=== PATIENT | male | born 1935 | race Caucasian/White ===

== ENCOUNTER 2016-12-04 00:28 | Emergency (ER) | payer MEDICARE, OTHER ==
--- NOTE | 2016-12-04 00:36 | ED ---
General Adult HPI - General Stated complaint: urinary issues Time Seen by Provider: 12/04/16 00:30 Source: RN notes reviewed - History of Present Illness Initial comments: This is an 81-year-old male who presents to the emergency department complaining of urinary retention. Patient states he has a Mathew in place and he hasn't been able to urinate for the last 5 hours. Patient states he's noticed some distention the suprapubic region and some pain in the suprapubic region. Patient states his Mathew bag is been empty for 5 hours. Patient denies any fever or chills. Patient states this has happened to him before and it has been a urinary tract infection the past. Patient denies any back pain. Patient denies nausea vomiting or diarrhea. Patient denies any other symptoms at this time. - Related Data Home Medications Medication Instructions Recorded Confirmed Furosemide [Lasix] 40 mg PO BID 06/13/14 05/13/16 HYDROcodone/APAP 10-325MG [[place] 1 tab PO Q6H PRN 03/28/15 05/13/16 10] Finasteride [Proscar] 5 mg PO HS 01/01/16 05/13/16 Allopurinol [Zyloprim] 100 mg PO DAILY 05/13/16 05/13/16 Aspirin EC [Ecotrin Low Dose] 81 mg PO DAILY 05/13/16 05/13/16 Atorvastatin [Lipitor] 40 mg PO HS 05/13/16 05/13/16 Diazepam [Valium] 5 mg PO HS 05/13/16 05/13/16 Doxazosin [Cardura] 4 mg PO BID 05/13/16 05/13/16 Fluticasone/Salmeterol [Advair Hfa 2 puff INHALATION RT-BID 05/13/16 05/13/16 230-21 Mcg Inhaler] Isosorbide Mononitrate ER [Imdur] 60 mg PO DAILY 05/13/16 05/13/16 Levothyroxine Sodium [Synthroid] 150 mcg PO HS 05/13/16 05/13/16 Losartan [Cozaar] 25 mg PO DAILY 05/13/16 05/13/16 PARoxetine [Paxil] 10 mg PO BID 05/13/16 05/13/16 [facility] 1 cap PO DAILY 05/13/16 05/13/16 Potassium Chloride [Klor-Con 20] 20 meq PO BID 05/13/16 05/13/16 glipiZIDE [Glucotrol] 5 mg PO HS 05/13/16 05/13/16 Previous Rx's Medication Instructions Recorded Ciprofloxacin HCl [Cipro] 500 mg PO DAILY #7 tablet 05/16/16 Ciprofloxacin HCl [Cipro] 500 mg PO Q12HR #20 tablet 12/04/16 Allergies Allergy/AdvReac Type Severity Reaction Status Date / Time tomato Allergy Swelling Verified 05/13/16 17:08 Review of Systems ROS Statement: Those systems with pertinent positive or pertinent negative responses have been documented in the HPI. ROS Other: All systems not noted in ROS Statement are negative. 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,NIDDM, pneumonia and encephalopathy 2nday to infection, home oxygen dependence-uses at night-3L/NC, urinary retention, UTI, bacteremia, osteomyelitis, SIR, chronic catheter, diabeticneuropathy, chronic renal failure , gout,hypothyroidism,Gait dysfunction uses wheelchair,DJD, severe constipation.gout,hypothyroidism,Gait dysfunction uses wheelchair,Chronic catheter History of Any Multi-Drug Resistant Organisms: MRSA Date of last positivie culture/infection: 04/09/16 MDRO Source:: right foot Past Surgical History: Back Surgery, Coronary Bypass/CABG, Hernia Repair Additional Past Surgical History / Comment(s): 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 Past Psychological History: Anxiety, Depression Additional Psychological History / Comment(s): Pt lives in his home. His keenan and grandson and grandson's girlfriend live with him. Family help him with his ADL's. Pt has a chairlift. Pt has an agency nurse from [place] that comes to the [facility] a week. The nurse checks his v/s and monitors his feet. They also provide him physical therapy. Pt uses o2 at 3L/NC atnight. Pt has a chronic mathew. He uses a back brace and an arm brace.He is wheelchair bound. Smoking Status: Current every day smoker Past Alcohol Use History: None Reported, Occasional Additional Past Alcohol Use History / Comment(s): STARTED SMOKING AT AGE 13 ON AND OFF- he currently smokes 1- 1 1/2 packs a day. Past Drug Use History: None Reported - Past Family History Sister(s) Family Medical History: Cancer Mother Family Medical History: Diabetes Mellitus Additional Family Medical History / Comment(s): Pt remembers only that his mom was obese. General Exam - General Exam Comments Initial Comments: GENERAL: Patient is well-developed and well-nourished. Patient is nontoxic and well- hydrated and is in mild distress. ENT: Neck is soft and supple. No significant lymphadenopathy is noted. Oropharynx is clear. Moist mucous membranes. Neck has full range of motion without eliciting any pain. EYES: The sclera were anicteric and conjunctiva were pink and moist. Extraocular movements were intact and pupils were equal round and reactive to light. Eyelids were unremarkable. PULMONARY: Unlabored respirations. Good breath sounds bilaterally. No audible rales rhonchi or wheezing was noted. CARDIOVASCULAR: There is a regular rate and rhythm without any murmurs gallops or rubs. ABDOMEN: Patient has some suprapubic tenderness as well as slight distention SKIN: Skin is clear with no lesions or rashes and otherwise unremarkable. NEUROLOGIC: Patient is alert and oriented 2. Cranial nerves II through XII are grossly intact. Motor and sensory are also intact. Normal speech, volume and content. Symmetrical smile. MUSCULOSKELETAL: Patient is a bilateral amputee LYMPHATICS: No significant lymphadenopathy is noted PSYCHIATRIC: Normal psychiatric evaluation. Course Vital Signs 12/04/16 12/04/16 00:38 01:20 Temperature 97.9 F Pulse Rate 77 Respiratory 16 16 Rate Blood Pressure 140/88 O2 Sat by Pulse 95 99 Oximetry Medical Decision Making - Medical Decision Making A bladder scanner was performed of the patient had 450 mL in the bladder however he was unable to urinate the catheter was flushed multiple times it did not seem to help a new catheter was placed immediately 450 mL of urine came into the back. Patient's urine did look infected so the patient received a gram of Rocephin. Patient will be sent home with antibiotics - Lab Data Result diagrams: 12/04/16 01:05 12/04/16 01:05 Lab Results 12/04/16 12/04/16 12/04/16 Range/Units 00:50 01:05 01:05 WBC 9.5 (3.8-10.6) k/uL RBC 3.88 L (4.30-5.90) m/uL Hgb 11.2 L (13.0-17.5) gm/dL Hct 34.8 L (39.0-53.0) % MCV 89.6 (80.0-100.0) fL MCH 28.8 (25.0-35.0) pg MCHC 32.2 (31.0-37.0) g/dL RDW 15.7 H (11.5-15.5) % Plt Count 241 (150-450) k/uL Neutrophils % 68 % Lymphocytes % 18 % Monocytes % 5 % Eosinophils % 7 % Basophils % 0 % Neutrophils # 6.4 (1.3-7.7) k/uL Lymphocytes # 1.8 (1.0-4.8) k/uL Monocytes # 0.5 (0-1.0) k/uL Eosinophils # 0.7 (0-0.7) k/uL Basophils # 0.0 (0-0.2) k/uL Sodium 139 (137-145) mmol/L Potassium 4.2 (3.5-5.1) mmol/L Chloride 103 (98-107) mmol/L Carbon Dioxide 25 (22-30) mmol/L Anion Gap 11 mmol/L BUN 19 (9-20) mg/dL Creatinine 1.10 (0.66-1.25) mg/dL Est GFR (MDRD) Af Amer >60 (>60 ml/min/1.73 sqM) Est GFR (MDRD) Non-Af >60 (>60 ml/min/1.73 sqM) Glucose 81 (74-99) mg/dL Calcium 9.7 (8.4-10.2) mg/dL Total Bilirubin 0.5 (0.2-1.3) mg/dL AST 38 (17-59) U/L ALT 30 (21-72) U/L Alkaline Phosphatase 118 (38-126) U/L Total Protein 6.7 (6.3-8.2) g/dL Albumin 3.7 (3.5-5.0) g/dL Urine Color Yellow Urine Appearance Cloudy (Clear) Urine pH 6.0 (5.0-8.0) Ur Specific [place] 1.008 (1.001-1.035) Urine Protein 1+ H (Negative) Urine Glucose (UA) Negative (Negative) Urine Ketones Negative (Negative) Urine Blood Small H (Negative) Urine Nitrite Positive (Negative) Urine Bilirubin Negative (Negative) Urine Urobilinogen <2.0 (<2.0) mg/dL Ur Leukocyte Esterase Large H (Negative) Urine RBC 12 H (0-5) /hpf Urine WBC 56 H (0-5) /hpf Urine WBC Clumps Moderate H (None) /hpf Ur Squamous Epith Cells 1 (0-4) /hpf Urine Bacteria Moderate H (None) /hpf Urine Mucus Occasional H (None) /hpf Disposition Clinical Impression: Urinary retention, Urinary tract infection Disposition: HOME SELF-CARE Condition: Good Prescriptions: Ciprofloxacin HCl [Cipro] 500 mg PO Q12HR #20 tablet Referrals: Vern Mills MD [Primary Care Provider] - 1-2 days Time of Disposition: 01:51
[2016-12-04 00:43] VITALS: RESP 16; TEMP 97.9
[2016-12-04 01:06] LABS: Appearance,Urine Cloudy (Clear); Bacteria,Urine Moderate /hpf; Bilirubin,Urine Negative (Negative); Glucose,Urine (UA) Negative (Negative); Ketones,Urine Negative (Negative); Leukocyte Esterase,Urine Large (Negative); Mucus,Urine Occasional /hpf; Nitrite,Urine Positive (Negative); Particle Count 99115; Protein,Urine 1+ (Negative); RBC,Urine 12 /hpf (0-5); Specific Gravity,Urine 1.008 (1.001-1.035); Squamous Epithelial Cell,Urine 1 /hpf (0-4); UA Billing (MACRO vs. MICRO) MICRO; Urobilinogen,Urine <2.0 mg/dL (<2.0); WBC,Urine 56 /hpf (0-5)
[2016-12-04 01:28] LABS: Basophils % (A) 0 %; CHCM 32.6; Eosinophils # (A) 0.7 k/uL (0-0.7); Eosinophils % (A) 7 %; HCT 34.8 % (39.0-53.0); HDW 2.44; HGB 11.2 gm/dL (13.0-17.5); Luc # (Auto) 0.16; Luc % (Auto) 2; Lymphocytes # (A) 1.8 k/uL (1.0-4.8); Lymphocytes % (A) 18 %; MCH 28.8 pg (25.0-35.0); MCHC 32.2 g/dL (31.0-37.0); MCV 89.6 fL (80.0-100.0); Mean Platelet Volume 6.9; Monocytes # (A) 0.5 k/uL (0-1.0); Monocytes % (A) 5 %; Neutrophils # (A) 6.4 k/uL (1.3-7.7); Neutrophils % (A) 68 %; RBC 3.88 m/uL (4.30-5.90); RDW 15.7 % (11.5-15.5); WBC 9.5 k/uL (3.8-10.6); WBC (Perox) 9.64
[2016-12-04 01:33] LABS: ALT 30 U/L (21-72); AST 38 U/L (17-59); Alkaline Phosphatase 118 U/L (38-126); Anion Gap 11 mmol/L; Blood Urea Nitrogen 19 mg/dL (9-20); Calcium 9.7 mg/dL (8.4-10.2); Carbon Dioxide 25 mmol/L (22-30); Chloride 103 mmol/L (98-107); Glucose 81 mg/dL (74-99); Non-African American GFR(MDRD) >60 (>60 ml/min/1.73 sqM); Potassium 4.2 mmol/L (3.5-5.1); Sodium 139 mmol/L (137-145); Total Bilirubin 0.5 mg/dL (0.2-1.3); Total Protein 6.7 g/dL (6.3-8.2)
[2016-12-04 02:38] VITALS: BP 138/80; PULSE 70
== END 2016-12-04 02:37 | disposition home or self-care (01) ==
LOC: EC 00:28
DX: N39.0 Urinary tract infection, site not specified (principal); R10.30 Lower abdominal pain, unspecified; J45.909 Unspecified asthma, uncomplicated; E11.9 Type 2 diabetes mellitus without complications; E07.9 Disorder of thyroid, unspecified; E78.5 Hyperlipidemia, unspecified; I10 Essential (primary) hypertension; E03.9 Hypothyroidism, unspecified; M10.9 Gout, unspecified; F41.9 Anxiety disorder, unspecified; F32.9 Major depressive disorder, single episode, unspecified; F17.200 Nicotine dependence, unspecified, uncomplicated; N42.9 Disorder of prostate, unspecified; Z79.82 Long term (current) use of aspirin; Z79.899 Other long term (current) drug therapy; Z79.51 Long term (current) use of inhaled steroids; Z91.018 Allergy to other foods; Z87.01 Personal history of pneumonia (recurrent)
CPT/HCPCS: 36415; 80053; 85025; 81001; 99283; 51702; J0696

== ENCOUNTER 2017-01-22 02:28 | Emergency (ER) | payer MEDICARE, OTHER ==
[2017-01-22 02:35] VITALS: RESP 18
[2017-01-22 03:16] LABS: Amorphous Sediment,Urine Occasional /hpf; Appearance,Urine Cloudy (Clear); Bilirubin,Urine Negative (Negative); Glucose,Urine (UA) Negative (Negative); Ketones,Urine Negative (Negative); Leukocyte Esterase,Urine Large (Negative); Mucus,Urine Rare /hpf; Nitrite,Urine Negative (Negative); PH, Urine 5.5 (5.0-8.0); Particle Count 5457; Protein,Urine Trace (Negative); RBC,Urine 103 /hpf (0-5); Specific Gravity,Urine 1.005 (1.001-1.035); UA Billing (MACRO vs. MICRO) MICRO; Urobilinogen,Urine <2.0 mg/dL (<2.0); WBC,Urine 13 /hpf (0-5)
--- NOTE | 2017-01-22 04:03 | ED ---
Male Urogenital HPI - General Chief complaint: Urogenital Stated complaint: Male Time Seen by Provider: 01/22/17 02:31 Source: patient, EMS Mode of arrival: EMS Limitations: no limitations - History of Present Illness Initial comments: This patient is an 82-year-old man who comes in by EMS to be evaluated after he had noted that his catheter has stopped draining. The patient is also having the urge to urinate and feeling suprapubic pressure type pain. Patient denies fever or chills, nausea or vomiting, back pain or other abdominal pain. MD Complaint: other (Mathew catheter malfunction) -: hour(s) Location: abdomen Radiation: none Severity: moderate Quality: other (Pressure) Consistency: constant Improves with: none Worsens with: none indwelling catheter Reports: denies other symptoms, urinary retention - Related Data Home Medications Medication Instructions Recorded Confirmed Furosemide [Lasix] 40 mg PO BID 06/13/14 05/13/16 HYDROcodone/APAP 10-325MG [[place] 1 tab PO Q6H PRN 03/28/15 05/13/16 10] Finasteride [Proscar] 5 mg PO HS 01/01/16 05/13/16 Allopurinol [Zyloprim] 100 mg PO DAILY 05/13/16 05/13/16 Aspirin EC [Ecotrin Low Dose] 81 mg PO DAILY 05/13/16 05/13/16 Atorvastatin [Lipitor] 40 mg PO HS 05/13/16 05/13/16 Diazepam [Valium] 5 mg PO HS 05/13/16 05/13/16 Doxazosin [Cardura] 4 mg PO BID 05/13/16 05/13/16 Fluticasone/Salmeterol [Advair Hfa 2 puff INHALATION RT-BID 05/13/16 05/13/16 230-21 Mcg Inhaler] Isosorbide Mononitrate ER [Imdur] 60 mg PO DAILY 05/13/16 05/13/16 Levothyroxine Sodium [Synthroid] 150 mcg PO HS 05/13/16 05/13/16 Losartan [Cozaar] 25 mg PO DAILY 05/13/16 05/13/16 PARoxetine [Paxil] 10 mg PO BID 05/13/16 05/13/[address] [facility] 1 cap PO DAILY 05/13/16 05/13/16 Potassium Chloride [Klor-Con 20] 20 meq PO BID 05/13/16 05/13/16 glipiZIDE [Glucotrol] 5 mg PO HS 05/13/16 05/13/16 Previous Rx's Medication Instructions Recorded Ciprofloxacin HCl [Cipro] 500 mg PO DAILY #7 tablet 05/16/16 Ciprofloxacin HCl [Cipro] 500 mg PO Q12HR #20 tablet 12/04/16 Allergies Allergy/AdvReac Type Severity Reaction Status Date / Time tomato Allergy Swelling Verified 01/22/17 02:39 Review of Systems ROS Statement: Those systems with pertinent positive or pertinent negative responses have been documented in the HPI. ROS Other: All systems not noted in ROS Statement are negative. Constitutional: Denies: fever, chills, weakness Respiratory: Denies: cough, dyspnea Cardiovascular: Denies: chest pain, palpitations, edema, syncope Gastrointestinal: Reports: as per HPI, abdominal pain. Denies: nausea, vomiting Genitourinary: Reports: as per HPI, other. 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,NIDDM, pneumonia and encephalopathy 2nday to infection, home oxygen dependence-uses at night-3L/NC, urinary retention, UTI, bacteremia, osteomyelitis, SIR, chronic catheter, diabeticneuropathy, chronic renal failure , gout,hypothyroidism,Gait dysfunction uses wheelchair,DJD, severe constipation.gout,hypothyroidism,Gait dysfunction uses wheelchair,Chronic catheter History of Any Multi-Drug Resistant Organisms: MRSA Date of last positivie culture/infection: 04/09/16 MDRO Source:: right foot Past Surgical History: Back Surgery, Coronary Bypass/CABG, Hernia Repair Additional Past Surgical History / Comment(s): 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 Past Psychological History: Anxiety, Depression Additional Psychological History / Comment(s): Pt lives in his home. His keenan and grandson and grandson's girlfriend live with him. Family help him with his ADL's. Pt has a chairlift. Pt has an agency nurse from [place] that comes to the [facility] a week. The nurse checks his v/s and monitors his feet. They also provide him physical therapy. Pt uses o2 at 3L/NC atnight. Pt has a chronic mathew. He uses a back brace and an arm brace.He is wheelchair bound. Smoking Status: Current every day smoker Past Alcohol Use History: None Reported, Occasional Additional Past Alcohol Use History / Comment(s): STARTED SMOKING AT AGE 13 ON AND OFF- he currently smokes 1- 1 1/2 packs a day. Past Drug Use History: None Reported - Past Family History Sister(s) Family Medical History: Cancer Mother Family Medical History: Diabetes Mellitus Additional Family Medical History / Comment(s): Pt remembers only that his mom was obese. General Exam Limitations: no limitations General appearance: alert, in no apparent distress Head exam: Present: atraumatic, normocephalic Respiratory exam: Present: normal lung sounds bilaterally. Absent: respiratory distress, wheezes, rales, rhonchi, stridor Cardiovascular Exam: Present: regular rate, normal rhythm, normal heart sounds. Absent: systolic murmur, diastolic murmur, rubs, gallop GI/Abdominal exam: Present: soft, tenderness (Mild suprapubic tenderness), guarding. Absent: distended, rebound, rigid, hernia Extremities exam: Present: other (Bilateral AKA) Back exam: Present: normal inspection. Absent: CVA tenderness (R), CVA tenderness (L) Neurological exam: Present: alert Skin exam: Present: warm, dry, intact, normal color. Absent: rash Course Vital Signs 01/22/17 01/22/17 02:31 04:13 Temperature 98.5 F 99.2 F Pulse Rate 87 84 Respiratory 18 18 Rate Blood Pressure 160/72 120/66 O2 Sat by Pulse 96 95 Oximetry Medical Decision Making - Medical Decision Making Patient is an 82-year-old man presenting with Mathew catheter malfunction. The catheter was changed by nursing staff and is draining appropriately. Urine specimen was sent which shows probable UTI and the patient currently is on medication. Culture sent - Lab Data Lab Results 01/22/17 Range/Units 03:00 Urine Color Yellow Urine Appearance Cloudy (Clear) Urine pH 5.5 (5.0-8.0) Ur Specific [place] 1.005 (1.001-1.035) Urine Protein Trace H (Negative) Urine Glucose (UA) Negative (Negative) Urine Ketones Negative (Negative) Urine Blood Large H (Negative) Urine Nitrite Negative (Negative) Urine Bilirubin Negative (Negative) Urine Urobilinogen <2.0 (<2.0) mg/dL Ur Leukocyte Esterase Large H (Negative) Urine RBC 103 H (0-5) /hpf Urine WBC 13 H (0-5) /hpf Urine WBC Clumps Few H (None) /hpf Amorphous Sediment Occasional H (None) /hpf Urine Mucus Rare H (None) /hpf Disposition Clinical Impression: Malfunction of Mathew catheter, Catheter-associated urinary tract infection Disposition: HOME SELF-CARE Condition: Fair Referrals: Vern Mills MD [Primary Care Provider] - 1-2 days
[2017-01-22 04:14] VITALS: BP 120/66; PULSE 84; TEMP 99.2
== END 2017-01-22 04:17 | disposition home or self-care (01) ==
LOC: EC 02:28
DX: T83.098A Other mechanical complication of other urinary catheter, initial encounter (principal); N39.0 Urinary tract infection, site not specified; J45.909 Unspecified asthma, uncomplicated; I10 Essential (primary) hypertension; N42.9 Disorder of prostate, unspecified; E03.9 Hypothyroidism, unspecified; N28.9 Disorder of kidney and ureter, unspecified; E11.40 Type 2 diabetes mellitus with diabetic neuropathy, unspecified; F32.9 Major depressive disorder, single episode, unspecified; F41.9 Anxiety disorder, unspecified; F17.200 Nicotine dependence, unspecified, uncomplicated; Z79.82 Long term (current) use of aspirin; Z79.84 Long term (current) use of oral hypoglycemic drugs; Z79.899 Other long term (current) drug therapy; Z91.018 Allergy to other foods
CPT/HCPCS: 51702; 81001; 87077; 87086; 87186; 99283

== ENCOUNTER 2017-02-17 18:37 | Emergency (ER) | payer MEDICARE, OTHER ==
[2017-02-17 19:04] VITALS: BP 101/58; PULSE 89; RESP 18; TEMP 98.4
--- NOTE | 2017-02-17 20:30 | ED ---
Male Urogenital HPI - General Chief complaint: Urogenital Stated complaint: Catheter Problem Time Seen by Provider: 02/17/17 19:37 Source: patient, RN notes reviewed, old records reviewed Mode of arrival: EMS Limitations: no limitations - History of Present Illness Initial comments: Is an 82-year-old male presenting with chief complaint of a blocked Mathew catheter. Patient reports that he was recently changed by his at home care nurse today. Patient states that he has had an indwelling catheter due to paraplegia. 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 Patient reports that he is feeling distended and painful. - Related Data Home Medications Medication Instructions Recorded Confirmed Furosemide [Lasix] 40 mg PO BID 06/13/14 02/17/17 HYDROcodone/APAP 10-325MG [[place] 1 tab PO Q6H PRN 03/28/15 02/17/17 10] Finasteride [Proscar] 5 mg PO HS 01/01/16 02/17/17 Allopurinol [Zyloprim] 100 mg PO DAILY 05/13/16 02/17/17 Aspirin EC [Ecotrin Low Dose] 81 mg PO DAILY 05/13/16 02/17/17 Atorvastatin [Lipitor] 40 mg PO HS 05/13/16 02/17/17 Doxazosin [Cardura] 4 mg PO BID 05/13/16 02/17/17 Fluticasone/Salmeterol [Advair Hfa 2 puff INHALATION RT-BID 05/13/16 02/17/17 230-21 Mcg Inhaler] Isosorbide Mononitrate ER [Imdur] 60 mg PO DAILY 05/13/16 02/17/17 Levothyroxine Sodium [Synthroid] 150 mcg PO HS 05/13/16 02/17/17 Losartan [Cozaar] 25 mg PO DAILY 05/13/16 02/17/17 PARoxetine [Paxil] 10 mg PO BID 05/13/16 02/17/17 Potassium Chloride [Klor-Con 20] 20 meq PO BID 05/13/16 02/17/17 glipiZIDE [Glucotrol] 5 mg PO HS 05/13/16 02/17/17 Previous Rx's Medication Instructions Recorded Ciprofloxacin HCl [Cipro] 500 mg PO Q12HR #14 tablet 02/17/17 Allergies Allergy/AdvReac Type Severity Reaction Status Date / Time tomato Allergy Swelling Verified 02/17/17 19:33 Review of Systems ROS Statement: Those systems with pertinent positive or pertinent negative responses have been documented in the HPI. ROS Other: All systems not noted in ROS Statement are negative. 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,NIDDM, pneumonia and encephalopathy 2nday to infection, home oxygen dependence-uses at night-3L/NC, urinary retention, UTI, bacteremia, osteomyelitis, SIR, chronic catheter, diabeticneuropathy, chronic renal failure , gout,hypothyroidism,Gait dysfunction uses wheelchair,DJD, severe constipation.gout,hypothyroidism,Gait dysfunction uses wheelchair,Chronic catheter History of Any Multi-Drug Resistant Organisms: MRSA Date of last positivie culture/infection: 04/09/16 MDRO Source:: right foot Past Surgical History: Back Surgery, Coronary Bypass/CABG, Hernia Repair Additional Past Surgical History / Comment(s): 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 Past Psychological History: Anxiety, Depression Additional Psychological History / Comment(s): Pt lives in his home. His keenan and grandson and grandson's girlfriend live with him. Family help him with his ADL's. Pt has a chairlift. Pt has an agency nurse from [place] that comes to the [facility] a week. The nurse checks his v/s and monitors his feet. They also provide him physical therapy. Pt uses o2 at 3L/NC atnight. Pt has a chronic mathew. He uses a back brace and an arm brace.He is wheelchair bound. Smoking Status: Current every day smoker Past Alcohol Use History: Occasional Additional Past Alcohol Use History / Comment(s): STARTED SMOKING AT AGE 13 ON AND OFF- he currently smokes 1- 1 1/2 packs a day. Past Drug Use History: None Reported - Past Family History Sister(s) Family Medical History: Cancer Mother Family Medical History: Diabetes Mellitus Additional Family Medical History / Comment(s): Pt remembers only that his mom was obese. General Exam - General Exam Comments Initial Comments: Well-appearing 82-year-old male. No distress. Limitations: no limitations General appearance: alert, in no apparent distress Head exam: Present: atraumatic, normocephalic, normal inspection Eye exam: Present: normal appearance, PERRL, EOMI. Absent: scleral icterus, conjunctival injection, periorbital swelling ENT exam: Present: normal exam, mucous membranes moist Neck exam: Present: normal inspection. Absent: tenderness, meningismus, lymphadenopathy Respiratory exam: Present: normal lung sounds bilaterally. Absent: respiratory distress, wheezes, rales, rhonchi, stridor Cardiovascular Exam: Present: regular rate, normal rhythm, normal heart sounds. Absent: systolic murmur, diastolic murmur, rubs, gallop, clicks GI/Abdominal exam: Present: soft, tenderness (suprapubic tenderness), normal bowel sounds. Absent: distended, guarding, rebound, rigid exam: Present: other (Patient has a indwelling mathew catheter. ) Extremities exam: Present: full ROM, normal capillary refill, other. Absent: normal inspection (triple amputee), tenderness, pedal edema, joint swelling, calf tenderness Back exam: Present: normal inspection Neurological exam: Present: alert Psychiatric exam: Present: normal affect, normal mood Skin exam: Present: warm, dry, intact, normal color. Absent: rash Course Vital Signs 02/17/17 18:53 Temperature 98.4 F Pulse Rate 89 Respiratory 18 Rate Blood Pressure 101/58 O2 Sat by Pulse 97 Oximetry Medical Decision Making - Medical Decision Making 82-year-old male presenting with a blocked catheter. Patient was given a new catheter and 2 L of urine was drained. Patient reports he feels much better. Patient's urine does show signs of urinary tract infection. Patient will be discharged with Cipro. Discuss close follow-up with primary care provider. Patient understands history plan will comply. Return parameters were discussed. - Lab Data Lab Results 02/17/17 Range/Units 20:30 Urine Color Light Yellow Urine Appearance Clear (Clear) Urine pH 5.5 (5.0-8.0) Ur Specific [place] 1.007 (1.001-1.035) Urine Protein Trace H (Negative) Urine Glucose (UA) Negative (Negative) Urine Ketones Negative (Negative) Urine Blood Small H (Negative) Urine Nitrite Negative (Negative) Urine Bilirubin Negative (Negative) Urine Urobilinogen <2.0 (<2.0) mg/dL Ur Leukocyte Esterase Large H (Negative) Urine RBC 22 H (0-5) /hpf Urine WBC 29 H (0-5) /hpf Urine WBC Clumps Occasional H (None) /hpf Amorphous Sediment Rare H (None) /hpf Urine Bacteria Many H (None) /hpf Hyaline Casts 5 H (0-2) /lpf Urine Mucus Rare H (None) /hpf Disposition Clinical Impression: Blocked urinary catheter, UTI (urinary tract infection) Disposition: HOME SELF-CARE Condition: Good Instructions: Urinary Tract Infection in Men (ED), Mathew Catheter Placement and Care (ED) Additional Instructions: Patient advised to follow-up with primary care physician within next 2-3 days. Return to emergency department if any alarming signs or symptoms occur. Prescriptions: Ciprofloxacin HCl [Cipro] 500 mg PO Q12HR #14 tablet Referrals: Vern Mills MD [Primary Care Provider] - 1-2 days Time of Disposition: 20:29
[2017-02-17 20:57] LABS: Amorphous Sediment,Urine Rare /hpf; Appearance,Urine Clear (Clear); Bacteria,Urine Many /hpf; Bilirubin,Urine Negative (Negative); Glucose,Urine (UA) Negative (Negative); Ketones,Urine Negative (Negative); Leukocyte Esterase,Urine Large (Negative); Mucus,Urine Rare /hpf; Nitrite,Urine Negative (Negative); PH, Urine 5.5 (5.0-8.0); Particle Count 10342; Protein,Urine Trace (Negative); RBC,Urine 22 /hpf (0-5); Specific Gravity,Urine 1.007 (1.001-1.035); UA Billing (MACRO vs. MICRO) MICRO; Urobilinogen,Urine <2.0 mg/dL (<2.0); WBC,Urine 29 /hpf (0-5)
[2017-02-17] MEDS ORDERED: CIPROFLOXACIN HCL 500 MG TAB PO STA (21:06)
== END 2017-02-17 21:15 | disposition home or self-care (01) ==
LOC: EC 18:37
DX: T83.592A Infection and inflammatory reaction due to indwelling ureteral stent, initial encounter (principal); N39.0 Urinary tract infection, site not specified; E78.5 Hyperlipidemia, unspecified; I12.9 Hypertensive chronic kidney disease with stage 1 through stage 4 chronic kidney disease, or unspecified chronic kidney disease; N18.9 Chronic kidney disease, unspecified; E11.22 Type 2 diabetes mellitus with diabetic chronic kidney disease; E11.40 Type 2 diabetes mellitus with diabetic neuropathy, unspecified; E03.9 Hypothyroidism, unspecified; N42.9 Disorder of prostate, unspecified; M10.9 Gout, unspecified; J45.909 Unspecified asthma, uncomplicated; F17.200 Nicotine dependence, unspecified, uncomplicated; Z79.82 Long term (current) use of aspirin; Z79.84 Long term (current) use of oral hypoglycemic drugs; Z79.51 Long term (current) use of inhaled steroids; Z79.899 Other long term (current) drug therapy; Z91.018 Allergy to other foods; Z99.81 Dependence on supplemental oxygen; Z99.3 Dependence on wheelchair; Z87.39 Personal history of other diseases of the musculoskeletal system and connective tissue; Y73.8 Miscellaneous gastroenterology and urology devices associated with adverse incidents, not elsewhere classified
CPT/HCPCS: 51702; 81001; 87077; 87086; 87186; 99284

== ENCOUNTER 2017-04-09 00:38 | Emergency (ER) | payer MEDICARE, OTHER ==
--- NOTE | 2017-04-09 01:24 | ED ---
General Adult HPI - General Chief complaint: Urogenital Stated complaint: unable to urinate Time Seen by Provider: 04/09/17 00:40 Source: patient, EMS, RN notes reviewed Mode of arrival: EMS Limitations: physical limitation - History of Present Illness Initial comments: This is an 82-year-old male who presents emergency department stating that he is unable to urinate. Patient has a catheter in place currently nursing has replaced the catheter now history incomplete. Patient states he still has occasional abdominal cramping he wonders if he is constipated. Patient denies any fever chills or cough per patient denies any back pain. Patient denies any recent injury or trauma. Patient denies any chest pain difficulty breathing [place] of breath. - Related Data Home Medications Medication Instructions Recorded Confirmed Furosemide [Lasix] 40 mg PO BID 06/13/14 04/09/17 HYDROcodone/APAP 10-325MG [[place] 1 tab PO Q6H PRN 03/28/15 04/09/17 10] Finasteride [Proscar] 5 mg PO HS 01/01/16 04/09/17 Allopurinol [Zyloprim] 100 mg PO DAILY 05/13/16 04/09/17 Aspirin EC [Ecotrin Low Dose] 81 mg PO DAILY 05/13/16 04/09/17 Atorvastatin [Lipitor] 40 mg PO HS 05/13/16 04/09/17 Doxazosin [Cardura] 4 mg PO BID 05/13/16 04/09/17 Fluticasone/Salmeterol [Advair Hfa 2 puff INHALATION RT-BID 05/13/16 04/09/17 230-21 Mcg Inhaler] Isosorbide Mononitrate ER [Imdur] 60 mg PO DAILY 05/13/16 04/09/17 Levothyroxine Sodium [Synthroid] 150 mcg PO HS 05/13/16 04/09/17 Losartan [Cozaar] 25 mg PO DAILY 05/13/16 04/09/17 PARoxetine [Paxil] 10 mg PO BID 05/13/16 04/09/17 Potassium Chloride [Klor-Con 20] 20 meq PO BID 05/13/16 04/09/17 glipiZIDE [Glucotrol] 5 mg PO HS 05/13/16 04/09/17 Previous Rx's Medication Instructions Recorded Ciprofloxacin HCl [Cipro] 500 mg PO Q12HR #14 tablet 02/17/17 Ciprofloxacin HCl [Cipro] 500 mg PO Q12HR #20 tablet 04/09/17 Allergies Allergy/AdvReac Type Severity Reaction Status Date / Time tomato Allergy Swelling Verified 04/09/17 01:01 Review of Systems ROS Statement: Those systems with pertinent positive or pertinent negative responses have been documented in the HPI. ROS Other: All systems not noted in ROS Statement are negative. 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,NIDDM, pneumonia and encephalopathy 2nday to infection, home oxygen dependence-uses at night-3L/NC, urinary retention, UTI, bacteremia, osteomyelitis, SIR, chronic catheter, diabeticneuropathy, chronic renal failure , gout,hypothyroidism,Gait dysfunction uses wheelchair,DJD, severe constipation.gout,hypothyroidism,Gait dysfunction uses wheelchair,Chronic catheter History of Any Multi-Drug Resistant Organisms: MRSA Date of last positivie culture/infection: 04/09/16 MDRO Source:: right foot Past Surgical History: Back Surgery, Coronary Bypass/CABG, Hernia Repair Additional Past Surgical History / Comment(s): 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 Past Psychological History: Anxiety, Depression Smoking Status: Current every day smoker Past Alcohol Use History: Occasional Past Drug Use History: None Reported - Past Family History Sister(s) Family Medical History: Cancer Mother Family Medical History: Diabetes Mellitus Additional Family Medical History / Comment(s): Pt remembers only that his mom was obese. General Exam - General Exam Comments Initial Comments: GENERAL: Patient is well-developed and well-nourished. Patient is nontoxic and well- hydrated and is in no acute distress. ENT: Neck is soft and supple. No significant lymphadenopathy is noted. Oropharynx is clear. Moist mucous membranes. Neck has full range of motion without eliciting any pain. EYES: The sclera were anicteric and conjunctiva were pink and moist. Extraocular movements were intact and pupils were equal round and reactive to light. Eyelids were unremarkable. PULMONARY: Unlabored respirations. Good breath sounds bilaterally. No audible rales rhonchi or wheezing was noted. CARDIOVASCULAR: There is a regular rate and rhythm without any murmurs gallops or rubs. ABDOMEN: Soft and nontender with normal bowel sounds. No palpable organomegaly was noted. There is no palpable pulsatile mass. SKIN: Skin is clear with no lesions or rashes and otherwise unremarkable. NEUROLOGIC: Patient is alert and oriented x3. Cranial nerves II through XII are grossly intact. Motor and sensory are also intact. Normal speech, volume and content. Symmetrical smile. MUSCULOSKELETAL: Patient has bilateral AKA LYMPHATICS: No significant lymphadenopathy is noted PSYCHIATRIC: Normal psychiatric evaluation. Limitations: physical limitation Course Vital Signs 04/09/17 00:40 Temperature 97.8 F Pulse Rate 85 Respiratory 20 Rate Blood Pressure 137/79 O2 Sat by Pulse 95 Oximetry Medical Decision Making - Lab Data Lab Results 04/09/17 Range/Units 01:24 Urine Color Light Yellow Urine Appearance Clear (Clear) Urine pH 5.5 (5.0-8.0) Ur Specific [place] 1.007 (1.001-1.035) Urine Protein Trace H (Negative) Urine Glucose (UA) Negative (Negative) Urine Ketones Negative (Negative) Urine Blood Moderate H (Negative) Urine Nitrite Negative (Negative) Urine Bilirubin Negative (Negative) Urine Urobilinogen <2.0 (<2.0) mg/dL Ur Leukocyte Esterase Large H (Negative) Urine RBC 101 H (0-5) /hpf Urine WBC 71 H (0-5) /hpf Urine WBC Clumps Few H (None) /hpf Ur Squamous Epith Cells <1 (0-4) /hpf Hyaline Casts 475 H (0-2) /lpf Urine Mucus Rare H (None) /hpf Disposition Clinical Impression: Urinary retention, Urinary tract infection Disposition: HOME SELF-CARE Instructions: Urinary Tract Infection in Men (ED) Prescriptions: Ciprofloxacin HCl [Cipro] 500 mg PO Q12HR #20 tablet Referrals: Vern Mills MD [Primary Care Provider] - 1-2 days Time of Disposition: 02:01
[2017-04-09 01:53] LABS: Appearance,Urine Clear (Clear); Bilirubin,Urine Negative (Negative); Glucose,Urine (UA) Negative (Negative); Ketones,Urine Negative (Negative); Leukocyte Esterase,Urine Large (Negative); Mucus,Urine Rare /hpf; Nitrite,Urine Negative (Negative); PH, Urine 5.5 (5.0-8.0); Particle Count 3448; Protein,Urine Trace (Negative); RBC,Urine 101 /hpf (0-5); Specific Gravity,Urine 1.007 (1.001-1.035); Squamous Epithelial Cell,Urine <1 /hpf (0-4); UA Billing (MACRO vs. MICRO) MICRO; Urobilinogen,Urine <2.0 mg/dL (<2.0); WBC,Urine 71 /hpf (0-5)
[2017-04-09] MEDS ORDERED: cefTRIAXone 1,000 MG VIAL (IM USE) IM STA (02:00)
--- NOTE | 2017-04-09 02:01 | XR ---
EXAM: XR Abdomen, 1 View CLINICAL HISTORY: Reason: Pain TECHNIQUE: Frontal supine view of the abdomen/pelvis. COMPARISON: None FINDINGS: Hardware: None. Abdomen: Nonobstructive bowel gas pattern. No definite free air. Small stool ball in the rectum. Bones: Spinal fusion hardware extending from L3-S1. Mild degenerative changes of hips. Degenerative changes of the spine. Generalized osteopenia. Soft tissues: Vascular calcifications. Lower chest: Fragmented median sternotomy wires and mediastinal surgical clips partially visualized. IMPRESSION: No evidence of bowel obstruction.
[2017-04-09 02:25] VITALS: BP 105/57; PULSE 72; RESP 14; TEMP 97
== END 2017-04-09 02:25 | disposition home or self-care (01) ==
LOC: EC 00:38
DX: N39.0 Urinary tract infection, site not specified (principal); R33.9 Retention of urine, unspecified; I12.9 Hypertensive chronic kidney disease with stage 1 through stage 4 chronic kidney disease, or unspecified chronic kidney disease; E11.22 Type 2 diabetes mellitus with diabetic chronic kidney disease; N18.9 Chronic kidney disease, unspecified; E11.40 Type 2 diabetes mellitus with diabetic neuropathy, unspecified; E78.5 Hyperlipidemia, unspecified; J45.909 Unspecified asthma, uncomplicated; E03.9 Hypothyroidism, unspecified; F32.9 Major depressive disorder, single episode, unspecified; F41.9 Anxiety disorder, unspecified; F17.200 Nicotine dependence, unspecified, uncomplicated; Z86.14 Personal history of Methicillin resistant Staphylococcus aureus infection; Z95.1 Presence of aortocoronary bypass graft; Z99.81 Dependence on supplemental oxygen; Z91.018 Allergy to other foods; Z79.51 Long term (current) use of inhaled steroids; Z79.82 Long term (current) use of aspirin; Z79.84 Long term (current) use of oral hypoglycemic drugs; Z79.899 Other long term (current) drug therapy
CPT/HCPCS: 99284; 51702; 96372; 51798; 81001; 74000; J0696

== ENCOUNTER 2017-05-20 02:36 | Emergency (ER) | payer MEDICARE, OTHER ==
--- NOTE | 2017-05-20 02:46 | ED ---
General Adult HPI - General Stated complaint: Catheter complications Time Seen by Provider: 05/20/17 02:36 Source: RN notes reviewed - History of Present Illness Initial comments: This is an 82-year-old male who presents emergency Department because he is having some suprapubic fullness and he believes his catheter is again plugged. Patient states he hasn't had any urine output over 3 hours. Patient states this has happened on multiple occasions. Patient denies any blood in the urine. Patient denies any recent fever or chills. Patient states he has lower abdominal pain only. There is no radiation of the pain. - Related Data Home Medications Medication Instructions Recorded Confirmed Furosemide [Lasix] 40 mg PO BID 06/13/14 04/09/17 HYDROcodone/APAP 10-325MG [[place] 1 tab PO Q6H PRN 03/28/15 04/09/17 10] Finasteride [Proscar] 5 mg PO HS 01/01/16 04/09/17 Allopurinol [Zyloprim] 100 mg PO DAILY 05/13/16 04/09/17 Aspirin EC [Ecotrin Low Dose] 81 mg PO DAILY 05/13/16 04/09/17 Atorvastatin [Lipitor] 40 mg PO HS 05/13/16 04/09/17 Doxazosin [Cardura] 4 mg PO BID 05/13/16 04/09/17 Fluticasone/Salmeterol [Advair Hfa 2 puff INHALATION RT-BID 05/13/16 04/09/17 230-21 Mcg Inhaler] Isosorbide Mononitrate ER [Imdur] 60 mg PO DAILY 05/13/16 04/09/17 Levothyroxine Sodium [Synthroid] 150 mcg PO HS 05/13/16 04/09/17 Losartan [Cozaar] 25 mg PO DAILY 05/13/16 04/09/17 PARoxetine [Paxil] 10 mg PO BID 05/13/16 04/09/17 Potassium Chloride [Klor-Con 20] 20 meq PO BID 05/13/16 04/09/17 glipiZIDE [Glucotrol] 5 mg PO HS 05/13/16 04/09/17 Previous Rx's Medication Instructions Recorded Ciprofloxacin HCl [Cipro] 500 mg PO Q12HR #14 tablet 02/17/17 Ciprofloxacin HCl [Cipro] 500 mg PO Q12HR #20 tablet 04/09/17 Allergies Allergy/AdvReac Type Severity Reaction Status Date / Time tomato Allergy Swelling Verified 04/09/17 01:01 Review of Systems ROS Statement: Those systems with pertinent positive or pertinent negative responses have been documented in the HPI. ROS Other: All systems not noted in ROS Statement are negative. 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,NIDDM, pneumonia and encephalopathy 2nday to infection, home oxygen dependence-uses at night-3L/NC, urinary retention, UTI, bacteremia, osteomyelitis, SIR, chronic catheter, diabeticneuropathy, chronic renal failure , gout,hypothyroidism,Gait dysfunction uses wheelchair,DJD, severe constipation.gout,hypothyroidism,Gait dysfunction uses wheelchair,Chronic catheter History of Any Multi-Drug Resistant Organisms: MRSA Date of last positivie culture/infection: 04/09/16 MDRO Source:: right foot Past Surgical History: Back Surgery, Coronary Bypass/CABG, Hernia Repair Additional Past Surgical History / Comment(s): 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 Past Psychological History: Anxiety, Depression Smoking Status: Current every day smoker Past Alcohol Use History: Occasional Past Drug Use History: None Reported - Past Family History Sister(s) Family Medical History: Cancer Mother Family Medical History: Diabetes Mellitus Additional Family Medical History / Comment(s): Pt remembers only that his mom was obese. General Exam - General Exam Comments Initial Comments: GENERAL Patient is well-developed and well-nourished. Patient is in mild distress. EYES Patient's pupils are equal and round. Extraocular motion is intact ABDOMEN Abdomen is tender in the suprapubic region and mildly distended SKIN Unremarkable NEURO The patient is alert and oriented 3 PYSCH Patient has normal interpersonal interactions. MUSCULOSKELETAL Disposition Clinical Impression: Urinary retention Disposition: HOME SELF-CARE Condition: Good Instructions: Urinary Retention in Men (ED) Referrals: Vern Mills MD [Primary Care Provider] - 1-2 days Time of Disposition: 03:02
[2017-05-20 03:07] VITALS: BP 118/56; PULSE 79; RESP 18; TEMP 98.6
[2017-05-20 03:10] LABS: Appearance,Urine Clear (Clear); Bilirubin,Urine Negative (Negative); Glucose,Urine (UA) Negative (Negative); Ketones,Urine Negative (Negative); Leukocyte Esterase,Urine Moderate (Negative); Mucus,Urine Rare /hpf; Nitrite,Urine Negative (Negative); PH, Urine 5.5 (5.0-8.0); Particle Count 2751; Protein,Urine Negative (Negative); RBC,Urine 18 /hpf (0-5); Specific Gravity,Urine 1.008 (1.001-1.035); UA Billing (MACRO vs. MICRO) MICRO; Urobilinogen,Urine <2.0 mg/dL (<2.0); WBC,Urine 8 /hpf (0-5)
== END 2017-05-20 03:24 | disposition home or self-care (01) ==
LOC: EC 02:36
DX: R33.9 Retention of urine, unspecified (principal); J45.909 Unspecified asthma, uncomplicated; E03.9 Hypothyroidism, unspecified; E78.5 Hyperlipidemia, unspecified; E11.40 Type 2 diabetes mellitus with diabetic neuropathy, unspecified; I12.9 Hypertensive chronic kidney disease with stage 1 through stage 4 chronic kidney disease, or unspecified chronic kidney disease; N18.9 Chronic kidney disease, unspecified; N42.9 Disorder of prostate, unspecified; F41.9 Anxiety disorder, unspecified; F32.9 Major depressive disorder, single episode, unspecified; F17.200 Nicotine dependence, unspecified, uncomplicated; Z86.14 Personal history of Methicillin resistant Staphylococcus aureus infection; Z95.1 Presence of aortocoronary bypass graft; Z79.52 Long term (current) use of systemic steroids; Z79.82 Long term (current) use of aspirin; Z79.84 Long term (current) use of oral hypoglycemic drugs; Z79.899 Other long term (current) drug therapy; Z91.018 Allergy to other foods
CPT/HCPCS: 51702; 81001; 99283

== ENCOUNTER 2017-06-07 00:28 | Emergency (ER) | payer MEDICARE, OTHER ==
[2017-06-07 00:36] VITALS: BP 186/87; PULSE 71; RESP 16; TEMP 99.6
[2017-06-07] MEDS ORDERED: LIDOCAINE URO-JET JELLY 2% 5 ML KIT URETHRAL ONE (00:43)
[2017-06-07 01:19] LABS: Appearance,Urine Clear (Clear); Bacteria,Urine Rare /hpf; Bilirubin,Urine Negative (Negative); Glucose,Urine (UA) Negative (Negative); Ketones,Urine Negative (Negative); Leukocyte Esterase,Urine Moderate (Negative); Mucus,Urine Rare /hpf; Nitrite,Urine Positive (Negative); PH, Urine 5.5 (5.0-8.0); Particle Count 4138; Protein,Urine Negative (Negative); RBC,Urine 71 /hpf (0-5); Specific Gravity,Urine 1.008 (1.001-1.035); UA Billing (MACRO vs. MICRO) MICRO; Urobilinogen,Urine <2.0 mg/dL (<2.0); WBC,Urine 40 /hpf (0-5)
--- NOTE | 2017-06-07 01:33 | ED ---
Male Urogenital HPI - General Chief complaint: Urogenital Stated complaint: fall Time Seen by Provider: 06/07/17 00:30 Source: patient, EMS, RN notes reviewed Mode of arrival: EMS Limitations: no limitations - History of Present Illness Initial comments: This an 82-year-old male presents emergency Department chief complaint Hdz catheter problems. Patient states that he is bilateral lower extremity and states that he fell out of his wheelchair earlier today and states that his catheter pulled. Patient states he noticed some blood in the catheter. Patient states he has some discomfort but is somewhat. Patient denies any nausea vomiting diarrhea constipation. Denies any fevers or chills. - Related Data Home Medications Medication Instructions Recorded Confirmed Furosemide [Lasix] 40 mg PO BID 06/13/14 04/09/17 HYDROcodone/APAP 10-325MG [[place] 1 tab PO Q6H PRN 03/28/15 04/09/17 10] Finasteride [Proscar] 5 mg PO HS 01/01/16 04/09/17 Allopurinol [Zyloprim] 100 mg PO DAILY 05/13/16 04/09/17 Aspirin EC [Ecotrin Low Dose] 81 mg PO DAILY 05/13/16 04/09/17 Atorvastatin [Lipitor] 40 mg PO HS 05/13/16 04/09/17 Doxazosin [Cardura] 4 mg PO BID 05/13/16 04/09/17 Fluticasone/Salmeterol [Advair Hfa 2 puff INHALATION RT-BID 05/13/16 04/09/17 230-21 Mcg Inhaler] Isosorbide Mononitrate ER [Imdur] 60 mg PO DAILY 05/13/16 04/09/17 Levothyroxine Sodium [Synthroid] 150 mcg PO HS 05/13/16 04/09/17 Losartan [Cozaar] 25 mg PO DAILY 05/13/16 04/09/17 PARoxetine [Paxil] 10 mg PO BID 05/13/16 04/09/17 Potassium Chloride [Klor-Con 20] 20 meq PO BID 05/13/16 04/09/17 glipiZIDE [Glucotrol] 5 mg PO HS 05/13/16 04/09/17 Previous Rx's Medication Instructions Recorded Ciprofloxacin HCl [Cipro] 500 mg PO Q12HR #14 tablet 02/17/17 Ciprofloxacin HCl [Cipro] 500 mg PO Q12HR #20 tablet 04/09/17 Allergies Allergy/AdvReac Type Severity Reaction Status Date / Time tomato Allergy Swelling Verified 04/09/17 01:01 Review of Systems ROS Statement: Those systems with pertinent positive or pertinent negative responses have been documented in the HPI. ROS Other: All systems not noted in ROS Statement are negative. 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,NIDDM, pneumonia and encephalopathy 2nday to infection, home oxygen dependence-uses at night-3L/NC, urinary retention, UTI, bacteremia, osteomyelitis, SIR, chronic catheter, diabeticneuropathy, chronic renal failure , gout,hypothyroidism,Gait dysfunction uses wheelchair,DJD, severe constipation.gout,hypothyroidism,Gait dysfunction uses wheelchair,Chronic catheter History of Any Multi-Drug Resistant Organisms: MRSA Date of last positivie culture/infection: 04/09/16 MDRO Source:: right foot Past Surgical History: Back Surgery, Coronary Bypass/CABG, Hernia Repair Additional Past Surgical History / Comment(s): 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 Past Psychological History: Anxiety, Depression Smoking Status: Current every day smoker Past Alcohol Use History: Occasional Past Drug Use History: None Reported - Past Family History Sister(s) Family Medical History: Cancer Mother Family Medical History: Diabetes Mellitus Additional Family Medical History / Comment(s): Pt remembers only that his mom was obese. General Exam Limitations: no limitations General appearance: alert, in no apparent distress Respiratory exam: Present: normal lung sounds bilaterally. Absent: respiratory distress, wheezes, rales, rhonchi, stridor Cardiovascular Exam: Present: regular rate, normal rhythm, normal heart sounds. Absent: systolic murmur, diastolic murmur, rubs, gallop, clicks GI/Abdominal exam: Present: soft, normal bowel sounds. Absent: distended, tenderness, guarding, rebound, rigid exam: Absent: normal inspection (With catheter in place there is no purulent drainage no erythema and there is no bleeding around the catheter there is some blood noted within the 2 and urine) Course Vital Signs 06/07/17 00:30 Temperature 99.6 F Pulse Rate 71 Respiratory 16 Rate Blood Pressure 186/87 O2 Sat by Pulse 95 Oximetry Medical Decision Making - Medical Decision Making 82-year-old male presented for Hdz catheter problems. This catheter was replaced to make sure this was pain. Patient did have some discomfort with this is most likely related to urethral irritation from the catheter. Return parameters were discussed. - Lab Data Lab Results 06/07/17 Range/Units 01:08 Urine Color Yellow Urine Appearance Clear (Clear) Urine pH 5.5 (5.0-8.0) Ur Specific [place] 1.008 (1.001-1.035) Urine Protein Negative (Negative) Urine Glucose (UA) Negative (Negative) Urine Ketones Negative (Negative) Urine Blood Moderate H (Negative) Urine Nitrite Positive (Negative) Urine Bilirubin Negative (Negative) Urine Urobilinogen <2.0 (<2.0) mg/dL Ur Leukocyte Esterase Moderate H (Negative) Urine RBC 71 H (0-5) /hpf Urine WBC 40 H (0-5) /hpf Urine Bacteria Rare H (None) /hpf Hyaline Casts 4 H (0-2) /lpf Urine Mucus Rare H (None) /hpf Disposition Clinical Impression: Hematuria, Complication of Hdz catheter Disposition: HOME SELF-CARE Condition: Stable Instructions: Hdz Catheter Placement and Care (ED) Additional Instructions: Please return to the Emergency Department if symptoms worsen or any other concerns. Referrals: Vern Mills MD [Primary Care Provider] - 1-2 days Time of Disposition: 01:32
== END 2017-06-07 01:58 | disposition home or self-care (01) ==
LOC: EC 00:28
DX: T83.89XA Other specified complication of genitourinary prosthetic devices, implants and grafts, initial encounter (principal); J45.909 Unspecified asthma, uncomplicated; I10 Essential (primary) hypertension; M10.9 Gout, unspecified; E03.9 Hypothyroidism, unspecified; E11.40 Type 2 diabetes mellitus with diabetic neuropathy, unspecified; E11.22 Type 2 diabetes mellitus with diabetic chronic kidney disease; I12.9 Hypertensive chronic kidney disease with stage 1 through stage 4 chronic kidney disease, or unspecified chronic kidney disease; F32.9 Major depressive disorder, single episode, unspecified; M86.9 Osteomyelitis, unspecified; F41.9 Anxiety disorder, unspecified; F17.200 Nicotine dependence, unspecified, uncomplicated; Z79.82 Long term (current) use of aspirin; Z79.51 Long term (current) use of inhaled steroids; Z79.899 Other long term (current) drug therapy; Z91.018 Allergy to other foods; Z87.01 Personal history of pneumonia (recurrent); Z99.81 Dependence on supplemental oxygen; Y83.8 Other surgical procedures as the cause of abnormal reaction of the patient, or of later complication, without mention of misadventure at the time of the procedure
CPT/HCPCS: 51702; 81001; 99284

== ENCOUNTER 2018-12-18 21:02 | Emergency (ER) | payer MEDICARE, OTHER ==
[2018-12-18 21:15] VITALS: RESP 16
[2018-12-18] MEDS ORDERED: MORPHINE SULFATE 4 MG/ML SYRINGE IV STA (21:58)
[2018-12-18] MEDS ORDERED: LORazepam 2 MG/ML INJ IV STA (21:58)
--- NOTE | 2018-12-18 22:03 | ED ---
General Adult HPI - General Chief complaint: Urogenital Stated complaint: Mass Time Seen by Provider: 12/18/18 21:05 Source: patient, family Mode of arrival: EMS Limitations: no limitations - History of Present Illness Initial comments: This patient is an 83-year-old man who presents with complaint of right groin mass and pain. The patient has been having months of intermittent symptoms, mainly noting that there was a swelling in the right groin. He states that it would resolve when he would lie flat in bed. Today he has been having an increase in the amount of swelling and also having pain there. States that he tried lying flat but it would not go away. Patient denies fever or chills. No vomiting area no change in bowel movements. -: month(s) Location: abdomen Radiation: non-radiation Quality: aching Consistency: constant Improves with: none Worsens with: none Associated Symptoms: denies other symptoms Treatments Prior to Arrival: none - Related Data Home Medications Medication Instructions Recorded Confirmed Furosemide [Lasix] 40 mg PO BID 06/13/14 12/18/18 HYDROcodone/APAP 10-325MG [[place] 1 tab PO TID PRN 03/28/15 12/18/18 10] Finasteride [Proscar] 5 mg PO DAILY 01/01/16 12/18/18 Allopurinol [Zyloprim] 100 mg PO DAILY 05/13/16 12/18/18 Aspirin EC [Ecotrin Low Dose] 81 mg PO DAILY 05/13/16 12/18/18 Doxazosin [Cardura] 4 mg PO BID 05/13/16 12/18/18 Isosorbide Mononitrate ER [Imdur] 60 mg PO DAILY 05/13/16 12/18/18 Levothyroxine Sodium [Synthroid] 150 mcg PO DAILY 05/13/16 12/18/18 Losartan [Cozaar] 25 mg PO DAILY 05/13/16 12/18/18 glipiZIDE [Glucotrol] 12.5 mg PO BID 05/13/16 12/18/18 Atorvastatin Calcium [Lipitor] 80 mg PO HS 12/18/18 12/18/18 Budesonide/Formoterol Fumarate 2 puff INHALATION BID 12/18/18 12/18/18 [Symbicort 160-4.5 Mcg Inhaler] Donepezil [Aricept] 10 mg PO DAILY 12/18/18 12/18/18 Memantine [Namenda] 10 mg PO BID 12/18/18 12/18/18 PARoxetine HCL [Paxil] 30 mg PO HS 12/18/18 12/18/18 Potassium Chloride [Klor-Con 20] 20 meq PO BID 12/18/18 12/18/18 Sennosides/Docusate Sodium 1 tab PO DAILY PRN 12/18/18 12/18/18 [Senna-S Laxative Tablet] traZODone HCL 150 mg PO HS 12/18/18 12/18/18 Allergies Allergy/AdvReac Type Severity Reaction Status Date / Time tomato Allergy Swelling Verified 12/18/18 22:05 Review of Systems ROS Statement: Those systems with pertinent positive or pertinent negative responses have been documented in the HPI. ROS Other: All systems not noted in ROS Statement are negative. Constitutional: Denies: fever Respiratory: Denies: cough, dyspnea Cardiovascular: Denies: chest pain, palpitations, orthopnea, syncope Gastrointestinal: Reports: as per HPI, abdominal pain. 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 History of Any Multi-Drug Resistant Organisms: MRSA Date of last positivie culture/infection: 04/09/16 MDRO Source:: right foot Past Surgical History: Back Surgery, Coronary Bypass/CABG, Hernia Repair Additional Past Surgical History / Comment(s): 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 Past Psychological History: Anxiety, Depression Smoking Status: Current every day smoker Past Alcohol Use History: Occasional Past Drug Use History: None Reported - Past Family History Sister(s) Family Medical History: Cancer Mother Family Medical History: Diabetes Mellitus Additional Family Medical History / Comment(s): Pt remembers only that his mom was obese. General Exam Limitations: physical limitation General appearance: alert, in no apparent distress Head exam: Present: atraumatic, normocephalic Eye exam: Present: normal appearance. Absent: scleral icterus, conjunctival injection ENT exam: Present: normal oropharynx Respiratory exam: Present: normal lung sounds bilaterally. Absent: respiratory distress, wheezes, rales, rhonchi, stridor Cardiovascular Exam: Present: regular rate, normal rhythm, normal heart sounds. Absent: systolic murmur, diastolic murmur, rubs, gallop GI/Abdominal exam: Present: soft, tenderness (At the right inguinal area), guarding (As a right inguinal hernia), hernia (There is a right inguinal hernia which is tender an incarcerated). Absent: distended, rebound, rigid, pulsatile mass exam: Present: other (Hdz catheter present) Extremities exam: Present: other (Bilateral AKA) Neurological exam: Present: alert Skin exam: Present: warm, dry, intact, normal color. Absent: rash Course Vital Signs 12/18/18 21:08 Temperature 97.5 F L Pulse Rate 71 Respiratory 16 Rate Blood Pressure 108/63 O2 Sat by Pulse 95 Oximetry - Reevaluation(s) Reevaluation #1: 12/18/18 22:02 When I saw and examined the patient, he does have an incarcerated Right inguinal hernia. I did make an attempt to reduce this, but the patient is currently guarding this. Will administer analgesia and a muscle relaxant and see if this can be reduced. Reevaluation #2: 12/18/18 22:29 Following administration of small dose of morphine and small dose of Ativan, I was able to reduce the patient's hernia at the bedside with gentle pressure without complication. Medical Decision Making - Lab Data Result diagrams: 12/18/18 22:15 12/18/18 22:15 Lab Results 12/18/18 12/18/18 12/18/18 Range/Units 22:15 22:15 22:15 WBC 7.5 (3.8-10.6) k/uL RBC 3.96 L (4.30-5.90) m/uL Hgb 11.5 L (13.0-17.5) gm/dL Hct 35.8 L (39.0-53.0) % MCV 90.6 (80.0-100.0) fL MCH 29.2 (25.0-35.0) pg MCHC 32.2 (31.0-37.0) g/dL RDW 15.2 (11.5-15.5) % Plt Count 189 (150-450) k/uL Neutrophils % 67 % Lymphocytes % 20 % Monocytes % 6 % Eosinophils % 5 % Basophils % 1 % Neutrophils # 5.0 (1.3-7.7) k/uL Lymphocytes # 1.5 (1.0-4.8) k/uL Monocytes # 0.5 (0-1.0) k/uL Eosinophils # 0.4 (0-0.7) k/uL Basophils # 0.0 (0-0.2) k/uL Sodium 138 (137-145) mmol/L Potassium 3.9 (3.5-5.1) mmol/L Chloride 108 H (98-107) mmol/L Carbon Dioxide 23 (22-30) mmol/L Anion Gap 7 mmol/L BUN 27 H (9-20) mg/dL Creatinine 1.44 H (0.66-1.25) mg/dL Est GFR (CKD-EPI)AfAm 52 (>60 ml/min/1.73 sqM) Est GFR (CKD-EPI)NonAf 45 (>60 ml/min/1.73 sqM) Glucose 103 H (74-99) mg/dL Plasma Lactic Acid Da 1.0 (0.7-2.0) mmol/L Calcium 9.2 (8.4-10.2) mg/dL Total Bilirubin 0.5 (0.2-1.3) mg/dL AST 22 (17-59) U/L ALT 32 (21-72) U/L Alkaline Phosphatase 119 (38-126) U/L Total Protein 5.6 L (6.3-8.2) g/dL Albumin 3.1 L (3.5-5.0) g/dL Disposition Clinical Impression: Hernia Disposition: HOME SELF-CARE Condition: Good Instructions (If sedation given, give patient instructions): Inguinal Hernia (ED) Is patient prescribed a controlled substance at d/c from ED?: No Referrals: Vern Mills MD [Primary Care Provider] - 1-2 days Víctor Terry MD [STAFF PHYSICIAN] - 1-2 days
[2018-12-18 22:30] LABS: Basophils % (A) 1 %; Eosinophils # (A) 0.4 k/uL (0-0.7); Eosinophils % (A) 5 %; HCT 35.8 % (39.0-53.0); HGB 11.5 gm/dL (13.0-17.5); Lymphocytes # (A) 1.5 k/uL (1.0-4.8); Lymphocytes % (A) 20 %; MCH 29.2 pg (25.0-35.0); MCHC 32.2 g/dL (31.0-37.0); MCV 90.6 fL (80.0-100.0); Mean Platelet Volume 7.2; Monocytes # (A) 0.5 k/uL (0-1.0); Monocytes % (A) 6 %; Neutrophils % (A) 67 %; Platelet Count 189 k/uL (150-450); RBC 3.96 m/uL (4.30-5.90); RDW 15.2 % (11.5-15.5); WBC 7.5 k/uL (3.8-10.6)
[2018-12-18 22:38] LABS: Albumin 3.1 g/dL (3.5-5.0); Calcium 9.2 mg/dL (8.4-10.2); Potassium 3.9 mmol/L (3.5-5.1); Total Bilirubin 0.5 mg/dL (0.2-1.3); Total Protein 5.6 g/dL (6.3-8.2)
[2018-12-18 23:45] VITALS: BP 96/56; PULSE 68; TEMP 97.6
== END 2018-12-18 23:40 | disposition home or self-care (01) ==
LOC: EC 21:02
DX: K40.30 Unilateral inguinal hernia, with obstruction, without gangrene, not specified as recurrent (principal); J45.909 Unspecified asthma, uncomplicated; E78.5 Hyperlipidemia, unspecified; E11.69 Type 2 diabetes mellitus with other specified complication; M86.9 Osteomyelitis, unspecified; E11.40 Type 2 diabetes mellitus with diabetic neuropathy, unspecified; E03.9 Hypothyroidism, unspecified; M10.9 Gout, unspecified; N42.9 Disorder of prostate, unspecified; I12.9 Hypertensive chronic kidney disease with stage 1 through stage 4 chronic kidney disease, or unspecified chronic kidney disease; N18.9 Chronic kidney disease, unspecified; E11.22 Type 2 diabetes mellitus with diabetic chronic kidney disease; F41.9 Anxiety disorder, unspecified; F32.9 Major depressive disorder, single episode, unspecified; F17.200 Nicotine dependence, unspecified, uncomplicated; Z95.1 Presence of aortocoronary bypass graft; Z86.14 Personal history of Methicillin resistant Staphylococcus aureus infection; Z89.611 Acquired absence of right leg above knee; Z89.612 Acquired absence of left leg above knee; Z98.890 Other specified postprocedural states; Z79.51 Long term (current) use of inhaled steroids; Z79.82 Long term (current) use of aspirin; Z79.84 Long term (current) use of oral hypoglycemic drugs; Z79.890 Hormone replacement therapy; Z79.899 Other long term (current) drug therapy; Z91.018 Allergy to other foods
CPT/HCPCS: 36415; 80053; 83605; 85025; 99283; 96374; 96375; J2060; J2270

== ENCOUNTER 2018-12-27 07:17 | Day surgery (SDC) | payer MEDICARE, OTHER ==
[~2018-12-27 07:17] MED LIST: HEPARIN SODIUM,PORCINE 5,000 UNIT/ML 1 ML VIAL SQ ONE; HYDROmorphone 0.5 MG/0.5 ML SYRINGE IVP PRN; LACTATED RINGERS 1,000 ML IV SCH; LIDOCAINE 1% 20 ML VIAL (10MG/ML) FOR IV START INTRADERMA PRN; ONDANSETRON 4 MG/2 ML VIAL IVP ONE; ceFAZolin IN SWFI 2 GM/20 ML SYRINGE IVP ONE
[2018-12-27 08:08] LABS: Glucose,Whole Blood 94 mg/dL (75-99)
[2018-12-27] MEDS ORDERED: DEXAMETHASONE SOD PHOSPHATE 10 MG/ML 1 ML VIAL IV ONE (08:14)
--- NOTE | 2018-12-27 08:17 | P.GSHP ---
History of Present Illness H&P Date: 12/27/18 Chief Complaint: Right inguinal hernia This 83-year-old male who presents today for laparoscopic robotic spare of right inguinal hernia. Patient is healthy tender masses right groin. Past Medical History Past Medical History: Asthma, Dementia, Diabetes Mellitus, Diabetes Mellitus, Hyperlipidemia, Hypertension, Pneumonia, Prostate Disorder, Renal Disease, Renal Disease, Thyroid Disorder, Thyroid Disorder Additional Past Medical History / Comment(s): Other hx: Home O2 dependent-3L/[place], urinary retention, UTI, bacteremia, osteomyelitis, SIR, chronic catheter, diabetic neuropathy, chronic renal failure, gout,hypothyroidism,Gait dysfunction uses wheelchair,DJD, severe constipation.gout,hypothyroidism,Chronic catheter, hearing impairment. History of Any Multi-Drug Resistant Organisms: MRSA Date of last positivie culture/infection: 04/09/16 MDRO Source:: right foot Past Surgical History: Back Surgery, Coronary Bypass/CABG, Hernia Repair Additional Past Surgical History / Comment(s): 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 Smoking Status: Current every day smoker - Past Family History Sister(s) Family Medical History: Cancer Mother Family Medical History: Diabetes Mellitus Additional Family Medical History / Comment(s): Pt remembers only that his mom was obese. Medications and Allergies Home Medications Medication Instructions Recorded Confirmed Type Furosemide [Lasix] 40 mg PO BID 06/13/14 12/22/18 History HYDROcodone/APAP 10-325MG [[place] 1 tab PO TID PRN 03/28/15 12/22/18 History 10] Finasteride [Proscar] 5 mg PO DAILY 01/01/16 12/22/18 History Allopurinol [Zyloprim] 100 mg PO DAILY 05/13/16 12/22/18 History Aspirin EC [Ecotrin Low Dose] 81 mg PO DAILY 05/13/16 12/22/18 History Doxazosin [Cardura] 4 mg PO BID 05/13/16 12/22/18 History Isosorbide Mononitrate ER [Imdur] 60 mg PO DAILY 05/13/16 12/22/18 History Levothyroxine Sodium [Synthroid] 150 mcg PO DAILY 05/13/16 12/22/18 History Losartan [Cozaar] 25 mg PO DAILY 05/13/16 12/22/18 History glipiZIDE [Glucotrol] 2.5 mg PO BID 05/13/16 12/22/18 History Atorvastatin Calcium [Lipitor] 80 mg PO HS 12/18/18 12/22/18 History Budesonide/Formoterol Fumarate 2 puff INHALATION BID 12/18/18 12/22/18 History [Symbicort 160-4.5 Mcg Inhaler] Donepezil [Aricept] 10 mg PO DAILY 12/18/18 12/22/18 History Memantine [Namenda] 10 mg PO BID 12/18/18 12/22/18 History PARoxetine HCL [Paxil] 30 mg PO HS 12/18/18 12/22/18 History Potassium Chloride [Klor-Con 20] 20 meq PO BID 12/18/18 12/22/18 History Sennosides/Docusate Sodium 1 tab PO DAILY PRN 12/18/18 12/22/18 History [Senna-S Laxative Tablet] traZODone HCL 150 mg PO HS 12/18/18 12/22/18 History guaiFENesin [Mucinex] 1,200 mg PO DAILY 12/22/18 12/22/18 History Allergies Allergy/AdvReac Type Severity Reaction Status Date / Time tomato Allergy Swelling Verified 12/22/18 15:30 Surgical - Exam Vital Signs Temp Pulse Resp BP Pulse Ox 98.3 F 65 16 134/64 95 12/27/18 07:52 12/27/18 07:52 12/27/18 07:52 12/27/18 07:52 12/27/18 07:52 - General well developed, well nourished - Eyes PERRL - ENT normal pinna - Neck no masses - Respiratory normal expansion - Cardiovascular Rhythm: regular - Abdomen Abdomen: soft, non tender Hernia: inguinal (Reducible right inguinal hernia) Assessment and Plan Assessment: Radial hernia. We'll perform laparoscopic robotic-assisted repair.
[2018-12-27] MEDS: LACTATED RINGERS 1,000 ML IV SCH (08:24)
[2018-12-27] MEDS ORDERED: ROCURONIUM BROMIDE 10 MG/ML 10 ML VIAL IV ONE (08:48)
[2018-12-27] MEDS ORDERED: fentaNYL (PF) 50 MCG/ML 2 ML AMP ONE (08:48)
[2018-12-27] MEDS ORDERED: MORPHINE SULFATE 10 MG/ML SYRINGE ONE (08:48)
[2018-12-27] MEDS ORDERED: GLYCOPYRROLATE 0.2 MG/ML 2 ML VIAL ONE (08:48)
[2018-12-27] MEDS ORDERED: NEOSTIGMINE 1 MG/ML 10 ML VIAL ONE (08:48)
[2018-12-27] MEDS ORDERED: SUCCINYLCHOLINE CHLORIDE 100 MG/5 ML SYR IV ONE (08:48)
[2018-12-27] MEDS ORDERED: LIDOCAINE 1% INJ 10MG/ML (20 ML MDV) ONE (08:48)
[2018-12-27] MEDS ORDERED: PROPOFOL 10 MG/ML 20 ML VIAL IV ONE (08:48)
[2018-12-27] MEDS ORDERED: BUPIVACAIN-EPI 0.5%-1:200,000 30 ML VIAL SQ ONE (09:13)
[2018-12-27] MEDS ORDERED: LACTATED RINGERS 1,000 ML IV ONE (09:46)
[2018-12-27 10:09] VITALS: TEMP 97.8
--- NOTE | 2018-12-27 10:12 | P.OP ---
Date of Procedure: 12/27/18 Preoperative Diagnosis: Right inguinal hernia Postoperative Diagnosis: Right inguinal hernia Procedure(s) Performed: Laparoscopic robotic-assisted repair of right inguinal hernia Excision of right cord lipoma Anesthesia: MARY Surgeon: Víctor Terry Estimated Blood Loss (ml): 5 Pathology: other (Right cord lipoma) Condition: stable Disposition: PACU Description of Procedure: The patient's placed on the operating table in the supine position. The patient received general anesthesia. The patient's abdomen was prepped and draped in usual sterile fashion. The skin was anesthetized 1% local Xylocaine at the incision sites. Using an 11 blade a skin incision was made at the umbilicus. The fascia was grasped with a [place] and then the peritoneal cavity was entered with the Veress needle. Position of the Veress needle was confirmed with a positive drop test. After adequate insufflation a 5 mm trocar was placed into the peritoneal cavity. The Laparoscope was placed the peritoneal cavity. And a robotic 8 mm trocar was placed in the right lateral position and then another 8 mm robotic trochars placed in the left lateral position. The original 5 mm trocar was exchanged for a 12 mm trocar. The patient was placed in reverse Trendelenburg and then the patient was docked to the robot. Next the peritoneum over top of the right inguinal hernia was incised and then using blunt and sharp dissection and electrocautery the hernia sac was dissected free from the floor of the inguinal canal. A cord lipoma was dissected free from the cord. This was retrieved and sent to pathology. The hernia sac was completely reduced into the peritoneal cavity. And then using the [employer] intern mesh the hernia was repaired. The peritoneum was then sutured with 20V lock suture. The patient was then undocked the robot. The needle was withdrawn from the peritoneal cavity. The umbilical trocar site was closed with 0 Ethibond suture. The skin was closed interrupted 3-0 Monocryl suture. Dermabond dressing was applied. Patient was sent to recovery in stable condition.
[2018-12-27 11:34] VITALS: BP 160/90; PULSE 79; RESP 20
== END 2018-12-27 11:50 | disposition home or self-care (01) ==
LOC: OR 07:17
PROVIDERS: ATTEND Surgery
DX: K40.90 Unilateral inguinal hernia, without obstruction or gangrene, not specified as recurrent (principal); D17.6 Benign lipomatous neoplasm of spermatic cord; E03.9 Hypothyroidism, unspecified; E11.22 Type 2 diabetes mellitus with diabetic chronic kidney disease; E11.40 Type 2 diabetes mellitus with diabetic neuropathy, unspecified; E78.5 Hyperlipidemia, unspecified; F03.90 Unspecified dementia, unspecified severity, without behavioral disturbance, psychotic disturbance, mood disturbance, and anxiety; F17.200 Nicotine dependence, unspecified, uncomplicated; H91.90 Unspecified hearing loss, unspecified ear; I12.9 Hypertensive chronic kidney disease with stage 1 through stage 4 chronic kidney disease, or unspecified chronic kidney disease; J45.909 Unspecified asthma, uncomplicated; M10.9 Gout, unspecified; N18.9 Chronic kidney disease, unspecified; Z79.82 Long term (current) use of aspirin; Z79.84 Long term (current) use of oral hypoglycemic drugs; Z79.899 Other long term (current) drug therapy; Z89.612 Acquired absence of left leg above knee; Z95.1 Presence of aortocoronary bypass graft; Z99.81 Dependence on supplemental oxygen; Z91.018 Allergy to other foods
CPT/HCPCS: 88304; 49650; 55559; C1781; J1644; J1100; J2710; J2270; J2405; J2001; J3010; J0330; J2704

== ENCOUNTER 2018-12-30 02:47 | Emergency (ER) | payer MEDICARE, OTHER ==
--- NOTE | 2018-12-30 02:53 | ED ---
Male Urogenital HPI - General Chief complaint: Urogenital Stated complaint: Male Time Seen by Provider: 12/30/18 02:52 Source: EMS Mode of arrival: EMS Limitations: no limitations - History of Present Illness Initial comments: Ricardo is a 83-year-old male with multiple medical comorbidities and a long-term indwelling Hdz catheter who presents to the emergency department this morning for evaluation of possible clogged Hdz with no output since approximately 11 AM. Patient is pleasantly demented and very hard of hearing history is provided by his caregiver at bedside. She reports that she note bed urine in his Hdz catheter bag at 11 AM at which time she drink it. She reports that since that time she noted only a couple centimeters of urine despite the fact that the patient's been drinking plenty of fluids and she became concerned that the Hdz may be clogged. Patient did have hernia repair surgery earlier this week, he was visited by his home health care nurse on who exchanges Hdz catheter without difficulty. Patient denies any complaints or discomfort. - Related Data Home Medications Medication Instructions Recorded Confirmed Furosemide [Lasix] 40 mg PO BID 06/13/14 12/27/18 HYDROcodone/APAP 10-325MG [[place] 1 tab PO TID PRN 03/28/15 12/27/18 10] Finasteride [Proscar] 5 mg PO DAILY 01/01/16 12/27/18 Allopurinol [Zyloprim] 100 mg PO DAILY 05/13/16 12/27/18 Aspirin EC [Ecotrin Low Dose] 81 mg PO DAILY 05/13/16 12/22/18 Doxazosin [Cardura] 4 mg PO BID 05/13/16 12/27/18 Isosorbide Mononitrate ER [Imdur] 60 mg PO DAILY 05/13/16 12/27/18 Levothyroxine Sodium [Synthroid] 150 mcg PO DAILY 05/13/16 12/27/18 Losartan [Cozaar] 25 mg PO DAILY 05/13/16 12/27/18 glipiZIDE [Glucotrol] 2.5 mg PO BID 05/13/16 12/27/18 Atorvastatin Calcium [Lipitor] 80 mg PO HS 12/18/18 12/27/18 Budesonide/Formoterol Fumarate 2 puff INHALATION BID 12/18/18 12/27/18 [Symbicort 160-4.5 Mcg Inhaler] Donepezil [Aricept] 10 mg PO DAILY 12/18/18 12/27/18 Memantine [Namenda] 10 mg PO BID 12/18/18 12/27/18 PARoxetine HCL [Paxil] 30 mg PO HS 12/18/18 12/27/18 Potassium Chloride [Klor-Con 20] 20 meq PO BID 12/18/18 12/27/18 Sennosides/Docusate Sodium 1 tab PO DAILY PRN 12/18/18 12/27/18 [Senna-S Laxative Tablet] traZODone HCL 150 mg PO HS 12/18/18 12/27/18 guaiFENesin [Mucinex] 1,200 mg PO DAILY 12/22/18 12/27/18 Previous Rx's Medication Instructions Recorded Cephalexin [Keflex] 500 mg PO Q6HR 7 Days #28 cap 12/30/18 Allergies Allergy/AdvReac Type Severity Reaction Status Date / Time tomato Allergy Swelling Verified 12/30/18 02:52 Review of Systems ROS Statement: Those systems with pertinent positive or pertinent negative responses have been documented in the HPI. ROS Other: All systems not noted in ROS Statement are negative. Limitations: ROS unobtainable due to patients medical condition (Dementia) Past Medical History Past Medical History: Asthma, Dementia, Diabetes Mellitus, Diabetes Mellitus, Hyperlipidemia, Hypertension, Pneumonia, Prostate Disorder, Renal Disease, Renal Disease, Thyroid Disorder, Thyroid Disorder Additional Past Medical History / Comment(s): Other hx: Home O2 dependent-3L/[facility] at [facility], urinary retention, UTI, bacteremia, osteomyelitis, SIR, chronic catheter, diabetic neuropathy, chronic renal failure, gout,hypothyroidism,Gait dysfunction uses wheelchair,DJD, severe constipation.gout,hypothyroidism,Chronic catheter, hearing impairment. History of Any Multi-Drug Resistant Organisms: MRSA Date of last positivie culture/infection: 04/09/16 MDRO Source:: right foot Past Surgical History: Back Surgery, Coronary Bypass/CABG, Hernia Repair Additional Past Surgical History / Comment(s): 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 Past Psychological History: Anxiety, Depression Smoking Status: Current every day smoker Past Alcohol Use History: None Reported Past Drug Use History: None Reported - Past Family History Sister(s) Family Medical History: Cancer Mother Family Medical History: Diabetes Mellitus Additional Family Medical History / Comment(s): Pt remembers only that his mom was obese. General Exam - General Exam Comments Initial Comments: Physical Exam GENERAL: Chronically ill-appearing elderly gentleman HENT: Normocephalic, Atraumatic. EYES: PERRL, EOMI PULMONARY: Unlabored respirations. Oxygen-dependent CARDIOVASCULAR: There is a regular rate and rhythm without any murmurs gallops or rubs. ABDOMEN: Soft and nontender with normal bowel sounds. Tenderness to palpation of suprapubic region Healing surgical incision at the umbilicus with Steri-Strips in place and some surrounding ecchymosis no erythema, no purulence noted SKIN: Surgical incision on abdomen as noted above : Long-term indwelling Hdz catheter in place with some erosion of the distal urethra him and no output from the Hdz catheter Bladder scan was greater than 575 mL NEUROLOGIC: Alert, oriented to self Hard of hearing MUSCULOSKELETAL: Bilateral AKA PSYCHIATRIC: Normal psychiatric evaluation. Limitations: no limitations Limitations: no limitations Course Vital Signs 12/30/18 12/30/18 02:48 04:44 Temperature 98.9 F 98.7 F Pulse Rate 84 82 Respiratory 20 16 Rate Blood Pressure 122/67 122/64 O2 Sat by Pulse 95 99 Oximetry Medical Decision Making - Medical Decision Making The patient was seen and evaluated history was obtained from the caregiver at bedside Plan patient has a Hdz catheter with no output concerning for obstruction New Hdz catheter was placed greater than 700 mL of clear urine was obtained and sign urinalysis was suggestive of urinary tract infection first dose of oral antibiotics was given here patient was discharged home with prescription for oral antibiotics. - Lab Data Lab Results 12/30/18 Range/Units 03:34 Urine Color Yellow Urine Appearance Clear (Clear) Urine pH 5.5 (5.0-8.0) Ur Specific [place] 1.010 (1.001-1.035) Urine Protein Negative (Negative) Urine Glucose (UA) Negative (Negative) Urine Ketones Negative (Negative) Urine Blood Moderate H (Negative) Urine Nitrite Negative (Negative) Urine Bilirubin Negative (Negative) Urine Urobilinogen <2.0 (<2.0) mg/dL Ur Leukocyte Esterase Large H (Negative) Urine RBC 11 H (0-5) /hpf Urine WBC 32 H (0-5) /hpf Urine WBC Clumps Moderate H (None) /hpf Ur Squamous Epith Cells <1 (0-4) /hpf Urine Bacteria Occasional H (None) /hpf Hyaline Casts 7 H (0-2) /lpf Disposition Clinical Impression: Neurogenic bladder, Urinary tract infection, Urine retention Disposition: HOME SELF-CARE Condition: Stable Instructions (If sedation given, give patient instructions): Urinary Tract Infection in Men (ED) Prescriptions: Cephalexin [Keflex] 500 mg PO Q6HR 7 Days #28 cap Is patient prescribed a controlled substance at d/c from ED?: No Referrals: Vern Mills MD [Primary Care Provider] - 1-2 days
[2018-12-30 04:20] LABS: Appearance,Urine Clear (Clear); Bacteria,Urine Occasional /hpf; Bilirubin,Urine Negative (Negative); Blood,Urine Moderate (Negative); Color,Urine Yellow; Glucose,Urine (UA) Negative (Negative); Hyaline Casts,Urine 7 /lpf (0-2); Ketones,Urine Negative (Negative); Leukocyte Esterase,Urine Large (Negative); Nitrite,Urine Negative (Negative); PH, Urine 5.5 (5.0-8.0); Protein,Urine Negative (Negative); RBC,Urine 11 /hpf (0-5); Squamous Epithelial Cell,Urine <1 /hpf (0-4); Urobilinogen,Urine <2.0 mg/dL (<2.0)
[2018-12-30] MEDS ORDERED: CEPHALEXIN 500MG STARTER PACK 4 CAP BTL PO STA (04:29)
[2018-12-30 04:46] VITALS: BP 122/64; PULSE 82; RESP 16; TEMP 98.7
== END 2018-12-30 04:45 | disposition home or self-care (01) ==
LOC: EC 02:47
DX: N39.0 Urinary tract infection, site not specified (principal); N31.9 Neuromuscular dysfunction of bladder, unspecified; J45.909 Unspecified asthma, uncomplicated; F03.90 Unspecified dementia, unspecified severity, without behavioral disturbance, psychotic disturbance, mood disturbance, and anxiety; E03.9 Hypothyroidism, unspecified; E11.40 Type 2 diabetes mellitus with diabetic neuropathy, unspecified; E11.22 Type 2 diabetes mellitus with diabetic chronic kidney disease; I12.9 Hypertensive chronic kidney disease with stage 1 through stage 4 chronic kidney disease, or unspecified chronic kidney disease; N18.9 Chronic kidney disease, unspecified; E78.5 Hyperlipidemia, unspecified; F41.9 Anxiety disorder, unspecified; F32.9 Major depressive disorder, single episode, unspecified; F17.200 Nicotine dependence, unspecified, uncomplicated; Z79.82 Long term (current) use of aspirin; Z79.890 Hormone replacement therapy; Z79.84 Long term (current) use of oral hypoglycemic drugs; Z79.51 Long term (current) use of inhaled steroids; Z79.899 Other long term (current) drug therapy; Z91.018 Allergy to other foods; Z95.1 Presence of aortocoronary bypass graft; Z89.612 Acquired absence of left leg above knee; Z99.81 Dependence on supplemental oxygen
CPT/HCPCS: 51702; 51798; 81001; 87086; 99284

== ENCOUNTER 2019-01-10 21:54 | Emergency (ER) | payer MEDICARE, OTHER ==
[2019-01-10 22:02] VITALS: RESP 18
--- NOTE | 2019-01-10 22:32 | ED ---
General Adult HPI - General Chief complaint: Fall Stated complaint: Fall Time Seen by Provider: 01/10/19 22:25 Source: patient, EMS, RN notes reviewed, old records reviewed Mode of arrival: EMS Limitations: no limitations - History of Present Illness Initial comments: 84-year-old male presents status post fall. Patient has bilateral carbh-[id number]-iakp amputations. He is wheelchair-bound. He was leaning forward out of his wheelchair fell onto his left arm. Complains of left wrist and forearm pain as well as some mild left shoulder pain. His previous surgery left shoulder with chronic deformity. Denies head or neck injury. Denies loss of consciousness. Denies any chest pain or abdominal pain. - Related Data Home Medications Medication Instructions Recorded Confirmed Furosemide [Lasix] 40 mg PO BID 06/13/14 01/10/19 HYDROcodone/APAP 10-325MG [[place] 1 tab PO TID PRN 03/28/15 01/10/19 10] Finasteride [Proscar] 5 mg PO DAILY 01/01/16 01/10/19 Allopurinol [Zyloprim] 100 mg PO DAILY 05/13/16 01/10/19 Aspirin EC [Ecotrin Low Dose] 81 mg PO DAILY 05/13/16 01/10/19 Doxazosin [Cardura] 4 mg PO BID 05/13/16 01/10/19 Isosorbide Mononitrate ER [Imdur] 60 mg PO DAILY 05/13/16 01/10/19 Levothyroxine Sodium [Synthroid] 150 mcg PO DAILY 05/13/16 01/10/19 Losartan [Cozaar] 25 mg PO DAILY 05/13/16 01/10/19 glipiZIDE [Glucotrol] 2.5 mg PO BID 05/13/16 01/10/19 Atorvastatin Calcium [Lipitor] 80 mg PO HS 12/18/18 01/10/19 Budesonide/Formoterol Fumarate 2 puff INHALATION BID 12/18/18 01/10/19 [Symbicort 160-4.5 Mcg Inhaler] Donepezil [Aricept] 10 mg PO DAILY 12/18/18 01/10/19 Memantine [Namenda] 10 mg PO BID 12/18/18 01/10/19 PARoxetine HCL [Paxil] 30 mg PO HS 12/18/18 01/10/19 Potassium Chloride [Klor-Con 20] 20 meq PO BID 12/18/18 01/10/19 Sennosides/Docusate Sodium 1 tab PO DAILY PRN 12/18/18 01/10/19 [Senna-S Laxative Tablet] traZODone HCL 150 mg PO HS 12/18/18 01/10/19 guaiFENesin [Mucinex] 1,200 mg PO DAILY 12/22/18 01/10/19 Allergies Allergy/AdvReac Type Severity Reaction Status Date / Time tomato Allergy Swelling Verified 01/10/19 22:21 Review of Systems ROS Statement: Those systems with pertinent positive or pertinent negative responses have been documented in the HPI. ROS Other: All systems not noted in ROS Statement are negative. Past Medical History Past Medical History: Asthma, Dementia, Diabetes Mellitus, Diabetes Mellitus, Hyperlipidemia, Hypertension, Pneumonia, Prostate Disorder, Renal Disease, Renal Disease, Thyroid Disorder, Thyroid Disorder Additional Past Medical History / Comment(s): Other hx: Home O2 dependent-3L/[facility], urinary retention, UTI, bacteremia, osteomyelitis, SIR, chronic catheter, diabetic neuropathy, chronic renal failure, gout,hypothyroidism,Gait dysfunction uses wheelchair,DJD, severe constipation.gout,hypothyroidism,Chronic catheter, hearing impairment. History of Any Multi-Drug Resistant Organisms: MRSA Date of last positivie culture/infection: 04/09/16 MDRO Source:: right foot Past Surgical History: Back Surgery, Coronary Bypass/CABG, Hernia Repair Additional Past Surgical History / Comment(s): 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 Past Psychological History: Anxiety, Depression Smoking Status: Current every day smoker Past Alcohol Use History: None Reported Past Drug Use History: None Reported - Past Family History Sister(s) Family Medical History: Cancer Mother Family Medical History: Diabetes Mellitus Additional Family Medical History / Comment(s): Pt remembers only that his mom was obese. General Exam Limitations: no limitations General appearance: alert, in no apparent distress Head exam: Present: atraumatic, normocephalic Eye exam: Present: normal appearance, PERRL ENT exam: Present: normal exam Neck exam: Present: normal inspection. Absent: tenderness, meningismus Respiratory exam: Present: normal lung sounds bilaterally. Absent: respiratory distress Cardiovascular Exam: Present: regular rate. Absent: normal rhythm Extremities exam: Present: tenderness (Tenderness, left wrist and forearm. No gross deformity. Distal pulses intact, normal cap refill. Deformity left shoulder with bony crepitus.) Neurological exam: Present: alert, oriented X3, CN II-XII intact Skin exam: Present: warm, dry, intact. Absent: cyanosis, diaphoretic Course Vital Signs 01/10/19 21:57 Temperature 98.3 F Pulse Rate 77 Respiratory 18 Rate Blood Pressure 118/81 O2 Sat by Pulse 95 Oximetry Procedures - Orthopedic Splinting/Casting Injury #1 Side: left Upper Extremity Injury Location: wrist Upper Extremity Immobilizer: volar splint Medical Decision Making - Medical Decision Making 84-year-old status post fall with left arm pain primarily left wrist pain. On exam tenderness to palpation in the left wrist, no significant deformity on exam. Patient does have deformity of the humerus and left shoulder. On further evaluation patient states that this is been a chronic issue, he has known fractured hardware and has been told he is not a surgical candidate. States this is unchanged from baseline. X-ray was obtained which showed chronic bony deformity as well as fractured hardware of the left humerus. X-ray of forearm and wrist is positive for minimally displaced ulnar styloid and distal radius fracture. There is concern for possible intra-articular extension. Patient is neurovascularly intact Disposition Clinical Impression: Fall, Radius fracture, Humerus fracture Disposition: HOME SELF-CARE Condition: Fair Instructions (If sedation given, give patient instructions): Wrist Fracture in Adults (ED) Is patient prescribed a controlled substance at d/c from ED?: No Referrals: Vern Mills MD [Primary Care Provider] - 1-2 days Joe Cary DO [Medical Doctor] - 1-2 days Time of Disposition: 00:00
--- NOTE | 2019-01-10 23:16 | XR ---
EXAM: XR Left Humerus, 2 or More Views CLINICAL HISTORY: Pain TECHNIQUE: Frontal and lateral views of the left humerus. COMPARISON: No relevant prior studies available. FINDINGS: Bones/joints: Plate and screws are noted within the proximal humerus with age indeterminate fracture through the hardware and the humerus in the proximal shaft with approximately 3.3 cm of distraction and marked angulation of the distal fracture fragment. Soft tissues: Unremarkable. IMPRESSION: Surgical changes noted in the humerus with age indeterminate fracture through the proximal shaft and hardware as described above.
--- NOTE | 2019-01-10 23:19 | XR ---
EXAM: XR Left Forearm, 2 Views CLINICAL HISTORY: Trauma TECHNIQUE: Frontal and lateral views of the left forearm. COMPARISON: No relevant prior studies available. FINDINGS: Bones/joints: Presumed acute fracture of the ulnar styloid and distal radius with probable intra-articular extension and mild dorsal subluxation of the distal fracture fragment. Soft tissues: Mild edema noted about the wrist. Vasculature: Vascular calcifications. IMPRESSION: Presumed acute fracture of the ulnar styloid and distal radius with probable intra-articular extension and mild dorsal subluxation of the distal fracture fragment.
--- NOTE | 2019-01-10 23:19 | XR ---
EXAM: XR Left Wrist Complete, 3 or More Views CLINICAL HISTORY: Trauma TECHNIQUE: Frontal, lateral and oblique views of the left wrist. COMPARISON: No relevant prior studies available. FINDINGS: Bones/joints: Presumed acute fracture of the ulnar styloid and distal radius with probable intra-articular extension and mild dorsal subluxation of the distal fracture fragment. Degenerative changes of the carpal bones. Soft tissues: Mild edema noted at the wrist. No radiopaque foreign body. Vasculature: Vascular calcifications. IMPRESSION: Presumed acute fracture of the ulnar styloid and distal radius with probable intra-articular extension and mild dorsal subluxation of the distal fracture fragment.
--- NOTE | 2019-01-10 23:23 | XR ---
EXAM: XR Left Shoulder Complete, 2 or More Views CLINICAL HISTORY: Trauma TECHNIQUE: Two or more views of the left shoulder. COMPARISON: No relevant prior studies available. FINDINGS: Bones/joints: Plate and screws are noted within the proximal humerus with age indeterminate fracture through the hardware and the humerus in the proximal shaft with approximately 3.3 cm of distraction and marked angulation of the distal fracture fragment. Soft tissues: Vascular calcifications. IMPRESSION: Plate and screws are noted within the proximal humerus with age indeterminate fracture through the hardware and the humerus in the proximal shaft with approximately 3.3 cm of distraction and marked angulation of the distal fracture fragment.
--- NOTE | 2019-01-10 23:25 | XR ---
EXAM: XR Lumbar Spine, 2 or 3 Views CLINICAL HISTORY: Trauma TECHNIQUE: Frontal and lateral views of the lumbar spine. COMPARISON: No relevant prior studies available. FINDINGS: Vertebrae: No acute fracture or traumatic malalignment. Remote compression deformity of L1 with minimal height loss of the anterior column. Postsurgical changes noted at L3-S1. Disc spaces: Multilevel degenerative changes. Soft tissues: Unremarkable. IMPRESSION: No acute findings.
[2019-01-11 00:19] VITALS: BP 139/78; PULSE 69; TEMP 98.5
== END 2019-01-11 00:48 | disposition home or self-care (01) ==
LOC: EC 21:54
DX: S52.502A Unspecified fracture of the lower end of left radius, initial encounter for closed fracture (principal); S52.612A Displaced fracture of left ulna styloid process, initial encounter for closed fracture; S42.302A Unspecified fracture of shaft of humerus, left arm, initial encounter for closed fracture; J45.909 Unspecified asthma, uncomplicated; E11.40 Type 2 diabetes mellitus with diabetic neuropathy, unspecified; I12.9 Hypertensive chronic kidney disease with stage 1 through stage 4 chronic kidney disease, or unspecified chronic kidney disease; E11.22 Type 2 diabetes mellitus with diabetic chronic kidney disease; N18.9 Chronic kidney disease, unspecified; I10 Essential (primary) hypertension; E03.9 Hypothyroidism, unspecified; M10.9 Gout, unspecified; F03.90 Unspecified dementia, unspecified severity, without behavioral disturbance, psychotic disturbance, mood disturbance, and anxiety; Z86.14 Personal history of Methicillin resistant Staphylococcus aureus infection; F32.9 Major depressive disorder, single episode, unspecified; F41.9 Anxiety disorder, unspecified; F17.200 Nicotine dependence, unspecified, uncomplicated; Z79.890 Hormone replacement therapy; Z79.82 Long term (current) use of aspirin; Z79.84 Long term (current) use of oral hypoglycemic drugs; Z79.899 Other long term (current) drug therapy; Z79.51 Long term (current) use of inhaled steroids; Z91.018 Allergy to other foods; E78.5 Hyperlipidemia, unspecified; H91.90 Unspecified hearing loss, unspecified ear; Z95.1 Presence of aortocoronary bypass graft; Z99.3 Dependence on wheelchair; Z99.81 Dependence on supplemental oxygen; Z89.611 Acquired absence of right leg above knee; Z89.612 Acquired absence of left leg above knee; W05.0XXA Fall from non-moving wheelchair, initial encounter
CPT/HCPCS: 29125; 72100; 99284

== ENCOUNTER 2019-11-26 03:16 | Emergency (ER) | payer MEDICARE, OTHER ==
[2019-11-26 03:25] VITALS: RESP 18
--- NOTE | 2019-11-26 04:17 | ED ---
Abdominal Pain HPI - General Chief Complaint: Abdominal Pain Stated Complaint: Abd pain Time Seen by Provider: 11/26/19 04:09 Source: patient, EMS Mode of arrival: EMS - History of Present Illness Initial Comments: This patient is an 84-year-old man who presents to be evaluated for suprapubic abdominal pain. Patient states this been going on for a day and associated with this his Hdz catheter has stopped draining. Patient has history of neurogenic bladder and has chronic indwelling Hdz catheter. In addition for 2-3 days he has not had a bowel movement and is complaining of generalized cramping consistent with constipation. MD Complaint: abdominal pain Onset/Timin -: days(s) Location: diffuse Quality: cramping, fullness Consistency: constant Associated Symptoms: denies other symptoms - Related Data Home Medications Medication Instructions Recorded Confirmed Furosemide [Lasix] 40 mg PO BID 06/13/14 01/10/19 HYDROcodone/APAP 10-325MG [[place] 1 tab PO TID PRN 03/28/15 01/10/19 10] Finasteride [Proscar] 5 mg PO DAILY 01/01/16 01/10/19 Allopurinol [Zyloprim] 100 mg PO DAILY 05/13/16 01/10/19 Aspirin EC [Ecotrin Low Dose] 81 mg PO DAILY 05/13/16 01/10/19 Doxazosin [Cardura] 4 mg PO BID 05/13/16 01/10/19 Isosorbide Mononitrate ER [Imdur] 60 mg PO DAILY 05/13/16 01/10/19 Levothyroxine Sodium [Synthroid] 150 mcg PO DAILY 05/13/16 01/10/19 Losartan [Cozaar] 25 mg PO DAILY 05/13/16 01/10/19 glipiZIDE [Glucotrol] 2.5 mg PO BID 05/13/16 01/10/19 Atorvastatin Calcium [Lipitor] 80 mg PO HS 12/18/18 01/10/19 Budesonide/Formoterol Fumarate 2 puff INHALATION BID 12/18/18 01/10/19 [Symbicort 160-4.5 Mcg Inhaler] Donepezil [Aricept] 10 mg PO DAILY 12/18/18 01/10/19 Memantine [Namenda] 10 mg PO BID 12/18/18 01/10/19 PARoxetine HCL [Paxil] 30 mg PO HS 12/18/18 01/10/19 Potassium Chloride [Klor-Con 20] 20 meq PO BID 12/18/18 01/10/19 Sennosides/Docusate Sodium 1 tab PO DAILY PRN 12/18/18 01/10/19 [Senna-S Laxative Tablet] traZODone HCL 150 mg PO HS 12/18/18 01/10/19 guaiFENesin [Mucinex] 1,200 mg PO DAILY 12/22/18 01/10/19 Allergies Allergy/AdvReac Type Severity Reaction Status Date / Time tomato Allergy Swelling Verified 01/10/19 22:21 Review of Systems ROS Statement: Those systems with pertinent positive or pertinent negative responses have been documented in the HPI. ROS Other: All systems not noted in ROS Statement are negative. Constitutional: Denies: fever Respiratory: Denies: cough, dyspnea Cardiovascular: Denies: chest pain Gastrointestinal: Reports: as per HPI, abdominal pain, constipation. Denies: nausea, vomiting, diarrhea, hematochezia Genitourinary: Denies: testicular pain Musculoskeletal: Denies: back pain Skin: Denies: rash Past Medical History Past Medical History: Asthma, Dementia, Diabetes Mellitus, Diabetes Mellitus, Hyperlipidemia, Hypertension, Pneumonia, Prostate Disorder, Renal Disease, Renal Disease, Thyroid Disorder, Thyroid Disorder Additional Past Medical History / Comment(s): Other hx: Home O[facility] dependent-[facility]L/[facility], urinary retention, UTI, bacteremia, osteomyelitis, SIR, chronic catheter, diabetic neuropathy, chronic renal failure, gout,hypothyroidism,Gait dysfunction uses wheelchair,DJD, severe constipation.gout,hypothyroidism,Chronic catheter, hearing impairment. History of Any Multi-Drug Resistant Organisms: MRSA Date of last positivie culture/infection: 04/09/16 MDRO Source:: right foot Past Surgical History: Back Surgery, Coronary Bypass/CABG, Hernia Repair Additional Past Surgical History / Comment(s): 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 Past Psychological History: Anxiety, Depression Smoking Status: Current every day smoker Past Alcohol Use History: None Reported Past Drug Use History: None Reported - Past Family History Sister(s) Family Medical History: Cancer Mother Family Medical History: Diabetes Mellitus Additional Family Medical History / Comment(s): Pt remembers only that his mom was obese. General Exam General appearance: alert, in no apparent distress Head exam: Present: atraumatic, normocephalic Eye exam: Present: normal appearance. Absent: scleral icterus, conjunctival injection Respiratory exam: Present: normal lung sounds bilaterally. Absent: respiratory distress, wheezes, rales, rhonchi, stridor Cardiovascular Exam: Present: regular rate, normal rhythm, normal heart sounds. Absent: systolic murmur, diastolic murmur, rubs, gallop GI/Abdominal exam: Present: soft. Absent: distended, tenderness, guarding, rebound, rigid, mass, pulsatile mass Rectal exam: Present: normal inspection, normal rectal tone, hemorrhoids. Absent: black stool, bloody stool, mass, tenderness exam: Present: normal inspection Extremities exam: Present: other (Bilateral AKA). Absent: pedal edema Back exam: Present: normal inspection Neurological exam: Present: alert Skin exam: Present: warm, dry, intact, normal color. Absent: rash Course Vital Signs 11/26/19 03:19 Temperature 98.3 F Pulse Rate 68 Respiratory 18 Rate Blood Pressure 150/85 O2 Sat by Pulse 98 Oximetry Medical Decision Making - Medical Decision Making Patient is an 84-year-old man with urinary retention. This did resolve with change in patient's Hdz catheter. There was then clear yellow urine. In relation to the constipation, did perform digital rectal exam and there is no stool that I am able to disimpact. Discussed treatment options with the patient, possibility of enema versus taking oral preparation, and he prefers to take the oral: Prep. Prescription appropriate further care and follow-up as well as return parameters. Disposition Clinical Impression: Constipation, Urine retention Disposition: HOME SELF-CARE Condition: Good Is patient prescribed a controlled substance at d/c from ED?: No Referrals: Nonstaff,Physician [Primary Care Provider] - 1-2 days
--- NOTE | 2019-11-26 04:26 | XR ---
EXAM: XR Abdomen, 1 View CLINICAL HISTORY: ITS.REASON XR Reason: abdominal pain TECHNIQUE: Frontal supine view of the abdomen/pelvis. COMPARISON: 04/09/17 FINDINGS: Gastrointestinal tract: Moderate amount of Stool in colon. Short segments of small bowel in left midabdomen are mildly dilated to 3.5 cm in maximum diameter, may suggest ileus and less likely obstruction. Bones/joints: Osteopenia. Moderate degenerative changes. Posterior lower lumbar fusion hardware again noted. IMPRESSION: 1. Moderate amount of Stool in colon. 2. Short segments of small bowel in left midabdomen are mildly dilated to 3.5 cm in maximum diameter, may suggest ileus and less likely obstruction.
[2019-11-26 05:57] VITALS: BP 156/89; PULSE 82; TEMP 98.8
[2019-11-26] MEDS ORDERED: PEG 3350-NA SULF,BICARB,CL/KCL 4,000 ML BOTTLE PO ONE (06:00)
== END 2019-11-26 05:56 | disposition home or self-care (01) ==
LOC: EC 03:16
DX: K59.00 Constipation, unspecified (principal); R33.9 Retention of urine, unspecified; Z89.612 Acquired absence of left leg above knee; Z89.611 Acquired absence of right leg above knee; J45.909 Unspecified asthma, uncomplicated; F03.90 Unspecified dementia, unspecified severity, without behavioral disturbance, psychotic disturbance, mood disturbance, and anxiety; N18.9 Chronic kidney disease, unspecified; E11.22 Type 2 diabetes mellitus with diabetic chronic kidney disease; E11.40 Type 2 diabetes mellitus with diabetic neuropathy, unspecified; E78.5 Hyperlipidemia, unspecified; I12.9 Hypertensive chronic kidney disease with stage 1 through stage 4 chronic kidney disease, or unspecified chronic kidney disease; N42.9 Disorder of prostate, unspecified; E03.9 Hypothyroidism, unspecified; M10.9 Gout, unspecified; H91.90 Unspecified hearing loss, unspecified ear; F32.9 Major depressive disorder, single episode, unspecified; F41.9 Anxiety disorder, unspecified; F17.200 Nicotine dependence, unspecified, uncomplicated; Z91.018 Allergy to other foods; Z79.51 Long term (current) use of inhaled steroids; Z79.82 Long term (current) use of aspirin; Z79.84 Long term (current) use of oral hypoglycemic drugs; Z79.890 Hormone replacement therapy; Z79.899 Other long term (current) drug therapy; Z99.81 Dependence on supplemental oxygen; Z86.14 Personal history of Methicillin resistant Staphylococcus aureus infection
CPT/HCPCS: 51702; 51798; 74018; 99285

== ENCOUNTER 2022-02-13 20:45 | Observation (INO) | payer MEDICARE, OTHER ==
--- NOTE | 2022-02-13 21:50 | ED ---
Altered Mental Status HPI - General Chief Complaint: Medical Clearance Stated Complaint: Altered Mental Status Time Seen by Provider: 02/13/22 21:19 Source: patient, RN notes reviewed, old records reviewed Mode of arrival: ambulatory Limitations: no limitations - History of Present Illness Initial Comments: This is an 87-year-old male to the emergency department for evaluation. Patient is unable unable to provide history recently in the hospital for altered mental status family states patient is not acting appropriately at home. Patient's brought in by family for evaluation regarding mental status. Patient here is unable to provide history for evaluation and history of present illness MD Complaint: altered mental status, confusion -: hour(s) Severity: moderate Consistency of Symptoms: unknown Context: history of similar presentation Associated Symptoms: denies other symptoms, weakness - Related Data Home Medications Medication Instructions Recorded Confirmed HYDROcodone/APAP 10-325MG [[place] 1 tab PO QID PRN 03/28/15 02/13/22 10-325] Finasteride [Proscar] 5 mg PO DAILY 01/01/16 02/13/22 Aspirin EC [Ecotrin Low Dose] 81 mg PO DAILY 05/13/16 02/13/22 Isosorbide Mononitrate ER [Imdur] 60 mg PO DAILY 05/13/16 02/13/22 Atorvastatin Calcium [Lipitor] 80 mg PO HS 12/18/18 02/13/22 Donepezil [Aricept] 10 mg PO DAILY 12/18/18 02/13/22 Memantine [Namenda] 10 mg PO BID 12/18/18 02/13/22 PARoxetine HCL [Paxil] 30 mg PO DAILY 12/18/18 02/13/22 Levothyroxine Sodium [Synthroid] 125 mcg PO DAILY 02/01/22 02/13/22 Lidocaine [Lidocaine 5% Rectal 1 applic RECTAL DAILY PRN 02/01/22 02/13/22 Cream] Miconazole Nitrate [Lotrimin AF 1 applic TOPICAL BID 02/01/22 02/13/22 Powder] Mometasone/Formoterol [Dulera 100 2 puff INHALATION RT-BID 02/01/22 02/13/22 Mcg-5 Mcg Inhaler] Mupirocin 2% Oint [Bactroban 2% 1 applic TOPICAL BID PRN 02/01/22 02/13/22 Oint] Pantoprazole [Protonix] 40 mg PO HS 02/01/22 02/13/22 Potassium Chloride ER [K-Dur 10] 10 meq PO HS 02/01/22 02/13/22 Previous Rx's Medication Instructions Recorded Amoxicillin 500 mg PO TID #21 capsule 02/05/22 Ferrous Sulfate [Iron (65 MG 325 mg PO DAILY #0 02/05/22 Elemental)] Furosemide [Lasix] 20 mg PO DAILY #0 02/05/22 allopurinoL [Zyloprim] 100 mg PO DAILY tab 02/05/22 Allergies Allergy/AdvReac Type Severity Reaction Status Date / Time tomato Allergy Swelling Verified 01/31/22 20:47 Review of Systems ROS Statement: Those systems with pertinent positive or pertinent negative responses have been documented in the HPI. ROS Other: All systems not noted in ROS Statement are negative. Past Medical History Past Medical History: Asthma, COPD, Dementia, Diabetes Mellitus, Diabetes Mellitus, GERD/Reflux, GI Bleed, Hearing Disorder / Deafness, Hyperlipidemia, Hypertension, Pneumonia, Prostate Disorder, Renal Disease, Renal Disease, Respiratory Disorder, Thyroid Disorder, Thyroid Disorder Additional Past Medical History / Comment(s): Home oxygen 4L/NC at HS, NIDDM type II/no longer on diabetic medications since bilateral leg amputations, (past L leg cellulitis/bacteremia/SIRs/encephalopathy/heel sores, osteomylitis and past bilateral lower extremity edema), CKD stage III, urinary retention/obstruction/utis, uti with bacteremia/chronic IDC, gout, hypothyroid, DJD, bilateral LUMMI/aide, severe constipation, pt had lower GI bleed/bowel resection with colostomy. History of Any Multi-Drug Resistant Organisms: MRSA Date of last positivie culture/infection: 04/09/16 MDRO Source:: right foot Past Surgical History: Back Surgery, Bowel Resection, Coronary Bypass/CABG, Heart Catheterization, Hernia Repair, Orthopedic Surgery Additional Past Surgical History / Comment(s): Bilateral AKA, transmetatarsal am putation L great toe, amputation 2nd L toe, L elbow injury with surgery, L arm renetta twice, 2003 CABG 5 vessel, R inguinal hernia repair. Past Anesthesia/Blood Transfusion Reactions: No Reported Reaction Additional Past Anesthesia/Blood Transfusion Reaction / Comment(s): Pt has received blood without reaction. Past Psychological History: Anxiety, Depression Smoking Status: Current every day smoker - Past Family History Sister(s) Family Medical History: Cancer Mother Family Medical History: Diabetes Mellitus Additional Family Medical History / Comment(s): Pt remembers only that his mom was obese. Father History Unknown: Yes General Exam Limitations: altered mental status General appearance: alert, in no apparent distress Head exam: Present: atraumatic, normocephalic, normal inspection Eye exam: Present: normal appearance, PERRL, EOMI. Absent: scleral icterus, conjunctival injection, periorbital swelling ENT exam: Present: normal exam, mucous membranes moist Neck exam: Present: normal inspection. Absent: tenderness, meningismus, lymphadenopathy Respiratory exam: Present: normal lung sounds bilaterally. Absent: respiratory distress, wheezes, rales, rhonchi, stridor Cardiovascular Exam: Present: regular rate, normal rhythm, normal heart sounds. Absent: systolic murmur, diastolic murmur, rubs, gallop, clicks GI/Abdominal exam: Present: soft, normal bowel sounds. Absent: distended, tenderness, guarding, rebound, rigid Extremities exam: Present: normal inspection, full ROM, normal capillary refill. Absent: tenderness, pedal edema, joint swelling, calf tenderness Back exam: Present: normal inspection Neurological exam: Present: alert, oriented X3, CN II-XII intact Psychiatric exam: Present: normal affect, normal mood Skin exam: Present: warm, dry, intact, normal color. Absent: rash Course Vital Signs 02/13/22 02/14/22 02/14/22 20:51 05:51 07:52 Temperature 98.7 F Pulse Rate 65 74 52 L Pulse Rate [ Right] Respiratory 16 16 18 Rate Blood Pressure 155/79 182/92 167/78 Blood Pressure [Right Arm Supine] O2 Sat by Pulse 97 98 96 Oximetry 02/14/22 02/14/22 02/14/22 10:52 13:35 14:00 Temperature 98.2 F Pulse Rate 80 74 Pulse Rate [ 65 Right] Respiratory 20 18 16 Rate Blood Pressure 170/79 171/74 Blood Pressure 196/100 [Right Arm Supine] O2 Sat by Pulse 97 96 96 Oximetry 02/14/22 02/14/22 14:54 17:55 Temperature Pulse Rate 70 72 Pulse Rate [ Right] Respiratory 18 18 Rate Blood Pressure 164/89 162/84 Blood Pressure [Right Arm Supine] O2 Sat by Pulse 99 96 Oximetry - Reevaluation(s) Reevaluation #1: 02/13/22 23:44 Medical record is reviewed Reevaluation #2: 02/13/22 23:44 patient family informed results and questions answered Reevaluation #3: 02/13/22 23:44 Patient continues remained of altered mental status Medical Decision Making - Medical Decision Making 87 male to the ER for evaluation for altered mental status. Patient does have current urinary tract infection, history of urinary tract infection and bacteremia. Patient will be admitted for antibiotics - Lab Data Result diagrams: 02/13/22 22:55 02/13/22 22:55 Lab Results 02/13/22 02/13/22 02/13/22 Range/Units 22:55 22:55 22:55 WBC 8.6 (3.8-10.6) k/uL RBC 4.21 L (4.30-5.90) m/uL Hgb 12.3 L (13.0-17.5) gm/dL Hct 39.4 (39.0-53.0) % MCV 93.6 (80.0-100.0) fL MCH 29.1 (25.0-35.0) pg MCHC 31.1 (31.0-37.0) g/dL RDW 14.8 (11.5-15.5) % Plt Count 263 (150-450) k/uL MPV 7.4 Neutrophils % 62 % Lymphocytes % 22 % Monocytes % 7 % Eosinophils % 6 % Basophils % 1 % Neutrophils # 5.4 (1.3-7.7) k/uL Lymphocytes # 1.9 (1.0-4.8) k/uL Monocytes # 0.6 (0-1.0) k/uL Eosinophils # 0.5 (0-0.7) k/uL Basophils # 0.1 (0-0.2) k/uL Sodium 137 (137-145) mmol/L Potassium 4.2 (3.5-5.1) mmol/L Chloride 109 H (98-107) mmol/L Carbon Dioxide 23 (22-30) mmol/L Anion Gap 5 mmol/L BUN 15 (9-20) mg/dL Creatinine 1.32 H (0.66-1.25) mg/dL Est GFR (CKD-EPI)AfAm 56 (>60 ml/min/1.73 sqM) Est GFR (CKD-EPI)NonAf 48 (>60 ml/min/1.73 sqM) Glucose 134 H (74-99) mg/dL Calcium 9.2 (8.4-10.2) mg/dL Phosphorus 3.0 (2.5-4.5) mg/dL Magnesium 2.3 (1.6-2.3) mg/dL Total Bilirubin 0.3 (0.2-1.3) mg/dL AST 22 (17-59) U/L ALT 16 (4-49) U/L Alkaline Phosphatase 153 H (38-126) U/L Ammonia <9 (<30) umol/L Total Protein 6.1 L (6.3-8.2) g/dL Albumin 3.6 (3.5-5.0) g/dL TSH 3.370 (0.465-4.680) mIU/L Urine Color Urine Appearance (Clear) Urine pH (5.0-8.0) Ur Specific [place] (1.001-1.035) Urine Protein (Negative) Urine Glucose (UA) (Negative) Urine Ketones (Negative) Urine Blood (Negative) Urine Nitrite (Negative) Urine Bilirubin (Negative) Urine Urobilinogen (<2.0) mg/dL Ur Leukocyte Esterase (Negative) Urine RBC (0-5) /hpf Urine WBC (0-5) /hpf Urine WBC Clumps (None) /hpf Ur Squamous Epith Cells (0-4) /hpf Urine Bacteria (None) /hpf Hyaline Casts (0-2) /lpf Urine Mucus (None) /hpf Urine Yeast (Budding) (None) /hpf Salicylates <1.0 mg/dL Urine Opiates Screen (NotDetected) Ur Oxycodone Screen (NotDetected) Urine Methadone Screen (NotDetected) Ur Propoxyphene Screen (NotDetected) Acetaminophen <10.0 ug/mL Ur Barbiturates Screen (NotDetected) U Tricyclic Antidepress (NotDetected) Ur Phencyclidine Scrn (NotDetected) Ur Amphetamines Screen (NotDetected) U Methamphetamines Scrn (NotDetected) U Benzodiazepines Scrn (NotDetected) Urine Cocaine Screen (NotDetected) U Marijuana (THC) Screen (NotDetected) Serum Alcohol <10 mg/dL 02/14/22 Range/Units 00:16 WBC (3.8-10.6) k/uL RBC (4.30-5.90) m/uL Hgb (13.0-17.5) gm/dL Hct (39.0-53.0) % MCV (80.0-100.0) fL MCH (25.0-35.0) pg MCHC (31.0-37.0) g/dL RDW (11.5-15.5) % Plt Count (150-450) k/uL MPV Neutrophils % % Lymphocytes % % Monocytes % % Eosinophils % % Basophils % % Neutrophils # (1.3-7.7) k/uL Lymphocytes # (1.0-4.8) k/uL Monocytes # (0-1.0) k/uL Eosinophils # (0-0.7) k/uL Basophils # (0-0.2) k/uL Sodium (137-145) mmol/L Potassium (3.5-5.1) mmol/L Chloride (98-107) mmol/L Carbon Dioxide (22-30) mmol/L Anion Gap mmol/L BUN (9-20) mg/dL Creatinine (0.66-1.25) mg/dL Est GFR (CKD-EPI)AfAm (>60 ml/min/1.73 sqM) Est GFR (CKD-EPI)NonAf (>60 ml/min/1.73 sqM) Glucose (74-99) mg/dL Calcium (8.4-10.2) mg/dL Phosphorus (2.5-4.5) mg/dL Magnesium (1.6-2.3) mg/dL Total Bilirubin (0.2-1.3) mg/dL AST (17-59) U/L ALT (4-49) U/L Alkaline Phosphatase (38-126) U/L Ammonia (<30) umol/L Total Protein (6.3-8.2) g/dL Albumin (3.5-5.0) g/dL TSH (0.465-4.680) mIU/L Urine Color Yellow Urine Appearance Cloudy (Clear) Urine pH 5.5 (5.0-8.0) Ur Specific [place] 1.016 (1.001-1.035) Urine Protein Trace H (Negative) Urine Glucose (UA) Negative (Negative) Urine Ketones Negative (Negative) Urine Blood Small H (Negative) Urine Nitrite Negative (Negative) Urine Bilirubin Negative (Negative) Urine Urobilinogen <2.0 (<2.0) mg/dL Ur Leukocyte Esterase Large H (Negative) Urine RBC 18 H (0-5) /hpf Urine WBC >182 H (0-5) /hpf Urine WBC Clumps Many H (None) /hpf Ur Squamous Epith Cells <1 (0-4) /hpf Urine Bacteria Rare H (None) /hpf Hyaline Casts 25 H (0-2) /lpf Urine Mucus Occasional H (None) /hpf Urine Yeast (Budding) Many H (None) /hpf Salicylates mg/dL Urine Opiates Screen Detected H (NotDetected) Ur Oxycodone Screen Not Detected (NotDetected) Urine Methadone Screen Not Detected (NotDetected) Ur Propoxyphene Screen Not Detected (NotDetected) Acetaminophen ug/mL Ur Barbiturates Screen Not Detected (NotDetected) U Tricyclic Antidepress Not Detected (NotDetected) Ur Phencyclidine Scrn Not Detected (NotDetected) Ur Amphetamines Screen Not Detected (NotDetected) U Methamphetamines Scrn Not Detected (NotDetected) U Benzodiazepines Scrn Not Detected (NotDetected) Urine Cocaine Screen Not Detected (NotDetected) U Marijuana (THC) Screen Not Detected (NotDetected) Serum Alcohol mg/dL Disposition Clinical Impression: Dehydration, Urinary tract infection, Hdz catheter problem, Altered mental status Disposition: ADMITTED IP TO THIS HOSP Condition: Fair Is patient prescribed a controlled substance at d/c from ED?: No
[2022-02-13 23:35] LABS: Basophils # (A) 0.1 k/uL (0-0.2); Basophils % (A) 1 %; Eosinophils # (A) 0.5 k/uL (0-0.7); Eosinophils % (A) 6 %; HCT 39.4 % (39.0-53.0); HGB 12.3 gm/dL (13.0-17.5); Lymphocytes # (A) 1.9 k/uL (1.0-4.8); Lymphocytes % (A) 22 %; MCH 29.1 pg (25.0-35.0); MCHC 31.1 g/dL (31.0-37.0); MCV 93.6 fL (80.0-100.0); Mean Platelet Volume 7.4; Monocytes # (A) 0.6 k/uL (0-1.0); Monocytes % (A) 7 %; Neutrophils # (A) 5.4 k/uL (1.3-7.7); Neutrophils % (A) 62 %; Platelet Count 263 k/uL (150-450); RBC 4.21 m/uL (4.30-5.90); RDW 14.8 % (11.5-15.5); WBC 8.6 k/uL (3.8-10.6)
[2022-02-13 23:45] LABS: ALT 16 U/L (4-49); AST 22 U/L (17-59); Acetaminophen <10.0 ug/mL; African American GFR (CKD) 56 (>60 ml/min/1.73 sqM); Albumin 3.6 g/dL (3.5-5.0); Alcohol <10 mg/dL; Alkaline Phosphatase 153 U/L (38-126); Anion Gap 5 mmol/L; Blood Urea Nitrogen 15 mg/dL (9-20); Calcium 9.2 mg/dL (8.4-10.2); Carbon Dioxide 23 mmol/L (22-30); Chloride 109 mmol/L (98-107); Glucose 134 mg/dL (74-99); Magnesium 2.3 mg/dL (1.6-2.3); Non-African American GFR(CKD) 48 (>60 ml/min/1.73 sqM); Potassium 4.2 mmol/L (3.5-5.1); Salicylate <1.0 mg/dL; Sodium 137 mmol/L (137-145); Total Bilirubin 0.3 mg/dL (0.2-1.3); Total Protein 6.1 g/dL (6.3-8.2)
[2022-02-14 01:01] LABS: Appearance,Urine Cloudy (Clear); Bacteria,Urine Rare /hpf; Bilirubin,Urine Negative (Negative); Blood,Urine Small (Negative); Budding Yeast,Urine Many /hpf; Color,Urine Yellow; Glucose,Urine (UA) Negative (Negative); Hyaline Casts,Urine 25 /lpf (0-2); Ketones,Urine Negative (Negative); Leukocyte Esterase,Urine Large (Negative); Mucus,Urine Occasional /hpf; Nitrite,Urine Negative (Negative); PH, Urine 5.5 (5.0-8.0); Protein,Urine Trace (Negative); RBC,Urine 18 /hpf (0-5); Specific Gravity,Urine 1.016 (1.001-1.035); Squamous Epithelial Cell,Urine <1 /hpf (0-4); Urobilinogen,Urine <2.0 mg/dL (<2.0); WBC,Urine >182 /hpf (0-5)
[2022-02-14 01:10] LABS: Amphetamine Screen,Urine Not Detected (NotDetected); Barbiturate Screen,Urine Not Detected (NotDetected); Benzodiazepines Screen,Urine Not Detected (NotDetected); Cocaine Screen,Urine Not Detected (NotDetected); Methadone Screen, Urine Not Detected (NotDetected); Opiate Screen,Urine Detected (NotDetected); Oxycodone Screen, Urine Not Detected (NotDetected); Phencyclidine Screen,Urine Not Detected (NotDetected); Tricyclic Antidepressant,Urine Not Detected (NotDetected); Urn Cannabinoid Scrn Not Detected (NotDetected)
[2022-02-14] MEDS ORDERED: LORazepam 2 MG/ML INJ IV PRN (02:39)
[2022-02-14] MEDS ORDERED: NALOXONE 0.4 MG/ML 1 ML VIAL IV PRN (02:39)
[2022-02-14] MEDS ORDERED: ONDANSETRON 4 MG/2 ML VIAL IVP PRN (02:39)
--- NOTE | 2022-02-14 04:37 | P.HPIM ---
History of Present Illness H&P Date: 02/14/22 Chief Complaint: AMS 87 year old male with DM, hypertension , dementia , CKD , chronic mathew patient sleeping, unable to provide any meaningful history , per ED note, he was brought in here by family for altered mental status , he has chronic mathew cath , he was recently discharged from the hospital , for similar problem with altered mental status and was found to have obstructive uropathy and malfunctioned mathew cath workup in the ED showed no leukocytosis , urine with chronic mathew with leukocyte esterase no nitrite creatinine around baseline Review of Systems ROS unobtainable: due to mental status Past Medical History Past Medical History: Asthma, COPD, Dementia, Diabetes Mellitus, Diabetes Mellitus, GERD/Reflux, GI Bleed, Hearing Disorder / Deafness, Hyperlipidemia, Hypertension, Pneumonia, Prostate Disorder, Renal Disease, Renal Disease, Respiratory Disorder, Thyroid Disorder, Thyroid Disorder Additional Past Medical History / Comment(s): Home oxygen 4L/[place] at HS, NIDDM type II/no longer on diabetic medications since bilateral leg amputations, (past L leg cellulitis/bacteremia/SIRs/encephalopathy/heel sores, osteomylitis and past bilateral lower extremity edema), CKD stage III, urinary retention/obstruction/utis, uti with bacteremia/chronic IDC, gout, hypothyroid, DJD, bilateral [place]/aide, severe constipation, pt had lower GI bleed/bowel re section with colostomy. History of Any Multi-Drug Resistant Organisms: MRSA Date of last positivie culture/infection: 04/09/16 MDRO Source:: right foot Past Surgical History: Back Surgery, Bowel Resection, Coronary Bypass/CABG, Heart Catheterization, Hernia Repair, Orthopedic Surgery Additional Past Surgical History / Comment(s): Bilateral AKA, transmetatarsal amputation L great toe, amputation 2nd L toe, L elbow injury with surgery, L arm renetta twice, 2003 CABG 5 vessel, R inguinal hernia repair. Past Anesthesia/Blood Transfusion Reactions: No Reported Reaction Additional Past Anesthesia/Blood Transfusion Reaction / Comment(s): Pt has received blood without reaction. Past Psychological History: Anxiety, Depression Smoking Status: Current every day smoker - Past Family History Sister(s) Family Medical History: Cancer Mother Family Medical History: Diabetes Mellitus Additional Family Medical History / Comment(s): Pt remembers only that his mom was obese. Father History Unknown: Yes Medications and Allergies Home Medications Medication Instructions Recorded Confirmed Type HYDROcodone/APAP 10-325MG [[place] 1 tab PO QID PRN 03/28/15 02/13/22 History 10-325] Finasteride [Proscar] 5 mg PO DAILY 01/01/16 02/13/22 History Aspirin EC [Ecotrin Low Dose] 81 mg PO DAILY 05/13/16 02/13/22 History Isosorbide Mononitrate ER [Imdur] 60 mg PO DAILY 05/13/16 02/13/22 History Atorvastatin Calcium [Lipitor] 80 mg PO HS 12/18/18 02/13/22 History Donepezil [Aricept] 10 mg PO DAILY 12/18/18 02/13/22 History Memantine [Namenda] 10 mg PO BID 12/18/18 02/13/22 History PARoxetine HCL [Paxil] 30 mg PO DAILY 12/18/18 02/13/22 History Levothyroxine Sodium [Synthroid] 125 mcg PO DAILY 02/01/22 02/13/22 History Lidocaine [Lidocaine 5% Rectal 1 applic RECTAL DAILY PRN 02/01/22 02/13/22 History Cream] Miconazole Nitrate [Lotrimin AF 1 applic TOPICAL BID 02/01/22 02/13/22 History Powder] Mometasone/Formoterol [Dulera 100 2 puff INHALATION RT-BID 02/01/22 02/13/22 History Mcg-5 Mcg Inhaler] Mupirocin 2% Oint [Bactroban 2% 1 applic TOPICAL BID PRN 02/01/22 02/13/22 History Oint] Pantoprazole [Protonix] 40 mg PO HS 02/01/22 02/13/22 History Potassium Chloride ER [K-Dur 10] 10 meq PO HS 02/01/22 02/13/22 History Amoxicillin 500 mg PO TID #21 capsule 02/05/22 02/13/22 Rx Ferrous Sulfate [Iron (65 MG 325 mg PO DAILY #0 02/05/22 02/13/22 Rx Elemental)] Furosemide [Lasix] 20 mg PO DAILY #0 02/05/22 02/13/22 Rx allopurinoL [Zyloprim] 100 mg PO DAILY tab 02/05/22 02/13/22 Rx Allergies Allergy/AdvReac Type Severity Reaction Status Date / Time tomato Allergy Swelling Verified 01/31/22 20:47 Physical Exam Vitals: Vital Signs Temp Pulse Resp BP Pulse Ox 02/13/22 20:51 98.7 F 65 16 155/79 97 Intake and Output 02/13/22 02/13/22 02/14/22 14:59 22:59 06:59 Other: Weight 68.039 kg Constitutional: sleeping, resists waking up or opening eyes Eyes: unable to examine ENMT: NC/AT Neck: resists exam, no masses, or JVD No carotid bruits No thyromegaly Lungs: Clear to auscultation Clear to percussion Normal respiratory effort, no accessory muscle use Cardiovascular: Heart regular in rate and rhythm, No murmurs, gallops, or rubs No peripheral edema Abdominal: Soft, chronic mathew cath in place Nontender, no guarding, rebound or rigidity Abdomen moving with respiration Normoactive bowel sounds Skin: Normal temperature, tone, texture, turgor No induration No subcutaneous nodules No rash, lesions No ulcers Extremities: bilateral BKA Radial pulses intact and symmetrical Psychiatric: sleeping uncooperative Neuro unable to perform Lymphatics: no palpable cervical or supraclavicular lymph nodes Results CBC & Chem 7: 02/13/22 22:55 02/13/22 22:55 Labs: Abnormal Lab Results - Last 24 Hours (Table) 02/13/22 02/13/22 02/14/22 Range/Units 22:55 22:55 00:16 RBC 4.21 L (4.30-5.90) m/uL Hgb 12.3 L (13.0-17.5) gm/dL Chloride 109 H (98-107) mmol/L Creatinine 1.32 H (0.66-1.25) mg/dL Glucose 134 H (74-99) mg/dL Alkaline Phosphatase 153 H (38-126) U/L Total Protein 6.1 L (6.3-8.2) g/dL Urine Protein Trace H (Negative) Urine Blood Small H (Negative) Ur Leukocyte Esterase Large H (Negative) Urine RBC 18 H (0-5) /hpf Urine WBC >182 H (0-5) /hpf Urine WBC Clumps Many H (None) /hpf Urine Bacteria Rare H (None) /hpf Hyaline Casts 25 H (0-2) /lpf Urine Mucus Occasional H (None) /hpf Urine Yeast (Budding) Many H (None) /hpf Urine Opiates Screen Detected H (NotDetected) Assessment and Plan Assessment: acute metabolic encephalopathy suspected UTI , chronic mathew cath from home CKD 3 DM COPD on home oxygen hypothyroid plan IVF hydration with normal saline supportive care initiated on Rocephin in the ED follow up urine culture blood culture insulin sliding scale breathing treatment as needed resume home oxygen monitor renal function and urine output verify home meds full code DVT PPX heparin sc tid anticipated lengthof stay < 2 midnights
[2022-02-14] MEDS: SODIUM CHLORIDE 0.9% 1,000 ML IV SCH ×4 (07:29→21:09)
[2022-02-14] MEDS: HEPARIN SODIUM,PORCINE/PF 5,000 UNIT/0.5 ML SYRINGE SQ SCH ×3 (07:55→23:03)
[2022-02-14] MEDS ORDERED: LIDOCAINE 2% GEL 30 ML TUBE TOPICAL PRN (19:01)
[2022-02-14] MEDS: ISOSORBIDE MONONITRATE ER 60 MG TAB.ER.24H PO SCH (19:32)
[2022-02-14] MEDS: FUROSEMIDE 20 MG TAB PO SCH (19:32)
[2022-02-14] MEDS: SYMBICORT 80-4.5 MCG INHALER INHALATION SCH (20:02)
[2022-02-14 20:12] LABS: Glucose,Whole Blood 133 mg/dL (75-99)
[2022-02-14] MEDS: ATORVASTATIN 80 MG TAB PO SCH (21:08)
[2022-02-14] MEDS: PANTOPRAZOLE 40 MG TABLET PO SCH (21:08)
[2022-02-14] MEDS: hydrALAZINE HCL 25 MG TAB PO SCH (21:08)
[2022-02-14] MEDS: NYSTATIN 100,000 UNIT/GM POWD 15 GM TOPICAL SCH (21:08)
[2022-02-14] MEDS: MEMANTINE 10 MG TAB PO SCH (21:08)
--- NOTE | 2022-02-14 21:45 | P.CN ---
Psychiatric Consult - . Consult date: 02/14/22 Consult:: IDENTIFYING DATA: This patient is a 87-year-old male who presented from home with altered mental status and discovered to have a UTI. REASON FOR REFERRAL: Psychiatry was consulted for altered mental status. HISTORY OF PRESENT ILLNESS: The patient presented to the hospital from home where family reported he had not been acting appropriately. Workup in the ER was consistent with suspected UTI due to chronic Hdz catheter from home, and acute metabolic encephalopathy. On my assessment patient appears to be a poor historian. He also appears to be somewhat hard of hearing and asks for questions to be repeated. At this time patient denies any suicidal or homical ideations, intent or plan. He states he does not know why he is here and states we can talk to his daughter. He states he was at home in bed in the ambulance came to bring him here, that is all that he knows. He is oriented to person and the month. He reports the year as 1953 probably. He appears drowsy and returns to sleep. Patient denies any auditory, visual hallucinations and denies any paranoia or delusions. He denies depressed mood. PAST PSYCHIATRIC HISTORY: Past psychiatric history is positive for dementia. Other past psychiatric history is not known at this time. PAST MEDICAL HISTORY: Past Medical History: Asthma, COPD, Dementia, Diabetes Mellitus, Diabetes Mellitus, GERD/Reflux, GI Bleed, Hearing Disorder / Deafness, Hyperlipidemia, Hypertension, Pneumonia, Prostate Disorder, Renal Disease, Renal Disease, Respiratory Disorder, Thyroid Disorder, Thyroid Disorder Additional Past Medical History / Comment(s): Home oxygen 4L/NC at , NIDDM type II/no longer on diabetic medications since bilateral leg amputations, (past L leg cellulitis/bacteremia/SIRs/encephalopathy/heel sores, osteomylitis and past bilateral lower extremity edema), CKD stage III, urinary retention/obstruction/utis, uti with bacteremia/chronic IDC, gout, hypothyroid, DJD, bilateral [place]/aide, severe constipation, pt had lower GI bleed/bowel resection with colostomy. History of Any Multi-Drug Resistant Organisms: MRSA Date of last positivie culture/infection: 04/09/16 MDRO Source:: right foot Past Surgical History: Back Surgery, Bowel Resection, Coronary Bypass/CABG, Heart Catheterization, Hernia Repair, Orthopedic Surgery Additional Past Surgical History / Comment(s): Bilateral AKA, transmetatarsal amputation L great toe, amputation 2nd L toe, L elbow injury with surgery, L arm renetta twice, 2003 CABG 5 vessel, R inguinal hernia repair. Past Anesthesia/Blood Transfusion Reactions: No Reported Reaction Additional Past Anesthesia/Blood Transfusion Reaction / Comment(s): Pt has received blood without reaction. Past Psychological History: Anxiety, Depression Smoking Status: Current every day smoker ALLERGIES: as per EMR. CHEMICAL DEPENDENCY HISTORY: as per HPI. FAMILY PSYCHIATRIC/SUBSTANCE USE HISTORY: This information is not available at this time due to patient being a poor historian. SOCIAL HISTORY: Patient has a daughter. He has history of smoking. Other history is not available at this time since patient is a poor historian and returns to sleep. MENTAL STATUS EXAM: General Appearance: Patient appears to be stated age, somewhat disheveled. Behavior: Patient is calmly lying in bed without any agitated behavior. There i s drowsy and return to sleep. Speech: Patient's speech is fluent and nonpressured. Mood/Affect: Patient reports their mood is ok, affect is congruent Suicidality/Homicidality: Patient denies having any suicidal or homicidal ideation intent or plan. Perceptions: Patient denies any visual hallucinations and denies any auditory hallucinations. Though content/process: There is no evidence of any delusional thought content. Thought process is linear and brief. Memory and concentration: Drowsy, oriented to person and month, says the year is "1954 probably". Judgment and insight: Fair IMPRESSIONS: Delirium most likely due to underlying UTI Dementia PLAN: -At this time patient DOES NOT meet criteria for inpatient psychiatric admission. -Patient DOES NOT have decision making capacity at this time and is unable to reason through and communicate/appreciate the risks, benefits and alternatives to treatment. Defer to surrogate decision maker patient refuses treatment. -Delirium precautions recommended with patient including - avoiding use of narcotics and [employer] sedatives, limit anticholinergic medications when possible, frequent re-orientation, minimize use of restraints, open window shades during the day and close them at night. -Would recommend the following medication changes/additions: Recommend avoiding use of Ativan when necessary for anxiety as this can worsen delirium as well as increased risk of falls and memory impairment. PRN Ativan order for anxiety has been discontinued. Haldol 0.5 mg PO/IM/IV every 4 hours when necessary for agitation. Avoid use of benzodiazepines for agitation when possible. Concern for polypharmacy. Recommend review of medications. -Continue to monitor for safety and initiate 1:1 sitter for safety if safety concerns arise. -Communicated plan to patient's nurse -Psychiatry will sign off at this time. -Please contact with any questions. 02/14/22 11:18 02/14/22 21:29
[2022-02-15] MEDS: hydrALAZINE HCL 25 MG TAB PO SCH ×3 (04:34→21:12)
[2022-02-15] MEDS: FUROSEMIDE 20 MG TAB PO SCH (04:34)
[2022-02-15] MEDS: SODIUM CHLORIDE 0.9% 1,000 ML IV SCH ×2 (04:38→21:13)
[2022-02-15] MEDS: LEVOTHYROXINE 125 MCG TAB PO SCH (05:34)
[2022-02-15 07:32] LABS: Glucose,Whole Blood 103 mg/dL (75-99)
[2022-02-15] MEDS: ISOSORBIDE MONONITRATE ER 60 MG TAB.ER.24H PO SCH (09:07)
[2022-02-15] MEDS: MEMANTINE 10 MG TAB PO SCH ×2 (09:07→21:12)
[2022-02-15] MEDS: FERROUS SULFATE 325 MG TAB PO SCH (09:07)
[2022-02-15] MEDS: HEPARIN SODIUM,PORCINE/PF 5,000 UNIT/0.5 ML SYRINGE SQ SCH ×2 (09:07→15:42)
[2022-02-15] MEDS: allopurinoL 100 MG TAB PO SCH (09:07)
[2022-02-15] MEDS: FINASTERIDE 5 MG TAB PO SCH (09:07)
[2022-02-15] MEDS: ASPIRIN 81 MG PO SCH (09:07)
[2022-02-15] MEDS: PARoxetine 10 MG TAB PO SCH (09:08)
[2022-02-15] MEDS: SYMBICORT 80-4.5 MCG INHALER INHALATION SCH ×2 (09:10→20:09)
[2022-02-15 10:44] LABS: Basophils # (A) 0.07 X 10*3/uL (0.00-0.10); Basophils % (A) 0.8 %; Eosinophils % (A) 4.8 %; HCT 34.7 % (39.6-50.0); HGB 10.7 g/dL (13.0-17.0); Immature Grans, Automated 0.6 %; Lymphocytes # (A) 1.59 X 10*3/uL (0.90-5.00); MCH 29.1 pg (27.0-32.0); MCHC 30.8 g/dL (32.0-37.0); MCV 94.3 fL (80.0-97.0); Mean Platelet Volume 10.3 fL (9.5-12.2); Monocytes # (A) 0.75 X 10*3/uL (0.20-1.00); NRBC Per 100 WBC 0 /100 WBCS (0.0-0.0); Neutrophils # (A) 5.51 X 10*3/uL (1.80-7.70); Neutrophils % (A) 65.8 %; Platelet Count 225 X 10*3/uL (140-440); RBC 3.68 X 10*6/uL (4.40-5.60); RDW 15.2 % (11.5-14.5); WBC 8.37 X 10*3/uL (4.50-10.00)
[2022-02-15 11:17] LABS: Albumin 3.2 g/dL (3.8-4.9); Albumin/Globulin Ratio 1.59 (1.60-3.17); Anion Gap 9.2 mmol/L (10.00-18.00); BUN/Creat Ratio 9.65 Ratio (12.00-20.00); Blood Urea Nitrogen 11.1 mg/dL (9.0-27.0); Calcium 8.9 mg/dL (8.7-10.3); Carbon Dioxide 19.5 mmol/L (20.0-27.5); Magnesium 2.2 mg/dL (1.5-2.4); Non-African American GFR(CKD) 56.9 (60.0-200.0); Potassium 3.8 mmol/L (3.5-5.5); Total Bilirubin 0.3 mg/dL (0.30-1.20); Total Protein 5.2 g/dL (6.2-8.2)
[2022-02-15 11:19] LABS: Glucose,Whole Blood 183 mg/dL (75-99)
[2022-02-15] MEDS: HYDROcodone/APAP 10-325MG 1 EACH TAB PO PRN (12:31)
[2022-02-15] MEDS: DONEPEZIL 10 MG TAB PO SCH (12:41)
[2022-02-15] MEDS: NYSTATIN 100,000 UNIT/GM POWD 15 GM TOPICAL SCH ×2 (12:42→21:12)
--- NOTE | 2022-02-15 16:20 | P.PN ---
Subjective Progress Note Date: 02/15/22 Pt is notably very upset with nursing and wants to leave hospital, asking for his shoes so he can walk out on his own. Does not have capacity to leave AMA. Gen: awake, alert HEENT: normocephalic, atraumatic, good hearing acuity, moist mucous membranes Resp: good air exchange, breathing comfortably with no accessory muscle use, clear to auscultation bilaterally CVS: good distal perfusion x 4, regular rate and rhythm without murmurs GI: soft, NTTP, ND : no SPT, no CVAT, mathew catheter is present MSK: no pitting edema, no clubbing, bilateral AKA Neuro: non-focal, moving all extremities Psych: cooperative, agitated mood Assessment/plan: acute metabolic encephalopathy suspected UTI , chronic mathew cath from home CKD 3 DM COPD on home oxygen hypothyroid plan IVF hydration with normal saline supportive care initiated on Rocephin in the ED follow up urine culture blood culture insulin sliding scale breathing treatment as needed resume home oxygen monitor renal function and urine output verify home meds full code DVT PPX heparin sc tid anticipated lengthof stay < 2 midnights Objective - Vital Signs Vital signs: Vital Signs Temp 98.6 F 02/15/22 11:19 Pulse 80 02/15/22 16:10 Resp 19 02/15/22 11:19 BP 159/75 02/15/22 16:10 Pulse Ox 97 02/15/22 11:19 FiO2 Intake & Output 02/14/22 02/15/22 02/15/22 18:59 06:59 18:59 Output Total 875 1800 Balance -875 -1800 Weight 68.039 kg Output: Urine 875 1800 Other: Voiding Method Indwelling Catheter Indwelling Catheter - Labs CBC & Chem 7: 02/15/22 06:30 02/15/22 06:30 Labs: Abnormal Lab Results - Last 24 Hours (Table) 02/14/22 02/15/22 02/15/22 Range/Units 20:10 06:30 06:30 RBC 3.68 L (4.40-5.60) X 10*6/uL Hgb 10.7 L (13.0-17.0) g/dL Hct 34.7 L (39.6-50.0) % MCHC 30.8 L (32.0-37.0) g/dL RDW 15.2 H (11.5-14.5) % Immature Gran # 0.05 H (0.00-0.04) X 10*3/uL Eosinophils # 0.40 H (0.04-0.35) X 10*3/uL Carbon Dioxide 19.5 L (20.0-27.5) mmol/L Anion Gap 9.20 L (10.00-18.00) mmol/L Est GFR (CKD-EPI)NonAf 56.9 L (60.0-200.0) BUN/Creatinine Ratio 9.65 L (12.00-20.00) Ratio POC Glucose (mg/dL) 133 H (75-99) mg/dL Alkaline Phosphatase 135 H (41-126) U/L Total Protein 5.2 L (6.2-8.2) g/dL Albumin 3.2 L (3.8-4.9) g/dL Albumin/Globulin Ratio 1.59 L (1.60-3.17) g/dL 02/15/22 02/15/22 Range/Units 07:31 11:18 RBC (4.40-5.60) X 10*6/uL Hgb (13.0-17.0) g/dL Hct (39.6-50.0) % MCHC (32.0-37.0) g/dL RDW (11.5-14.5) % Immature Gran # (0.00-0.04) X 10*3/uL Eosinophils # (0.04-0.35) X 10*3/uL Carbon Dioxide (20.0-27.5) mmol/L Anion Gap (10.00-18.00) mmol/L Est GFR (CKD-EPI)NonAf (60.0-200.0) BUN/Creatinine Ratio (12.00-20.00) Ratio POC Glucose (mg/dL) 103 H 183 H (75-99) mg/dL Alkaline Phosphatase (41-126) U/L Total Protein (6.2-8.2) g/dL Albumin (3.8-4.9) g/dL Albumin/Globulin Ratio (1.60-3.17) g/dL
[2022-02-15 17:25] LABS: Glucose,Whole Blood 233 mg/dL (75-99)
[2022-02-15 20:39] LABS: Glucose,Whole Blood 207 mg/dL (75-99)
[2022-02-15] MEDS: PANTOPRAZOLE 40 MG TABLET PO SCH (21:12)
[2022-02-15] MEDS: ATORVASTATIN 80 MG TAB PO SCH (21:12)
[2022-02-16] MEDS: HEPARIN SODIUM,PORCINE/PF 5,000 UNIT/0.5 ML SYRINGE SQ SCH ×2 (00:04→08:05)
[2022-02-16] MEDS: SODIUM CHLORIDE 0.9% 1,000 ML IV SCH (04:20)
[2022-02-16] MEDS: LEVOTHYROXINE 125 MCG TAB PO SCH (05:49)
[2022-02-16 07:35] LABS: Glucose,Whole Blood 117 mg/dL (75-99)
[2022-02-16] MEDS: SYMBICORT 80-4.5 MCG INHALER INHALATION SCH (07:48)
[2022-02-16] MEDS: allopurinoL 100 MG TAB PO SCH (08:05)
[2022-02-16] MEDS: hydrALAZINE HCL 25 MG TAB PO SCH (08:06)
[2022-02-16] MEDS: DONEPEZIL 10 MG TAB PO SCH (08:06)
[2022-02-16] MEDS: NYSTATIN 100,000 UNIT/GM POWD 15 GM TOPICAL SCH (08:06)
[2022-02-16] MEDS: ASPIRIN 81 MG PO SCH (08:06)
[2022-02-16] MEDS: MEMANTINE 10 MG TAB PO SCH (08:06)
[2022-02-16] MEDS: FUROSEMIDE 20 MG TAB PO SCH (08:06)
[2022-02-16] MEDS: FERROUS SULFATE 325 MG TAB PO SCH (08:06)
[2022-02-16] MEDS: PARoxetine 10 MG TAB PO SCH (08:06)
[2022-02-16 09:15] VITALS: RESP 18
[2022-02-16] MEDS: HYDROcodone/APAP 10-325MG 1 EACH TAB PO PRN (10:09)
[2022-02-16] MEDS ORDERED: ACETAMINOPHEN TAB 325 MG TAB PO PRN (10:28)
[2022-02-16] MEDS: ISOSORBIDE MONONITRATE ER 60 MG TAB.ER.24H PO SCH (10:39)
[2022-02-16] MEDS: FINASTERIDE 5 MG TAB PO SCH (10:39)
[2022-02-16 12:11] LABS: Glucose,Whole Blood 111 mg/dL (75-99)
--- NOTE | 2022-02-16 14:06 | P.CONS ---
History of Present Illness - Reason for Consult Consult date: 02/16/22 goals of care Requesting physician: Alana Martínez - Chief Complaint AMS - History of Present Illness The patient is a 87 year old male with a pmh significant for DM, HTN, COPD, HLD, HTN, dementia, CKD III, and bilateral leg amputations. On 02/13 the patient was brought to the ED by family for altered mental status. He has a chronic mathew catheter and was recently discharged from the hospital for a similar problem with confusion. He was found to have obstructive uropathy and malfunctioned mathew catheter. Workup in the ED showed no leukocytosis. Patient with chronic mathew with leukocyte esterase, no nitrite, creatinine around baseline. Review of Systems ROS unobtainable: due to mental status Past Medical History Past Medical History: Asthma, COPD, Dementia, Diabetes Mellitus, Diabetes Mellitus, GERD/Reflux, GI Bleed, Hearing Disorder / Deafness, Hyperlipidemia, Hypertension, Pneumonia, Prostate Disorder, Renal Disease, Renal Disease, Respiratory Disorder, Thyroid Disorder, Thyroid Disorder Additional Past Medical History / Comment(s): Home oxygen 4L/NC at HS, NIDDM type II/no longer on diabetic medications since bilateral leg amputations, (past L leg cellulitis/bacteremia/SIRs/encephalopathy/heel sores, osteomylitis and past bilateral lower extremity edema), CKD stage III, urinary retention/obstruction/utis, uti with bacteremia/chronic IDC, gout, hypothyroid, DJD, bilateral LONE P[place]/aide, severe constipation, pt had lower GI bleed/bowel resection with colostomy. History of Any Multi-Drug Resistant Organisms: MRSA Year Discovered:: 04/09/16 MDRO Source:: right foot Past Surgical History: Back Surgery, Bowel Resection, Coronary Bypass/CABG, Hear t Catheterization, Hernia Repair, Orthopedic Surgery Additional Past Surgical History / Comment(s): Bilateral AKA, transmetatarsal amputation L great toe, amputation 2nd L toe, L elbow injury with surgery, L arm renetta twice, 2003 CABG 5 vessel, R inguinal hernia repair. Past Anesthesia/Blood Transfusion Reactions: No Reported Reaction Additional Past Anesthesia/Blood Transfusion Reaction / Comm: Pt has received blood without reaction. Past Psychological History: Anxiety, Depression Smoking Status: Current every day smoker - Past Family History Sister(s) Family Medical History: Cancer Mother Family Medical History: Diabetes Mellitus Additional Family Medical History / Comment(s): Pt remembers only that his mom was obese. Father History Unknown: Yes Medications and Allergies Home Medications Medication Instructions Recorded Confirmed Type HYDROcodone/APAP 10-325MG [[place] 1 tab PO QID PRN 03/28/15 02/13/22 History 10-325] Finasteride [Proscar] 5 mg PO DAILY 01/01/16 02/13/22 History Aspirin EC [Ecotrin Low Dose] 81 mg PO DAILY 05/13/16 02/13/22 History Isosorbide Mononitrate ER [Imdur] 60 mg PO DAILY 05/13/16 02/13/22 History Atorvastatin Calcium [Lipitor] 80 mg PO HS 12/18/18 02/13/22 History Donepezil [Aricept] 10 mg PO DAILY 12/18/18 02/13/22 History Memantine [Namenda] 10 mg PO BID 12/18/18 02/13/22 History PARoxetine HCL [Paxil] 30 mg PO DAILY 12/18/18 02/13/22 History Levothyroxine Sodium [Synthroid] 125 mcg PO DAILY 02/01/22 02/13/22 History Lidocaine [Lidocaine 5% Rectal 1 applic RECTAL DAILY PRN 02/01/22 02/13/22 History Cream] Miconazole Nitrate [Lotrimin AF 1 applic TOPICAL BID 02/01/22 02/13/22 History Powder] Mometasone/Formoterol [Dulera 100 2 puff INHALATION RT-BID 02/01/22 02/13/22 History Mcg-5 Mcg Inhaler] Mupirocin 2% Oint [Bactroban 2% 1 applic TOPICAL BID PRN 02/01/22 02/13/22 History Oint] Pantoprazole [Protonix] 40 mg PO HS 02/01/22 02/13/22 History Potassium Chloride ER [K-Dur 10] 10 meq PO HS 02/01/22 02/13/22 History Amoxicillin 500 mg PO TID #21 capsule 02/05/22 02/13/22 Rx Ferrous Sulfate [Iron (65 MG 325 mg PO DAILY #0 02/05/22 02/13/22 Rx Elemental)] Furosemide [Lasix] 20 mg PO DAILY #0 02/05/22 02/13/22 Rx allopurinoL [Zyloprim] 100 mg PO DAILY tab 02/05/22 02/13/22 Rx Allergies Allergy/AdvReac Type Severity Reaction Status Date / Time tomato Allergy Swelling Verified 01/31/22 20:47 Physical Exam Vitals: Vital Signs Temp Pulse Pulse Resp BP BP Pulse Ox 02/16/22 09:14 98.0 F 66 18 176/90 99 02/16/22 01:55 98.4 F 62 16 178/78 98 02/15/22 19:18 98.6 F 65 18 168/78 99 02/15/22 17:28 99.5 F 62 18 151/75 98 02/15/22 16:10 80 159/75 Intake and Output 02/15/22 02/16/22 02/16/22 22:59 06:59 14:59 Output Total 600 550 Balance -600 -550 Output: Urine 600 250 Stool 300 Other: Voiding Method Indwelling Catheter # Bowel Movements 1 General: Patient awake alert and oriented x 1, to person only. No acute distress. HEENT: Head is atraumatic, normocephalic Sclerae are clear. Pupils equal, round and reactive to light bilaterally. + LONE PINE CV: Heart regular in rate and rhythm positive S1 and S2. No S3. No S4. No clicks, rubs or murmurs. No JVD. Peripheral pulses equal. 2/4 Lungs: Clear to auscultation bilaterally. No wheezes rales or rhonchi. Respirations even and nonlabored. No intercostal retractions. Abdomen/GI: Soft. Bowel sounds present in all 4 quadrants. Bowel sounds normoactive. No abdominal tenderness. Colostomy present. : Mathew catheter draining clear, yellow urine Musculoskeletal/ Extremities: No tenderness on muscular exam. No ecchymosis. Vascular: Radial pulses equal. 2/4. Skin: No rash. Neurologic: Awake, alert and oriented times 3. Psychiatric: Appropriate mood and affect. 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 Only has contact with daughter Georgia * Residence - Lives in a 2 story home * Who do you reside with - With his daughter Georgia, her son Ernie, Ernie's girlfriend, and a friend. * ETOH - No * Tobacco - Current smoker, smokes approximately 5 cigars/day * Illicit drugs - No Spiritual/Cultural * A spiritual person - No * Oriental Orthodox - Alevism * Belong to a particular pentecostal - No * Beliefs a source of comfort and strength - No * Mandaeism or cultural practices restrictions - No * EOL considerations/rituals? No Functional Assessment * Able to walk independently - no, bilateral leg amputations approx 8 years ago * Assistive devices - Wheelchair, toshia lift, handicap van, home O2 * Able to use the bathroom independently - No * Continent - Has a colostomy and a chronic mathew catheter * Require assistance bathing- Yes * Able to feed self - Yes * Who prepares meals - daughter * How many meals a day eaten - * What percentage of meals eaten daily - 75-100% * Able to clean house/do laundry - No * Transportation - wheelchair van * Able to shop - No * Who manages medications - Daughter * Who manages finances - Daughter PPS score - 30% Psychological/Emotional * Dementia present - Yes * Insight and judgment - No * Depression/anxiety - has history, daughter states well managed at home with meds * Suicidal thoughts - No * Good support system - Yes * Patients goals - prolonged survival * Frequent hospitalizations - yes * Desire to keep coming back to the hospital for treatment - yes Plan: Symptoms * Pain - 0/10, has chronic back pain, continue tylenol prn * Fatigue - no, continue feosol * SOB - no, continue lasix and symbicort * Insomnia - no * N/V - no, continue zofran orn * Anxiety - continue * Depression - continue paxil * Confusion - continue Namenda and Aricept * Agitation - no * Hallucinations - no * Appetite/weight loss - good appetite * Dysphagia - no * Constipation - no pt as colostomy * Incontinence - chronic mathew, contnue proscar * Itch - no Summary/Goals - The patient is a poor historian and did not want to talk. Spoke to the patient's daughter, Georgia, via telephone. She states she and her son have been taking care of the patient for over 10 years. They have all the equipment needed to care for him and think he would be more comfortable returning home when medically cleared for discharge. They have had multiple discussions in the past regarding end of life care and what the patient's wishes are. He has indicated to her that he would want to be placed on life support and she believes he would want to remain a full code. Georgia also thinks the patient is happy with his quality of life and his goal would be prolonged survival. She believes he would want to continue coming back and forth to the hospital for treatment. Recommendations - Discharge home when medically cleared with visiting nurse, home health aid, PT/OT, and palliative care Advanced Directives - No advanced directives, daughter, Georgia POA Code Status - Full code Thank you for this consult Brenda Varghese [facility]- [facility]iative [facility] [id number] Email: [email or web address] Time with Patient: Greater than 30
--- NOTE | 2022-02-16 14:08 | P.DS ---
Providers Date of admission: 02/14/22 02:39 Expected date of discharge: 02/16/22 Attending physician: Socorro Rodriguez MD Consults: 02/14/22 02:39 Consult Physician Routine Consulting Provider: María Elena Whelan Consult Reason/Comments: ams Do you want consulting provider notified?: Yes 02/16/22 10:29 Consult to Palliative Care Routine Consulting Provider: Brenda Varghese Consult Reason/Comments: recurrent confusion at age 87 Do you want consulting provider notified?: Yes Primary care physician: [facility] Hospital Course: Discharge Diagnosis: Acute encephalopathy likely secondary to hypertension HTN Urgency 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 He had been discharged earlier this month after a urinary tract infection. During that stay his Hdz catheter had been changed. On arrival his vital signs were within normal limits. Labatory analysis was rather unremarkable and consistent with his baseline function. Urinalysis did demonstrate many budding yeast, hyaline casts, and elevated white blood cell count. Urine drug screen demonstrated opiates. He was started on Rocephin and placed in observation. His mentation improved. Family was asking when he would be discharged. Unfortunately his urine was not sent for culture on arrival. He will complete an additional 3 days of amoxicillin at home for his prior noted urinary tract infection last hospitalization. His altered mentation may be hypertensive encephalopathy. He was also started on hydralazine and had some improvement. He does have significant candiduria but does not have signs of disseminated infection. He has not a candidate for treatment of localized cadiduria Patient family were spoken to by case management and palliative care. They wish to keep the patient at home as that was his only wish. They are open to the option of palliative care at home. Follow-up- [place], Home care, Amoxicillin for 3 more days, hydralazine, follow BP, consider discontinuing norco as likely adding to confusion Patient seen and examined at bedside. Asking to go home. Denies any complaints. No pain. Vital signs reviewed and stable. General: non toxic, no distress, appears at stated age Derm: warm, dry Head: atraumatic, normocephalic, symmetric Eyes: EOMI, no lid lag, anicteric sclera Mouth: no lip lesion, mucus membranes moist Cardiovascular: S1S2 reg, no murmur Lungs: CTA bilateral, no rhonchi, no rales , no accessory muscle use Abdominal: soft, nontender to palpation, no guarding, no appreciable organomegaly Ext: b/l AKA Neuro: CN II-XI grossly intact Psych: Alert, oriented to person and place, appropriate affect A total of 35 minutes of time were spent preparing this complex discharge summary . Patient Condition at Discharge: Fair Plan - Discharge Summary Discharge Rx Participant: No New Discharge Prescriptions: New hydrALAZINE HCL [Apresoline] 25 mg PO TID #90 tab Continue Finasteride [Proscar] 5 mg PO DAILY Aspirin EC [Ecotrin Low Dose] 81 mg PO DAILY Isosorbide Mononitrate ER [Imdur] 60 mg PO DAILY PARoxetine HCL [Paxil] 30 mg PO DAILY Memantine [Namenda] 10 mg PO BID Donepezil [Aricept] 10 mg PO DAILY Atorvastatin Calcium [Lipitor] 80 mg PO HS Mupirocin 2% Oint [Bactroban 2% Oint] 1 applic TOPICAL BID PRN PRN Reason: Skin Irritation Miconazole Nitrate [Lotrimin AF Powder] 1 applic TOPICAL BID Potassium Chloride ER [K-Dur 10] 10 meq PO HS Levothyroxine Sodium [Synthroid] 125 mcg PO DAILY Mometasone/Formoterol [Dulera 100 Mcg-5 Mcg Inhaler] 2 puff INHALATION RT-BID Ferrous Sulfate [Iron (65 MG Elemental)] 325 mg PO DAILY #0 Furosemide [Lasix] 20 mg PO DAILY #0 Pantoprazole [Protonix] 40 mg PO HS Lidocaine [Lidocaine 5% Rectal Cream] 1 applic RECTAL DAILY PRN PRN Reason: Pain allopurinoL [Zyloprim] 100 mg PO DAILY tab Amoxicillin 500 mg PO TID #9 capsule Discontinued HYDROcodone/APAP 10-325MG [[place] 10-325] 1 tab PO QID PRN PRN Reason: Pain Discharge Medication List Finasteride [Proscar] 5 mg PO DAILY 01/01/16 [History] Aspirin EC [Ecotrin Low Dose] 81 mg PO DAILY 05/13/16 [History] Isosorbide Mononitrate ER [Imdur] 60 mg PO DAILY 05/13/16 [History] Atorvastatin Calcium [Lipitor] 80 mg PO HS 12/18/18 [History] Donepezil [Aricept] 10 mg PO DAILY 12/18/18 [History] Memantine [Namenda] 10 mg PO BID 12/18/18 [History] PARoxetine HCL [Paxil] 30 mg PO DAILY 12/18/18 [History] Levothyroxine Sodium [Synthroid] 125 mcg PO DAILY 02/01/22 [History] Lidocaine [Lidocaine 5% Rectal Cream] 1 applic RECTAL DAILY PRN 02/01/22 [History] Miconazole Nitrate [Lotrimin AF Powder] 1 applic TOPICAL BID 02/01/22 [History] Mometasone/Formoterol [Dulera 100 Mcg-5 Mcg Inhaler] 2 puff INHALATION RT-BID 02/01/22 [History] Mupirocin 2% Oint [Bactroban 2% Oint] 1 applic TOPICAL BID PRN 02/01/22 [History] Pantoprazole [Protonix] 40 mg PO HS 02/01/22 [History] Potassium Chloride ER [K-Dur 10] 10 meq PO HS 02/01/22 [History] Ferrous Sulfate [Iron (65 MG Elemental)] 325 mg PO DAILY #0 02/05/22 [Rx] Furosemide [Lasix] 20 mg PO DAILY #0 02/05/22 [Rx] allopurinoL [Zyloprim] 100 mg PO DAILY tab 02/05/22 [Rx] Amoxicillin 500 mg PO TID #9 capsule 02/16/22 [Rx] hydrALAZINE HCL [Apresoline] 25 mg PO TID #90 tab 02/16/22 [Rx] Follow up Appointment(s)/Referral(s): [facility] [NON-STAFF] - 1-2 Days [facility],Clinic [Primary Care Provider] - 1-2 days Activity/Diet/Wound Care/Special Instructions: Fax copy of dc medication list to the [facility] so they can be ordered Amoxicillin for 3 additional days. Follow-up with [facility] for palliative care referral. Consider decreasing norco use as may be adding to confusion. Thank you for trusting us with your care. We wish you well on your journey to better health. Discharge/Stand Alone Forms: Adult Foster [facility] List, Personal Hone Operator
[2022-02-16 15:08] VITALS: BP 143/83; PULSE 64; TEMP 97.9
== END 2022-02-16 16:22 | disposition home health service (06) ==
LOC: EC 20:45 → INTOOBSV 02-14 02:39 → OBSVTOIN 02-14 02:39 → 5NMEDONC 02-14 02:39 → 6NMEDSUR 02-15 17:03 → UNDODISIN 02-16 16:22
PROVIDERS: ADMIT Internal Medicine; ATTEND Internal Medicine
DX: G93.41 Metabolic encephalopathy (principal); I16.0 Hypertensive urgency; I12.9 Hypertensive chronic kidney disease with stage 1 through stage 4 chronic kidney disease, or unspecified chronic kidney disease; N18.30 Chronic kidney disease, stage 3 unspecified; N13.9 Obstructive and reflux uropathy, unspecified; J44.9 Chronic obstructive pulmonary disease, unspecified; E11.22 Type 2 diabetes mellitus with diabetic chronic kidney disease; E03.9 Hypothyroidism, unspecified; F03.90 Unspecified dementia, unspecified severity, without behavioral disturbance, psychotic disturbance, mood disturbance, and anxiety; T83.511A Infection and inflammatory reaction due to indwelling urethral catheter, initial encounter; K21.9 Gastro-esophageal reflux disease without esophagitis; H91.90 Unspecified hearing loss, unspecified ear; E78.5 Hyperlipidemia, unspecified; B37.49 Other urogenital candidiasis; M10.9 Gout, unspecified; F41.9 Anxiety disorder, unspecified; F32.A Depression, unspecified; E86.0 Dehydration; F17.200 Nicotine dependence, unspecified, uncomplicated; Z89.611 Acquired absence of right leg above knee; Z89.612 Acquired absence of left leg above knee; Z93.3 Colostomy status; Z79.82 Long term (current) use of aspirin; Z79.899 Other long term (current) drug therapy; Z79.51 Long term (current) use of inhaled steroids; Z79.890 Hormone replacement therapy; Z95.1 Presence of aortocoronary bypass graft; Z99.81 Dependence on supplemental oxygen; Z87.19 Personal history of other diseases of the digestive system; Z87.440 Personal history of urinary (tract) infections; Z86.14 Personal history of Methicillin resistant Staphylococcus aureus infection; Z87.01 Personal history of pneumonia (recurrent); Z71.9 Counseling, unspecified; Z51.5 Encounter for palliative care; Z91.02 Food additives allergy status; Z90.49 Acquired absence of other specified parts of digestive tract; Z83.3 Family history of diabetes mellitus; Z80.9 Family history of malignant neoplasm, unspecified
CPT/HCPCS: 96361 ×3; 96372 ×4; 96365; 99285; 36415; 94640 ×4; 80053 ×2; 84443; 82140; 83735 ×2; 84100 ×2; 85025 ×2; 81001; 80306; 80143; 80179; G0378 ×4; G0480; S0138 ×2; J0696 ×4; J1644 ×3; 80320

== ENCOUNTER 2022-03-19 16:35 | Emergency (ER) | payer MEDICARE, OTHER ==
[2022-03-19 16:52] VITALS: RESP 16; TEMP 98.7
--- NOTE | 2022-03-19 17:16 | ED ---
General Adult HPI - General Chief complaint: Skin/Abscess/Foreign Body Stated complaint: fall Time Seen by Provider: 03/19/22 16:45 Source: EMS Mode of arrival: EMS Limitations: physical limitation - History of Present Illness Initial comments: Dictation was produced using [employer] dictation software. please excuse any grammatical, word or spelling errors. Chief Complaint: 87-year-old brought in by EMS for evaluation of right lower extremity wound History of Present Illness: Patient is 87-year-old male he is brought into the emergency department for evaluation of right lower extremity wound. Patient has history of bilateral lower extremity amputations. He allegedly fell 7 days ago causing injury to the stump of his right lower extremity. Over the following couple days there has been some mild redness. Patient states that his right lower extremity stump is not painful. He is a limited historian states that he is not sure if he fell recently. Patient does have a history of dementia. Denies any constitutional symptoms. The ROS documented in this emergency department record has been reviewed and confirmed by me. Those systems with pertinent positive or negative responses have been documented in the HPI. All other systems are other negative and/or noncontributory. PHYSICAL EXAM: General Impression: Alert and oriented x3/4, not in acute distress HEENT: Normocephalic atraumatic, extra-ocular movements intact, pupils equal and reactive to light bilaterally, mucous membranes moist. Cardiovascular: Heart regular rate and rhythm Chest: Able to complete full sentences, no retractions, no tachypnea Abdomen: abdomen soft, non-tender, non-distended, no organomegaly Musculoskeletal: Pulses present and equal in all extremities, no peripheral edema Motor: no focal deficits noted Neurological: CN II-XII grossly intact, no focal motor or sensory deficits noted Right lower extremity stump: There does appear to be a fluctuant area measuring 4 x 4 centimeters over the distal medial portion of the right lower extremity stump, there is some mild erythema but no induration. There is some surrounding ecchymoses however. Area of interest is not warm to touch compared to left lower extremity, site is palpable without eliciting any significant tenderness Skin: Intact with no visualized rashes Psych: Normal affect and mood ED course: 87-year-old male presents to the emergency department for evaluation of right lower extremity stump wound. Patient does have bruising around the area and fell. Point of care bedside ultrasound was performed showing some fluid collection under the fluctuant area. Not appear to be any cobblestoning or signs of cellulitis surrounding the fluctuant area. At this point no s ignificant concern for infection. Click or presentation suggest hematoma. At this point no strong indication for aspiration. At this point aspiration will not be performed due to risk of infection. Patient does not appear to be bothered by the hematoma. Nonetheless patient be covered with Keflex in the meantime. He'll require reevaluation of the wound on an outpatient basis. rest of physical examination is benign. Patient's vital signs are stable. - Related Data Home Medications Medication Instructions Recorded Confirmed Finasteride [Proscar] 5 mg PO DAILY 01/01/16 02/13/22 Aspirin EC [Ecotrin Low Dose] 81 mg PO DAILY 05/13/16 02/13/22 Isosorbide Mononitrate ER [Imdur] 60 mg PO DAILY 05/13/16 02/13/22 Atorvastatin Calcium [Lipitor] 80 mg PO HS 12/18/18 02/13/22 Donepezil [Aricept] 10 mg PO DAILY 12/18/18 02/13/22 Memantine [Namenda] 10 mg PO BID 12/18/18 02/13/22 PARoxetine HCL [Paxil] 30 mg PO DAILY 12/18/18 02/13/22 Levothyroxine Sodium [Synthroid] 125 mcg PO DAILY 02/01/22 02/13/22 Lidocaine [Lidocaine 5% Rectal 1 applic RECTAL DAILY PRN 02/01/22 02/13/22 Cream] Miconazole Nitrate [Lotrimin AF 1 applic TOPICAL BID 02/01/22 02/13/22 Powder] Mometasone/Formoterol [Dulera 100 2 puff INHALATION RT-BID 02/01/22 02/13/22 Mcg-5 Mcg Inhaler] Mupirocin 2% Oint [Bactroban 2% 1 applic TOPICAL BID PRN 02/01/22 02/13/22 Oint] Pantoprazole [Protonix] 40 mg PO HS 02/01/22 02/13/22 Potassium Chloride ER [K-Dur 10] 10 meq PO HS 02/01/22 02/13/22 Previous Rx's Medication Instructions Recorded Ferrous Sulfate [Iron (65 MG 325 mg PO DAILY #0 02/05/22 Elemental)] Furosemide [Lasix] 20 mg PO DAILY #0 02/05/22 allopurinoL [Zyloprim] 100 mg PO DAILY tab 02/05/22 Amoxicillin 500 mg PO TID #9 capsule 02/16/22 hydrALAZINE HCL [Apresoline] 25 mg PO TID #90 tab 02/16/22 Cephalexin [Keflex] 500 mg PO Q6HR 5 Days #20 cap 03/19/22 Allergies Allergy/AdvReac Type Severity Reaction Status Date / Time tomato Allergy Swelling Verified 01/31/22 20:47 Review of Systems ROS Statement: Those systems with pertinent positive or pertinent negative responses have been documented in the HPI. ROS Other: All systems not noted in ROS Statement are negative. Past Medical History Past Medical History: Asthma, COPD, Dementia, Diabetes Mellitus, Diabetes Mellitus, GERD/Reflux, GI Bleed, Hearing Disorder / Deafness, Hyperlipidemia, Hypertension, Pneumonia, Prostate Disorder, Renal Disease, Renal Disease, Respiratory Disorder, Thyroid Disorder, Thyroid Disorder Additional Past Medical History / Comment(s): Home oxygen 4L/NC at , NIDDM type II/no longer on diabetic medications since bilateral leg amputations, (past L leg cellulitis/bacteremia/SIRs/encephalopathy/heel sores, osteomylitis and past bilateral lower extremity edema), CKD stage III, urinary retention/obstruction/utis, uti with bacteremia/chronic IDC, gout, hypothyroid, DJD, bilateral [place]/aide, severe constipation, pt had lower GI bleed/bowel resection with colostomy. History of Any Multi-Drug Resistant Organisms: MRSA Date of last positivie culture/infection: 04/09/16 MDRO Source:: right foot Past Surgical History: Back Surgery, Bowel Resection, Coronary Bypass/CABG, Heart Catheterization, Hernia Repair, Orthopedic Surgery Additional Past Surgical History / Comment(s): Bilateral AKA, transmetatarsal amputation L great toe, amputation 2nd L toe, L elbow injury with surgery, L arm renetta twice, 2003 CABG 5 vessel, R inguinal hernia repair. Past Anesthesia/Blood Transfusion Reactions: No Reported Reaction Additional Past Anesthesia/Blood Transfusion Reaction / Comment(s): Pt has received blood without reaction. Past Psychological History: Anxiety, Depression Smoking Status: Current every day smoker Past Alcohol Use History: None Reported Past Drug Use History: None Reported - Past Family History Sister(s) Family Medical History: Cancer Mother Family Medical History: Diabetes Mellitus Additional Family Medical History / Comment(s): Pt remembers only that his mom was obese. Father History Unknown: Yes General Exam Limitations: physical limitation Course Vital Signs 03/19/22 16:45 Temperature 98.7 F Pulse Rate 72 Respiratory 16 Rate Blood Pressure 114/56 O2 Sat by Pulse 99 Oximetry Disposition Clinical Impression: Hematoma Disposition: HOME SELF-CARE Condition: Fair Instructions (If sedation given, give patient instructions): Hematoma (ED) Prescriptions: Cephalexin [Keflex] 500 mg PO Q6HR 5 Days #20 cap Is patient prescribed a controlled substance at d/c from ED?: No Referrals: [facility],Clinic [Primary Care Provider] - 1-2 days Time of Disposition: 17:16
[2022-03-19 21:17] VITALS: BP 124/78; PULSE 74
== END 2022-03-19 21:17 | disposition home or self-care (01) ==
LOC: EC 16:35
DX: S80.10XA Contusion of unspecified lower leg, initial encounter (principal); J44.9 Chronic obstructive pulmonary disease, unspecified; E11.9 Type 2 diabetes mellitus without complications; E78.5 Hyperlipidemia, unspecified; I10 Essential (primary) hypertension; K21.9 Gastro-esophageal reflux disease without esophagitis; Z79.83 Long term (current) use of bisphosphonates; F17.200 Nicotine dependence, unspecified, uncomplicated; Z91.018 Allergy to other foods; W19.XXXA Unspecified fall, initial encounter
CPT/HCPCS: 99283

== ENCOUNTER 2022-06-17 12:12 | Emergency (ER) | payer MEDICARE, OTHER ==
[2022-06-17 12:25] VITALS: RESP 18
--- NOTE | 2022-06-17 13:08 | ED ---
General Adult HPI - General Chief complaint: Urogenital Stated complaint: urogenital Time Seen by Provider: 06/17/22 12:18 Source: EMS Mode of arrival: EMS - History of Present Illness Initial comments: Dictation was produced using [employer] dictation software. please excuse any grammatical, word or spelling errors. Chief Complaint: 87-year-old male presents emergency department for hematuria History of Present Illness: Is 87-year-old male he is a poor historian. Patient allegedly has a history of dementia. There is no concern from nurse [place] department from EMS about patient's mental status. He was sent to the ER because family noticed blood in his Hdz catheter. Patient has any complaints. Patient has indwelling Hdz catheter. The ROS documented in this emergency department record has been reviewed and confirmed by me. Those systems with pertinent positive or negative responses have been documented in the HPI. All other systems are other negative and/or noncontributory. PHYSICAL EXAM: General Impression: Alert and oriented x2/4, not in acute distress HEENT: Normocephalic atraumatic, extra-ocular movements intact, pupils equal and reactive to light bilaterally, mucous membranes moist. Cardiovascular: Heart regular rate and rhythm Chest: Able to complete full sentences, no retractions, no tachypnea Abdomen: abdomen soft, non-tender, non-distended, no organomegaly Musculoskeletal: Pulses present and equal in all extremities, no peripheral edema Motor: no focal deficits noted Neurological: CN II-XII grossly intact, no focal motor or sensory deficits noted Skin: Intact with no visualized rashes Psych: Normal affect and mood : Hdz catheter in place, no blood at the meatus, penis and scrotum is unremarkable, there does not appear to be any gross blood in his Hdz catheter tubing or in his Hdz catheter reservoir. ED course: 87-year-old male brought to the emergency department for evaluation of hematuria. He has indwelling Hdz catheter. vital signs upon arrival are within acceptable limits. More history was obtained from nursing received report from EMS. Apparently home [facility] placed Hdz catheter in yesterday. Urinalysis obtained showing 106, blood cells and 49 red blood cells. Nitrites positive. Patient has history of enterococcus in his urine. Patient does not have history of extended spectrum beta-lactamase resistance or multidrug resistant UTIs. Patient's urine cultures were reviewed. Patient does appear to have sensitive to ampicillin. Given 1 dose of IM ampicillin. Patient was discharged home. Reevaluated bedside at 145 To Be in Stable Medical Condition. Patient in No Acute Distress. Discharge. Patient Given Prescription for Ampicillin.Hematuria secondary to traumatic Hdz placement. Patient not having any bleeding noted from the Hdz catheter upon reevaluation. - Related Data Home Medications Medication Instructions Recorded Confirmed Finasteride [Proscar] 5 mg PO DAILY 01/01/16 02/13/22 Aspirin EC [Ecotrin Low Dose] 81 mg PO DAILY 05/13/16 02/13/22 Isosorbide Mononitrate ER [Imdur] 60 mg PO DAILY 05/13/16 02/13/22 Atorvastatin Calcium [Lipitor] 80 mg PO HS 12/18/18 02/13/22 Donepezil [Aricept] 10 mg PO DAILY 12/18/18 02/13/22 Memantine [Namenda] 10 mg PO BID 12/18/18 02/13/22 PARoxetine HCL [Paxil] 30 mg PO DAILY 12/18/18 02/13/22 Levothyroxine Sodium [Synthroid] 125 mcg PO DAILY 02/01/22 02/13/22 Lidocaine [Lidocaine 5% Rectal 1 applic RECTAL DAILY PRN 02/01/22 02/13/22 Cream] Miconazole Nitrate [Lotrimin AF 1 applic TOPICAL BID 02/01/22 02/13/22 Powder] Mometasone/Formoterol [Dulera 100 2 puff INHALATION RT-BID 02/01/22 02/13/22 Mcg-5 Mcg Inhaler] Mupirocin 2% Oint [Bactroban 2% 1 applic TOPICAL BID PRN 02/01/22 02/13/22 Oint] Pantoprazole [Protonix] 40 mg PO HS 02/01/22 02/13/22 Potassium Chloride ER [K-Dur 10] 10 meq PO HS 02/01/22 02/13/22 Previous Rx's Medication Instructions Recorded Ferrous Sulfate [Iron (65 MG 325 mg PO DAILY #0 02/05/22 Elemental)] Furosemide [Lasix] 20 mg PO DAILY #0 02/05/22 allopurinoL [Zyloprim] 100 mg PO DAILY tab 02/05/22 Amoxicillin 500 mg PO TID #9 capsule 02/16/22 hydrALAZINE HCL [Apresoline] 25 mg PO TID #90 tab 02/16/22 Cephalexin [Keflex] 500 mg PO Q6HR 5 Days #20 cap 03/19/22 Amoxic-Pot Clav 875-125Mg 1 tab PO BID 10 Days #20 tab 06/17/22 [Augmentin 875-125] Allergies Allergy/AdvReac Type Severity Reaction Status Date / Time tomato Allergy Swelling Verified 06/17/22 12:25 Review of Systems ROS Statement: Those systems with pertinent positive or pertinent negative responses have been documented in the HPI. ROS Other: All systems not noted in ROS Statement are negative. Past Medical History Past Medical History: Asthma, COPD, Dementia, Diabetes Mellitus, Diabetes Mellitus, GERD/Reflux, GI Bleed, Hearing Disorder / Deafness, Hyperlipidemia, Hypertension, Pneumonia, Prostate Disorder, Renal Disease, Renal Disease, Respiratory Disorder, Thyroid Disorder, Thyroid Disorder Additional Past Medical History / Comment(s): Home oxygen 4L/NC at HS, NIDDM type II/no longer on diabetic medications since bilateral leg amputations, (past L leg cellulitis/bacteremia/SIRs/encephalopathy/heel sores, osteomylitis and past bilateral lower extremity edema), CKD stage III, urinary retention/obstruction/utis, uti with bacteremia/chronic IDC, gout, hypothyroid, DJD, bilateral [place]/aide, severe constipation, pt had lower GI bleed/bowel resection with colostomy. History of Any Multi-Drug Resistant Organisms: MRSA Date of last positivie culture/infection: 04/09/16 MDRO Source:: right foot Past Surgical History: Back Surgery, Bowel Resection, Coronary Bypass/CABG, Heart Catheterization, Hernia Repair, Orthopedic Surgery Additional Past Surgical History / Comment(s): Bilateral AKA, transmetatarsal amputation L great toe, amputation 2nd L toe, L elbow injury with surgery, L arm renetta twice, 2003 CABG 5 vessel, R inguinal hernia repair. Past Anesthesia/Blood Transfusion Reactions: No Reported Reaction Additional Past Anesthesia/Blood Transfusion Reaction / Comment(s): Pt has received blood without reaction. Past Psychological History: Anxiety, Depression Smoking Status: Current every day smoker Past Alcohol Use History: None Reported Past Drug Use History: None Reported - Past Family History Sister(s) Family Medical History: Cancer Mother Family Medical History: Diabetes Mellitus Additional Family Medical History / Comment(s): Pt remembers only that his mom was obese. Father History Unknown: Yes Course Vital Signs 06/17/22 12:16 Temperature 98.3 F Pulse Rate 80 Respiratory 18 Rate Blood Pressure 136/87 O2 Sat by Pulse 97 Oximetry Medical Decision Making - Lab Data Lab Results 06/17/22 Range/Units 12:52 Urine Color Light Yellow Urine Appearance Cloudy (Clear) Urine pH 5.0 (5.0-8.0) Ur Specific [place] 1.008 (1.001-1.035) Urine Protein Negative (Negative) Urine Glucose (UA) Negative (Negative) Urine Ketones Negative (Negative) Urine Blood Large H (Negative) Urine Nitrite Positive (Negative) Urine Bilirubin Negative (Negative) Urine Urobilinogen <2.0 (<2.0) mg/dL Ur Leukocyte Esterase Large H (Negative) Urine RBC 49 H (0-5) /hpf Urine WBC 165 H (0-5) /hpf Urine WBC Clumps Moderate H (None) /hpf Ur Squamous Epith Cells <1 (0-4) /hpf Urine Bacteria Few H (None) /hpf Urine Mucus Rare H (None) /hpf Disposition Clinical Impression: UTI (urinary tract infection), Hematuria Disposition: HOME SELF-CARE Condition: Good Instructions (If sedation given, give patient instructions): Urinary Tract Infection in Men (ED), Hematuria (ED) Prescriptions: Amoxic-Pot Clav 875-125Mg [Augmentin 875-125] 1 tab PO BID 10 Days #20 tab Is patient prescribed a controlled substance at d/c from ED?: No Referrals: [facility],Clinic [Primary Care Provider] - 1-2 days Time of Disposition: 13:45
[2022-06-17 13:24] LABS: Appearance,Urine Cloudy (Clear); Bacteria,Urine Few /hpf; Bilirubin,Urine Negative (Negative); Blood,Urine Large (Negative); Color,Urine Light Yellow; Glucose,Urine (UA) Negative (Negative); Ketones,Urine Negative (Negative); Leukocyte Esterase,Urine Large (Negative); Mucus,Urine Rare /hpf; Nitrite,Urine Positive (Negative); Protein,Urine Negative (Negative); RBC,Urine 49 /hpf (0-5); Specific Gravity,Urine 1.008 (1.001-1.035); Squamous Epithelial Cell,Urine <1 /hpf (0-4); Urobilinogen,Urine <2.0 mg/dL (<2.0); WBC,Urine 165 /hpf (0-5)
[2022-06-17 13:54] VITALS: BP 134/84; PULSE 88; TEMP 98.6
[2022-06-17] MEDS ORDERED: AMPICILLIN 250 MG VIAL IM ONE (14:00)
== END 2022-06-17 14:10 | disposition home or self-care (01) ==
LOC: EC 12:12
DX: N39.0 Urinary tract infection, site not specified (principal); R31.9 Hematuria, unspecified; F17.200 Nicotine dependence, unspecified, uncomplicated; J44.9 Chronic obstructive pulmonary disease, unspecified; E78.5 Hyperlipidemia, unspecified; I12.9 Hypertensive chronic kidney disease with stage 1 through stage 4 chronic kidney disease, or unspecified chronic kidney disease; E11.22 Type 2 diabetes mellitus with diabetic chronic kidney disease; N18.30 Chronic kidney disease, stage 3 unspecified; Z95.1 Presence of aortocoronary bypass graft; Z79.82 Long term (current) use of aspirin; Z91.018 Allergy to other foods
CPT/HCPCS: 81001; 87086; 99283; 96372; J0290

== ENCOUNTER 2022-07-01 12:28 | Emergency (ER) | payer MEDICARE, OTHER ==
[2022-07-01 12:38] VITALS: RESP 18
[2022-07-01 13:10] LABS: Basophils % (A) 0 %; Eosinophils # (A) 0.2 k/uL (0-0.7); Eosinophils % (A) 2 %; HGB 12.5 gm/dL (13.0-17.5); Hypochromasia Moderate; Lymphocytes # (A) 1.5 k/uL (1.0-4.8); Lymphocytes % (A) 22 %; MCHC 32.1 g/dL (31.0-37.0); MCV 93.6 fL (80.0-100.0); Mean Platelet Volume 8.3; Monocytes # (A) 0.4 k/uL (0-1.0); Monocytes % (A) 5 %; Neutrophils # (A) 4.5 k/uL (1.3-7.7); Neutrophils % (A) 68 %; Platelet Count 192 k/uL (150-450); RBC 4.17 m/uL (4.30-5.90); RDW 14.9 % (11.5-15.5); WBC 6.7 k/uL (3.8-10.6)
--- NOTE | 2022-07-01 13:15 | XR ---
EXAMINATION TYPE: XR chest 2V DATE OF EXAM: 07/01/2022 COMPARISON: NONE TECHNIQUE: PA and lateral views submitted. HISTORY: Weakness FINDINGS: The lungs are clear and there is no pneumothorax, pleural effusion, or focal pneumonia. Postoperati ve change. Heart size normal. Arthropathy of the shoulders and postsurgical change left humerus. Dege nerative changes of the spine. Subsegmental changes at the lung bases most typical of atelectasis. IMPRESSION: 1. Basilar atelectasis favored over pneumonia.
[2022-07-01 13:20] LABS: Albumin 3.2 g/dL (3.5-5.0); Magnesium 2.1 mg/dL (1.6-2.3); Potassium 5.1 mmol/L (3.5-5.1); Total Bilirubin 0.5 mg/dL (0.2-1.3); Total Protein 5.6 g/dL (6.3-8.2)
[2022-07-01 13:36] LABS: Partial Thromboplastin Time 26.1 sec (22.0-30.0); Prothrombin Time 11.1 sec (9.0-12.0)
--- NOTE | 2022-07-01 14:38 | ED ---
Weakness HPI - General Chief complaint: Weakness Stated complaint: AMS Time Seen by Provider: 07/01/22 12:35 Source: EMS Mode of arrival: EMS Limitations: altered mental status - History of Present Illness Initial comments: 87-year-old female with multiple medical conditions who presents emergency Department with altered mental status. Patient arrives awake, alert with no complaints. He is unaware why he was transferred to the hospital. EMS states that it is reported to them by the patient's daughter that he was hard to wake up this morning. He has become increasingly lethargic over the past 2 days. He has a history of dementia. He also has an indwelling Hdz and colostomy bag. Patient denies any chest pain, shortness of breath, abdominal pain. No fevers or chills. Denies any back or flank pain. No headaches or visual changes. Responses are appropriate from the patient. No other alleviating, precipitating or modifying factors - Related Data Home Medications Medication Instructions Recorded Confirmed Finasteride [Proscar] 5 mg PO DAILY 01/01/16 07/01/22 Aspirin EC [Ecotrin Low Dose] 81 mg PO DAILY 05/13/16 07/01/22 Isosorbide Mononitrate ER [Imdur] 60 mg PO DAILY 05/13/16 07/01/22 Atorvastatin Calcium [Lipitor] 80 mg PO HS 12/18/18 07/01/22 Donepezil [Aricept] 10 mg PO DAILY 12/18/18 07/01/22 Memantine [Namenda] 10 mg PO BID 12/18/18 07/01/22 Levothyroxine Sodium [Synthroid] 125 mcg PO DAILY 02/01/22 07/01/22 Lidocaine [Lidocaine 5% Rectal 1 applic RECTAL DAILY PRN 02/01/22 07/01/22 Cream] Miconazole Nitrate [Lotrimin AF 1 applic TOPICAL BID 02/01/22 07/01/22 Powder] Mometasone/Formoterol [Dulera 100 2 puff INHALATION RT-BID 02/01/22 07/01/22 Mcg-5 Mcg Inhaler] Mupirocin 2% Oint [Bactroban 2% 1 applic TOPICAL BID PRN 02/01/22 07/01/22 Oint] Pantoprazole [Protonix] 40 mg PO HS 02/01/22 07/01/22 Potassium Chloride ER [K-Dur 10] 10 meq PO HS 02/01/22 07/01/22 Doxazosin [Cardura] 4 mg PO BID 07/01/22 07/01/22 Escitalopram [Lexapro] 10 mg PO DAILY 07/01/22 07/01/22 HYDROcodone/APAP 10-325MG [[place] 1 tab PO QID PRN 07/01/22 07/01/22 10-325] Losartan Potassium [Cozaar] 25 mg PO DAILY 07/01/22 07/01/22 traZODone HCL [Desyrel] 100 mg PO HS 07/01/22 07/01/22 Previous Rx's Medication Instructions Recorded Ferrous Sulfate [Iron (65 MG 325 mg PO DAILY #0 02/05/22 Elemental)] Furosemide [Lasix] 20 mg PO DAILY #0 02/05/22 hydrALAZINE HCL [Apresoline] 25 mg PO TID #90 tab 02/16/22 Levofloxacin [Levaquin] 750 mg PO DAILY 1 Days #5 tab 07/01/22 Allergies Allergy/AdvReac Type Severity Reaction Status Date / Time lisinopril AdvReac Cough Verified 07/01/22 13:44 tomato AdvReac edema Verified 07/01/22 13:44 Review of Systems ROS Statement: Those systems with pertinent positive or pertinent negative responses have been documented in the HPI. ROS Other: All systems not noted in ROS Statement are negative. Past Medical History Past Medical History: Asthma, COPD, Dementia, Diabetes Mellitus, Diabetes Mellitus, GERD/Reflux, GI Bleed, Hearing Disorder / Deafness, Hyperlipidemia, Hypertension, Pneumonia, Prostate Disorder, Renal Disease, Renal Disease, Respiratory Disorder, Thyroid Disorder, Thyroid Disorder Additional Past Medical History / Comment(s): Home oxygen 4L/NC at , NIDDM type II/no longer on diabetic medications since bilateral leg amputations, (past L leg cellulitis/bacteremia/SIRs/encephalopathy/heel sores, osteomylitis and past bilateral lower extremity edema), CKD stage III, urinary r etention/obstruction/utis, uti with bacteremia/chronic IDC, gout, hypothyroid, DJD, bilateral [place]/aide, severe constipation, pt had lower GI bleed/bowel resection with colostomy. History of Any Multi-Drug Resistant Organisms: MRSA Date of last positivie culture/infection: 04/09/16 MDRO Source:: right foot Past Surgical History: Back Surgery, Bowel Resection, Coronary Bypass/CABG, Heart Catheterization, Hernia Repair, Orthopedic Surgery Additional Past Surgical History / Comment(s): Bilateral AKA, transmetatarsal amputation L great toe, amputation 2nd L toe, L elbow injury with surgery, L arm renetta twice, 2003 CABG 5 vessel, R inguinal hernia repair. Past Anesthesia/Blood Transfusion Reactions: No Reported Reaction Additional Past Anesthesia/Blood Transfusion Reaction / Comment(s): Pt has received blood without reaction. Past Psychological History: Anxiety, Depression Smoking Status: Current every day smoker Past Alcohol Use History: None Reported Past Drug Use History: None Reported - Past Family History Sister(s) Family Medical History: Cancer Mother Family Medical History: Diabetes Mellitus Additional Family Medical History / Comment(s): Pt remembers only that his mom was obese. Father History Unknown: Yes General Exam Limitations: altered mental status General appearance: alert, in no apparent distress Head exam: Present: atraumatic, normocephalic, normal inspection Eye exam: Present: normal appearance, PERRL, EOMI. Absent: scleral icterus, conjunctival injection, periorbital swelling ENT exam: Present: normal exam, mucous membranes moist Neck exam: Present: normal inspection. Absent: tenderness, meningismus, lymphadenopathy Respiratory exam: Present: normal lung sounds bilaterally. Absent: respiratory distress, wheezes, rales, rhonchi, stridor Cardiovascular Exam: Present: regular rate, normal rhythm, normal heart sounds. Absent: systolic murmur, diastolic murmur, rubs, gallop, clicks GI/Abdominal exam: Present: soft, normal bowel sounds. Absent: distended, tenderness, guarding, rebound, rigid Extremities exam: Present: other (Bilateral amputee). Absent: tenderness, pedal edema, joint swelling, calf tenderness Back exam: Present: normal inspection Neurological exam: Present: alert, CN II-XII intact Psychiatric exam: Present: normal mood, flat affect Skin exam: Present: warm, dry, intact, normal color. Absent: rash Course Vital Signs 07/01/22 07/01/22 12:29 15:40 Temperature 97.7 F Pulse Rate 54 L 50 L Respiratory 18 18 Rate Blood Pressure 159/95 132/68 O2 Sat by Pulse 99 97 Oximetry EKG Findings - EKG Comments: EKG Findings:: EKG demonstrates sinus rhythm with a rate of 62. AZ interval 165. QRS 104. QTC of 354. No acute ST segment elevations or depressions Medical Decision Making - Medical Decision Making Upon arrival patient's placed into room 16. Her history and physical exam is performed. IV access is established and laboratory studies were conducted. Patient has chronic kidney disease. Today's creatinine is 1.4. Urinalysis demonstrates greater than 182 red blood cells, large leukocyte esterase and few bacteria with many budding yeast. Reviewed the patient's last echo biology which was sensitive to Levaquin. Patient placed on antibiotics at this time due to heavy notable sediment in the leg bag which is new. Patient will be discharged home as he awake, alert and answering questions appropriately. He is to follow-up with his primary care doctor in 2-4 days and return for any new or worsening symptoms. This is discussed with the patient's daughter who was agreeable. Patient discharged in stable condition - Lab Data Result diagrams: 07/01/22 13:03 07/01/22 13:03 Lab Results 07/01/22 07/01/22 07/01/22 Range/Units 13:03 13:03 13:03 WBC 6.7 (3.8-10.6) k/uL RBC 4.17 L (4.30-5.90) m/uL Hgb 12.5 L (13.0-17.5) gm/dL Hct 39.0 (39.0-53.0) % MCV 93.6 (80.0-100.0) fL MCH 30.0 (25.0-35.0) pg MCHC 32.1 (31.0-37.0) g/dL RDW 14.9 (11.5-15.5) % Plt Count 192 (150-450) k/uL MPV 8.3 Neutrophils % 68 % Lymphocytes % 22 % Monocytes % 5 % Eosinophils % 2 % Basophils % 0 % Neutrophils # 4.5 (1.3-7.7) k/uL Lymphocytes # 1.5 (1.0-4.8) k/uL Monocytes # 0.4 (0-1.0) k/uL Eosinophils # 0.2 (0-0.7) k/uL Basophils # 0.0 (0-0.2) k/uL Hypochromasia Moderate PT 11.1 (9.0-12.0) sec INR 1.0 (<1.2) APTT 26.1 (22.0-30.0) sec Sodium 137 (137-145) mmol/L Potassium 5.1 (3.5-5.1) mmol/L Chloride 113 H (98-107) mmol/L Carbon Dioxide 19 L (22-30) mmol/L Anion Gap 5 mmol/L BUN 18 (9-20) mg/dL Creatinine 1.49 H (0.66-1.25) mg/dL Est GFR (CKD-EPI)AfAm 48 (>60 ml/min/1.73 sqM) Est GFR (CKD-EPI)NonAf 42 (>60 ml/min/1.73 sqM) Glucose 90 (74-99) mg/dL Plasma Lactic Acid Da (0.7-2.0) mmol/L Calcium 9.0 (8.4-10.2) mg/dL Magnesium 2.1 (1.6-2.3) mg/dL Total Bilirubin 0.5 (0.2-1.3) mg/dL AST 16 L (17-59) U/L ALT 18 (4-49) U/L Alkaline Phosphatase 138 H (38-126) U/L Troponin I (0.000-0.034) ng/mL NT-Pro-B Natriuret Pep pg/mL Total Protein 5.6 L (6.3-8.2) g/dL Albumin 3.2 L (3.5-5.0) g/dL Urine Color Urine Appearance (Clear) Urine pH (5.0-8.0) Ur Specific [place] (1.001-1.035) Urine Protein (Negative) Urine Glucose (UA) (Negative) Urine Ketones (Negative) Urine Blood (Negative) Urine Nitrite (Negative) Urine Bilirubin (Negative) Urine Urobilinogen (<2.0) mg/dL Ur Leukocyte Esterase (Negative) Urine RBC (0-5) /hpf Urine WBC (0-5) /hpf Ur Squamous Epith Cells (0-4) /hpf Urine Bacteria (None) /hpf Urine Mucus (None) /hpf Ur Yeast w Hyphae (None) /hpf Urine Yeast (Budding) (None) /hpf 07/01/22 07/01/22 07/01/22 Range/Units 13:03 13:03 13:03 WBC (3.8-10.6) k/uL RBC (4.30-5.90) m/uL Hgb (13.0-17.5) gm/dL Hct (39.0-53.0) % MCV (80.0-100.0) fL MCH (25.0-35.0) pg MCHC (31.0-37.0) g/dL RDW (11.5-15.5) % Plt Count (150-450) k/uL MPV Neutrophils % % Lymphocytes % % Monocytes % % Eosinophils % % Basophils % % Neutrophils # (1.3-7.7) k/uL Lymphocytes # (1.0-4.8) k/uL Monocytes # (0-1.0) k/uL Eosinophils # (0-0.7) k/uL Basophils # (0-0.2) k/uL Hypochromasia PT (9.0-12.0) sec INR (<1.2) APTT (22.0-30.0) sec Sodium (137-145) mmol/L Potassium (3.5-5.1) mmol/L Chloride (98-107) mmol/L Carbon Dioxide (22-30) mmol/L Anion Gap mmol/L BUN (9-20) mg/dL Creatinine (0.66-1.25) mg/dL Est GFR (CKD-EPI)AfAm (>60 ml/min/1.73 sqM) Est GFR (CKD-EPI)NonAf (>60 ml/min/1.73 sqM) Glucose (74-99) mg/dL Plasma Lactic Acid Da 0.6 L (0.7-2.0) mmol/L Calcium (8.4-10.2) mg/dL Magnesium (1.6-2.3) mg/dL Total Bilirubin (0.2-1.3) mg/dL AST (17-59) U/L ALT (4-49) U/L Alkaline Phosphatase (38-126) U/L Troponin I <0.012 (0.000-0.034) ng/mL NT-Pro-B Natriuret Pep 340 pg/mL Total Protein (6.3-8.2) g/dL Albumin (3.5-5.0) g/dL Urine Color Urine Appearance (Clear) Urine pH (5.0-8.0) Ur Specific [place] (1.001-1.035) Urine Protein (Negative) Urine Glucose (UA) (Negative) Urine Ketones (Negative) Urine Blood (Negative) Urine Nitrite (Negative) Urine Bilirubin (Negative) Urine Urobilinogen (<2.0) mg/dL Ur Leukocyte Esterase (Negative) Urine RBC (0-5) /hpf Urine WBC (0-5) /hpf Ur Squamous Epith Cells (0-4) /hpf Urine Bacteria (None) /hpf Urine Mucus (None) /hpf Ur Yeast w Hyphae (None) /hpf Urine Yeast (Budding) (None) /hpf 07/01/22 Range/Units 14:38 WBC (3.8-10.6) k/uL RBC (4.30-5.90) m/uL Hgb (13.0-17.5) gm/dL Hct (39.0-53.0) % MCV (80.0-100.0) fL MCH (25.0-35.0) pg MCHC (31.0-37.0) g/dL RDW (11.5-15.5) % Plt Count (150-450) k/uL MPV Neutrophils % % Lymphocytes % % Monocytes % % Eosinophils % % Basophils % % Neutrophils # (1.3-7.7) k/uL Lymphocytes # (1.0-4.8) k/uL Monocytes # (0-1.0) k/uL Eosinophils # (0-0.7) k/uL Basophils # (0-0.2) k/uL Hypochromasia PT (9.0-12.0) sec INR (<1.2) APTT (22.0-30.0) sec Sodium (137-145) mmol/L Potassium (3.5-5.1) mmol/L Chloride (98-107) mmol/L Carbon Dioxide (22-30) mmol/L Anion Gap mmol/L BUN (9-20) mg/dL Creatinine (0.66-1.25) mg/dL Est GFR (CKD-EPI)AfAm (>60 ml/min/1.73 sqM) Est GFR (CKD-EPI)NonAf (>60 ml/min/1.73 sqM) Glucose (74-99) mg/dL Plasma Lactic Acid Da (0.7-2.0) mmol/L Calcium (8.4-10.2) mg/dL Magnesium (1.6-2.3) mg/dL Total Bilirubin (0.2-1.3) mg/dL AST (17-59) U/L ALT (4-49) U/L Alkaline Phosphatase (38-126) U/L Troponin I (0.000-0.034) ng/mL NT-Pro-B Natriuret Pep pg/mL Total Protein (6.3-8.2) g/dL Albumin (3.5-5.0) g/dL Urine Color Yellow Urine Appearance Turbid (Clear) Urine pH 5.5 (5.0-8.0) Ur Specific [place] 1.019 (1.001-1.035) Urine Protein 1+ H (Negative) Urine Glucose (UA) Negative (Negative) Urine Ketones Negative (Negative) Urine Blood Small H (Negative) Urine Nitrite Negative (Negative) Urine Bilirubin Negative (Negative) Urine Urobilinogen <2.0 (<2.0) mg/dL Ur Leukocyte Esterase Large H (Negative) Urine RBC 44 H (0-5) /hpf Urine WBC >182 H (0-5) /hpf Ur Squamous Epith Cells 2 (0-4) /hpf Urine Bacteria Few H (None) /hpf Urine Mucus Moderate H (None) /hpf Ur Yeast w Hyphae Moderate (None) /hpf Urine Yeast (Budding) Many H (None) /hpf Disposition Clinical Impression: UTI (urinary tract infection), Indwelling Hdz catheter present Disposition: HOME SELF-CARE Condition: Stable Instructions (If sedation given, give patient instructions): Urinary Tract Infection in Men (ED) Additional Instructions: Please take the antibiotics as directed and follow-up with your doctor to ensure that your infection is improved. Return for any new or worsening symptoms Prescriptions: Levofloxacin [Levaquin] 750 mg PO DAILY 1 Days #5 tab Is patient prescribed a controlled substance at d/c from ED?: No Referrals: [facility] [Primary Care Provider] - 1-2 days Time of Disposition: 15:42
[2022-07-01 15:14] LABS: Appearance,Urine Turbid (Clear); Bacteria,Urine Few /hpf; Bilirubin,Urine Negative (Negative); Blood,Urine Small (Negative); Budding Yeast,Urine Many /hpf; Color,Urine Yellow; Glucose,Urine (UA) Negative (Negative); Hyphae Yeast, Urine Moderate /hpf; Ketones,Urine Negative (Negative); Leukocyte Esterase,Urine Large (Negative); Mucus,Urine Moderate /hpf; Nitrite,Urine Negative (Negative); PH, Urine 5.5 (5.0-8.0); Protein,Urine 1+ (Negative); RBC,Urine 44 /hpf (0-5); Specific Gravity,Urine 1.019 (1.001-1.035); Squamous Epithelial Cell,Urine 2 /hpf (0-4); Urobilinogen,Urine <2.0 mg/dL (<2.0); WBC,Urine >182 /hpf (0-5)
[2022-07-01] MEDS ORDERED: LEVOFLOXACIN 750 MG TAB PO STA (15:25)
[2022-07-01 15:41] VITALS: BP 132/68; PULSE 50; TEMP 97.7
== END 2022-07-01 16:23 | disposition home or self-care (01) ==
LOC: EC 12:28
DX: N39.0 Urinary tract infection, site not specified (principal); J45.909 Unspecified asthma, uncomplicated; J44.9 Chronic obstructive pulmonary disease, unspecified; K21.9 Gastro-esophageal reflux disease without esophagitis; E78.5 Hyperlipidemia, unspecified; E07.9 Disorder of thyroid, unspecified; I12.0 Hypertensive chronic kidney disease with stage 5 chronic kidney disease or end stage renal disease; E11.22 Type 2 diabetes mellitus with diabetic chronic kidney disease; N18.6 End stage renal disease; Z88.8 Allergy status to other drugs, medicaments and biological substances; Z91.018 Allergy to other foods; Z79.899 Other long term (current) drug therapy
CPT/HCPCS: 36415; 71046; 80053; 81001; 83605; 83735; 83880; 84484; 85025; 85610; 85730; 87077; 87086; 87186; 93005; 99285

== ENCOUNTER 2023-02-23 12:38 | Emergency (ER) | payer MEDICARE, OTHER ==
[2023-02-23 12:56] VITALS: TEMP 98
--- NOTE | 2023-02-23 13:46 | ED ---
General Adult HPI - General Chief complaint: Urogenital Stated complaint: UTI Time Seen by Provider: 02/23/23 12:44 Source: patient, RN notes reviewed Mode of arrival: ambulatory Limitations: altered mental status - History of Present Illness Initial comments: Patient is a pleasant 88-year-old male presenting to the emergency department with concern for urinary tract infection. Patient does come from jail. Patient has chronic indwelling catheter. Patient reportedly had recent urinary tract infection. A patient is a poor historian and offers little further history. - Related Data Home Medications Medication Instructions Recorded Confirmed Finasteride [Proscar] 5 mg PO DAILY 01/01/16 11/21/22 Aspirin EC [Ecotrin Low Dose] 81 mg PO DAILY 05/13/16 11/21/22 Isosorbide Mononitrate ER [Imdur] 60 mg PO DAILY 05/13/16 11/21/22 Atorvastatin Calcium [Lipitor] 80 mg PO HS 12/18/18 11/21/22 Donepezil [Aricept] 10 mg PO DAILY 12/18/18 11/21/22 Memantine [Namenda] 10 mg PO BID 12/18/18 11/21/22 Levothyroxine Sodium [Synthroid] 125 mcg PO DAILY 02/01/22 11/21/22 Lidocaine [Lidocaine 5% Rectal 1 applic RECTAL DAILY PRN 02/01/22 11/21/22 Cream] Mometasone/Formoterol [Dulera 100 2 puff INHALATION RT-BID 02/01/22 11/21/22 Mcg-5 Mcg Inhaler] Pantoprazole [Protonix] 40 mg PO HS 02/01/22 11/21/22 Escitalopram [Lexapro] 10 mg PO DAILY 07/01/22 11/21/22 Previous Rx's Medication Instructions Recorded Ferrous Sulfate [Iron (65 MG 325 mg PO DAILY #0 02/05/22 Elemental)] Furosemide [Lasix] 20 mg PO DAILY #0 02/05/22 hydrALAZINE HCL [Apresoline] 25 mg PO TID #90 tab 02/16/22 Losartan [Cozaar] 12.5 mg PO DAILY #30 tab 11/06/22 Sulfamethox-Tmp 800-160Mg [Bactrim 1 each PO Q12HR #20 tab 02/23/23 DS 800-160 mg] Allergies Allergy/AdvReac Type Severity Reaction Status Date / Time Latex, Natural Rubber Allergy Unknown Verified 11/21/22 20:31 trazodone Allergy Anaphylaxis Verified 11/21/22 20:31 lisinopril AdvReac Cough Verified 11/21/22 20:31 tomato AdvReac edema Verified 11/21/22 20:31 Review of Systems ROS Statement: Those systems with pertinent positive or pertinent negative responses have been documented in the HPI. ROS Other: All systems not noted in ROS Statement are negative. Constitutional: Denies: fever Eyes: Denies: eye pain ENT: Denies: ear pain Respiratory: Denies: cough Cardiovascular: Denies: chest pain Endocrine: Reports: fatigue Gastrointestinal: Denies: abdominal pain Genitourinary: Reports: as per HPI Past Medical History Past Medical History: Asthma, COPD, Dementia, Diabetes Mellitus, Diabetes Mellitus, GERD/Reflux, GI Bleed, Hearing Disorder / Deafness, Hyperlipidemia, Hypertension, Pneumonia, Prostate Disorder, Renal Disease, Renal Disease, Re spiratory Disorder, Thyroid Disorder, Thyroid Disorder Additional Past Medical History / Comment(s): Home oxygen 4L/NC at , NIDDM type II/no longer on diabetic medications since bilateral leg amputations, (past L leg cellulitis/bacteremia/SIRs/encephalopathy/heel sores, osteomylitis and past bilateral lower extremity edema), CKD stage III, urinary retention/obstruction/utis, uti with bacteremia/chronic IDC, gout, hypothyroid, DJD, bilateral ALEKNAGIK/aide, severe constipation, pt had lower GI bleed/bowel resection with colostomy. History of Any Multi-Drug Resistant Organisms: MRSA Date of last positivie culture/infection: 04/09/16 MDRO Source:: right foot Past Surgical History: Back Surgery, Bowel Resection, Coronary Bypass/CABG, Heart Catheterization, Hernia Repair, Orthopedic Surgery Additional Past Surgical History / Comment(s): Bilateral AKA, transmetatarsal amputation L great toe, amputation 2nd L toe, L elbow injury with surgery, L arm renetta twice, 2003 CABG 5 vessel, R inguinal hernia repair. Past Anesthesia/Blood Transfusion Reactions: No Reported Reaction Additional Past Anesthesia/Blood Transfusion Reaction / Comment(s): Pt has received blood without reaction. Past Psychological History: Anxiety, Depression Smoking Status: Current every day smoker Past Alcohol Use History: None Reported Past Drug Use History: None Reported - Past Family History Sister(s) Family Medical History: Cancer Mother Family Medical History: Diabetes Mellitus Additional Family Medical History / Comment(s): Pt remembers only that his mom was obese. Father History Unknown: Yes General Exam Limitations: altered mental status General appearance: other (Drowsy but arousable to voice) Head exam: Present: atraumatic Eye exam: Present: normal appearance, PERRL ENT exam: Present: normal oropharynx Neck exam: Present: normal inspection Respiratory exam: Present: normal lung sounds bilaterally Cardiovascular Exam: Present: regular rate, normal rhythm GI/Abdominal exam: Present: soft. Absent: tenderness Extremities exam: Present: other (Bilateral AKA) Neurological exam: Absent: motor sensory deficit Expanded Neurological exam: Present: protecting the airway Patient oriented to: Present: person, place. Absent: time Motor strength exam: RUE: 5, LUE: 5, RLE: 5, LLE: 5 Eye Response: (3) open to voice Motor Response: (6) obeys commands Verbal Response: (4) confused conversation Psychiatric exam: Present: normal affect, normal mood Skin exam: Present: normal color Course Vital Signs 02/23/23 12:51 Temperature 98 F Pulse Rate 56 L Respiratory 20 Rate Blood Pressure 103/62 O2 Sat by Pulse 97 Oximetry Medical Decision Making - Medical Decision Making Was pt. sent in by a medical professional or institution ([facility], [employer], urgent care, hospital, or jail...) When possible be specific @ -Patient sent from [facility] Did you speak to anyone other than the patient for history (EMS, parent, family, police, friend...)? What history was obtained from this source @ -No Did you review nursing and triage notes (agree or disagree)? Why? @ -I reviewed and agree with nursing and triage notes Were old charts reviewed (outside hosp., previous admission, EMS record, old EKG, old radiological studies, urgent care reports/EKG's, jail records)? Report findings @ -No old charts were reviewed Differential Diagnosis (chest pain, altered mental status, abdominal pain women, abdominal pain men, vaginal bleeding, weakness, fever, dyspnea, syncope, headache, dizziness, GI bleed, back pain, seizure, CVA, palpatations, mental health)? @ -Differential Abdominal Pain Men: Appendicitis, cholecystitis, diverticulosis, ischemic bowel, pancreatitis, hepatitis, UTI, gastroenteritis, AAA, incarcerated hernia, bowel obstruction, constipation, inflammatory bowel, hepatitis, peptic ulcer disease, splenic infarction, perforated viscus, testicular torsion, this is not meant to be an all-inclusive list EKG interpreted by me (3pts min.). @ -As above X-rays interpreted by me (1pt min.). @ -None done CT interpreted by me (1pt min.). @ -None done U/S interpreted by me (1pt. min.). @ -None done What testing was considered but not performed or refused? (CT, X-rays, U/S, labs)? Why? @ -None What meds were considered but not given or refused? Why? @ -None Did you discuss the management of the patient with other professionals (professionals i.e. , PA, [employer], lab, RT, psych nurse, delinquency prevention social worker, acid correction hand, teacher, radio electronics officer, case filler)? Give summary @ -Discussed with nursing staff who states patient came from home where they have concern for urinary tract infection. Patient reportedly had one a few months ago. Patient also reportedly at baseline Was smoking cessation discussed for >3mins.? @ -No Was critical care preformed (if so, how long)? @ -No Were there social determinants of health that impacted care today? How? (Homelessness, low income, unemployed, alcoholism, drug addiction, transportation, low edu. Level, literacy, decrease access to med. care, assisted, rehab)? @ -Patient from [facility] home. Was there de-escalation of care discussed even if they declined (Discuss DNR or withdrawal of care, Hospice)? DNR status @ -No What co-morbidities impacted this encounter? (DM, HTN, Smoking, COPD, CAD, Cancer, CVA, ARF, Chemo, Hep., AIDS, mental health diagnosis, sleep apnea, morbid obesity)? @ -History of chronic indwelling Hdz catheter Was patient admitted / discharged? Hospital course, mention meds given and route, prescriptions, significant lab abnormalities, going to OR and other pertinent info. @ -Patient reevaluated and requesting discharge home. Patient does have concern for potential urinary tract infection and will be placed on antibiotics Undiagnosed new problem with uncertain prognosis? @ -No Drug Therapy requiring intensive monitoring for toxicity (Heparin, Nitro, Insulin, Cardizem)? @ -No Were any procedures done? @ -No Diagnosis/symptom? @ -Urinary tract infection Acute, or Chronic, or Acute on Chronic? @ -Acute Uncomplicated (without systemic symptoms) or Complicated (systemic symptoms)? @ -default Side effects of treatment? @ -No Exacerbation, Progression, or Severe Exacerbation? @ -No Poses a threat to life or bodily function? How? (Chest pain, [place], [place], pneumonia, PE, COPD, DKA, ARF, appy, cholecystitis, CVA, Diverticulitis, Homicidal, Suicidal, threat to staff... and all critical care pts) @ -No - Lab Data Result diagrams: 02/23/23 13:30 02/23/23 13:30 Lab Results 02/23/23 02/23/23 02/23/23 Range/Units 13:30 13:30 14:07 WBC 7.5 (3.8-10.6) k/uL RBC 4.07 L (4.30-5.90) m/uL Hgb 12.1 L (13.0-17.5) gm/dL Hct 38.2 L (39.0-53.0) % MCV 93.8 (80.0-100.0) fL MCH 29.8 (25.0-35.0) pg MCHC 31.8 (31.0-37.0) g/dL RDW 14.4 (11.5-15.5) % Plt Count 183 (150-450) k/uL MPV 7.9 Neutrophils % 66 % Lymphocytes % 21 % Monocytes % 7 % Eosinophils % 3 % Basophils % 0 % Neutrophils # 4.9 (1.3-7.7) k/uL Lymphocytes # 1.6 (1.0-4.8) k/uL Monocytes # 0.6 (0-1.0) k/uL Eosinophils # 0.3 (0-0.7) k/uL Basophils # 0.0 (0-0.2) k/uL Hypochromasia Slight Sodium 138 (137-145) mmol/L Potassium 4.9 (3.5-5.1) mmol/L Chloride 110 H (98-107) mmol/L Carbon Dioxide 20 L (22-30) mmol/L Anion Gap 8 mmol/L BUN 22 H (9-20) mg/dL Creatinine 1.42 H (0.66-1.25) mg/dL Est GFR (CKD-EPI)AfAm 51 (>60 ml/min/1.73 sqM) Est GFR (CKD-EPI)NonAf 44 (>60 ml/min/1.73 sqM) Glucose 98 (74-99) mg/dL Calcium 9.3 (8.4-10.2) mg/dL Magnesium 2.4 H (1.6-2.3) mg/dL Total Bilirubin 0.6 (0.2-1.3) mg/dL AST 24 (17-59) U/L ALT 21 (4-49) U/L Alkaline Phosphatase 155 H (38-126) U/L Total Protein 6.0 L (6.3-8.2) g/dL Albumin 3.3 L (3.5-5.0) g/dL Urine Color Yellow Urine Appearance Turbid (Clear) Urine pH 5.5 (5.0-8.0) Ur Specific [place] 1.018 (1.001-1.035) Urine Protein 1+ H (Negative) Urine Glucose (UA) Negative (Negative) Urine Ketones Negative (Negative) Urine Blood Small H (Negative) Urine Nitrite Negative (Negative) Urine Bilirubin Negative (Negative) Urine Urobilinogen <2.0 (<2.0) mg/dL Ur Leukocyte Esterase Large H (Negative) Urine RBC 71 H (0-5) /hpf Urine WBC >182 H (0-5) /hpf Urine WBC Clumps Many H (None) /hpf Ur Squamous Epith Cells 3 (0-4) /hpf Urine Bacteria Moderate H (None) /hpf Urine Mucus Few H (None) /hpf Disposition Clinical Impression: Urinary tract infection Disposition: HOME SELF-CARE Condition: Stable Instructions (If sedation given, give patient instructions): Urinary Tract Infection in Men (ED) Additional Instructions: Prescription sent to pharmacy. Please do follow-up with primary care physician in the next day or 2 for recheck. Have primary care physician follow-up with urine culture results. Return for change in mental status, fevers, pain, worsening symptoms or other concerns. Prescriptions: Sulfamethox-Tmp 800-160Mg [Bactrim DS 800-160 mg] 1 each PO Q12HR #20 tab Is patient prescribed a controlled substance at d/c from ED?: No Referrals: [facility],Clinic [Primary Care Provider] - 1-2 days Time of Disposition: 14:54
[2023-02-23 13:49] LABS: Basophils % (A) 0 %; Eosinophils # (A) 0.3 k/uL (0-0.7); Eosinophils % (A) 3 %; HCT 38.2 % (39.0-53.0); HGB 12.1 gm/dL (13.0-17.5); Hypochromasia Slight; Lymphocytes # (A) 1.6 k/uL (1.0-4.8); Lymphocytes % (A) 21 %; MCH 29.8 pg (25.0-35.0); MCHC 31.8 g/dL (31.0-37.0); MCV 93.8 fL (80.0-100.0); Mean Platelet Volume 7.9; Monocytes # (A) 0.6 k/uL (0-1.0); Monocytes % (A) 7 %; Neutrophils # (A) 4.9 k/uL (1.3-7.7); Neutrophils % (A) 66 %; Platelet Count 183 k/uL (150-450); RBC 4.07 m/uL (4.30-5.90); RDW 14.4 % (11.5-15.5); WBC 7.5 k/uL (3.8-10.6)
[2023-02-23 14:06] LABS: ALT 21 U/L (4-49); AST 24 U/L (17-59); African American GFR (CKD) 51 (>60 ml/min/1.73 sqM); Albumin 3.3 g/dL (3.5-5.0); Alkaline Phosphatase 155 U/L (38-126); Anion Gap 8 mmol/L; Blood Urea Nitrogen 22 mg/dL (9-20); Calcium 9.3 mg/dL (8.4-10.2); Carbon Dioxide 20 mmol/L (22-30); Chloride 110 mmol/L (98-107); Glucose 98 mg/dL (74-99); Magnesium 2.4 mg/dL (1.6-2.3); Non-African American GFR(CKD) 44 (>60 ml/min/1.73 sqM); Potassium 4.9 mmol/L (3.5-5.1); Sodium 138 mmol/L (137-145); Total Bilirubin 0.6 mg/dL (0.2-1.3)
[2023-02-23 14:19] LABS: Appearance,Urine Turbid (Clear); Bacteria,Urine Moderate /hpf; Bilirubin,Urine Negative (Negative); Blood,Urine Small (Negative); Color,Urine Yellow; Glucose,Urine (UA) Negative (Negative); Ketones,Urine Negative (Negative); Leukocyte Esterase,Urine Large (Negative); Mucus,Urine Few /hpf; Nitrite,Urine Negative (Negative); PH, Urine 5.5 (5.0-8.0); Protein,Urine 1+ (Negative); RBC,Urine 71 /hpf (0-5); Specific Gravity,Urine 1.018 (1.001-1.035); Squamous Epithelial Cell,Urine 3 /hpf (0-4); Urobilinogen,Urine <2.0 mg/dL (<2.0); WBC,Urine >182 /hpf (0-5)
[2023-02-23 15:26] VITALS: BP 105/76; PULSE 61; RESP 16
== END 2023-02-23 17:07 | disposition home or self-care (01) ==
LOC: EC 12:38
DX: N39.0 Urinary tract infection, site not specified (principal); J44.9 Chronic obstructive pulmonary disease, unspecified; I12.9 Hypertensive chronic kidney disease with stage 1 through stage 4 chronic kidney disease, or unspecified chronic kidney disease; N18.30 Chronic kidney disease, stage 3 unspecified; E11.22 Type 2 diabetes mellitus with diabetic chronic kidney disease; E07.9 Disorder of thyroid, unspecified; E78.5 Hyperlipidemia, unspecified; K21.9 Gastro-esophageal reflux disease without esophagitis; F41.9 Anxiety disorder, unspecified; F32.A Depression, unspecified; F17.200 Nicotine dependence, unspecified, uncomplicated; Z91.040 Latex allergy status; Z91.018 Allergy to other foods; Z88.8 Allergy status to other drugs, medicaments and biological substances; Z79.82 Long term (current) use of aspirin; Z79.890 Hormone replacement therapy; Z79.899 Other long term (current) drug therapy
CPT/HCPCS: 36415; 51702; 80053; 81001; 83735; 85025; 87086; 99284

== ENCOUNTER 2023-05-22 12:58 | Inpatient (IN) | payer MEDICARE, OTHER ==
--- NOTE | 2023-05-22 13:26 | ED ---
Male Urogenital HPI - General Chief complaint: Urogenital Stated complaint: Weakness Time Seen by Provider: 05/22/23 13:12 Source: patient, family, EMS, RN notes reviewed Mode of arrival: EMS Limitations: no limitations - History of Present Illness Initial comments: This is an 88-year-old male who presents to the emergency department for weakness and coughing. Per EMS, the patient pulled out his Hdz catheter at home, and his family replaced it, but subsequently called EMS due to concerns for a UTI, which he gets frequently. His daughter is concerned about a UTI due to the patient's increasing weakness and fatigue over the last 2-3 days. In addition to the weakness, he has had a cough. They deny any sick contacts. Patient has dementia and is a poor historian, but does admit to increasing weakness. - Related Data Home Medications Medication Instructions Recorded Confirmed Finasteride [Proscar] 5 mg PO DAILY 01/01/16 05/22/23 Aspirin EC [Ecotrin Low Dose] 81 mg PO DAILY 05/13/16 05/22/23 Isosorbide Mononitrate ER [Imdur] 60 mg PO DAILY 05/13/16 05/22/23 Atorvastatin Calcium [Lipitor] 80 mg PO HS 12/18/18 05/22/23 Donepezil [Aricept] 10 mg PO DAILY 12/18/18 05/22/23 Memantine [Namenda] 10 mg PO BID 12/18/18 05/22/23 Levothyroxine Sodium [Synthroid] 125 mcg PO DAILY 02/01/22 05/22/23 Pantoprazole [Protonix] 40 mg PO DAILY 02/01/22 05/22/23 Escitalopram [Lexapro] 10 mg PO DAILY 07/01/22 05/22/23 Lanolin/Mineral Oil [Eucerin 1 applic TOPICAL DAILY PRN 05/22/23 05/22/23 Original Lotion] Lidocaine 5% Patch [Lidoderm] 1 patch TOPICAL DAILY 05/22/23 05/22/23 Miconazole Nitrate 2% Powder 1 applic TOPICAL BID 05/22/23 05/22/23 Potassium Chloride ER [K-Dur 10] 10 meq PO DAILY 05/22/23 05/22/23 Previous Rx's Medication Instructions Recorded Ferrous Sulfate [Iron (65 MG 325 mg PO DAILY #0 02/05/22 Elemental)] Furosemide [Lasix] 20 mg PO DAILY #0 02/05/22 Allergies Allergy/AdvReac Type Severity Reaction Status Date / Time Latex, Natural Rubber Allergy Unknown Verified 05/22/23 19:53 trazodone Allergy Anaphylaxis Verified 05/22/23 19:53 lisinopril AdvReac Cough Verified 05/22/23 19:53 tomato AdvReac edema Verified 05/22/23 19:53 Review of Systems ROS Statement: Those systems with pertinent positive or pertinent negative responses have been documented in the HPI. ROS Other: All systems not noted in ROS Statement are negative. Past Medical History Past Medical History: Asthma, COPD, Dementia, Diabetes Mellitus, Diabetes Mellitus, GERD/Reflux, GI Bleed, Hearing Disorder / Deafness, Hyperlipidemia, Hypertension, Pneumonia, Prostate Disorder, Renal Disease, Renal Disease, Respiratory Disorder, Thyroid Disorder, Thyroid Disorder Additional Past Medical History / Comment(s): Home oxygen 4L/NC at HS, NIDDM type II/no longer on diabetic medications since bilateral leg amputations, (past L leg cellulitis/bacteremia/SIRs/encephalopathy/heel sores, osteomylitis and past bilateral lower extremity edema), CKD stage III, urinary retention/obstruct ion/utis, uti with bacteremia/chronic IDC, gout, hypothyroid, DJD, bilateral [place]/aide, severe constipation, pt had lower GI bleed/bowel resection with colostomy. History of Any Multi-Drug Resistant Organisms: MRSA Date of last positivie culture/infection: 04/09/16 MDRO Source:: right foot Past Surgical History: Back Surgery, Bowel Resection, Coronary Bypass/CABG, Heart Catheterization, Hernia Repair, Orthopedic Surgery Additional Past Surgical History / Comment(s): Bilateral AKA, transmetatarsal amputation L great toe, amputation 2nd L toe, L elbow injury with surgery, L arm renetta twice, 2003 CABG 5 vessel, R inguinal hernia repair. Past Anesthesia/Blood Transfusion Reactions: No Reported Reaction Additional Past Anesthesia/Blood Transfusion Reaction / Comment(s): Pt has received blood without reaction. Past Psychological History: Anxiety, Depression Smoking Status: Current every day smoker Past Alcohol Use History: None Reported Past Drug Use History: None Reported - Past Family History Sister(s) Family Medical History: Cancer Mother Family Medical History: Diabetes Mellitus Additional Family Medical History / Comment(s): Pt remembers only that his mom was obese. Father History Unknown: Yes General Exam Limitations: no limitations General appearance: alert, in no apparent distress Head exam: Present: atraumatic, normocephalic, normal inspection Respiratory exam: Present: normal lung sounds bilaterally. Absent: respiratory distress Cardiovascular Exam: Present: regular rate, normal rhythm, normal heart sounds GI/Abdominal exam: Present: soft. Absent: distended, tenderness Neurological exam: Present: alert Skin exam: Present: warm, dry, intact, normal color. Absent: rash Course Vital Signs 05/22/23 05/22/23 05/22/23 13:00 14:14 15:31 Temperature 98.4 F Pulse Rate 78 62 63 Respiratory 18 18 18 Rate Blood Pressure 146/74 149/78 100/56 O2 Sat by Pulse 96 96 97 Oximetry 05/22/23 05/22/23 16:57 18:42 Temperature Pulse Rate 72 72 Respiratory 18 18 Rate Blood Pressure 129/67 127/84 O2 Sat by Pulse 98 96 Oximetry Medical Decision Making - Medical Decision Making This is an 88-year-old male who presents to the emergency department for weakness. Was pt. sent in by a medical professional or institution? @ -No Did you speak to anyone other than the patient for history? @ -EMS provided all of the information, with the patient saying that he felt weak. Did you review nursing and triage notes? @ -Yes, and I agree, it is accurate with regards to the patient's symptoms. Were old charts reviewed? @ -No Differential Diagnosis? @ -Differential Weakness: Hypoglycemia, shock, sepsis, hyponatremia, anemia, infection, [place], ETOH, adverse medicine reaction, overdose, stroke, this is not meant to be an all-inclusive list. EKG interpreted by me (3pts min.)? @ -EKG interpreted by me demonstrating the following: Sinus rhythm. Ventricular rate 62 beats per minute, QRS duration 102 ms, QTC 388 ms. X-rays interpreted by me (1pt min.)? @ -Chest x-ray obtained. My interpretation identifies a left upper lobe opacity. CT interpreted by me (1pt min.)? @ -Not obtained U/S interpreted by me (1pt. min.)? @ -Not obtained What testing was considered but not performed? (CT, X-rays, U/S, labs)? Why? @ -None What meds were considered but not given? Why? @ -None Did you discuss the management of the patient with other professionals? @ -Yes, Dr. Martínez, who accepts the patient for admission. Did you reconcile home meds? @ -Yes Was smoking cessation discussed for >3mins.? @ -No Was critical care preformed (if so, how long)? @ -No Were there social determinants of health that impacted care today? How? (Homelessness, low income, unemployed, alcoholism, drug addiction, transportation, low edu. Level, literacy, decrease access to med. care, correction, rehab)? @ -No Was there de-escalation of care discussed even if they declined? (Discuss DNR or withdrawal of care, Hospice)? @ -No What co-morbidities impacted this encounter? (DM, HTN, Smoking, COPD, CAD, Cancer, CVA, Hep., AIDS, mental health diagnosis, sleep apnea, morbid obesity)? @ -DM, dementia, COPD, HLD, HTN, renal disease Was patient admitted / discharged? @ -Admitted. Lab work obtained revealing leukocytosis. Kidney function is slightly decreased when compared with most recent value, however it has been this low in the past. Chest x-ray obtained demonstrating a left upper lobe consolidation suggestive of pneumonia. Urinalysis reveals large amount of white blood cells and red blood cells, however nitrates are negative and this may be due to the patient having a chronic indwelling Hdz catheter as opposed to an acute UTI. We spoke with the patient's family, who advised that they do not believe that he is safe going home, and that oral antibiotics are typically ineffective. Given the pneumonia with the patient's comorbidities and history of failing outpatient management, patient admitted to medicine for further management of the pneumonia. He was started on pneumonia protocol with ceftria xone and azithromycin. Blood cultures obtained as well. Undiagnosed new problem with uncertain prognosis? @ -None Drug Therapy requiring intensive monitoring for toxicity (Heparin, Nitro, Insulin, Cardizem)? @ -None Were any procedures done? @ -None Diagnosis/symptom? @ -Pneumonia, weakness Acute, or Chronic, or Acute on Chronic? @ -Acute Uncomplicated (without systemic symptoms) or Complicated (systemic symptoms)? @ -Complicated Side effects of treatment? @ -None Exacerbation, Progression, or Severe Exacerbation] @ -Not applicable Poses a threat to life or bodily function? @ -Yes This case was discussed in detail with the attending ED physician, Dr. Ramos. Presentation, findings, and treatment plan discussed in detail as well. - Lab Data Result diagrams: 05/22/23 14:14 05/22/23 14:14 Lab Results 05/22/23 05/22/23 05/22/23 Range/Units 13:46 14:14 14:14 WBC 11.1 H (3.8-10.6) k/uL RBC 4.21 L (4.30-5.90) m/uL Hgb 12.4 L (13.0-17.5) gm/dL Hct 37.9 L (39.0-53.0) % MCV 90.0 (80.0-100.0) fL MCH 29.5 (25.0-35.0) pg MCHC 32.7 (31.0-37.0) g/dL RDW 14.0 (11.5-15.5) % Plt Count 212 (150-450) k/uL MPV 8.4 Neutrophils % 86 % Lymphocytes % 8 % Monocytes % 4 % Eosinophils % 1 % Basophils % 0 % Neutrophils # 9.5 H (1.3-7.7) k/uL Lymphocytes # 0.8 L (1.0-4.8) k/uL Monocytes # 0.5 (0-1.0) k/uL Eosinophils # 0.1 (0-0.7) k/uL Basophils # 0.0 (0-0.2) k/uL Sodium 140 (137-145) mmol/L Potassium 4.9 (3.5-5.1) mmol/L Chloride 115 H (98-107) mmol/L Carbon Dioxide 19 L (22-30) mmol/L Anion Gap 6 mmol/L BUN 34 H (9-20) mg/dL Creatinine 1.75 H (0.66-1.25) mg/dL Est GFR (CKD-EPI)AfAm 39 (>60 ml/min/1.73 sqM) Est GFR (CKD-EPI)NonAf 34 (>60 ml/min/1.73 sqM) Glucose 115 H (74-99) mg/dL Calcium 9.5 (8.4-10.2) mg/dL Total Bilirubin 0.5 (0.2-1.3) mg/dL AST 27 (17-59) U/L ALT 20 (4-49) U/L Alkaline Phosphatase 157 H (38-126) U/L Total Protein 6.2 L (6.3-8.2) g/dL Albumin 3.4 L (3.5-5.0) g/dL Urine Color Colorless Urine Appearance Cloudy (Clear) Urine pH 5.5 (5.0-8.0) Ur Specific [place] 1.013 (1.001-1.035) Urine Protein Trace H (Negative) Urine Glucose (UA) Negative (Negative) Urine Ketones Negative (Negative) Urine Blood Large H (Negative) Urine Nitrite Negative (Negative) Urine Bilirubin Negative (Negative) Urine Urobilinogen <2.0 (<2.0) mg/dL Ur Leukocyte Esterase Large H (Negative) Urine RBC 127 H (0-5) /hpf Urine WBC >182 H (0-5) /hpf Urine WBC Clumps Many H (None) /hpf Ur Squamous Epith Cells 1 (0-4) /hpf Urine Mucus Rare H (None) /hpf Urine Yeast (Budding) Occasional H (None) /hpf Influenza Type A (PCR) (Not Detectd) Influenza Type B (PCR) (Not Detectd) RSV (PCR) (Not Detectd) SARS-CoV-2 (PCR) (Not Detectd) 05/22/23 Range/Units 14:33 WBC (3.8-10.6) k/uL RBC (4.30-5.90) m/uL Hgb (13.0-17.5) gm/dL Hct (39.0-53.0) % MCV (80.0-100.0) fL MCH (25.0-35.0) pg MCHC (31.0-37.0) g/dL RDW (11.5-15.5) % Plt Count (150-450) k/uL MPV Neutrophils % % Lymphocytes % % Monocytes % % Eosinophils % % Basophils % % Neutrophils # (1.3-7.7) k/uL Lymphocytes # (1.0-4.8) k/uL Monocytes # (0-1.0) k/uL Eosinophils # (0-0.7) k/uL Basophils # (0-0.2) k/uL Sodium (137-145) mmol/L Potassium (3.5-5.1) mmol/L Chloride (98-107) mmol/L Carbon Dioxide (22-30) mmol/L Anion Gap mmol/L BUN (9-20) mg/dL Creatinine (0.66-1.25) mg/dL Est GFR (CKD-EPI)AfAm (>60 ml/min/1.73 sqM) Est GFR (CKD-EPI)NonAf (>60 ml/min/1.73 sqM) Glucose (74-99) mg/dL Calcium (8.4-10.2) mg/dL Total Bilirubin (0.2-1.3) mg/dL AST (17-59) U/L ALT (4-49) U/L Alkaline Phosphatase (38-126) U/L Total Protein (6.3-8.2) g/dL Albumin (3.5-5.0) g/dL Urine Color Urine Appearance (Clear) Urine pH (5.0-8.0) Ur Specific [place] (1.001-1.035) Urine Protein (Negative) Urine Glucose (UA) (Negative) Urine Ketones (Negative) Urine Blood (Negative) Urine Nitrite (Negative) Urine Bilirubin (Negative) Urine Urobilinogen (<2.0) mg/dL Ur Leukocyte Esterase (Negative) Urine RBC (0-5) /hpf Urine WBC (0-5) /hpf Urine WBC Clumps (None) /hpf Ur Squamous Epith Cells (0-4) /hpf Urine Mucus (None) /hpf Urine Yeast (Budding) (None) /hpf Influenza Type A (PCR) Not Detected (Not Detectd) Influenza Type B (PCR) Not Detected (Not Detectd) RSV (PCR) Not Detected (Not Detectd) SARS-CoV-2 (PCR) Not Detected (Not Detectd) - Radiology Data Radiology results: report reviewed, image reviewed Disposition Clinical Impression: Pneumonia, Weakness Disposition: ADMITTED IP TO THIS HOSP
[2023-05-22 14:08] LABS: Appearance,Urine Cloudy (Clear); Bilirubin,Urine Negative (Negative); Blood,Urine Large (Negative); Budding Yeast,Urine Occasional /hpf; Color,Urine Colorless; Glucose,Urine (UA) Negative (Negative); Ketones,Urine Negative (Negative); Leukocyte Esterase,Urine Large (Negative); Mucus,Urine Rare /hpf; Nitrite,Urine Negative (Negative); PH, Urine 5.5 (5.0-8.0); Protein,Urine Trace (Negative); RBC,Urine 127 /hpf (0-5); Specific Gravity,Urine 1.013 (1.001-1.035); Squamous Epithelial Cell,Urine 1 /hpf (0-4); Urobilinogen,Urine <2.0 mg/dL (<2.0); WBC,Urine >182 /hpf (0-5)
--- NOTE | 2023-05-22 14:25 | XR ---
EXAMINATION TYPE: XR chest 1V portable DATE OF EXAM: 05/22/2023 2:08 PM COMPARISON: Chest radiographs from 11/21/2022 TECHNIQUE: XR chest 1V portable Frontal view of the chest. CLINICAL INDICATION:Male, 88 years old with history of GAIL; FINDINGS: Lungs/Pleura: There is increased left upper lobe airspace opacities. There is no evidence of pleural effusion, focal consolidation, or pneumothorax. Pulmonary vascularity: Unremarkable. Heart/mediastinum: Cardiomediastinal silhouette is enlarged and stable. Musculoskeletal: No acute osseous pathology. Midline sternotomy wires are noted.Left proximal humerus fixation changes hardware appears fragmented with multiple screws present. IMPRESSION: 1. Left upper lobe airspace opacities correlate for pneumonia. 2. Mild cardiomegaly. 3. Similar post fixation changes of left upper extremity with broken hardware.
[2023-05-22 14:30] LABS: Basophils % (A) 0 %; Eosinophils # (A) 0.1 k/uL (0-0.7); Eosinophils % (A) 1 %; HCT 37.9 % (39.0-53.0); HGB 12.4 gm/dL (13.0-17.5); Lymphocytes # (A) 0.8 k/uL (1.0-4.8); Lymphocytes % (A) 8 %; MCH 29.5 pg (25.0-35.0); MCHC 32.7 g/dL (31.0-37.0); Mean Platelet Volume 8.4; Monocytes # (A) 0.5 k/uL (0-1.0); Monocytes % (A) 4 %; Neutrophils # (A) 9.5 k/uL (1.3-7.7); Neutrophils % (A) 86 %; Platelet Count 212 k/uL (150-450); RBC 4.21 m/uL (4.30-5.90); WBC 11.1 k/uL (3.8-10.6)
[2023-05-22 14:34] LABS: ALT 20 U/L (4-49); AST 27 U/L (17-59); African American GFR (CKD) 39 (>60 ml/min/1.73 sqM); Albumin 3.4 g/dL (3.5-5.0); Alkaline Phosphatase 157 U/L (38-126); Anion Gap 6 mmol/L; Blood Urea Nitrogen 34 mg/dL (9-20); Calcium 9.5 mg/dL (8.4-10.2); Carbon Dioxide 19 mmol/L (22-30); Chloride 115 mmol/L (98-107); Glucose 115 mg/dL (74-99); Non-African American GFR(CKD) 34 (>60 ml/min/1.73 sqM); Potassium 4.9 mmol/L (3.5-5.1); Sodium 140 mmol/L (137-145); Total Bilirubin 0.5 mg/dL (0.2-1.3); Total Protein 6.2 g/dL (6.3-8.2)
[2023-05-22] MEDS ORDERED: cefTRIAXone IN SWFI 1,000 MG/10 ML SYRINGE IVP STA (14:35)
[2023-05-22] MEDS ORDERED: AZITHROMYCIN 500 MG in SODIUM CHLORIDE 0.9% 250 ML IVPB STA (14:35)
[2023-05-22] MEDS ORDERED: PNEUMONIA PROTOCOL UTILIZED 1 EACH MISC PO PRN (17:10)
[2023-05-22] MEDS ORDERED: ACETAMINOPHEN TAB 325 MG TAB PO PRN (17:11)
[2023-05-22] MEDS ORDERED: ONDANSETRON 4 MG/2 ML VIAL IVP PRN (17:11)
[2023-05-22] MEDS ORDERED: HYDROcodone/APAP 5-325MG 1 EACH TAB PO PRN (17:11)
[2023-05-22] MEDS ORDERED: NALOXONE 0.4 MG/ML 1 ML VIAL IV PRN (17:11)
[2023-05-22] MEDS ORDERED: MELATONIN 3 MG TABLET PO PRN (18:07)
[2023-05-22] MEDS ORDERED: bisacodyL 5 MG TABLET.DR PO PRN (18:07)
[2023-05-22] MEDS ORDERED: ALBUTEROL NEBULIZED 2.5 MG/3 ML INHALATION PRN (18:07)
--- NOTE | 2023-05-22 18:17 | P.HPIM ---
History of Present Illness H&P Date: 05/22/23 Patient is an 88-year-old gentleman with chronic indwelling Mathew catheter, COPD with ongoing tobacco abuse, Home O2 at 4L, chronic kidney disease stage III, diabetes, and hypothyroidism who was sent to the ER by family for displaced Mathew catheter, fatigue, and cough. On arrival to the ER his vital signs were within normal limits. Laboratory analysis was remarkable for white blood cell count 11.1, hemoglobin 12 point or, chloride 1:15, carbon dioxide 19, BUN 34, and creatinine 1.75 (near his baseline GFR), and urinalysis consistent with chronic indwelling Mathew catheter. Respiratory viral panel was negative for influenza, RSV, and COVID-19. Chest x-ray demonstrated left upper lobe pneumonia. In the ER he was given a dose of Rocephin and Zithromax. Arrangements were made for admission. Patient seen and examined at bedside. He is hard of hearing and confused and as ked me to call his daughter. Per his daughter he pulled out his mathew this morning and there was no urine in the collection bag or saturating his bed. Another family member replaced the cath and there was immediate copious amounts of urine output which was dark in color with large amounts of sediment. This morning he was pale and his lips were blue, but once new cath was in he looked a little better. Yet, he did not want to get out of bed or eat breakfast which was unusual for him. Last evening he kept complaining of pain around the rectal opening and feeling like something needed to come out. His thoughts and dementia seems worse today per the daughter, which is consistent with prior infections. Increased cough with phlegm for the last 1.5 months. Phlegm is clear. He is chronically on keflex 250 mg daily at the direction of his urologist due to recurrent infections. Vital signs reviewed General: nontoxic, ill appearing, disheveled, appears at stated age Derm: warm, dry Eyes: EOMI, no lid lag, anicteric sclera, pupils pinpoint ENT: Nose and ears atraumatic, no thrush, no pharyngeal erythema Cardiovascular: S1S2 reg, no murmur, positive posterior tibial pulse bilateral, no edema, capillary refill less than 2 seconds Lungs: b/l diffuse wheezing, no accessory muscle use Abdominal: soft, nontender to palpation, no guarding, no appreciable organomegaly, normal bowel sounds, ostomy inplace with good output Ext: + gross muscle atrophy, b/l AKA Neuro: CN II-XII grossly intact, moving all 4 extremities independently Psych: Awake, appears anxious Assessment/Plan: Pneumonia, community-acquired Chronic hypoxic respiratory failure on 4 L nasal cannula Acute exacerbation of COPD On going tobacco dependency - Admit to inpatient, [facility] floor -Rocephin 2 g IVPB D # 1 and Zithromax 500 mg IVPB D # 1 -Sputum culture if able -Repeat chest x-ray in a.m. - legionella uine antigen - check vit D level - Duoneb q 4 hours and prn - solumedrol 60 q 8 hours - pulm hygeine - nicotine 21 mcg patch daily Dementia - safe and supportive environment Chronic mathew with malfunction - urine culture has been obtained but may be contaminant due to large epithelial cells and recent trauma from pulling out mathew. Diabetes mellitus - no longer requiring medications - follow BS on AM labs Chronic: Hypertension Coronary artery disease Chronic kidney disease stage III awaiting med rec Imaging: As per HPI Data Review: As per HPI The patient is admitted with an anticipated greater than 2 midnight stay for evaluation of Pneumonia. Surrogate decision-maker: Daughter Robert Ho is decision CODE STATUS: Full DVT prophylaxis: No change in ambulatory status Discussed with: daughter at length over the phone as patient A&O X 1 Anticipated discharge date: in 2-[address]: home This dictation was prepared using [employer] voice recognition software. Though every attempt is made to correct errors during dictation some may still exist. Past Medical History Past Medical History: Asthma, COPD, Dementia, Diabetes Mellitus, Diabetes Mellitus, GERD/Reflux, GI Bleed, Hearing Disorder / Deafness, Hyperlipidemia, Hypertension, Pneumonia, Prostate Disorder, Renal Disease, Renal Disease, Respiratory Disorder, Thyroid Disorder, Thyroid Disorder Additional Past Medical History / Comment(s): Home oxygen 4L/NC at HS, NIDDM type II/no longer on diabetic medications since bilateral leg amputations, (past L leg cellulitis/bacteremia/SIRs/encephalopathy/heel sores, osteomylitis and past bilateral lower extremity edema), CKD stage III, urinary retention/obstruction/uti with chronic mathew, gout, hypothyroid, DJD, bilateral [place]/aide, pt had lower GI bleed/bowel resection with colostomy. History of Any Multi-Drug Resistant Organisms: MRSA Date of last positivie culture/infection: 04/09/16 MDRO Source:: right foot Past Surgical History: Back Surgery, Bowel Resection, Coronary Bypass/CABG, Heart Catheterization, Hernia Repair, Orthopedic Surgery Additional Past Surgical History / Comment(s): Bilateral AKA, transmetatarsal amputation L great toe, amputation 2nd L toe, L elbow injury with surgery, L arm renetta twice, 2003 CABG 5 vessel, R inguinal hernia repair. Past Anesthesia/Blood Transfusion Reactions: No Reported Reaction Additional Past Anesthesia/Blood Transfusion Reaction / Comment(s): Pt has received blood without reaction. Past Psychological History: Anxiety, Depression Smoking Status: Current every day smoker Past Alcohol Use History: None Reported Past Drug Use History: None Reported - Past Family History Sister(s) Family Medical History: Cancer Mother Family Medical History: Diabetes Mellitus Additional Family Medical History / Comment(s): Pt remembers only that his mom was obese. Father History Unknown: Yes Medications and Allergies Home Medications Medication Instructions Recorded Confirmed Type Finasteride [Proscar] 5 mg PO DAILY 01/01/16 11/21/22 History Aspirin EC [Ecotrin Low Dose] 81 mg PO DAILY 05/13/16 11/21/22 History Isosorbide Mononitrate ER [Imdur] 60 mg PO DAILY 05/13/16 11/21/22 History Atorvastatin Calcium [Lipitor] 80 mg PO HS 12/18/18 11/21/22 History Donepezil [Aricept] 10 mg PO DAILY 12/18/18 11/21/22 History Memantine [Namenda] 10 mg PO BID 12/18/18 11/21/22 History Levothyroxine Sodium [Synthroid] 125 mcg PO DAILY 02/01/22 11/21/22 History Lidocaine [Lidocaine 5% Rectal 1 applic RECTAL DAILY PRN 02/01/22 11/21/22 History Cream] Mometasone/Formoterol [Dulera 100 2 puff INHALATION RT-BID 02/01/22 11/21/22 History Mcg-5 Mcg Inhaler] Pantoprazole [Protonix] 40 mg PO HS 02/01/22 11/21/22 History Ferrous Sulfate [Iron (65 MG 325 mg PO DAILY #0 02/05/22 11/21/22 Rx Elemental)] Furosemide [Lasix] 20 mg PO DAILY #0 02/05/22 11/21/22 Rx hydrALAZINE HCL [Apresoline] 25 mg PO TID #90 tab 02/16/22 11/21/22 Rx Escitalopram [Lexapro] 10 mg PO DAILY 07/01/22 11/21/22 History Losartan [Cozaar] 12.5 mg PO DAILY #30 tab 11/06/22 11/21/22 Rx Sulfamethox-Tmp 800-160Mg [Bactrim 1 each PO Q12HR #20 tab 02/23/23 Rx DS 800-160 mg] Allergies Allergy/AdvReac Type Severity Reaction Status Date / Time Latex, Natural Rubber Allergy Unknown Verified 05/22/23 13:06 trazodone Allergy Anaphylaxis Verified 05/22/23 13:06 lisinopril AdvReac Cough Verified 05/22/23 13:06 tomato AdvReac edema Verified 05/22/23 13:06 Physical Exam Osteopathic Statement: *. No significant issues noted on an osteopathic structural exam other than those noted in the History and Physical/Consult. Vitals: Vital Signs Temp Pulse Resp BP Pulse Ox 05/22/23 16:57 72 18 129/67 98 05/22/23 15:31 63 18 100/56 97 05/22/23 14:14 62 18 149/78 96 05/22/23 13:00 98.4 F 78 18 146/74 96 Intake and Output 05/22/23 05/22/23 05/22/23 06:59 14:59 22:59 Output Total 900 Balance -900 Output: Urine 900 Other: Weight 58.967 kg Results CBC & Chem 7: 05/22/23 14:14 05/22/23 14:14 Labs: Abnormal Lab Results - Last 24 Hours (Table) 05/22/23 05/22/23 05/22/23 Range/Units 13:46 14:14 14:14 WBC 11.1 H (3.8-10.6) k/uL RBC 4.21 L (4.30-5.90) m/uL Hgb 12.4 L (13.0-17.5) gm/dL Hct 37.9 L (39.0-53.0) % Neutrophils # 9.5 H (1.3-7.7) k/uL Lymphocytes # 0.8 L (1.0-4.8) k/uL Chloride 115 H (98-107) mmol/L Carbon Dioxide 19 L (22-30) mmol/L BUN 34 H (9-20) mg/dL Creatinine 1.75 H (0.66-1.25) mg/dL Glucose 115 H (74-99) mg/dL Alkaline Phosphatase 157 H (38-126) U/L Total Protein 6.2 L (6.3-8.2) g/dL Albumin 3.4 L (3.5-5.0) g/dL Urine Protein Trace H (Negative) Urine Blood Large H (Negative) Ur Leukocyte Esterase Large H (Negative) Urine RBC 127 H (0-5) /hpf Urine WBC >182 H (0-5) /hpf Urine WBC Clumps Many H (None) /hpf Urine Mucus Rare H (None) /hpf Urine Yeast (Budding) Occasional H (None) /hpf
[2023-05-22 19:12] LABS: Amphetamine Screen,Urine Not Detected (NotDetected); Barbiturate Screen,Urine Not Detected (NotDetected); Benzodiazepines Screen,Urine Not Detected (NotDetected); Cocaine Screen,Urine Not Detected (NotDetected); Methadone Screen, Urine Not Detected (NotDetected); Opiate Screen,Urine Not Detected (NotDetected); Oxycodone Screen, Urine Not Detected (NotDetected); Phencyclidine Screen,Urine Not Detected (NotDetected); Tricyclic Antidepressant,Urine Not Detected (NotDetected); Urn Cannabinoid Scrn Not Detected (NotDetected)
[2023-05-22] MEDS: SODIUM CHLORIDE 0.9% 1,000 ML IV SCH (19:36)
[2023-05-22] MEDS: NICOTINE 21MG/24HR PATCH TRANSDERM SCH (19:38)
[2023-05-22 20:27] LABS: Glucose,Whole Blood 106 mg/dL (70-110)
[2023-05-22] MEDS: IPRATROPIUM-ALBUTEROL 3 ML NEB INHALATION SCH (20:34)
[2023-05-23] MEDS: methylPREDNISolone SOD SUCCI 125 MG/2 ML VIAL IV SCH ×4 (00:02→23:34)
[2023-05-23] MEDS: LEVOTHYROXINE 125 MCG TAB PO SCH (06:22)
[2023-05-23] MEDS: SODIUM CHLORIDE 0.9% 1,000 ML IV SCH ×2 (06:22→21:21)
--- NOTE | 2023-05-23 07:24 | XR ---
EXAMINATION TYPE: XR chest 1V portable DATE OF EXAM: 05/23/2023 6:26 AM COMPARISON: Chest radiographs from 05/22/2023 TECHNIQUE: XR chest 1V portable Portable AP radiograph of the chest. CLINICAL INDICATION:Male, 88 years old with history of PNA; FINDINGS: Lungs/Pleura: Decrease left upper lung airspace opacities from prior exam.. There is no evidence of p leural effusion or pneumothorax. Pulmonary vascularity: Unremarkable. Heart/mediastinum: Cardiomediastinal silhouette is enlarged and stable. Atherosclerotic calcificatio ns are seen in the aorta. Post CABG changes. Musculoskeletal: No acute osseous pathology. Midline sternotomy wires are noted. Several sternotomy w ires are fractured again. Left proximal humerus fixation changes. Hardware appears fractured again wi th multiple screws present. High riding right proximal humerus suggests a chronic rotator cuff tear. IMPRESSION: 1. Decreased left upper lung airspace opacity from prior exam. 2. Mild cardiomegaly. 3. No change in post fixation changes of left upper extremity with fractured hardware.
[2023-05-23 07:29] LABS: Basophils % (A) 0 %; Eosinophils % (A) 0 %; HCT 38.7 % (39.0-53.0); HGB 12.1 gm/dL (13.0-17.5); Hypochromasia Moderate; Lymphocytes # (A) 0.5 k/uL (1.0-4.8); Lymphocytes % (A) 8 %; MCH 28.9 pg (25.0-35.0); MCHC 31.3 g/dL (31.0-37.0); MCV 92.5 fL (80.0-100.0); Mean Platelet Volume 8.5; Monocytes # (A) 0.1 k/uL (0-1.0); Monocytes % (A) 1 %; Neutrophils # (A) 5.3 k/uL (1.3-7.7); Neutrophils % (A) 90 %; Platelet Count 201 k/uL (150-450); RBC 4.18 m/uL (4.30-5.90); RDW 14.1 % (11.5-15.5); WBC 5.9 k/uL (3.8-10.6)
[2023-05-23] MEDS: IPRATROPIUM-ALBUTEROL 3 ML NEB INHALATION SCH ×4 (07:40→21:07)
[2023-05-23 08:09] LABS: African American GFR (CKD) 49 (>60 ml/min/1.73 sqM); Anion Gap 9 mmol/L; Blood Urea Nitrogen 33 mg/dL (9-20); Calcium 9.5 mg/dL (8.4-10.2); Carbon Dioxide 17 mmol/L (22-30); Chloride 116 mmol/L (98-107); Glucose 160 mg/dL (74-99); Magnesium 2.3 mg/dL (1.6-2.3); Non-African American GFR(CKD) 42 (>60 ml/min/1.73 sqM); Potassium 4.5 mmol/L (3.5-5.1); Sodium 142 mmol/L (137-145)
[2023-05-23] MEDS: LIDOCAINE 5% PATCH TOPICAL SCH (08:25)
[2023-05-23] MEDS: NYSTATIN 100,000 UNIT/GM POWD 15 GM TOPICAL SCH ×2 (08:26→21:24)
[2023-05-23] MEDS: POTASSIUM CHLORIDE ER 10 MEQ TAB.ER.PRT PO SCH (08:26)
[2023-05-23] MEDS: MEMANTINE 10 MG TAB PO SCH ×2 (08:26→21:24)
[2023-05-23] MEDS: ISOSORBIDE MONONITRATE ER 60 MG TAB.ER.24H PO SCH (08:26)
[2023-05-23] MEDS: FINASTERIDE 5 MG TAB PO SCH (08:26)
[2023-05-23] MEDS: PANTOPRAZOLE 40 MG TABLET PO SCH (08:26)
[2023-05-23] MEDS: FUROSEMIDE 20 MG TAB PO SCH (08:26)
[2023-05-23] MEDS: FERROUS SULFATE 325 MG TAB PO SCH (08:26)
[2023-05-23] MEDS: DONEPEZIL 10 MG TAB PO SCH (08:26)
[2023-05-23] MEDS: ASPIRIN 81 MG PO SCH (08:26)
[2023-05-23] MEDS: NICOTINE 21MG/24HR PATCH TRANSDERM SCH (08:26)
[2023-05-23] MEDS: ESCITALOPRAM 10 MG TAB PO SCH (08:27)
[2023-05-23] MEDS: AZITHROMYCIN 500 MG TAB PO SCH (09:21)
--- NOTE | 2023-05-23 12:20 | P.PN ---
Subjective Progress Note Date: 05/23/23 Patient is an 88-year-old gentleman with chronic indwelling Mathew catheter, COPD with ongoing tobacco abuse, Home O2 at 4L, chronic kidney disease stage III, diabetes, and hypothyroidism who was sent to the ER by family for displaced Mathew catheter, fatigue, and cough. On arrival to the ER his vital signs were within normal limits. Laboratory analysis was remarkable for white blood cell count 11.1, hemoglobin 12 point or, chloride 1:15, carbon dioxide 19, BUN 34, and creatinine 1.75 (near his baseline GFR), and urinalysis consistent with chronic indwelling Mathew catheter. Respiratory viral panel was negative for influenza, RSV, and COVID-19. Chest x-ray demonstrated left upper lobe pneumonia. In the ER he was given a dose of Rocephin and Zithromax. Arrangements were made for admission. Repeat chest x-ray showed some improvement in the left upper lobe infiltrate Patient seen and examined at bedside. He denies any pain or shortness of breath. He did not remember he was in the hospital but knew he was. He is asking to go home. Vital signs reviewed General: nontoxic, no distress, appears at stated age Cardiovascular: S1S2 reg, no murmur, positive posterior tibial pulse bilateral, Lungs: Coarse breath sounds bilaterally, no wheezing , no accessory muscle use Abdominal: soft, nontender to palpation, no guarding, no appreciable organomegaly Ext: no gross muscle atrophy, no edema b/l lower extremities, no contractures Neuro: CN II-XI grossly intact, no focal neuro deficits Psych: Alert, oriented, appropriate affect : Indwelling Mathew catheter with large amount of sediment Assessment/Plan: Pneumonia, community-acquired Chronic hypoxic respiratory failure on 4 L nasal cannula Acute exacerbation of COPD On going tobacco dependency -Rocephin 2 g IVPB D # 2 and Zithromax 500 mg PO D #2 -Sputum culture if able - legionella uine antigen pending - check vit D level - Duoneb q 4 hours and prn - solumedrol 60 q 8 hours - pulm hygeine - nicotine 21 mcg patch daily Dementia with acute metabolic encephalopathy - safe and supportive environment Chronic mathew with malfunction - urine culture has been obtained but may be contaminant due to large epithelial cells and recent trauma from pulling out mathew. Awailt culture, repeat UA in AM Diabetes mellitus - no longer requiring medications - follow BS on AM labs Chronic: Hypertension Coronary artery disease Chronic kidney disease stage III Imaging: Chest x-ray reviewed by myself on 05/23/23 which shows improvement in left-sided interstitial infiltrate Data Review: Vitals reviewed. Patient afebrile since admission. Labs reviewed and hemoglobin 12.1, hematocrit 38.7, chloride 116, carbon dioxide 17, BUN 33, creatinine 1.46, glucose 160. Urine drug screen negative. DVT prophylaxis: No change in ambulatory atatus Anticipated discharge date: in 2-[address]: home This dictation was prepared using [employer] voice recognition software. Though every attempt is made to correct errors during dictation some may still exist. Objective - Vital Signs Vital signs: Vital Signs Temp 97.5 F L 05/23/23 06:57 Pulse 76 05/23/23 07:52 Resp 18 05/23/23 06:57 BP 144/74 05/23/23 06:57 Pulse Ox 97 05/23/23 07:41 FiO2 Intake & Output 05/22/23 05/23/23 05/23/23 18:59 06:59 18:59 Output Total 900 950 Balance -900 -950 Weight 58.967 kg 58.967 kg Output: Urine 900 700 Stool 250 Other: Voiding Method Indwelling Catheter Indwelling Catheter - Labs CBC & Chem 7: 05/23/23 07:16 05/23/23 07:16 Labs: Abnormal Lab Results - Last 24 Hours (Table) 05/22/23 05/22/23 05/22/23 Range/Units 13:46 14:14 14:14 WBC 11.1 H (3.8-10.6) k/uL RBC 4.21 L (4.30-5.90) m/uL Hgb 12.4 L (13.0-17.5) gm/dL Hct 37.9 L (39.0-53.0) % Neutrophils # 9.5 H (1.3-7.7) k/uL Lymphocytes # 0.8 L (1.0-4.8) k/uL Chloride 115 H (98-107) mmol/L Carbon Dioxide 19 L (22-30) mmol/L BUN 34 H (9-20) mg/dL Creatinine 1.75 H (0.66-1.25) mg/dL Glucose 115 H (74-99) mg/dL Alkaline Phosphatase 157 H (38-126) U/L Total Protein 6.2 L (6.3-8.2) g/dL Albumin 3.4 L (3.5-5.0) g/dL Urine Protein Trace H (Negative) Urine Blood Large H (Negative) Ur Leukocyte Esterase Large H (Negative) Urine RBC 127 H (0-5) /hpf Urine WBC >182 H (0-5) /hpf Urine WBC Clumps Many H (None) /hpf Urine Mucus Rare H (None) /hpf Urine Yeast (Budding) Occasional H (None) /hpf 05/23/23 05/23/23 Range/Units 07:16 07:16 WBC (3.8-10.6) k/uL RBC 4.18 L (4.30-5.90) m/uL Hgb 12.1 L (13.0-17.5) gm/dL Hct 38.7 L (39.0-53.0) % Neutrophils # (1.3-7.7) k/uL Lymphocytes # 0.5 L (1.0-4.8) k/uL Chloride 116 H (98-107) mmol/L Carbon Dioxide 17 L (22-30) mmol/L BUN 33 H (9-20) mg/dL Creatinine 1.46 H (0.66-1.25) mg/dL Glucose 160 H (74-99) mg/dL Alkaline Phosphatase (38-126) U/L Total Protein (6.3-8.2) g/dL Albumin (3.5-5.0) g/dL Urine Protein (Negative) Urine Blood (Negative) Ur Leukocyte Esterase (Negative) Urine RBC (0-5) /hpf Urine WBC (0-5) /hpf Urine WBC Clumps (None) /hpf Urine Mucus (None) /hpf Urine Yeast (Budding) (None) /hpf
[2023-05-23] MEDS: ATORVASTATIN 80 MG TAB PO SCH (21:24)
[2023-05-24 07:20] LABS: HCT 32.3 % (39.0-53.0); HGB 10.2 gm/dL (13.0-17.5); Hypochromasia Moderate; MCH 29.4 pg (25.0-35.0); MCHC 31.5 g/dL (31.0-37.0); MCV 93.2 fL (80.0-100.0); Mean Platelet Volume 8.5; Platelet Count 182 k/uL (150-450); RBC 3.47 m/uL (4.30-5.90); WBC 9.7 k/uL (3.8-10.6)
[2023-05-24 07:41] LABS: African American GFR (CKD) 51 (>60 ml/min/1.73 sqM); Anion Gap 5 mmol/L; Blood Urea Nitrogen 36 mg/dL (9-20); Carbon Dioxide 18 mmol/L (22-30); Chloride 114 mmol/L (98-107); Glucose 155 mg/dL (74-99); Non-African American GFR(CKD) 44 (>60 ml/min/1.73 sqM); Potassium 3.8 mmol/L (3.5-5.1); Sodium 137 mmol/L (137-145)
[2023-05-24] MEDS: LEVOTHYROXINE 125 MCG TAB PO SCH (07:43)
[2023-05-24] MEDS: IPRATROPIUM-ALBUTEROL 3 ML NEB INHALATION SCH ×4 (08:59→21:13)
[2023-05-24] MEDS: methylPREDNISolone SOD SUCCI 125 MG/2 ML VIAL IV SCH ×3 (09:05→23:14)
[2023-05-24] MEDS: FUROSEMIDE 20 MG TAB PO SCH (09:06)
[2023-05-24] MEDS: ISOSORBIDE MONONITRATE ER 60 MG TAB.ER.24H PO SCH (09:06)
[2023-05-24] MEDS: MEMANTINE 10 MG TAB PO SCH ×2 (09:07→20:19)
[2023-05-24] MEDS: PANTOPRAZOLE 40 MG TABLET PO SCH (09:07)
[2023-05-24] MEDS: FERROUS SULFATE 325 MG TAB PO SCH (09:07)
[2023-05-24] MEDS: CHOLECALCIFEROL 25 MCG (1000 IU) TABLET PO SCH (09:07)
[2023-05-24] MEDS: FINASTERIDE 5 MG TAB PO SCH (09:07)
[2023-05-24] MEDS: POTASSIUM CHLORIDE ER 10 MEQ TAB.ER.PRT PO SCH (09:07)
[2023-05-24] MEDS: DONEPEZIL 10 MG TAB PO SCH (09:07)
[2023-05-24] MEDS: AZITHROMYCIN 500 MG TAB PO SCH (09:08)
[2023-05-24] MEDS: ASPIRIN 81 MG PO SCH (09:08)
[2023-05-24] MEDS: ESCITALOPRAM 10 MG TAB PO SCH (09:09)
[2023-05-24] MEDS: NICOTINE 21MG/24HR PATCH TRANSDERM SCH (09:10)
[2023-05-24] MEDS: NYSTATIN 100,000 UNIT/GM POWD 15 GM TOPICAL SCH ×2 (09:11→20:19)
[2023-05-24] MEDS: LIDOCAINE 5% PATCH TOPICAL SCH (09:12)
[2023-05-24] MEDS: SODIUM CHLORIDE 0.9% 1,000 ML IV SCH ×2 (09:14→20:19)
--- NOTE | 2023-05-24 18:50 | P.PN ---
Subjective Progress Note Date: 05/24/23 (delayed charting seen at 1045) Patient is an 88-year-old gentleman with chronic indwelling Mathew catheter, COPD with ongoing tobacco abuse, Home O2 at 4L, chronic kidney disease stage III, diabetes, and hypothyroidism who was sent to the ER by family for displaced Mathew catheter, fatigue, and cough. On arrival to the ER his vital signs were within normal limits. Laboratory analysis was remarkable for white blood cell count 11.1, hemoglobin 12 point or, chloride 1:15, carbon dioxide 19, BUN 34, and creatinine 1.75 (near his baseline GFR), and urinalysis consistent with chronic indwelling Mathew catheter. Respiratory viral panel was negative for influenza, RSV, and COVID-19. Chest x-ray demonstrated left upper lobe pneumonia. In the ER he was given a dose of Rocephin and Zithromax. Arrangements were made for admission. Repeat chest x-ray showed some improvement in the left upper lobe infiltrate Patient seen and examined at bedside. No complaints, deneis cough, sob or pain. Per nurisng no acute events overnight. He is asking to go home. Vital signs reviewed General: nontoxic, no distress, appears at stated age Cardiovascular: S1S2 reg, no murmur, positive posterior tibial pulse bilateral, Lungs: Coarse breath sounds bilaterally, no wheezing , no accessory muscle use Abdominal: soft, nontender to palpation, no guarding, no appreciable organomegaly Ext: no gross muscle atrophy, no edema b/l lower extremities, no contractures Neuro: CN II-XI grossly intact, no focal neuro deficits Psych: Alert, oriented, appropriate affect : Indwelling Mathew catheter with large amount of sediment Assessment/Plan: Pneumonia, community-acquired Chronic hypoxic respiratory failure on 4 L nasal cannula Acute exacerbation of COPD On going tobacco dependency VIt D Deficiency -Rocephin 2 g IVPB D # 3 and Zithromax 500 mg PO D #3 - unable to obtain sputum culture - legionella uine antigen negative - Vit D 2000 untis dialy - Duoneb q 4 hours and prn - solumedrol 60 q 8 hours - pulm hygeine - nicotine 21 mcg patch daily Dementia with acute metabolic encephalopathy - safe and supportive environment Chronic mathew with malfunction - urine culture has been obtained but may be contaminant due to large epithelial cells and recent trauma from pulling out mathew. repeat UA Diabetes mellitus - no longer requiring medications - follow BS on AM labs Chronic: Hypertension Coronary artery disease Chronic kidney disease stage III Imaging: None new Data Review: Vitals reviewed patient has been afebrile for the last 24 hours. Labs reviewed included CBC and basic metabolic profile. CBC remarkable for hemoglobin 10.2, chloride 114, carbon dioxide 18, BUN 36, creatinine 1.4 to, vitamin D less than 5 Urine culture with group D enterococcus, suspect contaminant DVT prophylaxis: No change in ambulatory atatus Anticipated discharge date: in 2-[address]: home This dictation was prepared using [employer] voice recognition software. Though every attempt is made to correct errors during dictation some may still exist. Objective - Vital Signs Vital signs: Vital Signs Temp 96.7 F L 05/24/23 13:47 Pulse 76 05/24/23 16:27 Resp 17 05/24/23 13:47 BP 127/64 05/24/23 13:47 Pulse Ox 96 05/24/23 13:47 FiO2 Intake & Output 05/23/23 05/24/23 05/24/23 18:59 06:59 18:59 Output Total 450 800 700 Balance -450 -800 -700 Output: Urine 350 800 500 Stool 100 200 Other: Voiding Method Indwelling Catheter Indwelling Catheter Indwelling Catheter - Labs CBC & Chem 7: 05/24/23 06:52 05/24/23 06:52 Labs: Abnormal Lab Results - Last 24 Hours (Table) 05/23/23 05/24/23 05/24/23 Range/Units 12:58 06:52 06:52 RBC 3.47 L (4.30-5.90) m/uL Hgb 10.2 L (13.0-17.5) gm/dL Hct 32.3 L (39.0-53.0) % Chloride 114 H (98-107) mmol/L Carbon Dioxide 18 L (22-30) mmol/L BUN 36 H (9-20) mg/dL Creatinine 1.42 H (0.66-1.25) mg/dL Glucose 155 H (74-99) mg/dL Vitamin D 25-Hydroxy <5.0 L (30.0-100.0) ng/mL Microbiology - Last 24 Hours (Table) 05/22/23 18:07 Urine Culture - Preliminary Urine,Clean Catch Group D Enterococcus 05/22/23 14:30 Blood Culture - Preliminary Blood 05/22/23 14:48 Blood Culture - Preliminary Blood
[2023-05-24] MEDS: ATORVASTATIN 80 MG TAB PO SCH (20:19)
[2023-05-25] MEDS: LEVOTHYROXINE 125 MCG TAB PO SCH (06:18)
[2023-05-25 07:02] LABS: Appearance,Urine Clear (Clear); Bacteria,Urine Occasional /hpf; Bilirubin,Urine Negative (Negative); Blood,Urine Trace (Negative); Budding Yeast,Urine Few /hpf; Color,Urine Colorless; Glucose,Urine (UA) Negative (Negative); Hyaline Casts,Urine 3 /lpf (0-2); Ketones,Urine Negative (Negative); Leukocyte Esterase,Urine Small (Negative); Mucus,Urine Rare /hpf; Nitrite,Urine Negative (Negative); Protein,Urine Negative (Negative); RBC,Urine 5 /hpf (0-5); Specific Gravity,Urine 1.008 (1.001-1.035); Squamous Epithelial Cell,Urine <1 /hpf (0-4); Urobilinogen,Urine <2.0 mg/dL (<2.0); WBC,Urine 6 /hpf (0-5)
[2023-05-25 07:34] LABS: HCT 31.8 % (39.0-53.0); HGB 10.1 gm/dL (13.0-17.5); Hypochromasia Slight; MCHC 31.6 g/dL (31.0-37.0); MCV 91.6 fL (80.0-100.0); Mean Platelet Volume 8.6; Platelet Count 208 k/uL (150-450); RBC 3.48 m/uL (4.30-5.90); WBC 8.2 k/uL (3.8-10.6)
[2023-05-25 07:49] LABS: African American GFR (CKD) 55 (>60 ml/min/1.73 sqM); Anion Gap 6 mmol/L; Blood Urea Nitrogen 35 mg/dL (9-20); Calcium 8.8 mg/dL (8.4-10.2); Carbon Dioxide 16 mmol/L (22-30); Chloride 115 mmol/L (98-107); Glucose 134 mg/dL (74-99); Non-African American GFR(CKD) 47 (>60 ml/min/1.73 sqM); Sodium 137 mmol/L (137-145)
[2023-05-25 07:55] VITALS: BP 159/82; RESP 17; TEMP 98.7
[2023-05-25] MEDS: methylPREDNISolone SOD SUCCI 125 MG/2 ML VIAL IV SCH (08:40)
[2023-05-25] MEDS: MEMANTINE 10 MG TAB PO SCH (08:40)
[2023-05-25] MEDS: POTASSIUM CHLORIDE ER 10 MEQ TAB.ER.PRT PO SCH (08:41)
[2023-05-25] MEDS: CHOLECALCIFEROL 25 MCG (1000 IU) TABLET PO SCH (08:41)
[2023-05-25] MEDS: NICOTINE 21MG/24HR PATCH TRANSDERM SCH (08:41)
[2023-05-25] MEDS: ESCITALOPRAM 10 MG TAB PO SCH (08:41)
[2023-05-25] MEDS: LIDOCAINE 5% PATCH TOPICAL SCH (08:41)
[2023-05-25] MEDS: ASPIRIN 81 MG PO SCH (08:41)
[2023-05-25] MEDS: FINASTERIDE 5 MG TAB PO SCH (08:41)
[2023-05-25] MEDS: FERROUS SULFATE 325 MG TAB PO SCH (08:41)
[2023-05-25] MEDS: ISOSORBIDE MONONITRATE ER 60 MG TAB.ER.24H PO SCH (08:41)
[2023-05-25] MEDS: PANTOPRAZOLE 40 MG TABLET PO SCH (08:41)
[2023-05-25] MEDS: FUROSEMIDE 20 MG TAB PO SCH (08:41)
[2023-05-25] MEDS: DONEPEZIL 10 MG TAB PO SCH (08:41)
[2023-05-25] MEDS: NYSTATIN 100,000 UNIT/GM POWD 15 GM TOPICAL SCH (08:42)
[2023-05-25] MEDS: IPRATROPIUM-ALBUTEROL 3 ML NEB INHALATION SCH ×3 (08:59→15:57)
--- NOTE | 2023-05-25 13:15 | P.DS ---
Providers Date of admission: 05/22/23 17:49 Expected date of discharge: 05/25/23 Attending physician: Alana Martínez DO Primary care physician: [facility] Hospital Course: Discharge Diagnosis: Pneumonia, community-acquired Chronic hypoxic respiratory failure on 4 L nasal cannula Acute exacerbation of COPD On going tobacco dependency Vit D Deficiency Dementia with acute metabolic encephalopathy Chronic Hdz with malfunction Diabetes mellitus Hypertension Coronary artery disease Chronic kidney disease stage III Hospital Course: Patient is an 88-year-old gentleman with chronic indwelling Hdz catheter, COPD with ongoing tobacco abuse, Home O2 at 4L, chronic kidney disease stage III, diabetes, and hypothyroidism who was sent to the ER by family for displaced Fole y catheter, fatigue, and cough. On arrival to the ER his vital signs were within normal limits. Laboratory analysis was remarkable for white blood cell count 11.1, hemoglobin 12 point or, chloride 1:15, carbon dioxide 19, BUN 34, and creatinine 1.75 (near his baseline GFR), and urinalysis consistent with chronic indwelling Hdz catheter. Respiratory viral panel was negative for influenza, RSV, and COVID-19. Chest x-ray demonstrated left upper lobe pneumonia. In the ER he was given a dose of Rocephin and Zithromax. Arrangements were made for admission. Repeat chest x-ray showed some impr ovement in the left upper lobe infiltrate. He remained afebrile with normal white blood cell count. Initial urine culture demonstrated D enterococcus however it was felt that this was likely chronic colonization and repeat UA showed significant improvement in WBC from >182 to 6. Patient was on room air, feeling well, and asking to be discharged. His vitamin D level was undetectable and he was started on vit D supplement. He was discharged home in stable condition. Follow-up: Augmentin for 4 more days, prednisone 50 mg daily for 4 days, vit D , and sodium bicarb 650 mg twice daily. Patient seen and examined at bedside. Feeling well, denies cough, sob or pain. Wants to go home. Vital signs reviewed and stable. General: nontoxic, no distress, appears at stated age Cardiovascular: S1S2 reg, no murmur, positive posterior tibial pulse bilateral, Lungs: CTA bilateral, no rhonchi, no rales , no accessory muscle use Neuro: CN II-XI grossly intact, no focal neuro deficits Psych: Alert, oriented, appropriate affect A total of 35 minutes of time were spent preparing this complex discharge summary. Patient was discharged on 05/25/23. This dictation was prepared using [employer] voice recognition software. Though every attempt is made to correct errors during dictation some may still exist. Plan - Discharge Summary Discharge Rx Participant: Yes New Discharge Prescriptions: New Amoxic-Pot Clav 875-125Mg [Augmentin 875-125] 1 tab PO Q12HR 4 Days #8 tab Cholecalciferol [Vitamin D3 (25 Mcg = 1000 Iu)] 100 mcg PO DAILY tab predniSONE 50 mg PO DAILY #4 tablet Sodium Bicarbonate Tab 650 mg PO BID #60 tablet Continue Finasteride [Proscar] 5 mg PO DAILY Aspirin EC [Ecotrin Low Dose] 81 mg PO DAILY Isosorbide Mononitrate ER [Imdur] 60 mg PO DAILY Memantine [Namenda] 10 mg PO BID Donepezil [Aricept] 10 mg PO DAILY Atorvastatin Calcium [Lipitor] 80 mg PO HS Levothyroxine Sodium [Synthroid] 125 mcg PO DAILY Ferrous Sulfate [Iron (65 MG Elemental)] 325 mg PO DAILY #0 Furosemide [Lasix] 20 mg PO DAILY #0 Lanolin/Mineral Oil [Eucerin Original Lotion] 1 applic TOPICAL DAILY PRN PRN Reason: Dry Skin Pantoprazole [Protonix] 40 mg PO DAILY Escitalopram [Lexapro] 10 mg PO DAILY Potassium Chloride ER [K-Dur 10] 10 meq PO DAILY Lidocaine 5% Patch [Lidoderm 5% Patch] 1 patch TOPICAL DAILY Miconazole Nitrate 2% Powder 1 applic TOPICAL BID Discharge Medication List Finasteride [Proscar] 5 mg PO DAILY 01/01/16 [History] Aspirin EC [Ecotrin Low Dose] 81 mg PO DAILY 05/13/16 [History] Isosorbide Mononitrate ER [Imdur] 60 mg PO DAILY 05/13/16 [History] Atorvastatin Calcium [Lipitor] 80 mg PO HS 12/18/18 [History] Donepezil [Aricept] 10 mg PO DAILY 12/18/18 [History] Memantine [Namenda] 10 mg PO BID 12/18/18 [History] Levothyroxine Sodium [Synthroid] 125 mcg PO DAILY 02/01/22 [History] Pantoprazole [Protonix] 40 mg PO DAILY 02/01/22 [History] Ferrous Sulfate [Iron (65 MG Elemental)] 325 mg PO DAILY #0 02/05/22 [Rx] Furosemide [Lasix] 20 mg PO DAILY #0 02/05/22 [Rx] Escitalopram [Lexapro] 10 mg PO DAILY 07/01/22 [History] Lanolin/Mineral Oil [Eucerin Original Lotion] 1 applic TOPICAL DAILY PRN 05/22/23 [History] Lidocaine 5% Patch [Lidoderm 5% Patch] 1 patch TOPICAL DAILY 05/22/23 [History] Miconazole Nitrate 2% Powder 1 applic TOPICAL BID 05/22/23 [History] Potassium Chloride ER [K-Dur 10] 10 meq PO DAILY 05/22/23 [History] Amoxic-Pot Clav 875-125Mg [Augmentin 875-125] 1 tab PO Q12HR 4 Days #8 tab 05/25/23 [Rx] Cholecalciferol [Vitamin D3 (25 Mcg = 1000 Iu)] 100 mcg PO DAILY tab 05/25/23 [Rx] Sodium Bicarbonate Tab 650 mg PO BID #60 tablet 05/25/23 [Rx] predniSONE 50 mg PO DAILY #4 tablet 05/25/23 [Rx] Follow up Appointment(s)/Referral(s): [facility],Clinic [Primary Care Provider] - 05/30/23 8:00 am Activity/Diet/Wound Care/Special Instructions: Activity: As tolerated Diet: Heart Healthy Special Instructions: Home Care services to continue through the [facility]. Return if worsening cough, fever, confusion You had a pneumonia, exacerbation of your COPD. Your vitamin D levels are low which can increase your risk of COPD exacerbations and I do recommend supplementation Resume his chronic antibiotics from the urologist once he completes this course of Augmentin. Discharge Disposition: HOME SELF-CARE
[2023-05-25] MEDS: SODIUM CHLORIDE 0.9% 1,000 ML IV SCH (15:02)
[2023-05-25 16:00] VITALS: PULSE 70
== END 2023-05-25 16:40 | disposition home or self-care (01) | DRG 193 ==
LOC: EC 12:58 → 4SSUR 17:49
PROVIDERS: ADMIT Internal Medicine; ATTEND Internal Medicine
DX: J18.9 Pneumonia, unspecified organism (principal); G93.41 Metabolic encephalopathy; J44.1 Chronic obstructive pulmonary disease with (acute) exacerbation; J96.11 Chronic respiratory failure with hypoxia; J44.0 Chronic obstructive pulmonary disease with (acute) lower respiratory infection; I12.9 Hypertensive chronic kidney disease with stage 1 through stage 4 chronic kidney disease, or unspecified chronic kidney disease; T83.021A Displacement of indwelling urethral catheter, initial encounter; F17.210 Nicotine dependence, cigarettes, uncomplicated; E55.9 Vitamin D deficiency, unspecified; E11.649 Type 2 diabetes mellitus with hypoglycemia without coma; E11.22 Type 2 diabetes mellitus with diabetic chronic kidney disease; N18.30 Chronic kidney disease, stage 3 unspecified; E03.9 Hypothyroidism, unspecified; F03.90 Unspecified dementia, unspecified severity, without behavioral disturbance, psychotic disturbance, mood disturbance, and anxiety; I25.10 Atherosclerotic heart disease of native coronary artery without angina pectoris; Y73.8 Miscellaneous gastroenterology and urology devices associated with adverse incidents, not elsewhere classified; Z71.6 Tobacco abuse counseling; Z88.8 Allergy status to other drugs, medicaments and biological substances; Z91.040 Latex allergy status; Z91.048 Other nonmedicinal substance allergy status; Z79.890 Hormone replacement therapy; Z87.440 Personal history of urinary (tract) infections; H91.90 Unspecified hearing loss, unspecified ear; Z79.51 Long term (current) use of inhaled steroids; Z79.82 Long term (current) use of aspirin; Z79.84 Long term (current) use of oral hypoglycemic drugs; Z79.899 Other long term (current) drug therapy; Z89.611 Acquired absence of right leg above knee; Z89.612 Acquired absence of left leg above knee; Z95.1 Presence of aortocoronary bypass graft; Z87.19 Personal history of other diseases of the digestive system
CPT/HCPCS: 36415; 71045; 80048; 80053; 80306; 81001; 82306; 83735; 85025; 85027; 87040; 87077; 87086; 87186; 87449; 87636; 93005; 94640; 94760; 96365; 96366; 96375; 99285

== ENCOUNTER 2023-08-16 10:37 | Emergency (ER) | payer MEDICARE, OTHER ==
[2023-08-16] MEDS ORDERED: IPRATROPIUM-ALBUTEROL 3 ML NEB INHALATION STA (11:16)
--- NOTE | 2023-08-16 11:49 | ED ---
General Adult HPI - General Chief complaint: Altered Mental Status Stated complaint: UTI Time Seen by Provider: 08/16/23 10:43 Source: patient, RN notes reviewed Mode of arrival: ambulatory Limitations: no limitations - History of Present Illness Initial comments: 88-year-old male with a past medical history significant for COPD, diabetes mellitus, dementia, hypertension, bilateral [id number] amputation presents the emergency department with a chief complaint of possible UTI. Patient presents via EMS where most of the history was obtained from. EMS reports that family has noticed increased agitation over the last 2 days. Patient was playing at his Hdz catheter last night. Patient is alert and oriented times self which is his baseline mentality. No recent known fevers. EMS denies any hematuria. - Related Data Home Medications Medication Instructions Recorded Confirmed Finasteride [Proscar] 5 mg PO DAILY 01/01/16 05/22/23 Aspirin EC [Ecotrin Low Dose] 81 mg PO DAILY 05/13/16 05/22/23 Isosorbide Mononitrate ER [Imdur] 60 mg PO DAILY 05/13/16 05/22/23 Atorvastatin Calcium [Lipitor] 80 mg PO HS 12/18/18 05/22/23 Donepezil [Aricept] 10 mg PO DAILY 12/18/18 05/22/23 Memantine [Namenda] 10 mg PO BID 12/18/18 05/22/23 Levothyroxine Sodium [Synthroid] 125 mcg PO DAILY 02/01/22 05/22/23 Pantoprazole [Protonix] 40 mg PO DAILY 02/01/22 05/22/23 Escitalopram [Lexapro] 10 mg PO DAILY 07/01/22 05/22/23 Lanolin/Mineral Oil [Eucerin 1 applic TOPICAL DAILY PRN 05/22/23 05/22/23 Original Lotion] Lidocaine 5% Patch [Lidoderm 5% 1 patch TOPICAL DAILY 05/22/23 05/22/23 Patch] Miconazole Nitrate 2% Powder 1 applic TOPICAL BID 05/22/23 05/22/23 Potassium Chloride ER [K-Dur 10] 10 meq PO DAILY 05/22/23 05/22/23 Previous Rx's Medication Instructions Recorded Ferrous Sulfate [Iron (65 MG 325 mg PO DAILY #0 02/05/22 Elemental)] Furosemide [Lasix] 20 mg PO DAILY #0 02/05/22 Amoxic-Pot Clav 875-125Mg 1 tab PO Q12HR 4 Days #8 tab 05/25/23 [Augmentin 875-125] Cholecalciferol [Vitamin D3 (25 100 mcg PO DAILY tab 05/25/23 Mcg = 1000 Iu)] Sodium Bicarbonate Tab 650 mg PO BID #60 tablet 05/25/23 predniSONE 50 mg PO DAILY #4 tablet 05/25/23 Cephalexin [Keflex] 500 mg PO BID #20 cap 08/16/23 Allergies Allergy/AdvReac Type Severity Reaction Status Date / Time Latex, Natural Rubber Allergy Unknown Verified 08/16/23 10:58 trazodone Allergy Anaphylaxis Verified 08/16/23 10:58 lisinopril AdvReac Cough Verified 08/16/23 10:58 tomato AdvReac edema Verified 08/16/23 10:58 Review of Systems ROS Statement: Those systems with pertinent positive or pertinent negative responses have been documented in the HPI. ROS Other: All systems not noted in ROS Statement are negative. Past Medical History Past Medical History: Asthma, COPD, Dementia, Diabetes Mellitus, Diabetes Mellitus, GERD/Reflux, GI Bleed, Hearing Disorder / Deafness, Hyperlipidemia, Hypertension, Pneumonia, Prostate Disorder, Renal Disease, Renal Disease, Respiratory Disorder, Thyroid Disorder, Thyroid Disorder Additional Past Medical History / Comment(s): Home oxygen 4L/NC at , NIDDM type II/no longer on diabetic medications since bilateral leg amputations, (past L leg cellulitis/bacteremia/SIRs/encephalopathy/heel sores, osteomylitis and past bilateral lower extremity edema), CKD stage III, urinary retention/obstruction/utis, uti with bacteremia/chronic IDC, gout, hypothyroid, DJD, bilateral [place]/aide, severe constipation, pt had lower GI bleed/bowel res ection with colostomy. History of Any Multi-Drug Resistant Organisms: MRSA, VRE Date of last positivie culture/infection: 05/22/23-VRE; 04/09/16 MRSA MDRO Source:: Urine-VRE; Right foot MRSA Past Surgical History: Back Surgery, Bowel Resection, Coronary Bypass/CABG, Heart Catheterization, Hernia Repair, Orthopedic Surgery Additional Past Surgical History / Comment(s): Bilateral AKA, transmetatarsal amputation L great toe, amputation 2nd L toe, L elbow injury with surgery, L arm renetta twice, 2003 CABG 5 vessel, R inguinal hernia repair. Past Anesthesia/Blood Transfusion Reactions: No Reported Reaction Additional Past Anesthesia/Blood Transfusion Reaction / Comment(s): Pt has received blood without reaction. Past Psychological History: Anxiety, Depression Smoking Status: Current every day smoker Past Alcohol Use History: None Reported Past Drug Use History: None Reported - Past Family History Sister(s) Family Medical History: Cancer Mother Family Medical History: Diabetes Mellitus Additional Family Medical History / Comment(s): Pt remembers only that his mom was obese. Father History Unknown: Yes General Exam - General Exam Comments Initial Comments: General: Alert, in no acute distress Head: atraumatic normocephalic. Eyes PERRL, EOMI intact, mucous membranes moist Respiratory: Expiratory wheeze Cardiovascular: Heart rate regular rate and rhythm Abdominal: Soft without guarding or rebound Extremities: Bilateral [id number] amputation Neuroogic: alert and oriented 3, CN II-XII intact, able to ambulate with steady gait Skin: warm dry and intact with normal color Limitations: no limitations Course Vital Signs 08/16/23 08/16/23 08/16/23 10:48 12:26 12:32 Temperature 97.9 F Pulse Rate 82 75 77 Respiratory 16 18 18 Rate Blood Pressure 177/78 O2 Sat by Pulse 97 Oximetry 08/16/23 08/16/23 08/16/23 13:35 13:54 15:00 Temperature 97.9 F Pulse Rate 113 H 81 79 Respiratory 18 18 18 Rate Blood Pressure 154/108 106/59 93/63 O2 Sat by Pulse 98 96 98 Oximetry 08/16/23 17:21 Temperature 98.0 F Pulse Rate 78 Respiratory 18 Rate Blood Pressure 147/75 O2 Sat by Pulse 97 Oximetry - Reevaluation(s) Reevaluation #1: 08/16/23 14:01 This is discussed with Dr. Mike who does not agree to admit the patient. He is recommending outpatient follow-up with oncology. Reevaluation #2: 08/16/23 14:19 Patient's daughter Georgia on the phone to discuss plan of care. She was updated on laboratory and imaging results. Aware awaiting urinalysis results. Agreeable with the plan for discharge home. Reevaluation #3: 08/16/23 17:15 patient reevaluated. Patient's daughter at the bedside. Updated on results and plan of care. Patient provided information for [place] welfare case worker. Agreeable with the plan for discharge home Medical Decision Making - Medical Decision Making Was pt. sent in by a medical professional or institution (MAYCOL Rodriguez, STREETSWEEPER OPERATOR, urgent care, hospital, or usp...) When possible be specific @ -[No] Did you speak to anyone other than the patient for history (EMS, parent, family, police, friend...)? What history was obtained from this source @ -Power of Communication Equipment Repairer, EMS Did you review nursing and triage notes (agree or disagree)? Why? @ -[I reviewed and agree with nursing and triage notes] Were old charts reviewed (outside hosp., previous admission, EMS record, old EKG, old radiological studies, urgent care reports/EKG's, usp records)? Report findings @ -[No old charts were reviewed] Differential Diagnosis (chest pain, altered mental status, abdominal pain women, abdominal pain men, vaginal bleeding, weakness, fever, dyspnea, syncope, headache, dizziness, GI bleed, back pain, seizure, CVA, palpatations, mental health, musculoskeletal)? @ -[not applicable] EKG interpreted by me (3pts min.). @ -[As above] X-rays interpreted by me (1pt min.). @ -Yes and suggests right perihilar Mass. Recommend CT for further evaluation CT interpreted by me (1pt min.). @ -CT revealed right hilar mass that is 3 cm x 3 cm suggesting malignancy versus pneumonia. Patient's urinary catheter is noted to be out of place with mild bilateral hydronephrosis U/S interpreted by me (1pt. min.). @ -[None done] What testing was considered but not performed or refused? (CT, X-rays, U/S, labs)? Why? @ -[None] What meds were considered but not given or refused? Why? @ -[None] Did you discuss the management of the patient with other professionals (professionals i.e. MAYCOL Rodriguez, STREETSWEEPER OPERATOR, lab, RT, psych nurse, director of social media marketing, general sales manager, teacher, aircraft electronics technical officer, welfare case worker)? Give summary @ -[No] Was smoking cessation discussed for >3mins.? @ -[No] Was critical care preformed (if so, how long)? @ -[No] Were there social determinants of health that impacted care today? How? (Homelessness, low income, unemployed, alcoholism, drug addiction, transportation, low edu. Level, literacy, decrease access to med. care, nursing home, rehab)? @ -[No] Was there de-escalation of care discussed even if they declined (Discuss DNR or withdrawal of care, Hospice)? DNR status @ -[No] What co-morbidities impacted this encounter? (DM, HTN, Smoking, COPD, CAD, Cancer, CVA, ARF, Chemo, Hep., AIDS, mental health diagnosis, sleep apnea, morbid obesity)? @ -DM, Smoking, AKA Was patient admitted / discharged? Hospital course, mention meds given and route, prescriptions, significant lab abnormalities, going to OR and other pertinent info. @ -Discharged. This is an 88-year-old male who presents the emergency department with possible UTI. Patient with her and physical exam. Vital signs are stable. Patient is afebrile. Patient's heart rate regular rate and rhythm, lungs clear to auscultation bilaterally abdomen is soft and nontender. Noted to have bilateral [id number] amputations. Initial urinary catheter does not reveal any urinary output. Nursing staff replaced Hdz and new output is presently 500 mL. Patient had laboratory studies in imaging which were essentially unremarkable and commented above. Patient given 1 dose of breath Ceftin IV. Patient provided Outpatient. Case was discussed with jody Ruiz who does not recommend admission at this time. Recommend close follow-up with oncologist. I discussed results in detail with the patient and the patient's family caregiver who agrees and all questions were addressed. He reports provided welfare case worker's phone number. Patient discharged in stable condition. Return parameters were discussed. Discussed with DANG Encinas who agrees with plan of care Undiagnosed new problem with uncertain prognosis? @ -[No] Drug Therapy requiring intensive monitoring for toxicity (Heparin, Nitro, Insulin, Cardizem)? @ -[No] Were any procedures done? @ -[No] Diagnosis/symptom? @ -Urinary tract infection - Lung mass Acute, or Chronic, or Acute on Chronic? @ -acute Uncomplicated (without systemic symptoms) or Complicated (systemic symptoms)? @ Uncomplicated Side effects of treatment? @ -[No] Exacerbation, Progression, or Severe Exacerbation? @ -[No] Poses a threat to life or bodily function? How? (Chest pain, [place], [place], pneumonia, PE, COPD, DKA, ARF, appy, cholecystitis, CVA, Diverticulitis, Homicidal, Suicidal, threat to staff... and all critical care pts) @ -Low likelihood - Lab Data Result diagrams: 08/16/23 12:02 08/16/23 12:02 Lab Results 08/16/23 08/16/23 08/16/23 Range/Units 12:02 12:02 12:54 WBC 7.9 (3.8-10.6) k/uL RBC 4.40 (4.30-5.90) m/uL Hgb 12.6 L (13.0-17.5) gm/dL Hct 39.3 (39.0-53.0) % MCV 89.3 (80.0-100.0) fL MCH 28.6 (25.0-35.0) pg MCHC 32.0 (31.0-37.0) g/dL RDW 14.9 (11.5-15.5) % Plt Count 249 (150-450) k/uL MPV 7.7 Neutrophils % 74 % Lymphocytes % 15 % Monocytes % 6 % Eosinophils % 2 % Basophils % 0 % Neutrophils # 5.9 (1.3-7.7) k/uL Lymphocytes # 1.2 (1.0-4.8) k/uL Monocytes # 0.5 (0-1.0) k/uL Eosinophils # 0.2 (0-0.7) k/uL Basophils # 0.0 (0-0.2) k/uL Hypochromasia Slight PT 11.7 (10.0-12.5) sec INR 1.1 (<1.2) APTT 25.0 (22.0-30.0) sec Sodium 138 (137-145) mmol/L Potassium 4.4 (3.5-5.1) mmol/L Chloride 111 H (98-107) mmol/L Carbon Dioxide 17 L (22-30) mmol/L Anion Gap 10 mmol/L BUN 28 H (9-20) mg/dL Creatinine 1.24 (0.66-1.25) mg/dL Est GFR (CKD-EPI)AfAm 60 (>60 ml/min/1.73 sqM) Est GFR (CKD-EPI)NonAf 52 (>60 ml/min/1.73 sqM) Glucose 88 (74-99) mg/dL Plasma Lactic Acid Da (0.7-2.0) mmol/L Calcium 9.7 (8.4-10.2) mg/dL Total Bilirubin 0.5 (0.2-1.3) mg/dL AST 30 (17-59) U/L ALT 22 (4-49) U/L Alkaline Phosphatase 166 H (38-126) U/L Total Protein 6.3 (6.3-8.2) g/dL Albumin 3.6 (3.5-5.0) g/dL Urine Color Urine Appearance (Clear) Urine pH (5.0-8.0) Ur Specific [place] (1.001-1.035) Urine Protein (Negative) Urine Glucose (UA) (Negative) Urine Ketones (Negative) Urine Blood (Negative) Urine Nitrite (Negative) Urine Bilirubin (Negative) Urine Urobilinogen (<2.0) mg/dL Ur Leukocyte Esterase (Negative) Urine RBC (0-5) /hpf Urine WBC (0-5) /hpf Urine Bacteria (None) /hpf 08/16/23 08/16/23 Range/Units 12:54 12:54 WBC (3.8-10.6) k/uL RBC (4.30-5.90) m/uL Hgb (13.0-17.5) gm/dL Hct (39.0-53.0) % MCV (80.0-100.0) fL MCH (25.0-35.0) pg MCHC (31.0-37.0) g/dL RDW (11.5-15.5) % Plt Count (150-450) k/uL MPV Neutrophils % % Lymphocytes % % Monocytes % % Eosinophils % % Basophils % % Neutrophils # (1.3-7.7) k/uL Lymphocytes # (1.0-4.8) k/uL Monocytes # (0-1.0) k/uL Eosinophils # (0-0.7) k/uL Basophils # (0-0.2) k/uL Hypochromasia PT (10.0-12.5) sec INR (<1.2) APTT (22.0-30.0) sec Sodium (137-145) mmol/L Potassium (3.5-5.1) mmol/L Chloride (98-107) mmol/L Carbon Dioxide (22-30) mmol/L Anion Gap mmol/L BUN (9-20) mg/dL Creatinine (0.66-1.25) mg/dL Est GFR (CKD-EPI)AfAm (>60 ml/min/1.73 sqM) Est GFR (CKD-EPI)NonAf (>60 ml/min/1.73 sqM) Glucose (74-99) mg/dL Plasma Lactic Acid Da 1.3 (0.7-2.0) mmol/L Calcium (8.4-10.2) mg/dL Total Bilirubin (0.2-1.3) mg/dL AST (17-59) U/L ALT (4-49) U/L Alkaline Phosphatase (38-126) U/L Total Protein (6.3-8.2) g/dL Albumin (3.5-5.0) g/dL Urine Color Yellow Urine Appearance Cloudy (Clear) Urine pH 5.0 (5.0-8.0) Ur Specific [place] 1.013 (1.001-1.035) Urine Protein 1+ H (Negative) Urine Glucose (UA) Negative (Negative) Urine Ketones Negative (Negative) Urine Blood Large H (Negative) Urine Nitrite Negative (Negative) Urine Bilirubin Negative (Negative) Urine Urobilinogen <2.0 (<2.0) mg/dL Ur Leukocyte Esterase Trace H (Negative) Urine RBC >182 H (0-5) /hpf Urine WBC 18 H (0-5) /hpf Urine Bacteria Rare H (None) /hpf Disposition Clinical Impression: Altered mental status, Hdz catheter problem Disposition: HOME SELF-CARE Condition: Stable Instructions (If sedation given, give patient instructions): Altered Mental Status (ED) Prescriptions: Cephalexin [Keflex] 500 mg PO BID #20 cap Is patient prescribed a controlled substance at d/c from ED?: No Referrals: [facility],Clinic [Primary Care Provider] - 1-2 days Maxwell Wen MD [STAFF PHYSICIAN] - 1-2 days Kane Wen MD [STAFF PHYSICIAN] - 1-2 days Time of Disposition: 14:04
[2023-08-16 12:12] LABS: Basophils % (A) 0 %; Eosinophils # (A) 0.2 k/uL (0-0.7); Eosinophils % (A) 2 %; HCT 39.3 % (39.0-53.0); HGB 12.6 gm/dL (13.0-17.5); Hypochromasia Slight; Lymphocytes # (A) 1.2 k/uL (1.0-4.8); Lymphocytes % (A) 15 %; MCH 28.6 pg (25.0-35.0); MCV 89.3 fL (80.0-100.0); Mean Platelet Volume 7.7; Monocytes # (A) 0.5 k/uL (0-1.0); Monocytes % (A) 6 %; Neutrophils # (A) 5.9 k/uL (1.3-7.7); Neutrophils % (A) 74 %; Platelet Count 249 k/uL (150-450); RDW 14.9 % (11.5-15.5); WBC 7.9 k/uL (3.8-10.6)
--- NOTE | 2023-08-16 12:26 | XR ---
EXAMINATION TYPE: XR chest 2V DATE OF EXAM: 08/16/2023 COMPARISON: 05/23/2023 TECHNIQUE: PA and lateral views submitted. HISTORY: Confusion and wheezing FINDINGS: Large area of consolidation right upper lobe adjacent to the area of neoplasm. Limited inspiration wi th no overt failure. No pneumothorax. Diffuse osteopenia. Ectasia and atherosclerotic change aorta. There is nonunion and disruption of the postsurgical change involving the left humerus stable from prior exam. Arthropathy of the shoulders. IMPRESSION: 1. Increasing nodular density left upper lobe likely representing progression of neoplasm versus pneu monia. CT chest of the chest could be obtained to assess for neoplasm. 2. There is a displaced left humeral fracture with the postsurgical changes appearing to be disrupted and hardware malfunction.
[2023-08-16 12:31] LABS: ALT 22 U/L (4-49); AST 30 U/L (17-59); African American GFR (CKD) 60 (>60 ml/min/1.73 sqM); Albumin 3.6 g/dL (3.5-5.0); Alkaline Phosphatase 166 U/L (38-126); Anion Gap 10 mmol/L; Blood Urea Nitrogen 28 mg/dL (9-20); Calcium 9.7 mg/dL (8.4-10.2); Carbon Dioxide 17 mmol/L (22-30); Chloride 111 mmol/L (98-107); Glucose 88 mg/dL (74-99); Non-African American GFR(CKD) 52 (>60 ml/min/1.73 sqM); Potassium 4.4 mmol/L (3.5-5.1); Sodium 138 mmol/L (137-145); Total Bilirubin 0.5 mg/dL (0.2-1.3); Total Protein 6.3 g/dL (6.3-8.2)
[2023-08-16 12:35] VITALS: RESP 18
--- NOTE | 2023-08-16 13:24 | CT ---
EXAMINATION TYPE: CT ChestAbdPelvis w con DATE OF EXAM: 08/16/2023 COMPARISON: CT abdomen pelvis 10/14/2022 HISTORY: uti CT DLP: 1341.3 mGycm CONTRAST: CT scan of the chest, abdomen and pelvis is performed without Oral Contrast and with IV Contrast, pat ient injected with 80 mL of Isovue 300. CT Chest: LUNGS: Left hilar mass measures 3.1 x 3.4 cm with postobstructive volume loss or pneumonia. 6 mm pulm onary nodule left upper lobe image 23. Hyperinflation compatible with COPD. Mild subpleural fibrosis. MEDIASTINUM: Ascending thoracic aortic aneurysm measuring 4.1 cm AP dimension. Ascending thoracic aor ta is also aneurysmal measuring 3.6 cm AP dimension. The heart is mildly enlarged. No evidence for m ediastinal mass or adenopathy. OTHER: No significant abnormality. CONTRAST CT ABDOMEN AND PELVIS FINDINGS: LIVER/GB: No calcified gallstones. No space occupying hepatic lesion. Biliary tree is of normal ca liber. PANCREAS: No inflammation. No distinct mass. SPLEEN: No splenic enlargement. No lesion seen. ADRENALS: Stable left adrenal nodule measuring 1.7 cm versus 1.3 cm previously. The right adrenal gla nd is unremarkable. KIDNEYS/BLADDER: Fullness of the bilateral renal collecting systems and ureters without obstructing u ropathy. Urinary bladder is of normal caliber without wall thickening. Hdz balloon catheter is note d with its distal tip within the prostate urethra and should be advanced. No nephrolithiasis. No dis tinct renal mass. BOWEL: Normal bowel caliber. No inflammation. Right paramedian ventral hernia which contains several loops of small bowel. A right-sided ileostomy noted near total colectomy identified. GENITAL ORGANS: Prostate gland enlargement. LYMPH NODES: No greater than 1cm abdominal or pelvic lymph nodes are appreciated. AORTA: No significant abnormality. OSSEOUS STRUCTURES: Multilevel degenerative disc space narrowing and spondylosis. Postoperative arriaga es lumbar spine. OTHER: No significant additional abnormality is seen. IMPRESSION: 1. Left hilar mass with postobstructive pneumonia or atelectasis. Malignancy is not excluded. PET/CT is advised. 2. There is hydronephrosis seen bilaterally felt to be related to malpositioning of the Hdz cathete r as noted above. 3. Parastomal hernia as noted. No evidence for strangulation.
[2023-08-16 14:04] LABS: INR 1.1 (<1.2); Prothrombin Time 11.7 sec (10.0-12.5)
[2023-08-16 15:15] LABS: Appearance,Urine Cloudy (Clear); Bacteria,Urine Rare /hpf; Bilirubin,Urine Negative (Negative); Blood,Urine Large (Negative); Color,Urine Yellow; Glucose,Urine (UA) Negative (Negative); Ketones,Urine Negative (Negative); Leukocyte Esterase,Urine Trace (Negative); Nitrite,Urine Negative (Negative); Protein,Urine 1+ (Negative); RBC,Urine >182 /hpf (0-5); Specific Gravity,Urine 1.013 (1.001-1.035); Urobilinogen,Urine <2.0 mg/dL (<2.0); WBC,Urine 18 /hpf (0-5)
[2023-08-16] MEDS ORDERED: cefTRIAXone IN SWFI 1,000 MG/10 ML SYRINGE IVP STA (15:41)
[2023-08-16 17:35] VITALS: BP 147/75; PULSE 78; TEMP 98
== END 2023-08-16 17:33 | disposition home or self-care (01) ==
LOC: EC 10:37
DX: R41.82 Altered mental status, unspecified (principal); N39.0 Urinary tract infection, site not specified; T83.091A Other mechanical complication of indwelling urethral catheter, initial encounter; R91.8 Other nonspecific abnormal finding of lung field; E11.22 Type 2 diabetes mellitus with diabetic chronic kidney disease; I12.9 Hypertensive chronic kidney disease with stage 1 through stage 4 chronic kidney disease, or unspecified chronic kidney disease; N18.30 Chronic kidney disease, stage 3 unspecified; J44.89 Other specified chronic obstructive pulmonary disease; E03.9 Hypothyroidism, unspecified; K21.9 Gastro-esophageal reflux disease without esophagitis; E78.5 Hyperlipidemia, unspecified; F32.A Depression, unspecified; F41.9 Anxiety disorder, unspecified; F17.200 Nicotine dependence, unspecified, uncomplicated; Z79.890 Hormone replacement therapy; Z79.82 Long term (current) use of aspirin; Z79.899 Other long term (current) drug therapy; Z88.8 Allergy status to other drugs, medicaments and biological substances; Z91.040 Latex allergy status; Z91.018 Allergy to other foods
CPT/HCPCS: 51798; 36415; 94640; 80053; 83605; 85025; 85610; 85730; 81001; 87040; 87086; 71046; 71260; 74177; 51702; 99285; 96374; J0696; Q9967

== ENCOUNTER 2023-09-24 17:37 | Inpatient (IN) | payer MEDICARE, OTHER ==
[2023-09-24] MEDS ORDERED: SODIUM CHLORIDE 0.9% 1,000 ML IV STA (17:49)
--- NOTE | 2023-09-24 18:03 | ED ---
SOB HPI - General Stated Complaint: SOB Time Seen by Provider: 09/24/23 17:40 Source: EMS, RN notes reviewed, old records reviewed - History of Present Illness Initial Comments: 88-year-old male with history of multiple medical issues including diabetes COPD chronic home O2 bilateral araal-[id number]-yojr amputations who was brought in by EMS for altered mental status suspect dehydration and shortness of breath. He apparently was very somnolent today and he fell sleep and fell into his food face first. No reports of overt coughing he has been very lethargic however. He was apparently diagnosed with left lung mass and Js this past year. Also has a chronic left humerus fracture which apparently nothing is going to be done with. MD Complaint: shortness of breath - Related Data Home Medications Medication Instructions Recorded Confirmed Finasteride [Proscar] 5 mg PO DAILY 01/01/16 09/24/23 Aspirin EC [Ecotrin Low Dose] 81 mg PO DAILY 05/13/16 09/24/23 Isosorbide Mononitrate ER [Imdur] 60 mg PO DAILY 05/13/16 09/24/23 Atorvastatin Calcium [Lipitor] 80 mg PO HS 12/18/18 09/24/23 Donepezil [Aricept] 10 mg PO DAILY 12/18/18 09/24/23 Memantine [Namenda] 10 mg PO BID 12/18/18 09/24/23 Levothyroxine Sodium [Synthroid] 125 mcg PO DAILY 02/01/22 09/24/23 Pantoprazole [Protonix] 40 mg PO DAILY 02/01/22 09/24/23 Escitalopram [Lexapro] 10 mg PO DAILY 07/01/22 09/24/23 Lanolin/Mineral Oil [Eucerin 1 applic TOPICAL DAILY PRN 05/22/23 09/24/23 Original Lotion] Potassium Chloride ER [K-Dur 10] 10 meq PO DAILY 05/22/23 09/24/23 Mometasone/Formoterol [Dulera 100 2 puff INHALATION RT-BID 09/24/23 09/24/23 Mcg-5 Mcg Inhaler] hydrALAZINE HCL [Apresoline] 25 mg PO TID 09/24/23 09/24/23 Previous Rx's Medication Instructions Recorded Ferrous Sulfate [Iron (65 MG 325 mg PO DAILY #0 02/05/22 Elemental)] Furosemide [Lasix] 20 mg PO DAILY #0 02/05/22 Cholecalciferol [Vitamin D3 (25 100 mcg PO DAILY tab 05/25/23 Mcg = 1000 Iu)] Allergies Allergy/AdvReac Type Severity Reaction Status Date / Time Latex, Natural Rubber Allergy Unknown Verified 09/24/23 21:43 trazodone Allergy Anaphylaxis Verified 09/24/23 21:43 lisinopril AdvReac Cough Verified 09/24/23 21:43 tomato AdvReac edema Verified 09/24/23 21:43 Review of Systems ROS Statement: Those systems with pertinent positive or pertinent negative responses have been documented in the HPI. ROS Other: All systems not noted in ROS Statement are negative. Limitations: ROS unobtainable due to patients medical condition Past Medical History Past Medical History: Asthma, COPD, Dementia, Diabetes Mellitus, Diabetes Mellitus, GERD/Reflux, GI Bleed, Hearing Disorder / Deafness, Hyperlipidemia, Hypertension, Pneumonia, Prostate Disorder, Renal Disease, Renal Disease, Respiratory Disorder, Thyroid Disorder, Thyroid Disorder Additional Past Medical History / Comment(s): Home oxygen 4L/NC at , NIDDM type II/no longer on diabetic medications since bilateral leg amputations, (past L leg cellulitis/bacteremia/SIRs/encephalopathy/heel sores, osteomylitis and past bilateral lower extremity edema), CKD stage III, urinary retention/o bstruction/utis, uti with bacteremia/chronic IDC, gout, hypothyroid, DJD, bilateral [place]/aide, severe constipation, pt had lower GI bleed/bowel resection with colostomy. History of Any Multi-Drug Resistant Organisms: MRSA, VRE Date of last positivie culture/infection: 05/22/23-VRE; 04/09/16 MRSA MDRO Source:: Urine-VRE; Right foot MRSA Past Surgical History: Back Surgery, Bowel Resection, Coronary Bypass/CABG, Heart Catheterization, Hernia Repair, Orthopedic Surgery Additional Past Surgical History / Comment(s): Bilateral AKA, transmetatarsal amputation L great toe, amputation 2nd L toe, L elbow injury with surgery, L arm renetta twice, 2003 CABG 5 vessel, R inguinal hernia repair. Past Anesthesia/Blood Transfusion Reactions: No Reported Reaction Additional Past Anesthesia/Blood Transfusion Reaction / Comment(s): Pt has r eceived blood without reaction. Past Psychological History: Anxiety, Depression Smoking Status: Current every day smoker Past Alcohol Use History: None Reported Past Drug Use History: None Reported - Past Family History Sister(s) Family Medical History: Cancer Mother Family Medical History: Diabetes Mellitus Additional Family Medical History / Comment(s): Pt remembers only that his mom was obese. Father History Unknown: Yes General Exam - General Exam Comments Initial Comments: This is a well-developed well-nourished lethargic male he does respond to stimulus and verbal commands. General appearance: alert, lethargic Head exam: Present: atraumatic, normocephalic, normal inspection Eye exam: Present: normal appearance, PERRL, EOMI. Absent: scleral icterus, conjunctival injection, periorbital swelling ENT exam: Present: mucous membranes dry Neck exam: Present: normal inspection, full ROM, other (No stridor JVD or bruits). Absent: tenderness, meningismus, lymphadenopathy Respiratory exam: Present: wheezes, decreased breath sounds. Absent: respiratory distress, rales, rhonchi, stridor Cardiovascular Exam: Present: regular rate, normal rhythm, normal heart sounds. Absent: systolic murmur, diastolic murmur, rubs, gallop, clicks GI/Abdominal exam: Present: soft, normal bowel sounds, other (Clostridium present right side). Absent: distended, tenderness, guarding, rebound, rigid Rectal exam: Present: deferred Extremities exam: Present: full ROM, normal capillary refill, other (Bilateral rhmsc-sgk-[id number] amputations. Additionally deformity seen to the midshaft left humerus consistent with a history of). Absent: tenderness, pedal edema, joint swelling, calf tenderness Back exam: Present: normal inspection Neurological exam: Present: alert, altered, CN II-XII intact Psychiatric exam: Present: normal mood, flat affect Skin exam: Present: warm, dry, intact, normal color. Absent: rash Course Vital Signs 09/24/23 09/24/23 09/24/23 17:41 18:03 19:51 Temperature 97.5 F L Pulse Rate 88 90 Respiratory 20 20 16 Rate Blood Pressure 132/75 141/72 O2 Sat by Pulse 98 92 L Oximetry 09/24/23 09/24/23 21:59 22:10 Temperature Pulse Rate 85 88 Respiratory Rate Blood Pressure O2 Sat by Pulse Oximetry Medical Decision Making - Medical Decision Making I did reevaluate patient multiple occasions patient did start developing extensive wheezing and did desaturate with minimal movement. He was treated for COPD exacerbation. I did discuss the case with the patient as well as with Dr. Sanchez who is agreed to set the patient for admission. He will be given IV hy dration.Was pt. sent in by a medical professional or institution (, PA, WEAVING LOOM OPERATOR, urgent care, hospital, or prison...) When possible be specific @ -No Did you speak to anyone other than the patient for history (EMS, parent, family, police, friend...)? What history was obtained from this source @ -para medics upon arrival Did you review nursing and triage notes (agree or disagree)? Why? @ -I reviewed and agree with nursing and triage notes Were old charts reviewed (outside hosp., previous admission, EMS record, old EKG, old radiological studies, urgent care reports/EKG's, prison records)? Report findings @ -Recent admission old charts were reviewed Differential Diagnosis (chest pain, altered mental status, abdominal pain women, abdominal pain men, vaginal bleeding, weakness, fever, dyspnea, syncope, headach e, dizziness, GI bleed, back pain, seizure, CVA, palpatations, mental health, musculoskeletal)? @ -COPD exacerbation, altered mental status EKG interpreted by me (3pts min.). @ -As above supraventricular rhythm a 67 QRS duration 114 QT since QTC 385/400 borderline left exodeviation moderate interventricular conduction delay no definitive acute changes X-rays interpreted by me (1pt min.). @ -Interpreted by me evidence of left upper lobe opacity did review old CAT scans which seemed to show evidence of some type of hilar mass CT interpreted by me (1pt min.). @ -None done U/S interpreted by me (1pt. min.). @ -None done What testing was considered but not performed or refused? (CT, X-rays, U/S, labs)? Why? @ -None What meds were considered but not given or refused? Why? @ -None Did you discuss the management of the patient with other professionals (professionals i.e. , [facility], WEAVING LOOM OPERATOR, lab, RT, psych nurse, social studies teacher, professor of theatre, teacher, chief sustainability officer, continuous pillowcase cutter)? Give summary @ -Dr. Sanchez Was smoking cessation discussed for >3mins.? @ -No Was critical care preformed (if so, how long)? @ -No Were there social determinants of health that impacted care today? How? (Homelessness, low income, unemployed, alcoholism, drug addiction, transportation, low edu. Level, literacy, decrease access to med. care, senior living, rehab)? @ -No Was there de-escalation of care discussed even if they declined (Discuss DNR or withdrawal of care, Hospice)? DNR status @ -No What co-morbidities impacted this encounter? (DM, HTN, Smoking, COPD, CAD, Canc er, CVA, ARF, Chemo, Hep., AIDS, mental health diagnosis, sleep apnea, morbid obesity)? @ -Dementia, COPD, [id number] amputations, chronic left humerus fracture Was patient admitted / discharged? Hospital course, mention meds given and route, prescriptions, significant lab abnormalities, going to OR and other pertinent info. @ -hospital course the patient was admitted for inpatient evaluation and treatment Undiagnosed new problem with uncertain prognosis? @ -No Drug Therapy requiring intensive monitoring for toxicity (Heparin, Nitro, Insulin, Cardizem)? @ -No Were any procedures done? @ -No Diagnosis/symptom? @ -Altered mental status, COPD exacerbation, dehydration, chronic left humerus fracture] Acute, or Chronic, or Acute on Chronic? @ -Acute on chronic Uncomplicated (without systemic symptoms) or Complicated (systemic symptoms)? @ -Applicator. Side effects of treatment? @ -No Exacerbation, Progression, or Severe Exacerbation? @ -Exacerbation Poses a threat to life or bodily function? How? (Chest pain, [place], [place], pneumonia, PE, COPD, DKA, ARF, appy, cholecystitis, CVA, Diverticulitis, Homicidal, Sandhu icidal, threat to staff... and all critical care pts) @ -Henna, COPD exacerbation - Lab Data Result diagrams: 09/24/23 18:06 09/24/23 18:06 Lab Results 09/24/23 09/24/23 09/24/23 Range/Units 18:06 18:06 18:06 WBC 6.2 (3.8-10.6) k/uL RBC 4.27 L (4.30-5.90) m/uL Hgb 12.1 L (13.0-17.5) gm/dL Hct 37.4 L (39.0-53.0) % MCV 87.5 (80.0-100.0) fL MCH 28.3 (25.0-35.0) pg MCHC 32.3 (31.0-37.0) g/dL RDW 14.4 (11.5-15.5) % Plt Count 165 (150-450) k/uL MPV 9.0 Neutrophils % 76 % Lymphocytes % 14 % Monocytes % 8 % Eosinophils % 1 % Basophils % 0 % Neutrophils # 4.7 (1.3-7.7) k/uL Lymphocytes # 0.8 L (1.0-4.8) k/uL Monocytes # 0.5 (0-1.0) k/uL Eosinophils # 0.0 (0-0.7) k/uL Basophils # 0.0 (0-0.2) k/uL Hypochromasia Slight PT 10.5 (10.0-12.5) sec INR 0.9 (<1.2) APTT 19.6 L (22.0-30.0) sec Sodium (137-145) mmol/L Potassium (3.5-5.1) mmol/L Chloride (98-107) mmol/L Carbon Dioxide (22-30) mmol/L Anion Gap mmol/L BUN (9-20) mg/dL Creatinine (0.66-1.25) mg/dL Est GFR (CKD-EPI)AfAm (>60 ml/min/1.73 sqM) Est GFR (CKD-EPI)NonAf (>60 ml/min/1.73 sqM) Glucose (74-99) mg/dL Plasma Lactic Acid Da (0.7-2.0) mmol/L Calcium (8.4-10.2) mg/dL Magnesium (1.6-2.3) mg/dL Total Bilirubin (0.2-1.3) mg/dL AST (17-59) U/L ALT (4-49) U/L Alkaline Phosphatase (38-126) U/L Creatine Kinase (55-170) U/L Troponin I (0.000-0.034) ng/mL NT-Pro-B Natriuret Pep pg/mL Total Protein (6.3-8.2) g/dL Albumin (3.5-5.0) g/dL Urine Color Light Yellow Urine Appearance Cloudy (Clear) Urine pH 5.5 (5.0-8.0) Ur Specific [place] 1.014 (1.001-1.035) Urine Protein 1+ H (Negative) Urine Glucose (UA) Negative (Negative) Urine Ketones Negative (Negative) Urine Blood Negative (Negative) Urine Nitrite Negative (Negative) Urine Bilirubin Negative (Negative) Urine Urobilinogen <2.0 (<2.0) mg/dL Ur Leukocyte Esterase Large H (Negative) Urine WBC 62 H (0-5) /hpf Urine WBC Clumps Occasional H (None) /hpf Ur Squamous Epith Cells 1 (0-4) /hpf Urine Bacteria Rare H (None) /hpf Urine Mucus Rare H (None) /hpf Ur Yeast w Hyphae Rare (None) /hpf Urine Yeast (Budding) Many H (None) /hpf Influenza Type A (PCR) (Not Detectd) Influenza Type B (PCR) (Not Detectd) RSV (PCR) (Not Detectd) SARS-CoV-2 (PCR) (Not Detectd) 09/24/23 09/24/23 09/24/23 Range/Units 18:06 18:06 18:06 WBC (3.8-10.6) k/uL RBC (4.30-5.90) m/uL Hgb (13.0-17.5) gm/dL Hct (39.0-53.0) % MCV (80.0-100.0) fL MCH (25.0-35.0) pg MCHC (31.0-37.0) g/dL RDW (11.5-15.5) % Plt Count (150-450) k/uL MPV Neutrophils % % Lymphocytes % % Monocytes % % Eosinophils % % Basophils % % Neutrophils # (1.3-7.7) k/uL Lymphocytes # (1.0-4.8) k/uL Monocytes # (0-1.0) k/uL Eosinophils # (0-0.7) k/uL Basophils # (0-0.2) k/uL Hypochromasia PT (10.0-12.5) sec INR (<1.2) APTT (22.0-30.0) sec Sodium 137 (137-145) mmol/L Potassium 4.2 (3.5-5.1) mmol/L Chloride 108 H (98-107) mmol/L Carbon Dioxide 19 L (22-30) mmol/L Anion Gap 10 mmol/L BUN 39 H (9-20) mg/dL Creatinine 1.51 H (0.66-1.25) mg/dL Est GFR (CKD-EPI)AfAm 47 (>60 ml/min/1.73 sqM) Est GFR (CKD-EPI)NonAf 41 (>60 ml/min/1.73 sqM) Glucose 111 H (74-99) mg/dL Plasma Lactic Acid Da 1.1 (0.7-2.0) mmol/L Calcium 8.9 (8.4-10.2) mg/dL Magnesium 2.4 H (1.6-2.3) mg/dL Total Bilirubin 0.5 (0.2-1.3) mg/dL AST 32 (17-59) U/L ALT 21 (4-49) U/L Alkaline Phosphatase 133 H (38-126) U/L Creatine Kinase 101 (55-170) U/L Troponin I 0.016 (0.000-0.034) ng/mL NT-Pro-B Natriuret Pep 521 pg/mL Total Protein 6.3 (6.3-8.2) g/dL Albumin 3.5 (3.5-5.0) g/dL Urine Color Urine Appearance (Clear) Urine pH (5.0-8.0) Ur Specific [place] (1.001-1.035) Urine Protein (Negative) Urine Glucose (UA) (Negative) Urine Ketones (Negative) Urine Blood (Negative) Urine Nitrite (Negative) Urine Bilirubin (Negative) Urine Urobilinogen (<2.0) mg/dL Ur Leukocyte Esterase (Negative) Urine WBC (0-5) /hpf Urine WBC Clumps (None) /hpf Ur Squamous Epith Cells (0-4) /hpf Urine Bacteria (None) /hpf Urine Mucus (None) /hpf Ur Yeast w Hyphae (None) /hpf Urine Yeast (Budding) (None) /hpf Influenza Type A (PCR) (Not Detectd) Influenza Type B (PCR) (Not Detectd) RSV (PCR) (Not Detectd) SARS-CoV-2 (PCR) (Not Detectd) 01/06/24 Range/Units 18:06 WBC (3.8-10.6) k/uL RBC (4.30-5.90) m/uL Hgb (13.0-17.5) gm/dL Hct (39.0-53.0) % MCV (80.0-100.0) fL MCH (25.0-35.0) pg MCHC (31.0-37.0) g/dL RDW (11.5-15.5) % Plt Count (150-450) k/uL MPV Neutrophils % % Lymphocytes % % Monocytes % % Eosinophils % % Basophils % % Neutrophils # (1.3-7.7) k/uL Lymphocytes # (1.0-4.8) k/uL Monocytes # (0-1.0) k/uL Eosinophils # (0-0.7) k/uL Basophils # (0-0.2) k/uL Hypochromasia PT (10.0-12.5) sec INR (<1.2) APTT (22.0-30.0) sec Sodium (137-145) mmol/L Potassium (3.5-5.1) mmol/L Chloride (98-107) mmol/L Carbon Dioxide (22-30) mmol/L Anion Gap mmol/L BUN (9-20) mg/dL Creatinine (0.66-1.25) mg/dL Est GFR (CKD-EPI)AfAm (>60 ml/min/1.73 sqM) Est GFR (CKD-EPI)NonAf (>60 ml/min/1.73 sqM) Glucose (74-99) mg/dL Plasma Lactic Acid Da (0.7-2.0) mmol/L Calcium (8.4-10.2) mg/dL Magnesium (1.6-2.3) mg/dL Total Bilirubin (0.2-1.3) mg/dL AST (17-59) U/L ALT (4-49) U/L Alkaline Phosphatase (38-126) U/L Creatine Kinase (55-170) U/L Troponin I (0.000-0.034) ng/mL NT-Pro-B Natriuret Pep pg/mL Total Protein (6.3-8.2) g/dL Albumin (3.5-5.0) g/dL Urine Color Urine Appearance (Clear) Urine pH (5.0-8.0) Ur Specific [place] (1.001-1.035) Urine Protein (Negative) Urine Glucose (UA) (Negative) Urine Ketones (Negative) Urine Blood (Negative) Urine Nitrite (Negative) Urine Bilirubin (Negative) Urine Urobilinogen (<2.0) mg/dL Ur Leukocyte Esterase (Negative) Urine WBC (0-5) /hpf Urine WBC Clumps (None) /hpf Ur Squamous Epith Cells (0-4) /hpf Urine Bacteria (None) /hpf Urine Mucus (None) /hpf Ur Yeast w Hyphae (None) /hpf Urine Yeast (Budding) (None) /hpf Influenza Type A (PCR) Not Detected (Not Detectd) Influenza Type B (PCR) Not Detected (Not Detectd) RSV (PCR) Not Detected (Not Detectd) SARS-CoV-2 (PCR) Not Detected (Not Detectd) - EKG Data -: EKG Interpreted by Me EKG Comments: EKG interpreted by me supraventricular rhythm rate 67 QRS 114 QT since QTC 3 85/400 borderline left exodeviation moderate interventricular conduction delay - Radiology Data Interpreted by me: Did interpret the imaging evidence of left upper lobe opacity Disposition Clinical Impression: Acute exacerbation of COPD with asthma, Dementia, Dehydration, Failure to thrive in adult, Left upper lobe pulmonary infiltrate, Pneumonia Disposition: ADMITTED IP TO THIS HOSP Condition: Fair Referrals: [facility],Clinic [Primary Care Provider] - 1-2 days Decision Date: 09/24/23 Decision Time: 22:00
[2023-09-24 18:32] LABS: Basophils % (A) 0 %; Eosinophils % (A) 1 %; HCT 37.4 % (39.0-53.0); HGB 12.1 gm/dL (13.0-17.5); Hypochromasia Slight; Lymphocytes # (A) 0.8 k/uL (1.0-4.8); Lymphocytes % (A) 14 %; MCH 28.3 pg (25.0-35.0); MCHC 32.3 g/dL (31.0-37.0); MCV 87.5 fL (80.0-100.0); Monocytes # (A) 0.5 k/uL (0-1.0); Monocytes % (A) 8 %; Neutrophils # (A) 4.7 k/uL (1.3-7.7); Neutrophils % (A) 76 %; Platelet Count 165 k/uL (150-450); RBC 4.27 m/uL (4.30-5.90); RDW 14.4 % (11.5-15.5); WBC 6.2 k/uL (3.8-10.6)
[2023-09-24 18:41] LABS: Appearance,Urine Cloudy (Clear); Bacteria,Urine Rare /hpf; Bilirubin,Urine Negative (Negative); Blood,Urine Negative (Negative); Budding Yeast,Urine Many /hpf; Color,Urine Light Yellow; Glucose,Urine (UA) Negative (Negative); Hyphae Yeast, Urine Rare /hpf; Ketones,Urine Negative (Negative); Leukocyte Esterase,Urine Large (Negative); Mucus,Urine Rare /hpf; Nitrite,Urine Negative (Negative); PH, Urine 5.5 (5.0-8.0); Protein,Urine 1+ (Negative); Specific Gravity,Urine 1.014 (1.001-1.035); Squamous Epithelial Cell,Urine 1 /hpf (0-4); Urobilinogen,Urine <2.0 mg/dL (<2.0); WBC,Urine 62 /hpf (0-5)
[2023-09-24 18:43] LABS: ALT 21 U/L (4-49); AST 32 U/L (17-59); African American GFR (CKD) 47 (>60 ml/min/1.73 sqM); Albumin 3.5 g/dL (3.5-5.0); Alkaline Phosphatase 133 U/L (38-126); Anion Gap 10 mmol/L; Blood Urea Nitrogen 39 mg/dL (9-20); Calcium 8.9 mg/dL (8.4-10.2); Carbon Dioxide 19 mmol/L (22-30); Chloride 108 mmol/L (98-107); Glucose 111 mg/dL (74-99); Magnesium 2.4 mg/dL (1.6-2.3); Non-African American GFR(CKD) 41 (>60 ml/min/1.73 sqM); Sodium 137 mmol/L (137-145); Total Bilirubin 0.5 mg/dL (0.2-1.3); Total Protein 6.3 g/dL (6.3-8.2)
[2023-09-24 18:44] LABS: Creatine Kinase 101 U/L (55-170)
[2023-09-24 18:49] LABS: NT-Pro-B-Type Natriuretic Pept 521 pg/mL
[2023-09-24 18:57] LABS: INR 0.9 (<1.2); Prothrombin Time 10.5 sec (10.0-12.5)
[2023-09-24 18:59] LABS: Partial Thromboplastin Time 19.6 sec (22.0-30.0)
[2023-09-24 19:01] LABS: Potassium 4.2 mmol/L (3.5-5.1)
--- NOTE | 2023-09-24 19:21 | XR ---
EXAMINATION TYPE: XR chest 2V DATE OF EXAM: 09/24/2023 COMPARISON: 08/16/2023 HISTORY: 88-year-old male difficulty breathing, shortness of breath TECHNIQUE: AP and lateral views FINDINGS: Previous plate and screw fixation left humeral shaft with large area of osteolysis at the mid humeral shaft and fracture fixation plate. This finding was present on 08/16/2023. Heart is normal size. Ectatic/tortuous thoracic aorta. Focal left upper lobe opacity noted either per sistent or recurrent. No sizable pleural effusion. IMPRESSION: 1. Focal left upper lobe opacity. Correlate for pneumonia. Follow-up to ensure clearance and exclude underlying neoplasm. 2. Correlate as to the patient's prior workup in regards to the left humerus. There is a large area o f bone loss at the mid humeral shaft with broken fixation hardware. Similar appearance compared to . Again, correlation to exclude a neoplastic etiology.
[2023-09-24] MEDS ORDERED: methylPREDNISolone SOD SUCCI 125 MG/2 ML VIAL IV STA (21:52)
[2023-09-24] MEDS ORDERED: IPRATROPIUM-ALBUTEROL 3 ML NEB INHALATION STA (21:52)
[2023-09-24] MEDS ORDERED: IPRATROPIUM-ALBUTEROL 3 ML NEB INHALATION PRN (22:22)
[2023-09-24] MEDS ORDERED: AZITHROMYCIN 500 MG in SODIUM CHLORIDE 0.9% 250 ML IVPB STA (22:22)
[2023-09-24] MEDS ORDERED: PNEUMONIA PROTOCOL UTILIZED 1 EACH MISC PO PRN (22:22)
[2023-09-24] MEDS: SODIUM CHLORIDE 0.9% 1,000 ML IV SCH (22:35)
[2023-09-25] MEDS: methylPREDNISolone SOD SUCCI 125 MG/2 ML VIAL IV SCH ×4 (03:29→21:31)
--- NOTE | 2023-09-25 03:40 | P.HPIM ---
History of Present Illness H&P Date: 09/24/23 Chief Complaint: Lethargic 88-year-old male with diabetes mellitus, COPD on home oxygen Patient unable to provide any meaningful history doesn't answer any of my questions she is awake but gives unrelated answers to my questions and goes into tangential thoughts he seems to be confused regarding his whereabouts and date Patient was brought in by EMS due to being lethargic to the point where he fell asleep into his food with face first. Patient does admit to coughing however unable to provide details regarding any hemoptysis or phlegm production he fails to answer questions regarding shortness of breath or fever. During my evaluation patient seems awake alert restless in bed trying to get up he is conversant but unable to provide meaningful conversation. In the emergency department he was noted to be wheezing and hypoxic with finding of possible left upper lobe consolidation on chest x-ray for which she was admitted for further care review of systems Unable to obtain on exam Constitutional: No acute distress, conversant but tangential in his thoughts does not answer my questions Eyes: Anicteric sclerae, moist conjunctiva, Pupils equal round reactive to light ENMT: NC/AT Oropharynx clear, no erythema, or exudates Neck: Supple, no masses, or JVD No carotid bruits No thyromegaly Lungs: Decreased breath sounds with rhonchorous breathing Clear to percussion Normal respiratory effort, no accessory muscle use Cardiovascular: Heart regular in rate and rhythm, No murmurs, gallops, or rubs No peripheral edema Abdominal: Soft Nontender, no guarding, rebound or rigidity Abdomen moving with respiration Normoactive bowel sounds Ostomy bag in place with positive stool content no bleeding Extremities: Bilateral above-knee amputation, chronic left humeral fracture No digital cyanosis Radial pulses intact and symmetrical Psychiatric: Alert and oriented to person, only Neuro moving bilateral upper extremities purposefully, otherwise unable to comply with neuro exam Past Medical History Past Medical History: Asthma, COPD, Dementia, Diabetes Mellitus, Diabetes Mellitus, GERD/Reflux, GI Bleed, Hearing Disorder / Deafness, Hyperlipidemia, Hypertension, Pneumonia, Prostate Disorder, Renal Disease, Renal Disease, Respiratory Disorder, Thyroid Disorder, Thyroid Disorder Additional Past Medical History / Comment(s): Home oxygen 4L/NC at HS, NIDDM type II/no longer on diabetic medications since bilateral leg amputations, (past L leg cellulitis/bacteremia/SIRs/encephalopathy/heel sores, osteomylitis and past bilateral lower extremity edema), CKD stage III, urinary retention/obstruction/utis, uti with bacteremia/chronic IDC, gout, hypothyroid, DJD, bilateral BEAVER/aide, severe constipation, pt had lower GI bleed/bowel resection with colostomy. History of Any Multi-Drug Resistant Organisms: MRSA, VRE Date of last positivie culture/infection: 05/22/23-VRE; 04/09/16 MRSA MDRO Source:: Urine-VRE; Right foot MRSA Past Surgical History: Back Surgery, Bowel Resection, Coronary Bypass/CABG, Heart Catheterization, Hernia Repair, Orthopedic Surgery Additional Past Surgical History / Comment(s): Bilateral AKA, transmetatarsal amputation L great toe, amputation 2nd L toe, L elbow injury with surgery, L arm renetta twice, 2003 CABG 5 vessel, R inguinal hernia repair. Past Anesthesia/Blood Transfusion Reactions: No Reported Reaction Additional Past Anesthesia/Blood Transfusion Reaction / Comment(s): Pt has received blood without reaction. Past Psychological History: Anxiety, Depression Smoking Status: Current every day smoker Past Alcohol Use History: None Reported Past Drug Use History: None Reported - Past Family History Sister(s) Family Medical History: Cancer Mother Family Medical History: Diabetes Mellitus Additional Family Medical History / Comment(s): Pt remembers only that his mom was obese. Father History Unknown: Yes Medications and Allergies Home Medications Medication Instructions Recorded Confirmed Type Finasteride [Proscar] 5 mg PO DAILY 01/01/16 09/24/23 History Aspirin EC [Ecotrin Low Dose] 81 mg PO DAILY 05/13/16 09/24/23 History Isosorbide Mononitrate ER [Imdur] 60 mg PO DAILY 05/13/16 09/24/23 History Atorvastatin Calcium [Lipitor] 80 mg PO HS 12/18/18 09/24/23 History Donepezil [Aricept] 10 mg PO DAILY 12/18/18 09/24/23 History Memantine [Namenda] 10 mg PO BID 12/18/18 09/24/23 History Levothyroxine Sodium [Synthroid] 125 mcg PO DAILY 02/01/22 09/24/23 History Pantoprazole [Protonix] 40 mg PO DAILY 02/01/22 09/24/23 History Ferrous Sulfate [Iron (65 MG 325 mg PO DAILY #0 02/05/22 09/24/23 Rx Elemental)] Furosemide [Lasix] 20 mg PO DAILY #0 02/05/22 09/24/23 Rx Escitalopram [Lexapro] 10 mg PO DAILY 07/01/22 09/24/23 History Lanolin/Mineral Oil [Eucerin 1 applic TOPICAL DAILY PRN 05/22/23 09/24/23 History Original Lotion] Potassium Chloride ER [K-Dur 10] 10 meq PO DAILY 05/22/23 09/24/23 History Cholecalciferol [Vitamin D3 (25 100 mcg PO DAILY tab 05/25/23 09/24/23 Rx Mcg = 1000 Iu)] Mometasone/Formoterol [Dulera 100 2 puff INHALATION RT-BID 09/24/23 09/24/23 History Mcg-5 Mcg Inhaler] hydrALAZINE HCL [Apresoline] 25 mg PO TID 09/24/23 09/24/23 History Allergies Allergy/AdvReac Type Severity Reaction Status Date / Time Latex, Natural Rubber Allergy Unknown Verified 09/24/23 21:43 trazodone Allergy Anaphylaxis Verified 09/24/23 21:43 lisinopril AdvReac Cough Verified 09/24/23 21:43 tomato AdvReac edema Verified 09/24/23 21:43 Physical Exam Vitals: Vital Signs Temp Pulse Resp BP Pulse Ox 09/24/23 22:18 88 18 141/78 92 L 09/24/23 22:10 88 09/24/23 21:59 85 09/24/23 19:51 90 16 141/72 92 L 09/24/23 18:03 20 09/24/23 17:41 97.5 F L 88 20 132/75 98 Intake and Output 09/24/23 09/24/23 09/25/23 14:59 22:59 06:59 Other: Weight 49.895 kg Results CBC & Chem 7: 09/24/23 18:06 09/24/23 18:06 Labs: Abnormal Lab Results - Last 24 Hours (Table) 09/24/23 09/24/23 09/24/23 Range/Units 18:06 18:06 18:06 RBC 4.27 L (4.30-5.90) m/uL Hgb 12.1 L (13.0-17.5) gm/dL Hct 37.4 L (39.0-53.0) % Lymphocytes # 0.8 L (1.0-4.8) k/uL APTT 19.6 L (22.0-30.0) sec Chloride (98-107) mmol/L Carbon Dioxide (22-30) mmol/L BUN (9-20) mg/dL Creatinine (0.66-1.25) mg/dL Glucose (74-99) mg/dL Magnesium (1.6-2.3) mg/dL Alkaline Phosphatase (38-126) U/L Urine Protein 1+ H (Negative) Ur Leukocyte Esterase Large H (Negative) Urine WBC 62 H (0-5) /hpf Urine WBC Clumps Occasional H (None) /hpf Urine Bacteria Rare H (None) /hpf Urine Mucus Rare H (None) /hpf Urine Yeast (Budding) Many H (None) /hpf 09/24/23 Range/Units 18:06 RBC (4.30-5.90) m/uL Hgb (13.0-17.5) gm/dL Hct (39.0-53.0) % Lymphocytes # (1.0-4.8) k/uL APTT (22.0-30.0) sec Chloride 108 H (98-107) mmol/L Carbon Dioxide 19 L (22-30) mmol/L BUN 39 H (9-20) mg/dL Creatinine 1.51 H (0.66-1.25) mg/dL Glucose 111 H (74-99) mg/dL Magnesium 2.4 H (1.6-2.3) mg/dL Alkaline Phosphatase 133 H (38-126) U/L Urine Protein (Negative) Ur Leukocyte Esterase (Negative) Urine WBC (0-5) /hpf Urine WBC Clumps (None) /hpf Urine Bacteria (None) /hpf Urine Mucus (None) /hpf Urine Yeast (Budding) (None) /hpf Assessment and Plan Assessment: 88-year-old male with multiple comorbidities coming in due to lethargy and somnolence, while in the ED he was wheezing and hypoxic I discussed the case with the ED doctor and accepted the admission for acute COPD exacerbation with possible underlying pneumonia with anticipated length of stay more than 2 midnights Acute on chronic hypoxic respiratory failure Acute COPD exacerbation Possible community-acquired pneumonia Follow-up cultures Urine Legionella antigen Start patient on azithromycin 500 mg by mouth daily Continue with Rocephin 2 g IV piggyback daily Supplemental oxygen as needed DuoNeb's scheduled and when necessary as needed Continue Symbicort IV systemic steroids with Solu-Medrol 60 mg every 6 hours Advanced dementia Continue home medications Diabetes mellitus Insulin sliding scale Hypothyroid Continue with levothyroxine Chronic kidney disease stage III stable Creatinine 1.5 BUN 39 Sodium 137 potassium 4.2 Gentle IV fluid hydration normal saline CBC showed white count 6.2 hemoglobin 12 unremarkable Troponins negative EKG no acute ST changes Ostomy back care Chronic Hdz catheter present on admission continue with catheter care Full code DVT prophylaxis Lovenox 30 mg subcu daily
[2023-09-25] MEDS: LEVOTHYROXINE 125 MCG TAB PO SCH (06:28)
[2023-09-25] MEDS: ENOXAPARIN 30 MG/0.3 ML SYRINGE SQ SCH (08:33)
[2023-09-25] MEDS: SODIUM CHLORIDE 0.9% 1,000 ML IV SCH ×2 (08:36→18:09)
[2023-09-25] MEDS: ASPIRIN 81 MG PO SCH (08:38)
[2023-09-25] MEDS: FERROUS SULFATE 325 MG TAB PO SCH (08:38)
[2023-09-25] MEDS: CHOLECALCIFEROL 25 MCG (1000 IU) TABLET PO SCH (08:38)
[2023-09-25] MEDS: FINASTERIDE 5 MG TAB PO SCH (08:38)
[2023-09-25] MEDS: POTASSIUM CHLORIDE ER 10 MEQ TAB.ER.PRT PO SCH (08:38)
[2023-09-25] MEDS: ESCITALOPRAM 10 MG TAB PO SCH (08:38)
[2023-09-25] MEDS: hydrALAZINE HCL 25 MG TAB PO SCH ×3 (08:38→21:31)
[2023-09-25] MEDS: PANTOPRAZOLE 40 MG TABLET PO SCH (08:38)
[2023-09-25] MEDS: DONEPEZIL 10 MG TAB PO SCH (08:39)
[2023-09-25] MEDS: MEMANTINE 10 MG TAB PO SCH ×2 (08:39→21:31)
[2023-09-25] MEDS: ISOSORBIDE MONONITRATE ER 60 MG TAB.ER.24H PO SCH (08:39)
[2023-09-25] MEDS ORDERED: FUROSEMIDE 20 MG TAB PO SCH (09:00)
--- NOTE | 2023-09-25 09:11 | XR ---
EXAMINATION TYPE: XR chest 1V portable DATE OF EXAM: 09/25/2023 Comparison: 09/24/2023 Clinical History: 88-year-old male pneumonia Findings: Median sternotomy wires. Heart borderline in size. Interstitial densities similar. Hyperinflation. Fo yt left midlung opacity persists. Chronic full-thickness rotator cuff tear right shoulder. Impression: COPD and ongoing focal left midlung opacity.
--- NOTE | 2023-09-25 14:13 | P.PN ---
Subjective Progress Note Date: 09/25/23 Hospital Course: 88-year-old male with a history of type 2 diabetes, COPD, chronic hypoxic respiratory failure, advanced dementia, hypertension, dyslipidemia, chronic kidney disease stage III, hypothyroidism, bilateral lower extremity amputation presenting with complaints of lethargy and weakness. Patient is a poor historian. He was noted to be wheezing and hypoxic per ED assessment. Chest x- ray showed focal left upper lobe opacity, and also a large area of bone loss mid humeral shaft on the left. Respiratory viral panel negative. Laboratory workup remarkable for creatinine of 1.51, positive leukocyte esterase, negative nitrites. Patient admitted for acute on chronic hypoxic respiratory failure with acute COPD exacerbation. Also concern for community-acquired pneumonia, started on IV antibiotics. Subjective: Seen and examined at bedside. No acute events overnight. Pertinent positives and negatives as discussed above, a complete review of systems was performed and all other systems are negative. Vitals Signs Reviewed. General: nontoxic, no distress, appears at stated age Derm: warm, dry Head: atraumatic, normocephalic, symmetric Eyes: EOMI, no lid lag, anicteric sclera Mouth: no lip lesion, mucus membranes moist Cardiovascular: S1S2 reg, no murmur Lungs: CTA bilateral, no rhonchi, no rales , no accessory muscle use, supplemental oxygen Abdominal: soft, nontender to palpation, no guarding, no appreciable organomegaly Ext: Bilateral lower extremity amputations Neuro: CN II-XI grossly intact, no focal neuro deficits Psych: Alert, oriented 1, appropriate affect Data Reviewed Today: Pertinent Labs: No new labs Imaging: Chest x-ray independently interpreted for him this morning, shows persistent left-sided opacity. Assessment and Plan: Acute on chronic hypoxic respiratory failure Acute COPD exacerbation Suspected community-acquired pneumonia -Cultures pending -Continue azithromycin 500 mg daily by mouth, and IV Rocephin 2 g daily -Wean oxygen -DuoNeb's scheduled and when necessary as needed -Continue dulera BID -IV systemic steroids with Solu-Medrol 60 mg every 6 hours Advanced dementia Continue home medications Diabetes mellitus -Insulin sliding scale, monitor for hypoglycemia Hypothyroid -Continue with levothyroxine Chronic kidney disease stage III stable -Gentle IV fluid hydration normal saline Ostomy back care Chronic Hdz catheter present on admission continue with catheter care DVT ppx: Lovenox Code status: Full code Anticipated discharge place: Pending clinical course Anticipated discharge time: Pending clinical course Objective - Vital Signs Vital signs: Vital Signs Temp 98.2 F 09/25/23 12:45 Pulse 65 09/25/23 12:45 Resp 18 09/25/23 12:45 BP 124/78 09/25/23 12:45 Pulse Ox 97 09/25/23 12:45 FiO2 Intake & Output 09/24/23 09/25/23 09/25/23 18:59 06:59 18:59 Output Total 650 Balance -650 Weight 49.895 kg Output: Urine 650 - Labs CBC & Chem 7: 09/24/23 18:06 09/24/23 18:06 Labs: Abnormal Lab Results - Last 24 Hours (Table) 09/24/23 09/24/23 09/24/23 Range/Units 18:06 18:06 18:06 RBC 4.27 L (4.30-5.90) m/uL Hgb 12.1 L (13.0-17.5) gm/dL Hct 37.4 L (39.0-53.0) % Lymphocytes # 0.8 L (1.0-4.8) k/uL APTT 19.6 L (22.0-30.0) sec Chloride (98-107) mmol/L Carbon Dioxide (22-30) mmol/L BUN (9-20) mg/dL Creatinine (0.66-1.25) mg/dL Glucose (74-99) mg/dL Magnesium (1.6-2.3) mg/dL Alkaline Phosphatase (38-126) U/L Urine Protein 1+ H (Negative) Ur Leukocyte Esterase Large H (Negative) Urine WBC 62 H (0-5) /hpf Urine WBC Clumps Occasional H (None) /hpf Urine Bacteria Rare H (None) /hpf Urine Mucus Rare H (None) /hpf Urine Yeast (Budding) Many H (None) /hpf 09/24/23 Range/Units 18:06 RBC (4.30-5.90) m/uL Hgb (13.0-17.5) gm/dL Hct (39.0-53.0) % Lymphocytes # (1.0-4.8) k/uL APTT (22.0-30.0) sec Chloride 108 H (98-107) mmol/L Carbon Dioxide 19 L (22-30) mmol/L BUN 39 H (9-20) mg/dL Creatinine 1.51 H (0.66-1.25) mg/dL Glucose 111 H (74-99) mg/dL Magnesium 2.4 H (1.6-2.3) mg/dL Alkaline Phosphatase 133 H (38-126) U/L Urine Protein (Negative) Ur Leukocyte Esterase (Negative) Urine WBC (0-5) /hpf Urine WBC Clumps (None) /hpf Urine Bacteria (None) /hpf Urine Mucus (None) /hpf Urine Yeast (Budding) (None) /hpf
[2023-09-25] MEDS ORDERED: DEXTROSE 50% SYRINGE 50 ML IVP PRN ×2 (16:14)
[2023-09-25 16:50] LABS: Glucose,Whole Blood 135 mg/dL (70-110)
[2023-09-25] MEDS: INSULIN ASPART (NovoLOG) 100 UNIT/ML VIAL SQ SCH ×2 (16:50→21:23)
[2023-09-25] MEDS: SYMBICORT 80-4.5 MCG INHALER INHALATION SCH (19:38)
[2023-09-25] MEDS: ATORVASTATIN 80 MG TAB PO SCH (20:45)
[2023-09-25] MEDS: AZITHROMYCIN 500 MG TAB PO SCH (20:45)
[2023-09-25 21:04] LABS: Glucose,Whole Blood 149 mg/dL (70-110)
[2023-09-26] MEDS: methylPREDNISolone SOD SUCCI 125 MG/2 ML VIAL IV SCH ×4 (03:59→21:12)
[2023-09-26] MEDS: LEVOTHYROXINE 125 MCG TAB PO SCH (05:55)
[2023-09-26] MEDS: SODIUM CHLORIDE 0.9% 1,000 ML IV SCH ×2 (05:56→16:41)
[2023-09-26] MEDS: SYMBICORT 80-4.5 MCG INHALER INHALATION SCH ×2 (08:02→18:12)
[2023-09-26] MEDS: INSULIN ASPART (NovoLOG) 100 UNIT/ML VIAL SQ SCH ×4 (08:45→20:35)
[2023-09-26] MEDS: DONEPEZIL 10 MG TAB PO SCH (08:51)
[2023-09-26] MEDS: ENOXAPARIN 30 MG/0.3 ML SYRINGE SQ SCH (08:51)
[2023-09-26] MEDS: MEMANTINE 10 MG TAB PO SCH ×2 (08:51→20:00)
[2023-09-26] MEDS: ISOSORBIDE MONONITRATE ER 60 MG TAB.ER.24H PO SCH (08:51)
[2023-09-26] MEDS: ASPIRIN 81 MG PO SCH (08:51)
[2023-09-26] MEDS: ESCITALOPRAM 10 MG TAB PO SCH (08:51)
[2023-09-26] MEDS: FERROUS SULFATE 325 MG TAB PO SCH (08:51)
[2023-09-26] MEDS: FINASTERIDE 5 MG TAB PO SCH (08:51)
[2023-09-26] MEDS: hydrALAZINE HCL 25 MG TAB PO SCH ×3 (08:51→21:13)
[2023-09-26] MEDS: CHOLECALCIFEROL 25 MCG (1000 IU) TABLET PO SCH (08:51)
[2023-09-26] MEDS: POTASSIUM CHLORIDE ER 10 MEQ TAB.ER.PRT PO SCH (08:53)
[2023-09-26] MEDS: PANTOPRAZOLE 40 MG TABLET PO SCH (08:53)
[2023-09-26] MEDS: NICOTINE 21MG/24HR PATCH TRANSDERM SCH (12:15)
[2023-09-26 13:00] LABS: Glucose,Whole Blood 120 mg/dL (70-110)
[2023-09-26 16:35] LABS: Glucose,Whole Blood 207 mg/dL (70-110)
--- NOTE | 2023-09-26 16:46 | P.PN ---
Subjective Progress Note Date: 09/26/23 Hospital course: Patient is a very pleasant 88-year-old male with a history of type 2 dmy-wblbyft-xgionhgfs diabetes, COPD, chronic hypoxic respiratory failure home oxygen dependent on 2 L, advanced dementia, hypertension, dyslipidemia, chronic kidney disease stage III, hypothyroidism, and bilateral lower extremity above- knee amputations. He presented to the emergency department on 09/24/23 with complaints of lethargy and weakness. Patient is a poor historian. He was noted to be wheezing and hypoxic per ED assessment. Chest x-ray showed focal left upper lobe opacity, and also a large area of bone loss mid humeral shaft on the left. Respiratory viral panel negative. Laboratory workup remarkable for creatinine of 1.51, positive leukocyte esterase, negative nitrites. Patient admitted for acute on chronic hypoxic respiratory failure with acute COPD exacerbation along with concerns of community-acquired pneumonia, started on IV antibiotics. Consult placed to pulmonology. Physical exam: Vital signs reviewed and stable. General: Nontoxic, chronically ill-appearing. Derm: Skin warm and dry, normal coloration for ethnicity. Head: Atraumatic, normocephalic and symmetric. Eyes: EOMs intact, no lid lag, and anicteric sclera Mouth: no lip lesions, mucus membranes moist Cardiovascular: regular rate and rhythm with normal S1S2, systolic murmur Lungs: Respirations even, regular, and unlabored on room air. Lungs CTA bilaterally, no rhonchi, no rales, no wheezing, and no accessory muscle usage. Abdominal: soft, nontender to palpation, no guarding, no appreciable or ganomegaly. Ostomy in place. Hdz catheter in place. Ext: Bilateral lower extremity above-knee amputations Neuro: Speech clear, face symmetrical. GCS 14. Psych: Alert and oriented to person and place only, poor historian follows only some commands repeatedly stating "I need a cigarette." Assessment and Plan of Care: Acute on chronic hypoxic respiratory failure Acute COPD exacerbation Left upper lobe pneumonia -Supervisor [employer] consulted, appreciate recommendations -Continue with supplemental oxygen, to be administered and titrated as needed to maintain SPO2 equal to or greater than 90% -Telemetry monitoring. -Monitor Pulse-oximetry -DuoNeb's scheduled 4x daily and as needed for wheezing/shortness of breath -Continue Symbicort 80/4.5 g inhaler 2 puffs twice daily -Steroids: Solu-Medrol 60 mg IVP every 6 hours -Antibiotics: Azithromycin 500 mg by mouth daily and Rocephin 2 g IVPB daily. -Sputum culture pending, blood culture showing no growth to date Advanced dementia Continue home medication regimen with donepezil 10 mg daily, Lexapro 10 mg daily, and Namenda 10 mg twice daily, Provide safe and supportive care with assistance and redirection as needed. Fall precautions Hypertension Hyperlipidemia Stage IIIB chronic kidney disease Anemia of chronic disease, secondary to kidney disease Continue daily medication regimen with ferrous sulfate 325 mg daily, hydralazine 25 mg 3 times daily, isosorbide mononitrate 60 mg daily, Hypothyroidism Continue daily medication regimen with levothyroxine 125 g daily [id number] Diabetes mellitus -Continue glycemic protocol with NovoLog sliding scale Ostomy -Continue ostomy care/management. Chronic Hdz catheter, present on admission -Continue with Hdz catheter care/management. Data and imaging reviewed: Hemoglobin A1c resulting just elevated at 6.1%. Blood glucose levels have ranged from 120-207 over the past 24 hours. Vital signs reviewed and stable with blood pressure 148/70, heart rate 61, respiratory rate 16, temp 97.6F, and SpO2 of 95% on room air. DVT ppx: Lovenox Code status: Full code Anticipated discharge place: Pending clinical course Anticipated discharge time: Pending clinical course Patient was seen independently by Nurse Pracitioner. This document was prepared using [employer] dictation software. Please allow for errors in renovator machine operator, while rare they do occur. Objective - Vital Signs Vital signs: Vital Signs Temp 97.6 F 09/26/23 08:05 Pulse 61 09/26/23 08:05 Resp 16 09/26/23 08:05 BP 148/70 09/26/23 08:05 Pulse Ox 95 09/26/23 08:05 FiO2 Intake & Output 09/25/23 09/26/23 09/26/23 18:59 06:59 18:59 Intake Total 1660 Output Total 950 800 Balance -950 860 Weight 49.895 kg Intake: Intake, IV Titration 950 Amount Sodium Chloride 0.9% 1, 900 000 ml @ 100 mls/hr IV . Q10H LE[facility] Rx#:[id number] cefTRIAXone 2 gm In 50 Sodium Chloride 0.9% 50 ml @ 100 mls/hr IVPB Q24H [facility] Rx#:[id number] Oral 710 Output: Urine 950 800 Other: Voiding Method Indwelling Catheter - Labs CBC & Chem 7: 09/24/23 18:06 09/24/23 18:06 Labs: Abnormal Lab Results - Last 24 Hours (Table) 09/25/23 09/25/23 Range/Units 16:48 21:02 POC Glucose (mg/dL) 135 H 149 H (70-110) mg/dL Microbiology - Last 24 Hours (Table) 09/24/23 18:25 Blood Culture - Preliminary Blood 09/24/23 18:10 Blood Culture - Preliminary Blood
[2023-09-26] MEDS: IPRATROPIUM-ALBUTEROL 3 ML NEB INHALATION SCH (18:12)
[2023-09-26] MEDS: AZITHROMYCIN 500 MG TAB PO SCH (20:00)
[2023-09-26] MEDS: ATORVASTATIN 80 MG TAB PO SCH (20:00)
[2023-09-26 20:25] LABS: Glucose,Whole Blood 238 mg/dL (70-110)
[2023-09-27] MEDS: methylPREDNISolone SOD SUCCI 125 MG/2 ML VIAL IV SCH ×4 (03:52→20:58)
[2023-09-27] MEDS: LEVOTHYROXINE 125 MCG TAB PO SCH (05:50)
[2023-09-27 07:11] LABS: Glucose,Whole Blood 123 mg/dL (70-110)
[2023-09-27] MEDS: SYMBICORT 80-4.5 MCG INHALER INHALATION SCH ×2 (07:59→21:54)
[2023-09-27] MEDS: IPRATROPIUM-ALBUTEROL 3 ML NEB INHALATION SCH ×4 (07:59→21:54)
[2023-09-27] MEDS: INSULIN ASPART (NovoLOG) 100 UNIT/ML VIAL SQ SCH ×4 (08:01→20:57)
[2023-09-27] MEDS: ASPIRIN 81 MG PO SCH (09:43)
[2023-09-27] MEDS: FINASTERIDE 5 MG TAB PO SCH (09:43)
[2023-09-27] MEDS: PANTOPRAZOLE 40 MG TABLET PO SCH (09:43)
[2023-09-27] MEDS: POTASSIUM CHLORIDE ER 10 MEQ TAB.ER.PRT PO SCH (09:43)
[2023-09-27] MEDS: ENOXAPARIN 30 MG/0.3 ML SYRINGE SQ SCH (09:44)
[2023-09-27] MEDS: MEMANTINE 10 MG TAB PO SCH ×2 (09:44→20:58)
[2023-09-27] MEDS: FERROUS SULFATE 325 MG TAB PO SCH (09:44)
[2023-09-27] MEDS: DONEPEZIL 10 MG TAB PO SCH (09:44)
[2023-09-27] MEDS: ESCITALOPRAM 10 MG TAB PO SCH (09:44)
[2023-09-27] MEDS: CHOLECALCIFEROL 25 MCG (1000 IU) TABLET PO SCH (09:44)
[2023-09-27] MEDS: hydrALAZINE HCL 25 MG TAB PO SCH ×3 (09:44→20:58)
[2023-09-27] MEDS: ISOSORBIDE MONONITRATE ER 60 MG TAB.ER.24H PO SCH (09:44)
[2023-09-27] MEDS: NICOTINE 21MG/24HR PATCH TRANSDERM SCH (09:45)
[2023-09-27 10:45] LABS: HCT 30.4 % (39.6-50.0); HGB 9.3 g/dL (13.0-17.0); MCHC 30.6 g/dL (32.0-37.0); MCV 88.4 FL (80.0-97.0); Mean Platelet Volume 11.3 FL (9.5-12.2); NRBC Per 100 WBC 0 X 10*3/uL (0.00-0.01); Platelet Count 193 X 10*3/uL (140-440); RBC 3.44 X 10*6/uL (4.40-5.60); RDW 14.6 % (11.5-14.5); WBC 7.32 X 10*3/uL (4.50-10.00)
[2023-09-27 11:09] LABS: ALT 20 U/L (10-49); AST 21 U/L (14-35); Albumin 3.2 g/dL (3.8-4.9); Albumin/Globulin Ratio 1.78 Ratio (1.60-3.17); Alkaline Phosphatase 108 U/L (41-126); BUN/Creat Ratio 31.42 Ratio (12.00-20.00); Blood Urea Nitrogen 37.7 mg/dL (9.0-27.0); Calcium 9.4 mg/dL (8.7-10.3); Carbon Dioxide 18.8 mmol/L (21.6-31.8); Chloride 110 mmol/L (96-109); Globulin 1.8 g/dL (1.6-3.3); Glucose 123 mg/dL (70-110); Magnesium 2.4 mg/dL (1.5-2.4); Sodium 138 mmol/L (135-145); Total Bilirubin <0.2 mg/dL (0.3-1.2)
[2023-09-27 12:01] LABS: Glucose,Whole Blood 160 mg/dL (70-110)
[2023-09-27] MEDS ORDERED: RX INFO: IV CONTRAST WAS GIVEN 1 EACH MISC MISCELLANE PRN (13:28)
--- NOTE | 2023-09-27 14:16 | P.PN ---
Subjective Progress Note Date: 09/27/23 Hospital course: Patient is a very pleasant 88-year-old male with a history of type 2 zla-vhciqst-iheklofdt diabetes, COPD, chronic hypoxic respiratory failure home oxygen dependent on 2 L, advanced dementia, hypertension, dyslipidemia, chronic kidney disease stage III, hypothyroidism, and bilateral lower extremity above- knee amputations. He presented to the emergency department on 09/24/23 with complaints of lethargy and weakness. Patient is a poor historian. He was noted to be wheezing and hypoxic per ED assessment. Chest x-ray showed focal left upper lobe opacity, and also a large area of bone loss mid humeral shaft on the left. Respiratory viral panel negative. Laboratory workup remarkable for creatinine of 1.51, positive leukocyte esterase, negative nitrites. Patient admitted for acute on chronic hypoxic respiratory failure with acute COPD exacerbation along with concerns of community-acquired pneumonia, started on IV antibiotics. Consult placed to pulmonology. Physical exam: Vital signs reviewed and stable. General: Nontoxic, chronically ill-appearing. Derm: Skin warm and dry, normal coloration for ethnicity. Head: Atraumatic, normocephalic and symmetric. Eyes: EOMs intact, no lid lag, and anicteric sclera Mouth: no lip lesions, mucus membranes moist Cardiovascular: regular rate and rhythm with normal S1S2, systolic murmur Lungs: Respirations even, regular, and unlabored on room air. Lungs CTA bilaterally, no rhonchi, no rales, no wheezing, and no accessory muscle usage. Abdominal: soft, nontender to palpation, no guarding, no appreciable or ganomegaly. Ostomy in place. Hdz catheter in place. Ext: Bilateral lower extremity above-knee amputations Neuro: Speech clear, face symmetrical. GCS 14. Psych: Alert and oriented to person and place only, poor historian follows only some commands repeatedly stating "I need a cigarette." Assessment and Plan of Care: Patient is currently admitted for acute on chronic respiratory failure with left lower lobe pneumonia. He is currently on day 4 of 5 of IV antibiotics with Rocephin and completed a 3 day course of azithromycin. Patient has a significant past medical history and patient and family are meeting with hospice this afternoon to further discuss goals of care moving forward and upon discharge. Acute on chronic hypoxic respiratory failure Acute COPD exacerbation Left upper lobe pneumonia -Primary Care Sales Representative consulted, appreciate recommendations -Continue with supplemental oxygen, to be administered and titrated as needed to maintain SPO2 equal to or greater than 90% -Telemetry monitoring. -Monitor Pulse-oximetry -DuoNeb's scheduled 4x daily and as needed for wheezing/shortness of breath -Continue Symbicort 80/4.5 g inhaler 2 puffs twice daily -Steroids: Solu-Medrol 60 mg IVP every 6 hours -Antibiotics: Completed three-day course of Azithromycin and currently on day 4 of 5 of IV antibiotics with Rocephin 2 g IVPB daily. -Sputum culture pending, blood culture showing no growth to date Advanced dementia Continue home medication regimen with donepezil 10 mg daily, Lexapro 10 mg daily, and Namenda 10 mg twice daily, Provide safe and supportive care with assistance and redirection as needed. Fall precautions Hypertension Hyperlipidemia Stage IIIB chronic kidney disease Anemia of chronic disease, secondary to kidney disease Continue daily medication regimen with ferrous sulfate 325 mg daily, hydralazine 25 mg 3 times daily, isosorbide mononitrate 60 mg daily, Hypothyroidism Continue daily medication regimen with levothyroxine 125 g daily [id number] Diabetes mellitus -Continue glycemic protocol with NovoLog sliding scale Ostomy -Continue ostomy care/management. Chronic Hdz catheter, present on admission -Continue with Hdz catheter care/management. Data and imaging reviewed: Labs completed and reviewed. CBC showing some acidic anemia and hemoglobin of 9.3. BMP showing hyperchloremia with chloride of 110 and hypocarbia with bicarb of 18.8. Vital signs reviewed and stable with blood pressure 156/70, heart rate 60, respiratory rate 16, temp 98.1F, SpO2 of 97% on room air. DVT ppx: Lovenox Code status: Full code Anticipated discharge place: Pending clinical course Anticipated discharge time: Pending clinical course Patient was seen independently by Nurse Pracitioner. This document was prepared using [employer] dictation software. Please allow for errors in geological engineering teacher, while rare they do occur. Objective - Vital Signs Vital signs: Vital Signs Temp 98.1 F 09/27/23 07:12 Pulse 64 09/27/23 08:10 Resp 16 09/27/23 07:12 BP 156/76 09/27/23 07:12 Pulse Ox 97 09/27/23 07:12 FiO2 Intake & Output 09/26/23 09/27/23 09/27/23 18:59 06:59 18:59 Intake Total 400 Output Total 500 925 Balance -100 -925 Intake: Oral 400 Output: Urine 500 700 Stool 225 Other: Voiding Method Indwelling Catheter Indwelling Catheter - Labs CBC & Chem 7: 09/27/23 06:05 09/27/23 06:05 Labs: Abnormal Lab Results - Last 24 Hours (Table) 09/26/23 09/26/23 09/26/23 Range/Units 06:50 12:58 16:33 POC Glucose (mg/dL) 120 H 207 H (70-110) mg/dL Hemoglobin A1c 6.1 H (<=6.0) % 09/26/23 09/27/23 Range/Units 20:22 07:10 POC Glucose (mg/dL) 238 H 123 H (70-110) mg/dL Hemoglobin A1c (<=6.0) % Microbiology - Last 24 Hours (Table) 09/24/23 18:25 Blood Culture - Preliminary Blood 09/24/23 18:10 Blood Culture - Preliminary Blood
--- NOTE | 2023-09-27 15:29 | P.CNPUL ---
History of Present Illness Consult date: 09/27/23 Requesting physician: Socorro Rodriguez Reason for consult: dyspnea, cough, COPD, hypoxemia Chief complaint: Shortness of breath. History of present illness: Pulmonary consult dated 09/27/2023. 88-year-old male who presented to the emergency department, on 09/24/2023, complaining of shortness of breath. The patient is a very poor historian, and extremely hard of hearing. Most of the history is obtained from the ER clover, and other notes by other physicians. This patient has a history of diabetes, COPD, chronic hypoxemic respiratory failure, bilateral tcfti-tqj-nejf amputations, who is brought into the ER for shortness of breath. He apparently was initially very somnolent, and fell asleep while eating his food, face first into his food. Today, the patient sitting up in bed, he is quite alert and awake. The patient is currently not on any oxygen. He's not receiving any IV fluids. We were consulted for a possible pneumonia, only today. The patient has been in the hospital now for 3 days. Laboratory data includes a white count of 7.3, hemoglobin 9.3, hematocrit 30.4, and platelet count of 193,000. Sodium 138, potassium 4, chlorides 110, CO2 19, BUN 38, and creatinine 1.2. Blood cultures are currently negative. A chest x-ray shows changes of COPD, and a possible left-sided infiltrate. A computed tomography scan of the chest was ordered, along with a pro-calcitonin level. The patient's currently on Symbicort, Rocephin, DuoNeb nebs, and Solu-Medrol. The patient denies having any respiratory complaints at this time. Review of Systems REVIEW OF SYSTEMS: CONSTITUTIONAL: [Negative.] NEUROLOGIC: [ Negative.] HEENT: [ Negative.] CARDIAC: [Negative.] PULMONARY: Shortness of breath on admission. GI: [Negative.] : [Negative.] RHEUMATOLOGIC: [ Negative.] IMMUNOLOGIC: [ Negative.] ENDOCRINE: [Negative. ] DERMATOLOGIC: [Negative.] Past Medical History Past Medical History: Asthma, COPD, Dementia, Diabetes Mellitus, Diabetes Mellitus, GERD/Reflux, GI Bleed, Hearing Disorder / Deafness, Hyperlipidemia, Hypertension, Pneumonia, Prostate Disorder, Renal Disease, Renal Disease, Respiratory Disorder, Thyroid Disorder, Thyroid Disorder Additional Past Medical History / Comment(s): Home oxygen 4L/NC at HS, NIDDM type II/no longer on diabetic medications since bilateral leg amputations, (past L leg cellulitis/bacteremia/SIRs/encephalopathy/heel sores, osteomylitis and past bilateral lower extremity edema), CKD stage III, urinary retention/obstruction/utis, uti with bacteremia/chronic IDC, gout, hypothyroid, DJD, bilateral [place] [employer]/aide, severe constipation, pt had lower GI bleed/bowel resection with colostomy. History of Any Multi-Drug Resistant Organisms: MRSA, VRE Date of last positivie culture/infection: 05/22/23-VRE; 04/09/16 MRSA MDRO Source:: Urine-VRE; Right foot MRSA Past Surgical History: Back Surgery, Bowel Resection, Coronary Bypass/CABG, Heart Catheterization, Hernia Repair, Orthopedic Surgery Additional Past Surgical History / Comment(s): Bilateral AKA, transmetatarsal amputation L great toe, amputation 2nd L toe, L elbow injury with surgery, L arm renetta twice, 2003 CABG 5 vessel, R inguinal hernia repair. Past Anesthesia/Blood Transfusion Reactions: No Reported Reaction Additional Past Anesthesia/Blood Transfusion Reaction / Comment(s): Pt has received blood without reaction. Past Psychological History: Anxiety, Depression Additional Psychological History / Comment(s): Pt lives in his home. His daughter and grandson and grandson's girlfriend live with him. Family help him with his ADL's. Pt has a chairlift/wheelchair. Pt has a nurse come to the home once a month for mathew exchange, last done 09/22/23. Pt uses o2 at 4L/NC at night. Smoking Status: Current every day smoker Past Alcohol Use History: None Reported Additional Past Alcohol Use History / Comment(s): Pt started smoking in 1948. He is a cigar smoker. Past Drug Use History: None Reported - Past Family History Sister(s) Family Medical History: Cancer Mother Family Medical History: Diabetes Mellitus Additional Family Medical History / Comment(s): Pt remembers only that his mom was obese. Father History Unknown: Yes Medications and Allergies Home Medications Medication Instructions Recorded Confirmed Type Finasteride [Proscar] 5 mg PO DAILY 12/31/09/24/23 History Aspirin EC [Ecotrin Low Dose] 81 mg PO DAILY 05/13/16 09/24/23 History Isosorbide Mononitrate ER [Imdur] 60 mg PO DAILY 05/13/16 09/24/23 History Atorvastatin Calcium [Lipitor] 80 mg PO HS 12/18/18 09/24/23 History Donepezil [Aricept] 10 mg PO DAILY 12/18/18 09/24/23 History Memantine [Namenda] 10 mg PO BID 12/18/18 09/24/23 History Levothyroxine Sodium [Synthroid] 125 mcg PO DAILY 02/01/22 09/24/23 History Pantoprazole [Protonix] 40 mg PO DAILY 02/01/22 09/24/23 History Ferrous Sulfate [Iron (65 MG 325 mg PO DAILY #0 02/05/22 09/24/23 Rx Elemental)] Furosemide [Lasix] 20 mg PO DAILY #0 02/05/22 09/24/23 Rx Escitalopram [Lexapro] 10 mg PO DAILY 07/01/22 09/24/23 History Lanolin/Mineral Oil [Eucerin 1 applic TOPICAL DAILY PRN 05/22/23 09/24/23 History Original Lotion] Potassium Chloride ER [K-Dur 10] 10 meq PO DAILY 05/22/23 09/24/23 History Cholecalciferol [Vitamin D3 (25 100 mcg PO DAILY tab 05/25/23 09/24/23 Rx Mcg = 1000 Iu)] Mometasone/Formoterol [Dulera 100 2 puff INHALATION RT-BID 09/24/23 09/24/23 History Mcg-5 Mcg Inhaler] hydrALAZINE HCL [Apresoline] 25 mg PO TID 09/24/23 09/24/23 History Allergies Allergy/AdvReac Type Severity Reaction Status Date / Time Latex, Natural Rubber Allergy Unknown Verified 09/24/23 21:43 trazodone Allergy Anaphylaxis Verified 09/24/23 21:43 lisinopril AdvReac Cough Verified 09/24/23 21:43 tomato AdvReac edema Verified 09/24/23 21:43 Physical Exam Osteopathic Statement: *. No significant issues noted on an osteopathic structural exam other than those noted in the History and Physical/Consult. Vitals: Vital Signs Temp Pulse Pulse Resp BP BP Pulse Ox 09/27/23 13:53 98.3 F 94 18 106/63 96 09/27/23 11:51 72 09/27/23 11:42 68 09/27/23 08:10 64 09/27/23 08:00 60 09/27/23 07:12 98.1 F 60 16 156/76 97 09/27/23 01:16 97.8 F 57 L 18 140/69 95 09/26/23 19:43 97.9 F 76 19 125/64 96 09/26/23 18:25 62 09/26/23 18:13 64 Intake and Output 09/27/23 09/27/23 09/27/23 06:59 14:59 22:59 Output Total 925 500 Balance -925 -500 Output: Urine 700 500 Stool 225 No acute distress, oriented 3. Currently on room air. Very hard of hearing. Not a particularly good historian. HEENT examination is grossly unremarkable. Mucous membranes are moist. No oral lesions. Neck supple. Full range of motion. No adenopathy thyromegaly or neck vein distention. Cardiovascular examination reveals regular rhythm rate. S1-S2 normal. No S3 or S4. No discernible murmur noted. Heart sounds are distant. Heart rate 94 bpm. Lungs reveal mild scattered rhonchi. No wheezes or crackles. Breath sounds equal, but diminished throughout. Room air saturation is 96%. Abdomen soft bowel sounds are heard. No masses or tenderness. Extremities reveal bilateral lower extremity xnelw-roa-ojiy amputations. Skin is without rash or lesion. Neurologic examination is brief but nonfocal. Results - Laboratory Findings CBC and BMP: 09/27/23 06:05 09/27/23 06:05 PT/INR, D-dimer PT 10.5 sec (10.0-12.5) 09/24/23 18:06 INR 0.9 (<1.2) 09/24/23 18:06 Abnormal lab findings: Abnormal Labs 09/24/23 09/24/23 09/24/23 18:06 18:06 18:06 RBC 4.27 L Hgb 12.1 L Hct 37.4 L MCHC RDW Lymphocytes # 0.8 L APTT 19.6 L Chloride Carbon Dioxide BUN Creatinine Est GFR (CKD-EPI) BUN/Creatinine Ratio Glucose POC Glucose (mg/dL) Hemoglobin A1c Magnesium Total Bilirubin Alkaline Phosphatase Total Protein Albumin Urine Protein 1+ H Ur Leukocyte Esterase Large H Urine WBC 62 H Urine WBC Clumps Occasional H Urine Bacteria Rare H Urine Mucus Rare H Urine Yeast (Budding) Many H 09/24/23 09/25/23 09/25/23 18:06 16:48 21:02 RBC Hgb Hct MCHC RDW Lymphocytes # APTT Chloride 108 H Carbon Dioxide 19 L BUN 39 H Creatinine 1.51 H Est GFR (CKD-EPI) BUN/Creatinine Ratio Glucose 111 H POC Glucose (mg/dL) 135 H 149 H Hemoglobin A1c Magnesium 2.4 H Total Bilirubin Alkaline Phosphatase 133 H Total Protein Albumin Urine Protein Ur Leukocyte Esterase Urine WBC Urine WBC Clumps Urine Bacteria Urine Mucus Urine Yeast (Budding) 09/26/23 09/26/23 09/26/23 06:50 12:58 16:33 RBC Hgb Hct MCHC RDW Lymphocytes # APTT Chloride Carbon Dioxide BUN Creatinine Est GFR (CKD-EPI) BUN/Creatinine Ratio Glucose POC Glucose (mg/dL) 120 H 207 H Hemoglobin A1c 6.1 H Magnesium Total Bilirubin Alkaline Phosphatase Total Protein Albumin Urine Protein Ur Leukocyte Esterase Urine WBC Urine WBC Clumps Urine Bacteria Urine Mucus Urine Yeast (Budding) 09/26/23 09/27/23 09/27/23 20:22 06:05 06:05 RBC 3.44 L Hgb 9.3 L Hct 30.4 L MCHC 30.6 L RDW 14.6 H Lymphocytes # APTT Chloride 110 H Carbon Dioxide 18.8 L BUN 37.7 H Creatinine Est GFR (CKD-EPI) 58 L BUN/Creatinine Ratio 31.42 H Glucose 123 H POC Glucose (mg/dL) 238 H Hemoglobin A1c Magnesium Total Bilirubin <0.2 L Alkaline Phosphatase Total Protein 5.0 L Albumin 3.2 L Urine Protein Ur Leukocyte Esterase Urine WBC Urine WBC Clumps Urine Bacteria Urine Mucus Urine Yeast (Budding) 09/27/23 09/27/23 07:10 12:00 RBC Hgb Hct MCHC RDW Lymphocytes # APTT Chloride Carbon Dioxide BUN Creatinine Est GFR (CKD-EPI) BUN/Creatinine Ratio Glucose POC Glucose (mg/dL) 123 H 160 H Hemoglobin A1c Magnesium Total Bilirubin Alkaline Phosphatase Total Protein Albumin Urine Protein Ur Leukocyte Esterase Urine WBC Urine WBC Clumps Urine Bacteria Urine Mucus Urine Yeast (Budding) - Diagnostic Findings Chest x-ray: image reviewed CT scan - chest: image reviewed Assessment and Plan Assessment: Acute exacerbation of COPD, now much improved. Chronic hypoxemic respiratory failure. Chest x-ray, suggesting left-sided pneumonia, versus mass. Prior history of five-vessel bypass grafting. Ongoing tobacco use with nicotine addiction. History of diabetes mellitus. History of hypertension. History of hyperlipidemia. History of hypothyroidism. Bilateral lower extremity [id number] amputations. History of osteomyelitis. Stage III chronic kidney disease. Multiple other medical problems and comorbidities. Plan: Plan dated 09/27/2023. A chest CT, was ordered, to better evaluate the infiltrate, versus mass, and the left upper lobe. Also, a pro-calcitonin level was ordered, to determine whether or not the lesion noted in the left lung, was actually infectious or not. The patient really denies any pulmonary complaints at this time, including shortness of breath, cough, phlegm production, etc. The patient does continue to smoke on a regular basis. The patient continues on Symbicort, updrafts, Solu-Medrol, and Rocephin. Additional recommendations and suggestions are forthcoming, once the computed tomography scan is reviewed. Time with Patient: Greater than 30
[2023-09-27 17:44] LABS: Glucose,Whole Blood 342 mg/dL (70-110)
[2023-09-27 20:36] LABS: Glucose,Whole Blood 261 mg/dL (70-110)
[2023-09-27] MEDS: ATORVASTATIN 80 MG TAB PO SCH (20:58)
[2023-09-28] MEDS: methylPREDNISolone SOD SUCCI 125 MG/2 ML VIAL IV SCH ×2 (03:18→09:34)
[2023-09-28] MEDS: LEVOTHYROXINE 125 MCG TAB PO SCH (05:41)
[2023-09-28 07:15] LABS: Glucose,Whole Blood 185 mg/dL (70-110)
[2023-09-28] MEDS: IPRATROPIUM-ALBUTEROL 3 ML NEB INHALATION SCH ×2 (07:57→11:33)
[2023-09-28] MEDS: SYMBICORT 80-4.5 MCG INHALER INHALATION SCH (07:58)
[2023-09-28] MEDS: INSULIN ASPART (NovoLOG) 100 UNIT/ML VIAL SQ SCH ×2 (09:14→13:22)
[2023-09-28] MEDS: CHOLECALCIFEROL 25 MCG (1000 IU) TABLET PO SCH (09:14)
[2023-09-28] MEDS: hydrALAZINE HCL 25 MG TAB PO SCH (09:14)
[2023-09-28] MEDS: MEMANTINE 10 MG TAB PO SCH (09:14)
[2023-09-28] MEDS: ASPIRIN 81 MG PO SCH (09:14)
[2023-09-28] MEDS: NICOTINE 21MG/24HR PATCH TRANSDERM SCH (09:14)
--- NOTE | 2023-09-28 09:14 | CT ---
EXAMINATION TYPE: CT chest w con CT DLP: 503.40 mGycm, Automated exposure control for dose reduction was used. DATE OF EXAM: 09/27/2023 2:48 PM COMPARISON: Chest x-ray 09/25/2023 . CLINICAL INDICATION:Male, 88 years old with history of Abnornal CXR; PHH, Abnormal cxr TECHNIQUE: Multiple axial images were obtained through the chest. Sagittal and coronal reformats were created for review. Contrast used:80 mL of Isovue 300 with IV Contrast (None if empty) Oral contrast used: (None if empty) FINDINGS: LUNGS/ PLEURA: Relatively lower attenuation masslike density in the left hilar/suprahilar region abut ting the left main pulmonary artery with associated cut off appearance of the proximal left upper lob e bronchus. Maximal axial dimensions are about 3.9 x 2.8 cm image 24 series 3. Additional somewhat ma sslike opacity extending peripherally along the upper end of the oblique fissure, axially measures up to 4 x 2.5 cm. Mild groundglass and tiny nodular appearance of the adjacent lung. Dependent atelecta tic changes in the left lower lobe. Some areas here have a vague groundglass nodular appearance up to 7 mm in size, some are indicated on PACS. Right lung shows no evidence of mass. Small calcified gran uloma in the superior right lower lobe. Mild dependent atelectasis. Scattered interstitial mild thickening/scarring throughout both lungs. There may be trace pleural eff usions. No pneumothorax. AIRWAY: Trachea and larger right-sided bronchi appear patent. Left mainstem bronchus is patent. Cut o ff appearance of the proximal left upper lobe bronchus discussed above. Mild narrowing of the proxima l left lower lobe bronchus. LOWER NECK: No significant findings. What appears to be the thyroid is rather small. MEDIASTINUM: Nonenlarged lymph nodes are seen without clear evidence of enlarged mediastinal nodes. N o right hilar adenopathy is seen. Postop changes may be from CABG correlate clinically. HEART: Mild cardiomegaly. Severe coronary artery calcification and/or stents. No appreciable pericard ial effusion. VASCULATURE: Moderate to severe atherosclerotic calcifications of the aorta and branches. Radiodensi ties likely aortic valve calcifications. Aorta is moderately tortuous. Ascending aorta is 3.8 CM, arc h is 3.4 cm, descending is up to 3.5 CM. Aorta is considered ectatic. No dissection flap is seen. Pu lmonary trunk measures 3.1 CM. The pulmonary trunk is mildly enlarged (>3cm), this can be seen with p ulmonary hypertension. Grossly preserved enhancement of the pulmonary arteries, in the limits of non- CTA exam. SOFT TISSUES/LYMPH NODES: Mild body wall edema. No enlarged axillary nodes. UPPER ABDOMEN: Mildly thickened and nodular adrenals, may represent hyperplasia and/or adenomatoid ch anges. Kidneys appear mildly to moderately atrophic with some cortical thinning. Small left renal hyp odensity favored to be a cyst. MUSCULOSKELETAL: Osseous mineralization is diminished. Moderate multilevel degenerative disk disease throughout the imaged spine. Mild loss of height of multiple vertebral bodies appear relatively corti cated without discrete fracture lucency seen, favored to be chronic. Remote healed left rib fracture deformities, as well as some remote unhealed, nonunited fracture deformities with mild residual displ acement; the latter includes the posterior left 10th and ninth ribs. Multiple sternal wires are seen transfixing a persistent nonunited sternal defect with corticated margins. Several wires are broken w ith mild displacement. IMPRESSION: 1. Masslike 4 cm density in the left hilar/suprahilar region concerning for neoplasm. There is assoc iated cutoff appearance of the proximal left upper lobe bronchus. Bronchoscopy should be considered f or further evaluation. 2. Additional opacity peripheral to #1, may represent atelectasis, tumor, or combination thereof. 3. Mild bibasilar atelectasis. Slightly nodular groundglass areas in amongst this on the left, could represent microatelectatic changes, infection/inflammation, possibly neoplastic nodules. This be chidi ssessed on follow-up. 4. Moderate to severe atherosclerotic calcifications of the aorta and branches, including the mejia ry arteries. Mild cardiomegaly. Possible post CABG changes. 5. The pulmonary trunk is mildly enlarged (>3cm), this can be seen with pulmonary hypertension. 6. Multiple other chronic and likely incidental findings as discussed above.
[2023-09-28] MEDS: POTASSIUM CHLORIDE ER 10 MEQ TAB.ER.PRT PO SCH (09:15)
[2023-09-28] MEDS: ISOSORBIDE MONONITRATE ER 60 MG TAB.ER.24H PO SCH (09:15)
[2023-09-28] MEDS: PANTOPRAZOLE 40 MG TABLET PO SCH (09:15)
[2023-09-28] MEDS: DONEPEZIL 10 MG TAB PO SCH (09:15)
[2023-09-28] MEDS: FERROUS SULFATE 325 MG TAB PO SCH (09:15)
[2023-09-28] MEDS: FINASTERIDE 5 MG TAB PO SCH (09:15)
[2023-09-28] MEDS: ENOXAPARIN 30 MG/0.3 ML SYRINGE SQ SCH (09:15)
[2023-09-28] MEDS: ESCITALOPRAM 10 MG TAB PO SCH (09:15)
--- NOTE | 2023-09-28 10:00 | P.DS ---
Providers Date of admission: 09/24/23 22:23 Expected date of discharge: 09/28/23 Attending physician: Socorro Rodriguez MD Consults: 09/26/23 16:26 Consult Physician Routine Consulting Provider: Julián White Consult Reason/Comments: Community-acquired pneumonia, COPD exacerbation Do you want consulting provider notified?: Yes Primary care physician: [facility] Hospital Course: Discharge Diagnosis: Patient is being discharged home into the care of his daughter along with [facility] secondary to end-stage COPD with lung mass highly suspicious for cancer, however patient was previously seen by oncologist and secondary to patient's poor performance status and multiple comorbid conditions including advanced dementia, patient's daughter made the decision not to go through with testing to confirm diagnosis of lung cancer and therefore diagnosis cannot be made only highly suspected. Acute on chronic hypoxic respiratory failure Acute COPD exacerbation Left upper lobe pneumonia Advanced dementia Hypertension Hyperlipidemia Stage IIIB chronic kidney disease Anemia of chronic disease, secondary to kidney disease Hypothyroidism [id number] Diabetes mellitus Ostomy Chronic Hdz catheter, present on admission Hospital Course: Patient is a very pleasant 88-year-old male with a history of type 2 jto-ijgzvdr-gogscivqg diabetes, COPD, chronic hypoxic respiratory failure home oxygen dependent on 2 L, advanced dementia, hypertension, dyslipidemia, chronic kidney disease stage III, hypothyroidism, and bilateral lower extremity above- knee amputations. He presented to the emergency department on 09/24/23 with complaints of lethargy and weakness. Patient is a poor historian. He was noted to be wheezing and hypoxic per ED assessment. Chest x-ray showed focal left upper lobe opacity, and also a large area of bone loss mid humeral shaft on the left. Respiratory viral panel negative. Laboratory workup remarkable for creatinine of 1.51, positive leukocyte esterase, negative nitrites. Patient admitted for acute on chronic hypoxic respiratory failure with acute COPD exacerbation along with concerns of community-acquired pneumonia, started on IV antibiotics. Consult placed to pulmonology. Patient completed 3 day course of azithromycin and 5 day course of IV antibiotics with Rocephin for treatment of likely postobstructive pneumonia secondary to large left lung mass. Computed tomography scan was ordered by marble cleaner which revealed a masslike 4 cm density in the left hilar/suprahilar region concerning for neoplastic with associated cut off appearance of the proximal left upper lobe bronchus along with slightly nodular groundglass areas and amongst left lung possibly representing micro-atelectatic changes versus infection/inflammation versus possible neoplastic nodules, moderate to severe atherosclerotic calcifications of the aorta and branches including the coronary arteries, mild cardiomegaly, enlarged pulmonary trunk greater than 3 cm as seen with pulmonary hypertension. Patient's daughter had an informational meeting with [facility] and per case management, patient's daughter has signed on with hospice and requesting her father be discharged home on hospice into her care along with [facility]. Patient is appropriate for hospice secondary to his advanced end-stage COPD along with lung mass highly suspicious for cancer. Physical exam: Vital signs reviewed and stable. General: Nontoxic, chronically ill-appearing. Derm: Skin warm and dry, normal coloration for ethnicity. Head: Atraumatic, normocephalic and symmetric. Eyes: EOMs intact, no lid lag, and anicteric sclera Mouth: no lip lesions, mucus membranes moist Cardiovascular: regular rate and rhythm with normal S1S2, systolic murmur Lungs: Respirations even, regular, and unlabored on room air. Lungs CTA bilaterally, no rhonchi, no rales, no wheezing, and no accessory muscle usage. Abdominal: soft, nontender to palpation, no guarding, no appreciable organomegaly. Ostomy in place. Hdz catheter in place. Ext: Bilateral lower extremity above-knee amputations Neuro: Speech clear, face symmetrical. GCS 14. Psych: Alert and oriented to person and place only, poor historian. A total of 38 minutes of time were spent preparing this complex discharge summary. Pt was discharged on 09/28/23 at 9:56 AM Patient was seen independently by Nurse Practitioner. This document was prepared using [employer] dictation software. Please allow for errors in composition teacher while rare they do occur. Tr Horn NP rendered care for this patient independently, reviewed the findings and plan as documented in the note above. I did not physically speak with or examine the patient on this date. Patient Condition at Discharge: Poor Plan - Discharge Summary New Discharge Prescriptions: No Action Finasteride [Proscar] 5 mg PO DAILY Aspirin EC [Ecotrin Low Dose] 81 mg PO DAILY Isosorbide Mononitrate ER [Imdur] 60 mg PO DAILY Memantine [Namenda] 10 mg PO BID Donepezil [Aricept] 10 mg PO DAILY Atorvastatin Calcium [Lipitor] 80 mg PO HS Levothyroxine Sodium [Synthroid] 125 mcg PO DAILY Ferrous Sulfate [Iron (65 MG Elemental)] 325 mg PO DAILY #0 Furosemide [Lasix] 20 mg PO DAILY #0 Lanolin/Mineral Oil [Eucerin Original Lotion] 1 applic TOPICAL DAILY PRN PRN Reason: Dry Skin Cholecalciferol [Vitamin D3 (25 Mcg = 1000 Iu)] 100 mcg PO DAILY tab hydrALAZINE HCL [Apresoline] 25 mg PO TID Pantoprazole [Protonix] 40 mg PO DAILY Escitalopram [Lexapro] 10 mg PO DAILY Potassium Chloride ER [K-Dur 10] 10 meq PO DAILY Mometasone/Formoterol [Dulera 100 Mcg-5 Mcg Inhaler] 2 puff INHALATION RT-BID Discharge Medication List Finasteride [Proscar] 5 mg PO DAILY 01/01/16 [History] Aspirin EC [Ecotrin Low Dose] 81 mg PO DAILY 05/13/16 [History] Isosorbide Mononitrate ER [Imdur] 60 mg PO DAILY 05/13/16 [History] Atorvastatin Calcium [Lipitor] 80 mg PO HS 12/18/18 [History] Donepezil [Aricept] 10 mg PO DAILY 12/18/18 [History] Memantine [Namenda] 10 mg PO BID 12/18/18 [History] Levothyroxine Sodium [Synthroid] 125 mcg PO DAILY 02/01/22 [History] Pantoprazole [Protonix] 40 mg PO DAILY 02/01/22 [History] Ferrous Sulfate [Iron (65 MG Elemental)] 325 mg PO DAILY #0 02/05/22 [Rx] Furosemide [Lasix] 20 mg PO DAILY #0 02/05/22 [Rx] Escitalopram [Lexapro] 10 mg PO DAILY 07/01/22 [History] Lanolin/Mineral Oil [Eucerin Original Lotion] 1 applic TOPICAL DAILY PRN 05/22/23 [History] Potassium Chloride ER [K-Dur 10] 10 meq PO DAILY 05/22/23 [History] Cholecalciferol [Vitamin D3 (25 Mcg = 1000 Iu)] 100 mcg PO DAILY tab 05/25/23 [Rx] Mometasone/Formoterol [Dulera 100 Mcg-5 Mcg Inhaler] 2 puff INHALATION RT-BID 09/24/23 [History] hydrALAZINE HCL [Apresoline] 25 mg PO TID 09/24/23 [History] Follow up Appointment(s)/Referral(s): [facility] [REFERRING] - 1-2 Days Patient Instructions/Handouts: Dementia (GEN), Pneumonia (DC) Activity/Diet/Wound Care/Special Instructions: Activity: Patient requires total care, being discharged home into care of daughter and home hospice with [facility] Diet: Comfort feeds Special Instructions: Home medications to be determined by [facility] hospice and family's choice. Thank you for allowing us to participate in your care, it was truly a pleasure having you for our patient!!! Discharge Disposition: HOME WITH HOSPICE
[2023-09-28 12:26] LABS: Glucose,Whole Blood 293 mg/dL (70-110)
[2023-09-28 12:39] VITALS: BP 149/67; PULSE 93; RESP 16; TEMP 98.7
--- NOTE | 2023-09-28 14:26 | P.PN ---
Subjective Progress Note Date: 09/28/23 88-year-old male who presented to the emergency department, on 09/24/2023, complaining of shortness of breath. The patient is a very poor historian, and extremely hard of hearing. Most of the history is obtained from the ER clover, and other notes by other physicians. This patient has a history of diabetes, COPD, chronic hypoxemic respiratory failure, bilateral [id number] amputations, who is brought into the ER for shortness of breath. He apparently was initially very somnolent, and fell asleep while eating his food, face first into his food. Today, the patient sitting up in bed, he is quite alert and awake. The patient is currently not on any oxygen. He's not receiving any IV fluids. We were consulted for a possible pneumonia, only today. The patient has been in the hospital now for 3 days. Laboratory data includes a white count of 7.3, hemoglobin 9.3, hematocrit 30.4, and platelet count of 193,000. Sodium 138, potassium 4, chlorides 110, CO2 19, BUN 38, and creatinine 1.2. Blood cultures are currently negative. A chest x-ray shows changes of COPD, and a possible left-sided infiltrate. A computed tomography scan of the chest was ordered, along with a pro-calcitonin level. The patient's currently on Symbicort, Rocephin, DuoNeb nebs, and Solu-Medrol. The patient denies having any respiratory complaints at this time. The patient is seen today 09/28/2023 in follow-up on the regular medical floor. He is currently sitting up in bed. Awake and alert in no acute distress. He is maintaining O2 saturation the mid 90s on room air. He's been afebrile. Hemodynamically stable. Computed tomography scan of the chest reveals a masslike 4 cm density in the left hilar/suprahilar region concerning for neoplasm. Additionally opacities noted in the left lung. Suspect at electasis/tumor combination of. Mild basilar atelectasis. Slight nodular groundglass areas mostly on the left. Blood cultures revealed no growth. Glucose 185. He remains on bronchodilators, steroids, antibiotics in the form of ceftriaxone. Lovenox for DVT prophylaxis. NicoDerm patch in place. Objective - Vital Signs Vital signs: Vital Signs Temp 98.7 F 09/28/23 12:04 Pulse 93 09/28/23 12:04 Resp 16 09/28/23 12:04 BP 149/67 09/28/23 12:04 Pulse Ox 95 09/28/23 12:04 FiO2 21 09/28/23 11:34 Intake & Output 09/27/23 09/28/23 09/28/23 18:59 06:59 18:59 Output Total 775 1000 650 Balance -775 -1000 -650 Output: Urine 775 750 600 Stool 250 50 Other: Voiding Method Indwelling Catheter Indwelling Catheter - Exam GENERAL EXAM: Alert, very hard of hearing, confused 88-year-old male, on room air, comfortable in no apparent distress. HEAD: Normocephalic. EYES: Normal reaction of pupils, equal size. NOSE: Clear with pink turbinates. THROAT: No erythema or exudates. NECK: No masses, no JVD. CHEST: No chest wall deformity. LUNGS: Equal air entry with few scattered rhonchi. CVS: S1 and S2 normal with no audible murmur, regular rhythm. ABDOMEN: No hepatosplenomegaly, normal bowel sounds, no guarding or rigidity. SPINE: No scoliosis or deformity SKIN: No rashes CENTRAL NERVOUS SYSTEM: No focal deficits, tone is normal in all 4 extremities. EXTREMITIES: There is no peripheral edema. No clubbing, no cyanosis. Peripheral pulses are intact. - Labs CBC & Chem 7: 09/27/23 06:05 09/27/23 06:05 Labs: Abnormal Lab Results - Last 24 Hours (Table) 09/27/23 09/27/23 09/28/23 Range/Units 17:43 20:33 07:07 POC Glucose (mg/dL) 342 H 261 H 185 H (70-110) mg/dL 09/28/23 Range/Units 12:07 POC Glucose (mg/dL) 293 H (70-110) mg/dL Microbiology - Last 24 Hours (Table) 09/24/23 18:25 Blood Culture - Preliminary Blood 09/24/23 18:10 Blood Culture - Preliminary Blood Assessment and Plan Assessment: Acute exacerbation of COPD, improved. Chronic hypoxemic respiratory failure. Chest x-ray, suggesting left-sided pneumonia, versus mass. Prior history of five-vessel bypass grafting. Ongoing tobacco use with nicotine addiction. History of diabetes mellitus. History of hypertension. History of hyperlipidemia. History of hypothyroidism. Bilateral lower extremity [id number] amputations. History of osteomyelitis. Stage III chronic kidney disease. Multiple other medical problems and comorbidities. Plan: The patient was seen and evaluated CAT scan of the chest, labs and medications reviewed Currently stable and on room air Continue bronchodilators, antibiotics, prednisone taper for now The patient is now being considered for home with hospice This patient was seen independently by the pulmonary nurse practitioner addressing the pulmonary issues I have personally seen and examined the patient, performed the documentation and the assessment and plan as written. Number of minutes spent on the visit: 23.
== END 2023-09-28 15:39 | disposition hospice, home (50) | DRG 193 ==
LOC: EC 17:37 → 5NMEDONC 22:22 → OBSVTOIN 22:23 → 5NMEDONC 09-25 19:57
PROVIDERS: ADMIT Internal Medicine; ATTEND Internal Medicine
DX: J18.9 Pneumonia, unspecified organism (principal); J96.21 Acute and chronic respiratory failure with hypoxia; F03.93 Unspecified dementia, unspecified severity, with mood disturbance; J44.0 Chronic obstructive pulmonary disease with (acute) lower respiratory infection; J44.1 Chronic obstructive pulmonary disease with (acute) exacerbation; J45.901 Unspecified asthma with (acute) exacerbation; F03.94 Unspecified dementia, unspecified severity, with anxiety; J98.11 Atelectasis; Z68.42 Body mass index [BMI] 45.0-49.9, adult; D63.1 Anemia in chronic kidney disease; E11.22 Type 2 diabetes mellitus with diabetic chronic kidney disease; E86.0 Dehydration; R62.7 Adult failure to thrive; Z89.611 Acquired absence of right leg above knee; Z89.612 Acquired absence of left leg above knee; N18.32 Chronic kidney disease, stage 3b; Z28.310 Unvaccinated for COVID-19; I12.9 Hypertensive chronic kidney disease with stage 1 through stage 4 chronic kidney disease, or unspecified chronic kidney disease; I25.84 Coronary atherosclerosis due to calcified coronary lesion; I25.10 Atherosclerotic heart disease of native coronary artery without angina pectoris; E03.9 Hypothyroidism, unspecified; E78.5 Hyperlipidemia, unspecified; E87.8 Other disorders of electrolyte and fluid balance, not elsewhere classified; H91.90 Unspecified hearing loss, unspecified ear; M84.422G Pathological fracture, left humerus, subsequent encounter for fracture with delayed healing; K21.9 Gastro-esophageal reflux disease without esophagitis; I45.9 Conduction disorder, unspecified; N42.9 Disorder of prostate, unspecified; F17.200 Nicotine dependence, unspecified, uncomplicated; Z99.81 Dependence on supplemental oxygen; Z79.82 Long term (current) use of aspirin; Z79.890 Hormone replacement therapy; Z79.51 Long term (current) use of inhaled steroids; Z79.899 Other long term (current) drug therapy; Z95.1 Presence of aortocoronary bypass graft; Z95.5 Presence of coronary angioplasty implant and graft; Z86.14 Personal history of Methicillin resistant Staphylococcus aureus infection; Z86.19 Personal history of other infectious and parasitic diseases; Z88.8 Allergy status to other drugs, medicaments and biological substances; Z91.040 Latex allergy status
CPT/HCPCS: 36415; 51702; 71045; 71046; 71260; 80053; 81001; 82550; 83036; 83605; 83735; 83880; 84145; 84484; 85025; 85027; 85610; 85730; 87040; 87449; 87636; 93005; 94640; 94760; 96361; 96365; 96366; 96368; 96372; 96375; 96376; 99285